=== PATIENT | female | born 1960 | race Caucasian/White ===

== ENCOUNTER 2022-09-20 09:41 | Outpatient (CLI) | payer MEDICAID, SELFPAY ==
--- NOTE | 2022-09-20 09:58 | USCV_ITS ---
Nadine Esquivel Age: 62 Gender: F : 1960 Exam Date: 09/20/2022 10:28 Ordering Phys: Adriana Poe HEEL LIFT GOUGER Technologist: Price Bennett [place] [facility] [place]: dyspnea BP: 130 / 84 HR: 83 Rhythm: Sinus Technical Quality: Adequate MEASUREMENTS (Male / Female) Normal Values 2D ECHO LV Diastolic Diameter PLAX 5.6 cm 4.2 - 5.9 / 3.9 - 5.3 cm LV Systolic Diameter PLAX 4.2 cm IVS Diastolic Thickness 1.3 cm 0.6 - 1.0 / 0.6 - 0.9 cm IVS Systolic Thickness 1.7 cm LVPW Diastolic Thickness 1.5 cm 0.6 - 1.0 / 0.6 - 0.9 cm LVPW Systolic Thickness 1.5 cm LVOT Diameter 2.0 cm LV Ejection Fraction 2D Teich 49.9 % LV Ejection Fraction MOD 2C 47.2 % LV Ejection Fraction 2C AL 46.2 % LA Diameter 3.7 cm LA Width 3.1 cm LA Height 4.9 cm RA Width 3.5 cm RA Height 4.8 cm Aorta at Sinotubular Diameter 2.4 cm IVC Diameter 1.8 cm M-MODE Aortic Annulus Diameter 2.8 cm LA Ao Ratio MM 1.3 MV E Point Septal Separation 1.4 cm DOPPLER AV Peak Velocity 151.0 cm/s LVOT Peak Velocity 110.0 cm/s AV Area Cont Eq vti 2.2 cm squared AV Area Cont Eq pk 2.4 cm squared MV Peak Velocity 181.0 cm/s MV Area PHT 5.0 cm squared Mitral E to A Ratio 0.7 MV E' Velocity 41.5 cm/s Mitral E to MV E' Ratio 18.6 Mitral E to LV E' Lateral Ratio 16.9 Mitral E to LV E' Septal Ratio 21.1 TR Peak Velocity 261.0 cm/s TR Peak Gradient 27.2 mmHg TR Mean Velocity 219.9 cm/s TR Mean Gradient 20.0 mmHg TR Velocity Time Integral 60.3 cm Right Atrial Pressure 3.0 mmHg Pulmonary Artery Systolic Pressu 30.2 mmHg PV Peak Velocity 139.0 cm/s RV Acceleration Time 0.1 s RV Ejection Time 0.2 s RV AcT/ET 0.3 FINDINGS Left Ventricle Left ventricle is normal in size. LV systolic function is normal with EF of 50 to 55%. No regional wall motion abnormalities are seen. Grade 1 diastolic dysfunction. Right Ventricle Normal in size and function Right Atrium Normal in size Left Atrium Normal in size Mitral Valve Structurally normal mitral valve. Trace mitral regurgitation. Aortic Valve Structurally normal aortic valve. No significant stenosis or regurgitation seen. Tricuspid Valve Mild tricuspid regurgitation. Pulmonary artery systolic pressure is normal. Pulmonic Valve Not well-visualized Pericardium Normal Aorta Normal in size IVC Appears to be normal CONCLUSIONS LV systolic function is normal with EF of 50 to 55% Grade 1 diastolic dysfunction Trace mitral regurgitation Mild tricuspid regurgitation No comparison studies are available Juancho Yee MD (Electronically Signed) Final Date: 22 September 2022 20:42 S
== END 2022-09-20 09:42 | disposition home or self-care (01) ==
LOC: RAD 09:45
PROVIDERS: PCP Nurse Practitioner Family; Visit Provider Nurse Practitioner Family
DX: R06.00 Dyspnea, unspecified (principal)
CPT/HCPCS: 93306

== ENCOUNTER 2023-05-24 10:33 | Outpatient (CLI) | payer MEDICAID, SELFPAY ==
--- NOTE | 2023-05-24 | ECG_ITS ---
[facility] Test Date: 2023-05-24 Pat Name: Nadine Esquivel Department: Room: Gender: Female Human Resources Generalist: Devonte Ingram : 1960 Requested By: Nirmala Geller Order Number: [id number] Isidra MD: Nirmala Geller M.D. Interpretive Statements NAME OF STUDY: LEXISCAN SESTAMIBI STRESS TEST INDICATION: Dyspnea on Exertion PROCEDURE: At the baseline, the blood pressure was 159/100 mmHg, oxygen saturation 95% with a heart rate of 63 beats per min. The electrocardiogram showed sinus rhythm, normal axis. Possible old inferior infarct. Nonspecific T wave changes. The Lexiscan was infused over a period of 20 seconds. A total of 0.4 milligrams of Lexiscan was infused. The stress phase was continued for a total of 5 minutes. Heart rate at the end of the stress phase was 72 bpm, oxygen saturation 94% with a blood pressure 157/108 mmHg. The EKG at the peak infusion revealed no significant ST-T wave changes. Sestamibi was injected 20 seconds after the Lexiscan infusion. Blood pressure at the end of the recovery phase was 170/97 mmHg, oxygen saturation 94% with a heart rate of 69 beats per minute. CONCLUSION: 1. No significant EKG changes with the LexiScan infusion. 2. No LexiScan induced chest pain or cardiac arrhythmia. 3. Normal blood pressure and heart rate response. 4. Sestamibi/sestamibi perfusion scan pending; see separate report. Electronically Signed On 05-29-2023 11:00:44 CDT by Nirmala Geller M.D. [id number]
[2023-05-24 11:14] VITALS: BMI 37.5
--- NOTE | 2023-05-24 11:14 | NMCV_ITS ---
NM terese perf SPECT r/s* [id number] Nadine Esquivel Age: 63 Gender: F : 1960 Exam Date: 05/24/2023 12:02 Ordering Phys: Nirmala Geller MD ([email or web address]) Technologist: FRANCES Londono Exam Location: [facility] Indications: SHORTNESS OF BREATH STRESS TEST Please see separate stress test report in [facility] for full findings IMAGE PROTOCOL Rest/Stress 1 Lexiscan Day Radiopharmaceutical Dose (mCi) Administration Site Administered by Rest: Tc-99m 11.0 IV FRANCES Cueva Sestamibi Stress:Tc-99m 33.0 IV FRANCES Londono Sestamigera Rest: 24-May-2023 60 Discovery 630 Stress: 24-May-2023 30 Discovery 630 0.4mg Lexiscan. Supine position only as patient was unable to lay prone. SPECT RESULTS Technical Quality: Excellent Raw Data Analysis: Normal Image Corrections: No attenuation or motion correction applied Summed Stress Score: 2 Summed Rest Score: 1 Summed Difference Score: 1 PERFUSION FINDINGS SPECT images demonstrate homogeneous tracer distribution throughout the myocardium. FUNCTIONAL RESULTS (calculated via Gated SPECT) Stress Image LV EF (%): 63 Stress EDV (mL):119 TID: 1.01 Stress ESV (mL):44 FUNCTIONAL FINDINGS: The left ventricle is normal in size. Transient Ischemia Dilatation of 1. The left ventricular ejection fraction is normal with a value of 63%. There is normal left ventricular wall thickening. Normal end-diastolic end-systolic volumes. IMPRESSIONS 1. Myocardial perfusion imaging is normal. 2. Overall left ventricular systolic function is normal without regional wall motion abnormalities, LVEF=63%. 3. EKG Portion of the study will be reported separately. 4. Scan indicates low risk for cardiac events. Nirmala Geller MD (Electronically Signed) Final Date: 29 May 2023 10:51 S
[2023-05-24] MEDS: regadenoson 0.4 Mg/5 ml Syringe IVP (13:06)
[2023-05-24 13:19] VITALS: BP 170/97; PULSE 69
== END 2023-05-24 10:34 | disposition home or self-care (01) ==
LOC: CDL 10:34
PROVIDERS: PCP Nurse Practitioner Family; Visit Provider Internal Medicine Cardiovascular Disease
DX: R06.09 Other forms of dyspnea (principal)
CPT/HCPCS: 36415; 78452; 93017; 96374; A9500; J2785

== ENCOUNTER 2023-07-19 09:53 | Outpatient (CLI) | payer MEDICAID, SELFPAY ==
--- NOTE | 2023-07-19 10:00 | CT_ITS ---
WS: [id number] LDCT LUNG CANCER SCREENING TECHNIQUE: Noncontrast CT of the chest with coronal and sagittal reformatted images. CLINICAL INFORMATION: NICOTINE DEPENDENCE, CIGARETTES COMPARISON: None. DLP: 178.49 mGy.cm DIvol: Mean CTDIvol: 4.40 (mGy) All CT scans at [facility] use at least one of these dose optimization techniques: automat ed exposure control; mA and/or kV adjustment per patient size (includes targeted exams where dose is matched to clinical indication); or iterative reconstruction. FINDINGS: 4 mm noncalcified nodule RIGHT upper lobe. Few calcified granulomas. Normal caliber thoracic aorta. Aortic calcification. No mediastinal or hilar lymphadenopathy. No axil sathya lymphadenopathy. Adrenal glands are normal. Small esophageal hernia. IMPRESSION: CT/CT lung screening [id number] LUNG-RADS: 2-Benign Appearance or Behavior FOLLOW UP: 12 Month: Continue annual screening with LDCT
--- NOTE | 2023-07-19 10:00 | US_ITS ---
WS: [id number] Complete ABDOMINAL ULTRASOUND HISTORY: TYPE 2 DM W/O COMPLICATION/EVAL FATTY LIVER OR CIRRHOSIS COMPARISON: None available. Liver: 17.8 cm in length. Mildly enlarged liver. Coarse echotexture. No mass or bile duct dilatation. Portal Vein: Normal hepatopetal flow with monophasic waveform. Gallbladder: Normally distended gallbladder with no stones or wall thickening. CBD: 0.5 cm Pancreas: Partially obscured. Head and tail are not visualized. The body is normal. Right kidney: 10.1 cm x 5.0 x 4.1 cm. Cortex:1.0 cm. Normal size and echogenicity. No hydronephrosis or mass. Left kidney: 10.4 cm x 4.8 cm x 5.4 cm. Cortex: 1.1 cm. Normal size and echogenicity. No hydronephrosis or mass. Spleen: Normal. Aorta and IVC: Unremarkable abdominal aorta and IVC. Impression: 1. Mild hepatomegaly and hepatic steatosis. 2. Normal gallbladder. 3. Normal kidneys. No obstruction.
== END 2023-07-19 09:54 | disposition home or self-care (01) ==
LOC: RAD 09:53
PROVIDERS: PCP Nurse Practitioner Family; Visit Provider Nurse Practitioner Family
DX: Z12.2 Encounter for screening for malignant neoplasm of respiratory organs (principal); F17.210 Nicotine dependence, cigarettes, uncomplicated; E11.9 Type 2 diabetes mellitus without complications; K76.0 Fatty (change of) liver, not elsewhere classified; R16.0 Hepatomegaly, not elsewhere classified
CPT/HCPCS: 71271; 76700

== ENCOUNTER → 2024-02-25 13:27 | Outpatient (BNVA) | payer MEDICAID, SELFPAY | PROVIDERS: PCP Nurse Practitioner Family; Referring Provider Nurse Practitioner Family; Visit Provider Physician Assistant | DX: S52.501A Unspecified fracture of the lower end of right radius, initial encounter for closed fracture; W17.89XA Other fall from one level to another, initial encounter | CPT/HCPCS: 73110 ==

== ENCOUNTER 2024-04-17 06:00 | Outpatient (CLI) | payer OTHER, SELFPAY | END 2024-04-17 23:59 | disposition home or self-care (01) | LOC: SPT 04-20 13:47 | PROVIDERS: Visit Provider Physician Assistant | DX: Z46.89 Encounter for fitting and adjustment of other specified devices (principal); S52.501S Unspecified fracture of the lower end of right radius, sequela; X58.XXXS Exposure to other specified factors, sequela | CPT/HCPCS: L3908 ==

== ENCOUNTER → 2024-04-17 10:28 | Outpatient (BNVA) | payer OTHER, SELFPAY | PROVIDERS: PCP Nurse Practitioner Family; Visit Provider Physician Assistant | DX: S52.501A Unspecified fracture of the lower end of right radius, initial encounter for closed fracture (principal); X58.XXXA Exposure to other specified factors, initial encounter | CPT/HCPCS: 73110 ==

== ENCOUNTER → 2024-06-11 11:33 | Outpatient (BNVA) | payer OTHER, SELFPAY | PROVIDERS: Visit Provider Physician Assistant | DX: S52.501A Unspecified fracture of the lower end of right radius, initial encounter for closed fracture (principal); X58.XXXA Exposure to other specified factors, initial encounter | CPT/HCPCS: 73110 ==

== ENCOUNTER 2025-08-29 09:03 | Emergency (ER) | payer OTHER, MEDICAID, SELFPAY ==
[2025-08-29 09:05] VITALS: BP 159/90; PULSE 72; RESP 20; TEMP 36.4; O2SAT 94; BMI 43.8
--- OUTSIDE RECORDS SUMMARY | 2025-08-29 09:06 | XMS_ITS | Data Portability ---
Author Organization [place] [facility] [place], ADMIN Address [address] [place] [address] Care Team Providers Care Linter Drier Operator Name Role Phone TU FLOYD Primary Care Provider Assessment Encounter Date Assessment Date Assessment LastModified by Organization Details LastModified Time 06/10/2023 06/10/2023 63 y/o with past medical history of CHF, COPD, asthma, hypertension, hyperlipidemia, smoker and obesity presents today with a referral from Kathy Floyd for evaluation of heart failure. Patient seen valet parking attendant in [place] one time but did not want to go back to them. Patient report when she was in her 20s she had close field and her heart. About a year ago she was diagnosed with heart failure. 04/22/2023 BUN 37 creatinine 1.41 hemoglobin 14.6 hematocrit 45.3 BNP 262 06/01/2023 sodium 143 potassium 4.6 -05/24/2023 nuclear stress test 1. myocardial perfusion imaging is normal. 2. Overall left ventricular systolic function is normal without regional wall motion abnormalities, LVEF equals 63%. 3. EKG portion of study will be reports that separately. 4 scan indicates low risk for cardiac events. EKG portion showed no significant EKG changes with Lexiscan infusion. Normal blood pressure and heart rate response. -05/09/2023 pulse oximetry study: ODE: 75 DELFINA: 18 events. Considerations. Oxygen. It appears this patient qualifies for nocturnal oxygen per Medicare guidelines 04/30/2023 EKG shows sinus rhythm rate of 77. Length left axis deviation. Nonspecific ST and T wave changes. Possible LVH. -09/22/2022 echocardiogram: EF of 50-55%. Grade 1 diastolic dysfunction. Trace mitral regurgitation. Mild tricuspid regurgitation. [email or web address] Not available 06/12/2023 17:36:52 Plan of Treatment Reminders Order Date Submit Date Provider Last Modified By Organization Details Last Modified Time Details Appointments None recorded. Lab BMP, serum or plasma [address] (Lab)_do Not Use, [address], [place], [address], 14:14:54 magnesium, serum or plasma [address] (Lab)_do Not Use, [address], [place], [address], 14:14:54 pro BNP (pro B-type natriuretic peptide), serum or plasma [address] (Lab)_do Not Use, [address], [place], [address], 14:14:54 T3, free, serum or plasma [address] (Lab)_do Not Use, [address], [place], [address], 14:14:54 T4, free, serum [address] (Lab)_do Not Use, [address], [place], [address], 14:14:54 TSH, serum or plasma [address] (Lab)_do Not Use, [address], [place], [address], 14:14:54 Referral None recorded. Procedures None recorded. Surgeries None recorded. Imaging None recorded. Medication Orders None recorded. Patient TargetsNo targets recorded. Patient Instructions Encounter Date Encounter Id Patient Instructions Last Modified By Organization Details Last Modified Time 06/10/2023 [id number] smoking cessatio n counseling, greater than 3 minutes up to 10 minutes* Not available 06/10/2023 13:06:20 When You Want to Lose Weight: Care Instructions [email or web address] Not available 06/12/2023 17:40:40 learning about healthy weight [email or web address] Not available 06/12/2023 17:40:40 body mass index: care instructions Not available 06/12/2023 17:40:40 eating healthy foods: care instructions [email or web address] Not available 06/12/2023 17:40:40 heart failure: care instructions [email or web address] Not available 06/12/2023 17:39:45 Reason for Referral None Reported. Results Created Date Observation Date Name Description Value Unit Range Abnormal Flag Note LastModifiedBy Organization Detail LastModifiedTime 06/10/2005/24/2023 NM, myoca rdial perfu mira scan No observ ation record ed. Not Available 2022 17:40:32 06/10/20 23 09/20/2022 US, echoc ardio gram No observ ation record ed. [email or web address] Not Available 2022 17:40:36 06/10/20 23 2023 elect rocar diogr am No observ ation record ed. Not Available 2022 17:40:33 06/10/2004/30/2023 XR, chest , 2 view No observ ation record ed. BARCODE Not Available 2022 12:56:09 06/10/20 23 05/08/2023 pulse oxime try* No observ ation record ed. BARCODE Not Available 2022 12:57:30 Result Notes None recorded. Problems Name Problem SNOMED Code Status Onset Date Resolution Date Notes Provider Name and Address Organization Details Recorded Time Heart failure 22471651 Active 2022 Brook Christie LPN null, [place] [facility] [place] 12:35:34 Diabetes mellitus 16896028 Active 2022 REMIGIO Sanchez, [address] 3 12:35:39 Hypertensive disorder 03983017 Active 2022 REMIGIO Sanchez, [address] 3 12:35:45 Notes:Some problems listed i n Documents: #[id number], #[id number], #[id number], #[id number], #[id number] could not be added to this patient's chart. Please review these documents and add these problems to the patient's chart manually as needed. Problem Notes None recorded. Medical Equipment None Reported. Allergies Allergen ID Allergen Name Allergen Category Reaction Reaction Severity Criticality Documentation Date Start Date Code Code System Note Provider Name and Address Organization Details Recorded Time 851696 codeine medicatio n Not available Not available Not available 06/10/2023 2670 RxNorm REMIGIO Sanchez, [address] 3 12:33:56 Medications Name Sig Start Date Stop Date Status Note LastModified by Organization Details LastModified Time furosemide 40 mg tablet TAKE 1 TABLET BY MOUTH EVERY DAY active Not Available Not Available No t Available atorvastati n 40 mg tablet TAKE 1 TABLET BY MOUTH DAILY active Not Available Not Available No t Available potassium chloride ER 10 mEq capsule,ext ended release TAKE 1 CAPSULE BY MOUTH EVERY DAY active Not Available Not Available No t Available nicotine 14 mg/24 hr daily transdermal patch Apply 1 patch every day by transderm al route. 06/10 completed Not Available Not Available Not Available albuterol sulfate 2.5 mg/3 mL (0.083 %) solution for nebulizatio n USE CONTENTS OF 1 VIAL VIA NEBULIZER EVERY 6 HOURS NEEDED active Not Available Not Available No t Available OneTouch Ultra Test strips USE TO CHECK BLOOD SUGAR DAILY active Not Available Not Available No t Available glipizide ER 2.5 mg tablet, extended release 24 hr TAKE 1 TABLET BY MOUTH DAILY active Not Available Not Available No t Available Advair Diskus 250 mcg-50 mcg/dose powder for inhalation USE ONE INHALATIO N BY MOUTH TWICE DAILY active Not Available Not Available No t Available nicotine 21 mg/24 hr daily transdermal patch Apply 1 patch every day by transderm al route. active Not Available Not Available No t Available hydrochloro thiazide 25 mg tablet TAKE 1 TABLET BY MOUTH EVERY DAY active Not Available Not Available No t Available levofloxaci n 500 mg tablet TAKE 1 TABLET BY MOUTH EVERY DAY FOR 10 DAYS active Not Available Not Available No t Available methylpredn isolone 4 mg tablets in a dose pack TAKE 6 TABLETS BY MOUTH ON DAY 1, THEN DECREASE BY 1 TABLET DAILY FOR 5 MORE DAYS active Not Available Not Available No t Available lisinopril 40 mg tablet TAKE 1 TABLET BY MOUTH EVERY DAY active Not Available Not Available No t Available cefdinir 300 mg capsule TAKE 1 CAPSULE BY MOUTH EVERY 12 HOURS FOR 10 DAYS active Not Available Not Available No t Available metformin ER 500 mg tablet,exte nded release 24 hr TAKE 1 TABLET BY MOUTH EVERY MORNING active Not Available Not Available No t Available Ventolin HFA 90 mcg/actuati on aerosol inhaler USE 2 INHALATIO NS BY MOUTH EVERY 4 HOURS NEEDED active Not Available Not Available No t Available escitalopra m 10 mg tablet TAKE 1 TABLET BY MOUTH EVERY DAY active Not Available Not Available No t Available escitalopra m 20 mg tablet TAKE 1 TABLET BY MOUTH DAILY active Not Available Not Available No t Available Mucinex DM 60 mg-1,200 mg tablet,exte nded release 12 hr TAKE 1 TABLET BY MOUTH TWICE DAILY active Not Available Not Available No t Available Aerochamber Plus Flow-Vu Use as directed. active Not Available Not Available No t Available Farxiga 10 mg tablet TAKE 1 TABLET BY MOUTH DAILY active Not Available Not Available No t Available OneTouch Ultra2 Meter USE TO CHECK BLOOD SUGAR active Not Available Not Available No t Available OneTouch Delica Plus Lancet 30 gauge USE TO BLOOD SUGAR DAILY active Not Available Not Available No t Available Breztri Aerosphere 160 mcg-9mcg-4. 8mcg/actuat ion HFA aerosol inhaler Inhale 2 puffs twice a day by inhalatio n route. active Not Available Not Available No t Available Vitals Date Recorded Body height Body mass index (BMI) Body weight Oxygen saturation Heart rate Systolic And Diastolic Provider Name and Address Organization Details Last Updated DateTime 3 170.18 cm 43.4 kg/m2 843017. 37 g 99 % 79 /min 124/76 mm[Hg] Brook Christie LPN [place] [facility] [place] 3 12:33:29 Social History Question Answer Notes LastModified by Organizat ion Details LastModified Time Tobacco Smoking Status Current Every Day Smoker Brook Christie LPN [facility], [place] - [facility] [place] 06/10/2023 12:35:02 What Is Your Level Of Caffeine Consumption? Moderate Information not available 06/10/2023 What Type Of Diet Are You Following? REGULAR Information not available 06/10/2023 What Was The Date Of Your Most Recent Tobacco Screening? 06/10/2023 Information not available 06/10/2023 How Much Tobacco Do You Smoke? 1 PPD Information not available 06/10/2023 How Many Years Have You Smoked Tobacco? 40 Information not available 06/10/2023 Sex: Unknown Functional Status Question Answer Note LastModified by Organization D etails LastModified Time What is your level of alcohol consumption? None Information not available 06/10/2023 What is your exercise level? None Information not available 06/10/2023 Mental Status None recorded. Family History Nothing Reported. Medical History Condition Response HEART DISEASE Y DIABETES Y HYPERTENSION Y Gynecological HistoryNo gynecological history recorded. Obstetrics History GPAL:G 0 P 0 0 0 0 Past Encounters Encounter ID Performer Location Encounter Start Date Encounter Closed Date Diagnosis/Indication Diagnosis SNOMED-CT Code Diagnosis ICD10 Code Diagnosis IMO Codes Diagnosis Note [id number] KRISTEL ALEXIS MD PBPM_Card [facility] [address] [place] [phone] 06/10/2023 11:55:39 06/10/2023 13:51:51 Congestive heart failure 58776318 I50.9 Diastolic heart failure. Repeat labs.Darleen nue lisinopril 40 mg dailyConti nue Farxiga 10 mg dailyconti nue furosemide 40 mg daily Discussed importance of taking diuretics and blood pressure meds every day as directed. Importance of sodium and fluid restrictio n to 1500ml PO daily if edema is worsened or if shortness of breath. Report weight gain of 4 pounds in 2 days or 5 pounds or more in one week. Essential hypertension 11315857 I10 Stable Chronic ob structive pulmonary disease 78828152 J44.9 managed by primary Asthma 083816247 J45.90 9 Managed by primary Smoker 13401189 F17.200 Morbid obesity 725986326 E66.01 Health Concerns Section Related Observation LastModified by Organization Detai ls LastModified Time None Recorded Concern Status LastModified by Organization Details LastModified Time None Recorded Advance Directives Directive None Recorded Payers Insurance Date Sequence Insurance Name Policy Number Policy Sofia Covered Member ID Sofia Member ID Guarantor Name 08/03/2025 1 [place] Nadine Stefani Esquivel [id number] Nadine Stefani Esquivel 08/09/2023 1 [facility]EPO) [id number] Nadine Alvin [id number] Nadine L Alvin 07/27/2025 1 [facility] [place] - [place] [facility] Nadine Alvin [id number] Nadine Esquivel Notes Date Note Type Note Provider Name and Address Organization Details Recorded Time 06/10/2023 text/html CHF F/UReported by PatientHPIFor weight changes, patient reportsgain 36 in 4 monthslbs. For nocturnal symptoms, patient reportsorthopnea present (3 pillows)andpnd presentbut reportsno nocturia. For dietary compliance, patient reportsdoes not comply with low sodium dietanddoes not comply to free water restrictions(pt reports she has not received education on low sodium diet). For aggravating factors, patient reportsworse with activity,worse with bending forward, andworse with position change. For associated symptoms, patient reportsshortness of breath,decline in exercise capacity, andfatiguebut reportsno chest discomfort,no associated palpitations, andno associated dizziness. For functional capacity, patient reportsnyha iii (dyspnea climbing < 1 flight stairs). For alleviating factors, patient reportsrelieved with rest.ROS as noted in the HPI 63 y/o with past medical history of CHF, COPD, asthma, hypertension, hyperlipidemia, smoker and obesity presents today with a referral from Kathy Floyd for evaluation of heart failure. Patient seen valet parking attendant in [place] one time but did not want to go back to them. Patient report when she was in her 20s she had close field and her heart. About a year ago she was diagnosed with heart failure. 04/22/2023 BUN 37 creatinine 1.41 hemoglobin 14.6 hematocrit 45.3 BNP 262/ sodium 143 potassium 4.6 -05/24/2023 nuclear stress test1. myocardial perfusion imaging is normal. 2. Overall left ventricular systolic function is normal without regional wall motion abnormalities, LVEF equals 63%. 3. EKG portion of study will be reports that separately. 4 scan indicates low risk for cardiac events. EKG portion showed no significant EKG changes with Lexiscan infusion. Normal blood pressure and heart rate response.-05/09/2023 pulse oximetry study: ODE: 75 DELFINA: 18 events. Considerations. Oxygen. It appears this patient qualifies for nocturnal oxygen per Medicare guidelines04/30/2023 EKG shows sinus rhythm rate of 77. Length left axis deviation. Nonspecific ST and T wave changes. Possible LVH.-09/22/2022 echocardiogram: EF of 50-55%. Grade 1 diastolic dysfunction. Trace mitral regurgitation. Mild tricuspid regurgitation. TAYLER TRAORE, NURSE PRACTICAL-C [address] [place], [phone], [address] 06/12/2023 17:40:49 OBGyn Episode No OBEpisode recorded.
--- OUTSIDE RECORDS SUMMARY | 2025-08-29 09:06 | XMS_ITS | Continuity of Care Document ---
Author Organization [facility], [facility] Address [address] [place] [address] Care Team Providers Care Pupil Personnel Services Director Name Role Phone LUISA JAIMES Hat And Cap Opener [facility] EUN BASHIR Community Health Worker [facility] Assessment No assessment recorded. Plan of Treatment Reminders Order Date Submit Date Provider Last Modified By Organization Details Last Modified Time Details Appointments None recorded. Lab None recorded. Referral None recorded. Procedures None recorded. Surgeries None recorded. Imaging None recorded. Medication Orders trazodone 100 mg tablet 2024 [address] [place], [place], [address] [place], [address], 11:26:43 Patient TargetsNo targets recorded. Patient Instructions Encounter Date Encounter Id Patient Instructions Last Modified By Organization Details Last Modified Time 06/28/2025 [id number] heart-healthy diet: care instructions Not available 06/28/2025 17:31:49 walking for exercise: care instructions Not available 06/28/2025 17:31:49 Reason for Referral None Reported. Results Created Date Observation Date Name Description Value Unit Range Abnormal Flag Note LastModifiedBy Organization Detail LastModifiedTime 06/14/2006/14/2025 DERM- ID cutibacteriu m acnes DETECT ED abnormal Not Available [employer] [address] [place] [address], [address], 06/17/2025 09:59:12 06/14/2006/14/2025 DERM- ID pseudomonas aeruginosa DETECT ED abnormal Not Available [facility] [address] [place] [address], [id number], 06/17/2025 09:59:12 06/14/2006/14/2025 DERM- ID corynebacter ium minutissimum , striatum, jeikeium DETECT ED abnormal Not Available [address], [address], 06/17/2025 09:59:12 06/14/2006/14/2025 DERM- ID malassezia (spp., globosa, restricta) DETECT ED abnormal Not Available [address], [address], 06/17/2025 09:59:12 06/14/2006/14/2025 DERM- ID finegoldia magna NOT DETECT ED Not Available [facility] [address] [place] [address], [id number], 06/17/2025 09:59:12 06/14/2006/14/2025 DERM- ID staph haemolyticus , lugdunensis, saprophyticu s NOT DETECT ED Not Available [facility] [address] [place] [address], [address], 06/17/2025 09:59:12 06/14/2006/14/2025 DERM- ID fusobacteriu m nucleatum, necrophorum NOT DETECT ED Not Available [employer] [facility] [address] [place] [address], [address], 06/17/2025 09:59:12 06/14/2006/14/2025 DERM- ID escherichia coli NOT DETECT ED Not Available [facility] [address] [place] [address], [address], 06/17/2025 09:59:12 06/14/2006/14/2025 DERM- ID staphylococc us epidermidis NOT DETECT ED Not Available [facility] [address] [place] [address], [address], 06/17/2025 09:59:12 06/14/2006/14/2025 DERM- ID microsporum spp. NOT DETECT ED Not Available [facility] [address] [place] [address], [address], 06/17/2025 09:59:12 06/14/2006/14/2025 DERM- ID aspergillus spp. (fumigatus, niger, terreus, versicolor) NOT DETECT ED Not Available [facility] [address] [place] [address], [address], 06/17/2025 09:59:12 06/14/2006/14/2025 DERM- ID peptostrepto coccus prevotii, anaerobius, asaccharolyt icus NOT DETECT ED Not Available [employer] [facility] [address] [place] [address], [address], 06/17/2025 09:59:12 06/14/2006/14/2025 DERM- ID streptococcu s agalactiae NOT DETECT ED Not Available [facility] [facility] [address] [place] [address], 78[address], 06/17/2025 09:59:12 06/14/2006/14/2025 DERM- ID neisseria gonorrhoeae NOT DETECT ED Not Available [facility] [facility] [address] [place] [address], [address], 06/17/2025 09:59:12 06/14/2006/14/2025 DERM- ID klebsiella oxytoca, pneumoniae NOT DETECT ED Not Available [facility] [address] [place] [address], [address], 06/17/2025 09:59:12 06/14/2006/14/2025 DERM- ID peptoniphilu s harei, ivorii NOT DETECT ED Not Available [facility] [facility] [address] [place] [address], [address], 06/17/2025 09:59:12 06/14/2006/14/2025 DERM- ID edwin auris NOT DETECT ED Not Available [facility] [address] [place] [address], [address], 06/17/2025 09:59:12 06/14/2006/14/2025 DERM- ID morganella morganii NOT DETECT ED Not Available [facility] [address] [place] [address], [id number], 06/17/2025 09:59:12 06/14/2006/14/2025 DERM- ID trichophyton (soudanense, violaceum, tonsurans, interdigital e, mentagrophyt es) NOT DETECT ED Not Available [facility] [facility] [address] [place] [address], [id number], 06/17/2025 09:59:12 06/14/2006/14/2025 DERM- ID edwin glabrata NOT DETECT ED Not Available [facility] [facility] [address] [place] [address], [address], 06/17/2025 09:59:12 06/14/2006/14/2025 DERM- ID edwin krusei NOT DETECT ED Not Available [facility] [facility] [address] [place] [address], 08134, 06/17/2025 09:59:12 06/14/2006/14/2025 DERM- ID mycoplasma gentalium, hominis NOT DETECT ED Not Available [facility] [address] [place] [address], [address], 06/17/2025 09:59:12 06/14/2006/14/2025 DERM- ID hsv2 NOT DETECT ED Not Available [facility] [address] [place] [address], [id number], 06/17/2025 09:59:12 06/14/2006/14/2025 DERM- ID acinetobacte r baumannii NOT DETECT ED Not Available [facility] [address] [place] [address], [address], 06/17/2025 09:59:12 06/14/2006/14/2025 DERM- ID clostridium perfringens NOT DETECT ED Not Available [facility] [address] [place] [address], 234[address], 06/17/2025 09:59:12 06/14/2006/14/2025 DERM- ID vibrio cholerae, parahaemolyt icus, vulnificus NOT DETECT ED Not Available [facility] [address] [place] [address], [address], 06/17/2025 09:59:12 06/14/2006/14/2025 DERM- ID haemophilus influenzae NOT DETECT ED Not Available [facility] [address] [place] [address], [address], 06/17/2025 09:59:12 06/14/2006/14/2025 DERM- ID enterobacter cloacae complex NOT DETECT ED Not Available [facility] [address] [place] [address], 68[address], 06/17/2025 09:59:12 06/14/2006/14/2025 DERM- ID ralstonia spp. (pickettii) NOT DETECT ED Not Available [facility] [address] [place] [address], [address], 06/17/2025 09:59:12 06/14/2006/14/2025 DERM- ID serratia marcescens NOT DETECT ED Not Available [facility] [address] [place] [address], 6[address], 06/17/2025 09:59:12 06/14/2006/14/2025 DERM- ID streptococcu s pyogenes (group A) NOT DETECT ED Not Available [facility] [address], [address], 06/17/2025 09:59:12 06/14/2006/14/2025 DERM- ID mycobacteriu m abcessus, chelonae, fortuitum NOT DETECT ED Not Available [facility] [address] [place] [address], [address], 06/17/2025 09:59:12 06/14/2006/14/2025 DERM- ID cutibacteriu m avidum/granu losum NOT DETECT ED Not Available [facility] [address], [address], 06/17/2025 09:59:12 06/14/2006/14/2025 DERM- ID proteus mirabilis NOT DETECT ED Not Available [facility] [address] [place] [address], 86[address], 06/17/2025 09:59:12 06/14/2006/14/2025 DERM- ID staphylococc us aureus NOT DETECT ED Not Available [facility] [address] [place] [address], 76690, 06/17/2025 09:59:12 06/14/2006/14/2025 DERM- ID enterococcus faecalis NOT DETECT ED Not Available [facility] [address] [place] [address], [address], 06/17/2025 09:59:12 06/14/2006/14/2025 DERM- ID prevotella (bivia, intermedia, nigrescens) NOT DETECT ED Not Available [facility] [address] [place] [address], 6[address], 06/17/2025 09:59:12 06/14/2006/14/2025 DERM- ID edwin tropicalis, parapsilosis NOT DETECT ED Not Available [facility] [address] [place] [address], 6[address], 06/17/2025 09:59:12 06/14/2006/14/2025 DERM- ID klebsiella aerogenes NOT DETECT ED Not Available [employer] [facility] [address] [place] [address], 270[address], 06/17/2025 09:59:12 06/14/2006/14/2025 DERM- ID bacteroides fragilis NOT DETECT ED Not Available [employer] [facility] [address] [place] [address], 56[address], 06/17/2025 09:59:12 06/14/2006/14/2025 DERM- ID anaerococcus prevotii, vaginalis NOT DETECT ED Not Available [employer] [facility] [address] [place] [address], 89673, 06/17/2025 09:59:12 06/14/2006/14/2025 DERM- ID proteus vulgaris NOT DETECT ED Not Available [facility] [facility] [address] [place] [address], 90[address], 06/17/2025 09:59:12 06/14/2006/14/2025 DERM- ID hsv1 NOT DETECT ED Not Available [facility] [facility] [address] [place] [address], 02253, 06/17/2025 09:59:12 06/14/2006/14/2025 DERM- ID fusarium solani, oxysporum NOT DETECT ED Not Available [facility] [address] [place] [address], 31654, 06/17/2025 09:59:12 06/14/2006/14/2025 DERM- ID enterococcus faecium NOT DETECT ED Not Available [facility] [facility] [address] [place] [address], 28042, 06/17/2025 09:59:12 06/14/20 25 06/14/2025 DERM- ID varicella zoster virus (vzv) (hhv3) NOT DETECT ED Not Available [facility] [address] [place] [address], 255[address], 06/17/2025 09:59:12 06/14/2006/14/2025 DERM- ID HPV 16 NOT DETECT ED Not Available [facility] [address] [place] [address], 01485, 06/17/2025 09:59:12 06/14/2006/14/2025 DERM- ID edwin albicans NOT DETECT ED Not Available [facility] [address] [place] [address], 086[address], 06/17/2025 09:59:12 06/14/2006/14/2025 DERM- ID trichophyton rubrum NOT DETECT ED Not Available [facility] [address] [place] [address], 8[address], 06/17/2025 09:59:12 06/14/2006/14/2025 DERM- ID streptococcu s pneumoniae NOT DETECT ED Not Available [facility] [facility] [address] [place] [address], 60[address], 06/17/2025 09:59:12 06/14/2006/14/2025 DERM- ID citrobacter freundii NOT DETECT ED Not Available [facility] [address] [place] [address], [address], 06/17/2025 09:59:12 06/14/2006/14/2025 DERM- ID salmonella enterica NOT DETECT ED Not Available [facility] [address] [place] [address], 00176, 06/17/2025 09:59:12 06/14/2006/14/2025 DERM- ID HPV 18 NOT DETECT ED Not Available [facility] [address] [place] [address], 12861, 06/17/2025 09:59:12 06/14/2006/14/2025 DERM- ID mycobacteriu m tuberculosis NOT DETECT ED Not Available [employer] [address] [facility] [address], [address], 06/17/2025 09:59:12 06/14/2006/14/2025 DERM- ID sporothrix schenckii NOT DETECT ED Not Available [employer] [address] [place] [address] [address], [address], 06/17/2025 09:59:12 Result Notes None recorded. Problems Name Problem SNOMED Code Status Onset Date Resolution Date Notes Provider Name and Address Organization Details Recorded Time Acute sinusiti s 13023137 Completed 200402/26/2017 Category : DD; Medicine Descript ion: SINUSITI S ACUTE; Display in Medcin: YES; Display in ESB: YES; Confiden tiality Level: Level [facility] 7 10:04:47 Dizzines s and giddines s 726910372 Completed 200402/26/2017 Category : DD; Medicine Descript ion: dizzines s; Display in Medcin: YES; Display in ESB: YES; Confiden tiality Level: Level 1 [facility] 7 10:05:26 Tracheob ronchiti s 33814911 Completed 200402/26/2017 Category : DD; Medicine Descript ion: TRACHEOB RONCHITI S; Display in Medcin: YES; Display in ESB: YES; Confiden tiality Level: Level 1 Cordelia Mcclain LPN [facility] 7 10:04:42 Chronic obstruct angy pulmonar y disease 89711062 Active 2004 Modified By: MARIA ANTONIA DEL REAL; Category : DD; Examiner : Veronica Jensen I.; Medicine Descript ion: CHRONIC OBSTRUCT ANGY PULMONAR Y DISEASE; Display in Medcin: YES; Display in ESB: YES; Confiden tiality Level: Level 1 Not Available [facility] 4 03:27:39 Clinical finding Completed 200402/26/2017 Modified By: YAZ MARSHALL; Category : DD; Examiner : Yaz Marshall; Medicine Descript ion: LARYNGOP HARYNGEA L REFLUX; Display in Medcin: NO; Display in ESB: NO; Confiden tiality Level: Level 1 [facility] 7 10:05:08 Allergic rhinitis 21695427 Active 2004 Category : DD; Medicine Descript ion: ALLERGIC RHINITIS ; Display in Medcin: YES; Display in ESB: YES; Confiden tiality Level: Level 1 Not Available [facility] 4 03:27:39 Neves's palsy 824220424 Completed 200502/26/2017 Category : DD; Medicine Descript ion: NEVES'S PALSY; Display in Medcin: YES; Display in ESB: YES; Confiden tiality Level: Level 1 Cordelia Mcclain LPN [facility] 7 10:05:01 Family history of diabetes mellitus 932916600 Completed 200902/26/2017 Created By: VERONICA JENSEN ; Modified By: VERONICA JENSEN ; Category : DD; Examiner : VERONICA JENSEN I.; Medicine Descript ion: DIABETES MELLITUS ; Display in Medcin: NO; Display in ESB: YES; Confiden tiality Level: Level 1 Cordelia Mcclain LPN [facility] 7 10:04:51 Benign essentia l hyperten [place] 3280506 Completed 200902/26/2017 Created By: VERONICA JENSEN ; Modified By: GHAZAL PHAN; Category : DD; Examiner : VERONICA JENSEN I.; Medicine Descript ion: HYPERTEN [place] (SYSTEMI C); Display in Medcin: YES; Display in ESB: YES; Confiden tiality Level: Level 1 [facility] 7 10:05:46 Family history of Cardiova scular disease 544703116 Completed 200902/26/2017 Created By: VERONICA JENSEN ; Modified By: MARIA ANTONIA DEL REAL; Category : DD; Examiner : Veronica Jensen I.; Medicine Descript ion: reported family history ischemic heart disease before age 50; Display in Medcin: YES; Display in ESB: YES; Confiden tiality Level: Level 1 [facility] 7 10:05:23 Wheezing 52626716 Completed 200902/26/2017 Created By: VERONICA JENSEN ; Modified By: GHAZAL PHAN; Category : DD; Examiner : Veronica Jensen I.; Medicine Descript ion: wheezing [as a symptom] ; Display in Medcin: YES; Display in ESB: YES; Confiden tiality Level: Level 1 REMIGIO Lemus, [facility] 7 10:05:57 Mild intermit tent asthma 774696479 Active 2009 Created By: VERONICA JENSEN ; Modified By: GHAZAL PHAN; Category : DD; Examiner : Veronica Jensen I.; Medicine Descript ion: ASTHMA MILD INTERMIT TENT UNCOMPLI CATED; Display in Medcin: YES; Display in ESB: YES; Confiden tiality Level: Level 1 Not Available [facility] 4 03:27:39 Obesity 722906105 Active 2010 Created By: VERONICA JENSEN ; Modified By: GHAZAL PHAN; Category : DD; Examiner : VERONICA JENSEN I.; Medicine Descript ion: Obese; Display in Medcin: YES; Display in ESB: YES; Confiden tiality Level: Level 1 Not Available [facility] 4 03:27:39 Nicotine dependen ce 79058837 Active 2010 Created By: VERONICA JENSEN ; Modified By: YAZ MARSHALL; Category : DD; Examiner : Yaz Marshall; Medicine Descript ion: current smoker; Display in Medcin: NO; Display in ESB: NO; Confiden tiality Level: Level 1; Type: Diagnosi s Not Available [facility] 4 03:27:39 Hyperlip idemia 19933175 Active 2010 Created By: VERONICA JENSEN ; Modified By: VERONICA JENSEN ; Category : DD; Examiner : Veronica Jensen I.; Medicine Descript ion: DYSLIPID EMIA; Display in Medcin: YES; Display in ESB: YES; Confiden tiality Level: Level 1; Type: Diagnosi s Not Available [facility] 4 03:27:39 Long-ter m drug therapy Completed 201002/26/2017 Created By: VERONICA JENSEN ; Modified By: VERONICA JENSEN ; Category : DD; Examiner : Veronica Jensen I.; Medicine Descript ion: taking medicati on for a long time; Display in Medcin: YES; Display in ESB: YES; Confiden tiality Level: Level 1; Type: Sonia Coronadora Mcclain, [facility] 7 10:05:21 Verruca plantari s 71812550 Completed 201102/26/2017 Created By: VERONICA JENSEN ; Modified By: YAZ MARSHALL; Category : DD; Examiner : Yaz Marshall; Medicine Descript ion: Wartlike Lesions Feet Plantar; Display in Medcin: YES; Display in ESB: YES; Confiden tiality Level: Level 1; Type: Sonia Storey Johny, [facility] 7 10:06:02 Plane wart 666253799 Completed 201102/26/2017 Created By: VERONICA JENSEN ; Modified By: YAZ MARSHALL; Category : DD; Examiner : Yaz Marshall; Medicine Descript ion: WARTS COMMON; Display in Medcin: YES; Display in ESB: YES; Confiden tiality Level: Level 1; Type: Diagnosi s Cordelia Johny, [employer] [facility] 7 10:05:14 Procedur e Completed 201102/26/2017 Created By: VERONICA JENSEN ; Modified By: YAZ MARSHALL; Category : DD; Examiner : Veronica Jensen I.; Medicine Descript ion: visit for: medicati on refill; Display in Medcin: NO; Display in ESB: NO; Confiden tiality Level: Level 1; Type: Sonia Mcclain, [employer] [facility] 7 10:05:40 Sciatica 83238276 Completed 201202/26/2017 Created By: VERONICA JENSEN ; Modified By: YAZ MARSHALL; Category : DD; Examiner : Veronica Jensen I.; Medicine Descript ion: NEURITIS SCIATIC; Display in Medcin: NO; Display in ESB: NO; Confiden tiality Level: Level 1; Type: Sonia Mcclain, [employer] [facility] 7 10:05:12 Screenin g procedur e Completed 201402/26/2017 Created By: YAZ MARSHALL; Modified By: YAZ MARSHALL; Category : DD; Examiner : Yaz Marshall; Medicine Descript ion: visit for: screenin g malignan t neoplasm colon; Display in Medcin: NO; Display in ESB: NO; Confiden tiality Level: Level 1; Type: Sonia Mcclain, [employer] [facility] 7 10:05:37 Adult health examinat ion Completed 201402/26/2017 Created By: YAZ MARSHALL; Modified By: YAZ MARSHALL; Category : DD; Examiner : Yaz Marshall; Medicine Descript ion: ROUTINE HISTORY AND PHYSICAL ; Display in Medcin: YES; Display in ESB: YES; Confiden tiality Level: Level 1; Type: Sonia Mcclain, [employer] [facility] 7 10:05:29 Abnormal finding on evaluati on procedur e [id number] Completed 201402/26/2017 Created By: YAZ MARSHALL; Modified By: YAZ MARSHALL; Category : DD; Examiner : Yaz Marshall; Medicine Descript ion: ROUTINE HISTORY AND PHYSICAL ; Display in Medcin: YES; Display in ESB: YES; Confiden tiality Level: Level 1; Type: Sonia Mcclain, [employer] INS[employer] null, [facility] 7 10:05:54 Palpitat ions 22298781 Completed 201402/26/2017 Created By: YAZ MARSHALL; Modified By: YAZ MARSHALL; Category : DD; Examiner : Yaz Marshall; Medicine Descript ion: palpitat ions; Display in Medcin: NO; Display in ESB: NO; Confiden tiality Level: Level 1; Type: Sonia Mcclain, [employer] INS[employer] null, [facility] 7 10:06:05 Microsco pic hematuri a 523024711 Completed 201402/26/2017 Created By: YAZ MARSHALL; Modified By: YAZ MARSHALL; Category : DD; Examiner : Yaz Marshall; Medicine Descript ion: MICROSCO PIC HEMATURI A; Display in Medcin: YES; Display in ESB: YES; Confiden tiality Level: Level 1; Type: Sonia Mcclain, [employer] null, [facility] 7 10:05:05 Electroc ardiogra m abnormal [id number] Completed 201402/26/2017 Created By: YAZ MARSHALL; Modified By: YAZ MARSHALL; Category : DD; Examiner : Yaz Marshall; Medicine Descript ion: ECG NORMAL VARIANT; Display in Medcin: NO; Display in ESB: NO; Confiden tiality Level: Level 1; Type: Sonia Mcclain, [employer] INS[employer]OR null, [facility] 7 10:04:38 Evaluati on procedur e Completed 201402/26/2017 Created By: ELVIE FERNANDEZ; Modified By: KEVEN OCTOBER; Category : DD; Examiner : Keven Muhammad; Medicine Descript ion: Observat ion For Suspecte d Conditio n; Display in Medcin: YES; Display in ESB: YES; Confiden tiality Level: Level 1; Type: Sonia Mcclain, [employer] INS[employer]OR null, [facility] 7 10:05:34 Hyperten sive disorder 59750286 Active 2015 Created By: YAZ MARSHALL; Modified By: YAZ MARSHALL; Category : DD; Examiner : Yaz Marshall; Medicine Descript ion: ESSENTIA L HYPERTEN [place] BENIGN; Display in Medcin: YES; Display in ESB: YES; Confiden tiality Level: Level 1; Type: Diagnosi s Not Available [facility] 4 03:27:39 Viral screenin g Completed 201502/26/2017 Created By: YAZ MARSHALL; Modified By: YAZ MARSHALL; Category : DD; Examiner : Yaz Marshall; Medicine Descript ion: visit for: screenin g exam dengue fever; Display in Medcin: YES; Display in ESB: YES; Confiden tiality Level: Level 1; Type: Diagnosi s Cordelia Mcclain, [employer] null, [facility] 7 10:05:16 Screenin g mammogra phy Completed 201502/26/2017 Created By: YAZ MARSHALL; Modified By: YAZ MARSHALL; Category : DD; Examiner : Yaz Marshall; Medicine Descript ion: Mammogra m Screenin g; Display in Medcin: YES; Display in ESB: YES; Confiden tiality Level: Level 1; Type: Diagnosi s Cordelia Mcclain, [employer] INSPECTOR null, [facility] 7 10:05:19 Active immuniza tion Completed 201502/26/2017 Created By: YAZ MARSHALL; Modified By: YAZ MARSHALL; Category : DD; Examiner : Yaz Marshall; Medicine Descript ion: visit for: immuniza tion; Display in Medcin: YES; Display in ESB: YES; Confiden tiality Level: Level 1; Type: Diagnosi s Cordeliadora Mcclain, [employer] INSPECTOR null, [facility] 7 10:05:31 Pain of left shoulder joint 78021832839 210035 Active 2017 Not Available [facility] 4 03:27:39 Vitamin D deficien cy 19579888 Active 2021 Not Available [facility] 4 03:27:39 Congesti ve heart failure 18754055 Active 2022 Not Available [facility] 4 03:27:39 Type 2 diabetes mellitus without complica tion 257208517 Active 2022 Not Available [facility] 4 03:27:39 Female urinary stress incontin ence 49877311 Active 2024 Adriana Poe NP [address] [place] [address], [phone] , [facility] 5 11:50:21 Dependen ce on suppleme ntal oxygen 24644315716 7 Active 2024 Adriana Poe NP [address] [place] [address], [phone] , [facility] 5 12:26:07 Problem Notes None recorded. Procedures Surgical History Date Name Laterality Status Provider Name and Address Organization Details Recorded Time 05/17/20 25 Suture/Staple removal completed [address], [address], [facility] 05/17/2025 15:52:31 05/05/20 25 Flu vaccine Screening completed Rita Olivarez [facility] 05/05/2025 12:16:34 08/20/20 24 Nebulizer tx duoneb completed [address], [phone] [place] [address] 08/20/2024 16:28:20 05/06/20 24 venipuncture completed Juliet Gatica [facility] 05/06/2024 11:42:54 02/19/20 24 Splint Application completed Adriana Poe NP [address] [place] [address], [address], [facility] 02/19/2024 14:24:04 12/26/19 24 venipuncture completed Yuliya Hurd [facility] 12/26/2023 15:40:03 09/25/19 22 venipuncture completed Shauna Jordan [facility] 09/25/2021 13:07:04 11/25/19 21 venipuncture completed Jodi Mora [facility] 11/24/2020 11:10:23 12/18/19 20 venipuncture completed Yuliya Hurd [facility] 12/18/2019 16:28:31 12/18/19 20 venipuncture cancelled Tyler Mcfarlane [facility] 12/18/2019 09:21:06 04/14/20 19 venipuncture completed Cordelia Mcclain LPN [facility] 04/14/2019 09:25:36 08/08/20 18 venipuncture completed Cordelia Mcclain LPN [facility] 08/08/2018 09:13:48 09/10/19 18 venipuncture completed [facility] 09/10/2017 10:01:27 02/27/20 17 venipuncture completed Cordelia Mcclain LPN [facility] 02/26/2017 10:26:37 08/15/20 16 venipuncture completed H[facility] 08/15/2016 10:27:51 Cardiac Surgery completed Cordelia waldrop LPN [facility] 02/26/2017 10:07:03 Imaging Results None recorded. Procedure Notes None recorded. Medical Equipment None Reported. Allergies Allergen ID Allergen Name Allergen Category Reaction Reaction Severity Criticality Documentation Date Start Date Code Code System Note Provider Name and Address Organization Details Recorded Time 56642 codeine medicatio n Not available Not available Not available 08/05/20162009 2670 RxNorm Comme nt: Last Edite d: 11-25 09:27 :35; Not Available [facility] 03:58:28 Medications Name Sig Start Date Stop Date Status Note LastModified by Organization Details LastModified Time Prescript ion - Change active Not Available Not Available Not Available Prescript ion - Prior Authoriza tion Request active Not Available Not Available Not Available losartan 50 mg tablet TAKE 1 TABLET BY MOUTH ONCE DAILY 08/24 completed Not Available Not Available Not Available furosemid e 40 mg tablet TAKE 1 TABLET BY MOUTH ONCE DAILY active Not Available Not Available No t Available Miralax 17 gram/dose oral powder 17 g (~1 heaping tablespo on) dissolve d in 4 to 8 ounce of beverage , once daily; 2024 active Not Available Not Available Not Avai lable atorvasta tin 40 mg tablet TAKE 1 TABLET BY MOUTH ONCE DAILY . STOP SIMVASTA TIN active Not Available Not Available No t Available nystatin 100,000 unit/mL oral suspensio n TAKE 5 ML BY MOUTH 4 TIMES A DAY 08/12 completed Not Available Not Available Not Available potassium chloride ER 10 mEq capsule,e xtended release TAKE 1 CAPSULE BY MOUTH EVERY DAY 12/25 completed Not Available Not Available Not Available doxycycli ne hyclate 100 mg capsule Take 1 capsule twice a day by oral route for 5 days. 08/12 completed per hospital discharg e Not Available Not Available Not Available nicotine 14 mg/24 hr daily transderm al patch Apply 1 patch every day by transder mal route. 04/30 completed Not Available Not Available Not Available albuterol sulfate 2.5 mg/3 mL (0.083 %) solution for nebulizat ion USE 1 VIAL IN NEBULIZE R EVERY 6 HOURS NEEDED active Not Available Not Available No t Available trazodone 50 mg tablet TAKE 1 TABLET BY MOUTH ONCE DAILY AT BEDTIME 08/12 completed Not Available Not Available Not Available Carafate 1 gram tablet Take 1 tablet 4 times a day by oral route for 10 days. 07/13 completed Not Available Not Available Not Available Adipex-P 37.5 mg tablet Take 1 tablet every day by oral route. 08/08 completed Not Available Not Available Not Available lisinopri l 20 mg tablet 08/15 completed Not Available Not Available Not Available prednison e 20 mg tablet Take 2 tablets every day by oral route for 2 days. 08/12 completed per hospital discharg e Not Available Not Available Not Available glipizide ER 5 mg tablet, extended release 24 hr TAKE 1 TABLET BY MOUTH ONCE DAILY (INCREAS ED DOSE) active Not Available Not Available No t Available atenolol 25 mg tablet Take 1 tablet every day by oral route for 30 days. 09/25 completed Not Available Not Available Not Available permethri n 5 % topical cream APPLY (THOROUG HLY MASSAGE INTO SKIN FROM HEAD TO SOLES OF FEET) BY TOPICAL ROUTE ONCE LEAVE ON FOR 8-14 HR, THEN REMOVE BY THOROUGH WASHING 02/26 completed Not Available Not Available Not Available potassium chloride ER 10 mEq tablet,ex tended release TAKE 1 tablet BY MOUTH DAILY FOR 3 DAYS AND THEN MAY TAKE DAILY NEEDED; THEREAFT ER 08/12 completed Not Available Not Available Not Available metronida zole 500 mg tablet Take 1 tablet 4 times a day by oral route for 7 days. 07/13 completed Not Available Not Available Not Available butalbita l-acetami nophen-ca ffeine 50 mg-325 mg-40 mg tablet 10/06 completed Not Available Not Available Not Available simvastat in 40 mg tablet Take 1 tablet by mouth once daily 09/26 completed Not Available Not Available Not Available ondansetr on 8 mg disintegr ating tablet Place 1 tablet twice a day by translin gual route. 09/25 completed Not Available Not Available Not Available meloxicam 7.5 mg tablet TAKE 1 TABLET BY MOUTH ONCE DAILY active Not Available Not Available No t Available Nicoderm CQ 7 mg/24 hr daily transderm al patch Apply 1 patch every day by transder mal route. 08/31 completed Not Available Not Available Not Available Zofran 8 mg tablet Take 1 tablet by oral route. 07/13 completed Not Available Not Available Not Available potassium chloride ER 20 mEq tablet,ex tended release(p art/cryst ) TAKE 1 TABLET BY MOUTH DAILY 02/18 completed Not Available Not Available Not Available trazodone 100 mg tablet TAKE 1 TABLET BY MOUTH ONCE EVERY NIGHT AT BEDTIME active Not Available Not Available No t Available glipizide ER 2.5 mg tablet, extended release 24 hr TAKE 1 TABLET BY MOUTH EVERY DAY 04/29 completed Not Available Not Available Not Available Bismuth 262 mg chewable tablet Take 2 tablets 4 times a day by oral route for 7 days. 07/13 completed Not Available Not Available Not Available cephalexi n 500 mg capsule TAKE 1 CAPSULE BY MOUTH EVERY 6 HOURS FOR 10 DAYS 08/28 completed Not Available Not Available Not Available simvastat in 20 mg tablet TAKE ONE TABLET BY MOUTH EVERY DAY 04/14 completed Not Available Not Available Not Available oseltamiv ir 75 mg capsule Take 1 capsule twice a day by oral route. 04/14 completed Not Available Not Available Not Available lidocaine 5 % topical patch APPLY 1 PATCH BY TOPICAL ROUTE ONCE DAILY )MAY WEAR UP TO 12 HOURS active Not Available Not Available No t Available Advair Diskus 250 mcg-50 mcg/dose powder for inhalatio n USE ONE INHALATI ON BY MOUTH TWICE DAILY 06/27 completed Not Available Not Available Not Available nicotine 21 mg/24 hr daily transderm al patch APPLY 1 PATCH TOPICALL Y ONCE DAILY active Not Available Not Available No t Available hydrochlo rothiazid e 12.5 mg capsule Take 1 capsule every day by oral route for 30 days. 08/08 completed Not Available Not Available Not Available omeprazol e 20 mg capsule,d elayed release Take 1 capsule twice a day by oral route for 10 days. 07/13 completed Not Available Not Available Not Available hydroxyzi ne HCl 25 mg tablet Take 1 tablet 3 times a day by oral route for 30 days. 02/26 completed Not Available Not Available Not Available hydrochlo rothiazid e 25 mg tablet TAKE 1 TABLET BY MOUTH ONCE DAILY active Not Available Not Available No t Available furosemid e 20 mg tablet Take 1 tablet every day by oral route. 02/18 completed Has 40s she breaks in half Not Available Not Available Not Available levofloxa hardeep 500 mg tablet TAKE 1 TABLET BY MOUTH EVERY 24 HOURS FOR 10 DAYS 06/28 completed Not Available Not Available Not Available methylpre dnisolone 4 mg tablets in a dose pack TAKE 6 TABLETS BY MOUTH ON DAY 1, THEN DECREASE BY 1 TABLET DAILY FOR 5 MORE DAYS 07/09 completed Not Available Not Available Not Available Vitamin D2 1,250 mcg (50,000 unit) capsule Take 1 capsule every week by oral route. 12/17 completed Not Available Not Available Not Available ketorolac 60 mg/2 mL intramusc ular solution Inject 2 mL by intramus cular route. 10/12 completed Not Available Not Available Not Available lisinopri l 40 mg tablet TAKE 1 TABLET BY MOUTH ONCE DAILY active Not Available Not Available No t Available ondansetr on 4 mg disintegr ating tablet TAKE 1 OR 2 TABLETS BY MOUTH EVERY 8 HOURS NEEDED FOR NAUSEA 09/25 completed Not Available Not Available Not Available cefdinir 300 mg capsule TAKE 1 CAPSULE BY MOUTH EVERY 12 HOURS FOR 5 DAYS 08/12 completed Not Available Not Available Not Available metformin ER 500 mg tablet,ex tended release 24 hr TAKE 1 TABLET BY MOUTH ONCE DAILY IN THE MORNING active Not Available Not Available No t Available doxycycli ne hyclate 100 mg tablet TAKE 1 TABLET BY MOUTH TWICE DAILY FOR 5 DAYS 08/12 completed Not Available Not Available Not Available naproxen 500 mg tablet Take 1 tablet twice a day by oral route. 07/13 completed Not Available Not Available Not Available amoxicill in 875 mg-potass ium clavulana te 125 mg tablet Take 1 tablet every 12 hours by oral route for 7 days. 06/14 completed Not Available Not Available Not Available Ventolin HFA 90 mcg/actua tion aerosol inhaler Inhale 2 puffs every 4 hours by inhalati on route as needed. active Not Available Not Available No t Available insulin lispro (U-100) 100 unit/mL subcutane ous pen USE PER SLIDING SCALE BLOOD GLUCOSE < 150, 0 UNITS; 151-200, 3 UNITS; 201-250, 6 UNITS; 251-300, 9 UNITS; 301-350, 12 UNITS; 351-400, 15 UNITS; 15 MINUTES BEFORE OR IMMEDIAT SHAKIR AFTER A MEAL, INJECT SUBCUTAN EOUSLY active Not Available Not Available No t Available escitalop cristy 10 mg tablet TAKE 1 TABLET BY MOUTH ONCE DAILY WITH 20MG TABLET TO EQUAL A TOTAL DOSE OF 30MG DAILY. active Not Available Not Available No t Available escitalop cristy 20 mg tablet TAKE 1 TABLET BY MOUTH ONCE DAILY active Not Available Not Available No t Available Vitamin D3 25 mcg (1,000 unit) capsule Take 1 capsule every day by oral route for 30 days. 12/24 completed Not Available Not Available Not Available Spiriva with HandiHale r 18 mcg and inhalatio n capsules Inhale 1 capsule every day by inhalati on route. 01/29 completed for COPD Not Available Not Available Not Available insulin lispro lispro kwikpen 100u/1ml 2024 active per sliding scale before meals TID<150- 0 [id number] -200-3 rapor006 -250-6 ivzqf132 -300- 9 bdcys001 -350-12 -400-15 units Not Available Not Available Not Available Chantix 1 mg tablet Take 1 tablet twice a day by oral route for 30 days. 08/15 completed Not Available Not Available Not Available hydrochlo rothiazid e 12.5 mg tablet TAKE 1 TABLET BY MOUTH ONCE DAILY 04/23 completed Not Available Not Available Not Available Symbicort 160 mcg-4.5 mcg/actua tion HFA aerosol inhaler Inhale 1 puff twice a day by inhalati on route as directed . 2024 active per hospital discharg e Not Available Not Available Not Available Lantus Solostar U-100 Insulin 100 unit/mL (3 mL) subcutane ous pen INJECT 25 UNITS SUBCUTAN EOUSLY ONCE DAILY 2024 active Not Available Not Available Not Avai lable Mucinex DM 60 mg-1,200 mg tablet,ex tended release 12 hr TAKE 1 TABLET BY MOUTH TWICE DAILY 12/25 completed Not Available Not Available Not Available Aerochamb er Plus Flow-Vu Use as directed . 08/12 completed Not Available Not Available Not Available TRUEplus Lancets 33 gauge USE 1 LANCET TO CHECK GLUCOSE THREE TIMES DAILY BEFORE MEALS active Not Available Not Available No t Available MediHoney (honey) 80 % topical gel Apply gel every other day 2024 active Not Available Not Available Not Avai lable Farxiga 10 mg tablet TAKE 1 TABLET BY MOUTH ONCE DAILY active Not Available Not Available No t Available potassium chloride ER 20 mEq tablet,ex tended release Take 1 tablet every day by oral route. 02/18 completed Not Available Not Available Not Available True Metrix Glucose Test Strip USE 1 STRIP TO CHECK GLUCOSE THREE TIMES DAILY BEFORE MEALS active Not Available Not Available No t Available True Metrix Glucose Meter USE THREE TIMES DAILY BEFORE MEALS active Not Available Not Available No t Available Pentips Pen Needle 32 gauge x USE 1 PEN NEEDLE THREE TIMES DAILY BEFORE MEALS active Not Available Not Available No t Available Trelegy Ellipta 100 mcg-62.5 mcg-25 mcg powder for inhalatio n Inhale 1 puff every day by inhalati on route. 2024 active Not Available Not Available Not Avai lable Ozempic 0.25 mg or 0.5 mg (2 mg/1.5 mL) subcutane ous pen injector Inject 0.5 mg every week by subcutan eous route. 08/03 completed Not Available Not Available Not Available OneTouch Delica Plus Lancet 30 gauge USE TO BLOOD SUGAR DAILY active Not Available Not Available No t Available Breztri Aerospher e 160 mcg-9mcg- 4.8mcg/ac tuation HFA aerosol inhaler Inhale 2 puffs twice a day by inhalati on route. 2024 active Not Available Not Available Not Avai lable Ozempic 1 mg/dose (4 mg/3 mL) subcutane ous pen injector Inject 1 mg every week by subcutan eous route. 08/12 completed Not Available Not Available Not Available Ozempic 0.25 mg or 0.5 mg (2 mg/3 mL) subcutane ous pen injector 0.25mg weekly x4 weeks then increase to 0.5mg; Call for dose increase 2024 active Not Available Not Available Not Avai lable Vitals Date Recorded Body height Body mass index (BMI) Body weight Body temperature Heart rate Oxygen saturation Oxygen saturation Inhaled oxygen flow rate Respiratory rate Heart rate Systolic And Diastolic Systolic And Diastolic Provider Name and Address Organization Details Last Updated DateTime 5 170.18 cm 46.4 kg/m2 522848. 39 g 98.5 [degF] 96 /min 86 % 95 % 3 L/min 22 /min 89 /min 162/96 mm[Hg] 154/98 mm[Hg] Jenna FERRARI - [facility] 5 14:36:57 Social History Question Answer Notes LastModified by Organization Details LastModified Time Tobacco Smoking Status Current Every Day Smoker Rita Olivarez [facility] 02/18/2025 15:08:04 Do You Have An Advance Directive? No [email or web address] Information not available 01/29/2017 Are You Blind Or Do You Have Difficulty Seeing? Yes Information not available 09/25/2021 Is Blood Transfusion Acceptable In An Emergency? Yes [email or web address] Information not available 09/25/2021 What Is Your Level Of Caffeine Consumption? Heavy Information not available 01/29/2017 How Much Tobacco Do You Chew? None [email or web address] Information not available 01/29/2017 Commercial Sex Work No [email or web address] Information not available 01/29/2017 In The 14 Days Before Symptom Onset, Have You Had Close Contact With A Laboratory-confi rmed COVID-19 While That Case Was Ill? No Information not available 10/06/2020 In The 14 Days Before Symptom Onset, Have You Had Close Contact With A Person Who Is Under Investigation For COVID-19 While That Person Was Ill? No Information not available 10/06/2020 Have You Been To An Area Known To Be High Risk For COVID-19? No Information not available 10/06/2020 Are You Deaf Or Do You Have Serious Difficulty Hearing? No [email or web address] Information not available 09/25/2021 What Type Of Diet Are You Following? REGULAR [email or web address] Information not available 01/29/2017 Which Illicit Or Recreational Drugs Have You Used? None [email or web address] Information not available 01/29/2017 Have You Processed Blood Or Body Fluids From An Ebola Virus Disease Patient Without Appropriate PPE? No [email or web address] Information not available 09/25/2021 Education Less Than 8th Grade [email or web address] Information not available 01/29/2017 What Is The Highest Grade Or Level Of School You Have Completed Or The Highest Degree You Have Received? [id number] [email or web address] Information not available 08/12/2025 Are There Any Guns Present In Your Home? Yes Information not available 02/26/2017 Hard Of Hearing Or Deaf In One Or Both Ears? No [email or web address] Information not available 01/29/2017 High Number Of Sexual Partners No [email or web address] Information not available 01/29/2017 History Of Inconsistent/no Condom Use No [email or web address] Information not available 01/29/2017 International Travel None Information not available 02/26/2017 Legally Blind In One Or Both Eyes? No [email or web address] Information not available 01/29/2017 In The Past 6 Months Have You Fallen No [email or web address] Information not available 01/29/2017 Medication List Reconciled Yes Information not available 04/14/2019 What Number (0-10) Best Describes How, During The Past Week, Has Interfered With Your General Activity? 0 [email or web address] Information not available 01/29/2017 What Number (0-10) Best Describes How, During The Past Week, Pain Has Interfered With Your Enjoyment In The Past Week 0 [email or web address] Information not available 01/29/2017 What Number (0-10) Best Describes Your Pain On Average In The Past Week 0 [email or web address] Information not available 01/29/2017 Total PEG Score 0 [email or web address] Informati on not available 01/29/2017 Most Recent Dental Visit 09/02/1996 Up To Date 04/23/22 Information not available 08/08/2018 Sexual Orientation Straight Or Heterosexual Information not available 11/24/2020 Gender Identity Female Informat ion not available 11/24/2020 Eye Exam 09/02/2015 Information not available 08/08/2018 Do You Feel Safe Yes Informa tion not available 11/24/2020 Hospital Follow Up Appointment 08/12/2025 [email or web address] Information not available 08/12/2025 Hospital Discharged Patient To Home [email or web address] Information not available 08/12/2025 ER Medication List Reconciled Yes Information not available 07/22/2025 ER Contact Date 07/22/2025 Informati on not available 07/22/2025 ER Follow Up Contact Date 07/22/2025 Information not available 07/22/2025 ER Follow Up Patient Contact Via Unable To Contact Went To [facility] ER Transferred To [facility] Diagnosis Pneumonia [email or web address] Information not available 07/22/2025 ER Date Of Discharge 07/21/2025 Information not available 07/22/2025 ER Discharged Patient To Caregiver Transfer [email or web address] Information not available 07/22/2025 ER Records Recieved Yes [email or web address] Information not available 07/22/2025 ER Records Requested Yes [email or web address] Information not available 07/22/2025 Marital Status [email or web address] Informatio n not available 01/29/2017 What Was The Date Of Your Most Recent Tobacco Screening? 08/12/2025 [email or web address] Information not available 08/12/2025 Mother With HIV? No [email or web address] Informat ion not available 01/29/2017 How Many Children Do You Have? 4 [email or web address] Information not available 08/12/2025 What Is Your Relationship Status? [email or web address] Information not available 08/12/2025 Do You Use Your Seat Belt Or Car Seat Routinely? Yes Information not available 07/28/2024 Seat Belts Used Routinely Yes [email or web address] Information not available 01/29/2017 Are You Sexually Active? Yes Information not available 08/08/2018 Sexual Partner Has HIV? No [email or web address] Information not available 01/29/2017 Sexual Partner Uses IV Drugs? No Information not available 01/29/2017 Smoke Alarm In Home No [email or web address] Information not available 01/29/2017 At What Age Did You Start Smoking Tobacco? 15 Information not available 02/26/2017 How Much Tobacco Do You Smoke? 0.5 PPD [email or web address] Information not available 05/05/2025 General Stress Level Medium [email or web address] Information not available 01/29/2017 Do You Use Sunscreen Routinely? No Information not available 01/29/2017 How Many Years Have You Smoked Tobacco? 41 Information not available 02/26/2017 Have You Used IV Drugs? No Information not available 01/29/2017 Do You Have Difficulty Walking Or Climbing Stairs? Yes [email or web address] Information not available 09/25/2021 Do You Want To Talk About Contraception Or Prevention During Your Visit Today? No - This Question Does Not Apply To Me/I Prefer Not To Answer Information not available 12/17/2024 Do You Have Any Future Plans To Get ? No, I Don't Want To Become Information not available 12/17/2024 Sex: Female Functional Status Question Answer Note LastModified by Organizat [employer] Details LastModified Time Do you use any illicit or recreational drugs? No [email or web address] Information not available 06/14/2025 Do you or have you ever used any other forms of tobacco or nicotine? Yes Nicotine patches Information not available 12/17/2024 What is your level of alcohol consumption? None [email or web address] Information not available 01/29/2017 Do you or have you ever used smokeless tobacco? Never used smokeless tobacco Information not available 04/14/2019 Are you currently employed? No [email or web address] Information not available 08/12/2025 Do you have transportation difficulties? No [email or web address] Information not available 09/25/2021 Are you able to walk independently without assistance or assistive devices? YESWOREST [email or web address] Information not available 01/29/2017 Do you have difficulty doing errands alone? No Information not available 09/25/2021 Are you able to care for yourself independently? Yes [email or web address] Information not available 09/25/2021 Do you have difficulty dressing, bathing, grooming, or toileting? No [email or web address] Information not available 09/25/2021 Do you or have you ever used e-cigarettes or vape? Never used electronic cigarettes Information not available 04/14/2019 What is your exercise level? Moderate [email or web address] Information not available 01/29/2017 Mental Status Question Answer Note LastModified by Organizat [employer] Details LastModified Time Do you feel stressed (tense, restless, nervous, or anxious, or unable to sleep at night)? [id number] [email or web address] Information not available 09/25/2021 Do you have difficulty concentrating, remembering or making decisions? No [email or web address] Information no t available 09/25/2021 Family History Relationship Description Onset Age of this Age Resolved Age Notes LastModified by Organization Details LastModified Time Mother Diabetes mellitus [email or web address] Not available 2016 14:32:39 Brother Diabetes mellitus [email or web address] Not available 2016 14:32:46 Medical History Condition Response Gout N Other N Blood Diseases N Kidney Stones N Hyperthyroidism N Blood Transfusion N COPD N Depression N Incontinence N Edema N Endocrine Disorders N Anxiety Disorder N Muscle, Joint, or Bone Problems N Obesity Y Vision or Eye Problems N Arthritis N Auditory Hallucinations N Infertility N Cancer N Stroke N Varicosities N Headaches N Fibromyalgia N Kidney Disease N Abnormal Bleeding N Reproductive System Problems N Ear or Hearing Problems N Hospitalizations N Learning Disorder N Skin Problems N Eating Disorder N MRSA exposure N Urinary Problems N Constipation N Brain Injury N Visual Hallucinations N AIDS/HIV N Tuberculosis N Back Problems N Asthma N GERD/Reflux N Hepatitis N Pulmonary Embolism N Chronic Ear Infections N Autism Spectrum Disorder (ASD) N Thrombophilias N Thyroid Disease N Breast Cancer N Lung Disease N Hypothyroidism N Defects or Inherited Disease N Developmental or Behavioral Disorders N Breast Problem N Difficulty Swallowing N Anesthesia Complications N Deep Vein Thrombosis N Meniere's disease N Hearing Loss N Head Injury/Concussion N Congenital Anomalies N Abnormal Pap Smear N Endometriosis N Bladder or Kidney Problems N High Cholesterol Y Nervous System Disorder N Liver Disease N Psychiatric/Mental Health Condition N Schizophrenia N Allergies/Hayfever Y Parkinson's Disease N GI Problems N ADD/ADHD N Anemia N Colon Polyps N Heart Attack ([place]) N Ovarian Cancer N Diabetes N Bedwetting N Seizures/Epilepsy N Amnesia N Congestive Heart Failure (CHF) N Eczema N Abuse/Domestic Violence N Diverticulitis N Dementia N Cardiovascular Y Tourette Syndrome N Hypertension Y Pre-Eclampsia N Osteoporosis N Gynecological History Statement/Question Response Abnormal Pap N Flow Moderate Date of LMP 09/02/2010 Post Menopausal Bleeding N STIs/STDs N HPV Vaccine N Most Recent Mammogram Age at Menarche 14 Current Control Method Menopause Age at First Child 21 If Post Menopausal, Age at Menopause 50 Date of Last Colonoscopy Frequency of Cycle (Q days) 5 Sexually Active? N Date of Last Pap Smear Hormone Replacement Therapy N Obstetrics History GPAL:G 5 P 3 1 1 0 Type Value Full Term 3 Spontaneous 1 Premature 1 Total 5 Immunizations Vaccine Type Date Status Note Provider Nam e and Address Organization Details Recorded Time Influenza, MDCK, quadrivalent, preservative 9 completed Not Available [facility] 09/19/2019 02:39:19 Tdap 7 completed Not Available [facility] 09/19/2019 02:39:16 Influenza, split virus, trivalent, preservative 6 completed Not Available [facility] 09/25/2023 03:27:39 Tdap 5 completed Not Available [facility] 08/12/2025 12:00:37 Influenza, MDCK, quadrivalent, PF 4 completed Juliet Gatica null, [facility] 05/07/2024 12:22:36 Influenza, split virus, quadrivalent, PF 5 completed Rita Olivarez [facility], [facility] 05/05/2025 12:58:35 Pneumococcal conjugate PCV20, polysaccharide [id number] conjugate, adjuvant, PF 5 completed Rita Olivarez null, [facility] 06/28/2025 15:43:32 Influenza, MDCK, quadrivalent, preservative 8 completed Not Available [facility] 09/19/2019 02:39:18 Past Encounters Encounter ID Performer Location Encounter Start Date Encounter Closed Date Diagnosis/Indication Diagnosis SNOMED-CT Code Diagnosis ICD10 Code Diagnosis IMO Codes Diagnosis Note [id number] MCKAY CUEVAS DO [facility] [id number] [place] [id number] 05/31/2025 14:56:17 05/31/2025 15:42:35 Local infection of wound 96788937 T81.49XA [id number] post laceration leg wound with infection. An additional suture that remained was removed today. Wound improving. Bandaid applied. Return to clinic in one week for further evaluation Mild inter mittent asthma [id number] J45.20 [id number] MCKAY CUEVAS DO [facility] [address] [place] [address] 06/07/2025 15:14:29 06/07/2025 17:30:00 Local infection of wound [id number] T81.49XA [id number] A new dressing was applied. A foam dressing will be ordered to support wound healing. Patient voiced understand ing of the treatment plan. Body mass index 40+ - severely obese [id number] Z68.42 [id number] BMI 45.6 Diet education 87079786 Z71.3 Exercises education, guidance, and counseling [id number] Z71.82 [id number] MCKAY CUEVAS [facility] [address] [place] [address] 06/14/2025 14:58:44 06/14/2025 15:33:09 Local infection of wound [id number] T81.49XA [id number] A new dressing was applied. Body mass index 40+ - severely obese [id number] E66.01 Z68.42 [id number] Diet education 01431090 Z71.3 Exercises education, guidance, and counseling [id number] Z71.82 Congestive heart failure [id number] I50.9 Lasix was increased to 80 mg daily for three days and while taking increase in lasix take potassium. The patient was advised to monitor for worsening symptoms and to go to the emergency room. [id number] Didier Hardin, DO [address] [address] 06/21/2025 14:57:19 06/22/2025 11:02:18 Local infection of wound [id number] T81.49XA [id number] Advised to continue Levaquin as ordered. Observe for any worsening s/s of infection such as increased redness, drainage, swelling, odor or fever and RTC or seek care if symptoms occur. Otherwise follow up in one week. Questions encouraged and answered, verbalized understand ing. Diet education [id number] Z71.3 Exercises education, guidance, and counseling [id number] Z71.82 Body mass index 40+ - severely obese [id number] Z68.42 [id number] BMI is 46.2 [id number] MCKAY CUEVAS, DO [facility] [id number] [place] [id number] 06/28/2025 14:26:03 06/28/2025 17:52:37 Body mass index 40+ - severely obese [id number] Z68.42 [id number] Diet education 82432865 Z71.3 Exercises education, guidance, and counseling 166759271 Z71.82 Insomnia [id number] G47.0 [id number] Will increase the trazodone to 100 mg at bedtime. Local infe ction of wound 35520262 T81.49XA [id number] Healing. Completed levaquin. Will recheck next week Requires v accination against Streptococcus pneumoniae [id number] [id number] Goals Section Goal Description Progress Status Start Date LastModified by Organization Details LastModified Time Patient will have no hospitalizat ions from COPD in the next year None Recorded None active 2024 Luisa Jaimes Information not available 07/06/2025 15:48:27 Patient demonstrates improvement in emotional and physical state None Recorded None active 2024 Luisa Jaimes Information not available 07/06/2025 15:49:08 Smoking Cessation Quits smoking None active 2024 Luisa Jaimes Information not available 07/06/2025 15:50:09 Stress Management Reports effective management of stress None active 2024 Luisa Jaimes Information not available 07/06/2025 15:50:10 Health Concerns Section Related Observation LastModified by Organization Detai ls LastModified Time General health poor Not Available Not Available Not Av ailable Concern Status LastModified by Organization Details LastModified Time Chronic obstructive pulmonary disease Active Luisa Jaimes Not Available 07/06/2025 15: 48:27 Depressive disorder Active Luisavicente Jaimes Not Availabl e 07/06/2025 15:49:08 Payers Encounter Date Sequence Insurance Name Policy Number Policy Sofia Covered Member ID Sofia Member ID Guarantor Name 06/28/2025 2 [place] Nadine Esquivel [id number] Nadine Esquivel 06/28/2025 1 EDU[employer]O [employer] [facility] [employer] [place] Nadine Esquivel [id number] Nadine Esquivel Notes Date Note Type Note Provider Name and Address Organization Details Recorded Time 06/28/2025 text/html Patient is here to follow up on skin infection. It is healing. Also would like to increase her trazodone to 100 mg. She sleeps better when she takes two of the 50 mg. Adriana Poe NP [address], [address], [facility] 06/28/2025 17:18:26 OBGyn Episode No OBEpisode recorded.
--- OUTSIDE RECORDS SUMMARY | 2025-08-29 09:06 | XMS_ITS | Continuity of Care Document ---
Author Organization [facility], Care Managers Address [address] [place] [id number] Care Team Providers Care Cafe Attendant Name Role Phone LUISA JAIMES Lead Sewage Plant Operator EUN Biggs Community Health Worker SHAWNA Rivera [facility] Assessment Encounter Date Assessment Date Assessment LastModified by Organization Details LastModified Time 07/26/2025 07/26/2025 Care Plan for Nadine Esquivel (Briseida) 64 Enrolled [facility] 07/27 Diagnosis: Depression, CHF, COPD, Tobacco, BMI, asthma Care plan created 07/06/25- Care plan update due 01/04/26 Care plan mailed to pt. Overall: Pt will not have any exacerbation of COPD or CHF that lead to Hospitalization Individual goals pt will learn to manage depression with taking appropriate meds, adequate sleep,and healthy eating habits as well as maintaining some form of daily activity Target date: Goals (Patient Steps) -Patient will take medications as ordered, -Patient will be able to verbalize irritants to avoid smoke chemicals and fumes -Patient will avoid individuals that are ill -Patient will learn to us rest periods when becoming short of breath -Patient will limit exposure to irritants such as smoke, air pollution. -Patient will be able to verbalize symptoms when to contact the clinic and when to call 911 -Patient will take medications/inhale rs/O2 as directed. -Patient will identify triggers that cause breathing troubles. -Patient will maintain a healthy lifestyle by eating healthy and staying active. -Patient will avoid salty snacks, fast foods and processed foods -Patient should monitor her wt and report an increase of 2 pounds overnight or 5 pounds weekly -Patient will have working knowledge of meds and their side effects -Patient will begin daily activity routine -Patient will meet with for symptoms of depression -Patient will try to decrease the amount of cigarettes smoked by 1 daily. -Patient will try to smoke outside only -Report any hospital or ER visits to care technician or clinic staff. Interventions ([facility] Nurse Steps) -RN will provide educational material on to decrease stress -RN will provide education material with instructions on irritant to avoid -RN will provide education material with instruction on symptoms of COPD and CHF -RN will provide education material with instruction on symptoms to seek medical attention immediately. -RN will support and encourage pt. -RN will provide pt with educational handouts about COPD, Diet and Exercise. -RN will contact pt to provide assistance with referrals, education and support. -RN will act as liaison between patient and provider/nurses/re ception at the clinic as needed -Provide assistance with referrals, orders, and other needs as needed -Contact you monthly face to face in the office, by phone, by mail, through Primary Care Physician, FRONT END ALIGNMENT SPECIALIST, or others physicians at our office. Evaluations 07/26/2025- Pt was discharged from [facility] on 07/25/25. Discharge diagnosis CHF exacerbation, COPD. She was discharged on 2 oral antibiotics and oral steroids. Pt was also instructed to start Lantus insulin 25u daily and sliding scale TID. Attempted to call pt, no answer, left message asking her to call me back. Contacted PSRs and asked they attempt to contact pt today and make FU appt with PCP. Demario 07/23/2025-Per [facility] EMR pt remains hospitalized with R lower lobe pneumonia and CHF. She is being treated with IV rocephin and doxycycline. CT and echocardiogram done yesterday, report not in chart yet. Demario 07/22/2025-Pt called yesterday to clinic complaining of weakness and shortness of breath. She was advised to go to ER. I tried to call pt back, no answer. Called [facility] adn she was there being treated. Records received today. CXR showed R lower lobe pneumonia. bNP 456, WBcs 11.6. On admit her O2 sat was 70%, place on 4L then eventually was able to go down to 2L. Pt was treated with Dexamethasone, Zithromax, Rocephin, Lasix, and neb treatments. She was transferred to [facility], diagnosis L lower lobe pneumonia, CHF. Called [facility] pt is there in room 5014, med surg. Demario 07/07/25-Met with pt FTF in clinic. Explained program and gave pt care plan and information. Pt asked if I can find her a home as she is homeless. Pt said she is staying with her grandson for now. She had a home but she sold it. Pt said she cannot get money off her direct express card that it has been compromised in some way. Pt also voiced that she is not getting any snap benefits this month. Case sent to Kajal Manzano CHW asking her to contact pt. Pt said she has to be texted then she will call back, that her phone will not accept calls. Demario 07/06/25-New Enrollment into [facility] program. Dx: Depression, CHF, COPD, Tobacco, BMI, asthma Pt does not have Health Shelter. Pt has active Medicaid Pt has had ER visits in the last year. Will develop a Care Plan to assist with the patients Chronic Illness. Will introduce myself, explain program and give pt care plan at next FTF visit. Pt has appt tomorrow Demario [email or web address] Not available 07/26/2025 09:39:59 Plan of Treatment Reminders Order Date Submit Date Provider Last Modified By Organization Details Last Modified Time Details Appointments None record ed. Lab None record ed. Referral None record ed. Procedures None record ed. Surgeries None record ed. Imaging None record ed. Medication Orders None record ed. Patient TargetsNo targets recorded. Patient InstructionsNo instructions recorded. Reason for Referral None Reported. Problems Name Problem SNOMED Code Status Onset Date Resolution Date Notes Provider Name and Address Organization Details Recorded Time Acute sinusiti s 14399874 Completed 200402/26/2017 Category : DD; Medicine Descript ion: SINUSITI S ACUTE; Display in Medcin: YES; Display in ESB: YES; Confiden tiality Level: Level 1 Cordelia Mcclain LPN [place], [place] - [facility] 7 10:04:47 Dizzines s and giddines s 828785792 Completed 200402/26/2017 Category : DD; Medicine Descript ion: dizzines s; Display in Medcin: YES; Display in ESB: YES; Confiden tiality Level: Level 1 REMIGIO Lemus, [facility] 7 10:05:26 Tracheob ronchiti s 37856565 Completed 200402/26/2017 Category : DD; Medicine Descript ion: TRACHEOB RONCHITI S; Display in Medcin: YES; Display in ESB: YES; Confiden tiality Level: Level 1 REMIGIO Lemus, [facility] 7 10:04:42 Chronic obstruct angy pulmonar y disease 72955097 Active 2004 Modified By: MARIA ANTONIA DEL REAL; Category : DD; Examiner : Veronica Jensen I.; Medicine Descript ion: CHRONIC OBSTRUCT ANGY PULMONAR Y DISEASE; Display in Medcin: YES; Display in ESB: YES; Confiden tiality Level: Level 1 Not Available [facility] 4 03:27:39 Clinical finding Completed 200402/26/2017 Modified By: YAZ MARSHALL; Category : DD; Examiner : Yaz Marshall; Medicine Descript ion: LARYNGOP HARYNGEA L REFLUX; Display in Medcin: NO; Display in ESB: NO; Confiden tiality Level: Level 1 REMIGIO Lemus, [facility] 7 10:05:08 Allergic rhinitis 91709577 Active 2004 Category : DD; Medicine Descript ion: ALLERGIC RHINITIS ; Display in Medcin: YES; Display in ESB: YES; Confiden tiality Level: Level 1 Not Available [facility] 4 03:27:39 Neves's palsy 242471653 Completed 200502/26/2017 Category : DD; Medicine Descript ion: NEVES'S PALSY; Display in Medcin: YES; Display in ESB: YES; Confiden tiality Level: Level 1 REMIGIO Lemus, [facility] 7 10:05:01 Family history of diabetes mellitus 623102647 Completed 200902/26/2017 Created By: VERONICA JENSEN ; Modified By: VERONICA JENSEN ; Category : DD; Examiner : VERONICA JENSEN I.; Medicine Descript ion: DIABETES MELLITUS ; Display in Medcin: NO; Display in ESB: YES; Confiden tiality Level: Level 1 Cordelia Mcclain LPN [facility] 7 10:04:51 Benign essentia l hyperten [place] 0627991 Completed 200902/26/2017 Created By: VERONICA JENSEN ; Modified By: GHAZAL PHAN; Category : DD; Examiner : VERONICA JENSEN I.; Medicine Descript ion: HYPERTEN [place] (SYSTEMI C); Display in Medcin: YES; Display in ESB: YES; Confiden tiality Level: Level 1 Cordelia Mcclain LPN [facility] 7 10:05:46 Family history of Cardiova scular disease 081616444 Completed 200902/26/2017 Created By: VERONICA JENSEN ; Modified By: MARIA ANTONIA DEL REAL; Category : DD; Examiner : Veronica Jensen I.; Medicine Descript ion: reported family history ischemic heart disease before age 50; Display in Medcin: YES; Display in ESB: YES; Confiden tiality Level: Level 1 Cordelia Mcclain LPN [facility] 7 10:05:23 Wheezing 36879073 Completed 200902/26/2017 Created By: VERONICA JENSEN ; Modified By: GHAZAL PHAN; Category : DD; Examiner : Veronica Jensen I.; Medicine Descript ion: wheezing [as a symptom] ; Display in Medcin: YES; Display in ESB: YES; Confiden tiality Level: Level 1 Cordelia Mcclain REMIGIO [facility] 7 10:05:57 Mild intermit tent asthma 588980261 Active 2009 Created By: VERONICA JENSEN ; Modified By: GHAZAL PHAN; Category : DD; Examiner : Veronica Jensen I.; Medicine Descript ion: ASTHMA MILD INTERMIT TENT UNCOMPLI CATED; Display in Medcin: YES; Display in ESB: YES; Confiden tiality Level: Level 1 Not Available [facility] 4 03:27:39 Obesity 389477090 Active 2010 Created By: VERONICA JENSEN ; Modified By: GHAZAL PHAN; Category : DD; Examiner : VERONICA JENSEN I.; Medicine Descript ion: Obese; Display in Medcin: YES; Display in ESB: YES; Confiden tiality Level: Level 1 Not Available [facility] 4 03:27:39 Nicotine dependen ce 62004589 Active 2010 Created By: VERONICA JENSEN ; Modified By: YAZ MARSHALL; Category : DD; Examiner : Yaz Marshall; Medicine Descript ion: current smoker; Display in Medcin: NO; Display in ESB: NO; Confiden tiality Level: Level 1; Type: Diagnosi s Not Available [facility] 4 03:27:39 Hyperlip idemia 82832221 Active 2010 Created By: VERONICA JENSEN ; Modified By: VERONICA JENSEN ; Category : DD; Examiner : Veronica Jensen I.; Medicine Descript ion: DYSLIPID EMIA; Display in Medcin: YES; Display in ESB: YES; Confiden tiality Level: Level 1; Type: Diagnosi s Not Available [facility] 4 03:27:39 Long-ter m drug therapy Completed 201002/26/2017 Created By: VERONICA JENSEN ; Modified By: VERONICA JENSEN ; Category : DD; Examiner : Veronica Jensen I.; Medicine Descript ion: taking medicati on for a long time; Display in Medcin: YES; Display in ESB: YES; Confiden tiality Level: Level 1; Type: Diagnosi s Cordelia Mcclain LPN [facility] 7 10:05:21 Verruca plantari s 14393602 Completed 201102/26/2017 Created By: VERONICA JENSEN ; Modified By: YAZ MARSHALL; Category : DD; Examiner : Yaz Marshall; Medicine Descript ion: Wartlike Lesions Feet Plantar; Display in Medcin: YES; Display in ESB: YES; Confiden tiality Level: Level 1; Type: Sonia Mcclain, AUTOMATIC CHIEF [facility] 7 10:06:02 Plane wart 197317633 Completed 201102/26/2017 Created By: VERONICA JENSEN ; Modified By: YAZ MARSHALL; Category : DD; Examiner : Yaz Marshall; Medicine Descript ion: WARTS COMMON; Display in Medcin: YES; Display in ESB: YES; Confiden tiality Level: Level 1; Type: Sonia Mcclain, AUTOMATIC CHIEF [facility] 7 10:05:14 Procedur e Completed 201102/26/2017 Created By: VERONICA JENSEN ; Modified By: YAZ MARSHALL; Category : DD; Examiner : Veronica Jensen I.; Medicine Descript ion: visit for: medicati on refill; Display in Medcin: NO; Display in ESB: NO; Confiden tiality Level: Level 1; Type: Sonia Mcclain, AUTOMATIC CHIEF [facility] 7 10:05:40 Sciatica 29726182 Completed 201202/26/2017 Created By: VERONICA JENSEN ; Modified By: YAZ MARSHALL; Category : DD; Examiner : Veronica Jensen I.; Medicine Descript ion: NEURITIS SCIATIC; Display in Medcin: NO; Display in ESB: NO; Confiden tiality Level: Level 1; Type: Sonia Mcclain, AUTOMATIC CHIEF [facility] 7 10:05:12 Screenin g procedur e Completed 201402/26/2017 Created By: YAZ MARSHALL; Modified By: YAZ MARSHALL; Category : DD; Examiner : Yaz Marshall; Medicine Descript ion: visit for: screenin g malignan t neoplasm colon; Display in Medcin: NO; Display in ESB: NO; Confiden tiality Level: Level 1; Type: Sonia Mcclain, AUTOMATIC CHIEF null, [facility] 7 10:05:37 Adult health examinat ion Completed 201402/26/2017 Created By: YAZ MARSHALL; Modified By: YAZ MARSHALL; Category : DD; Examiner : Yaz Marshall; Medicine Descript ion: ROUTINE HISTORY AND PHYSICAL ; Display in Medcin: YES; Display in ESB: YES; Confiden tiality Level: Level 1; Type: Sonia Mcclain, AUTOMATIC CHIEF null, [facility] 7 10:05:29 Abnormal finding on evaluati on procedur e [id number] Completed 201402/26/2017 Created By: YAZ MARSHALL; Modified By: YAZ MARSHALL; Category : DD; Examiner : Yaz Marshall; Medicine Descript ion: ROUTINE HISTORY AND PHYSICAL ; Display in Medcin: YES; Display in ESB: YES; Confiden tiality Level: Level 1; Type: Sonia Mcclain, AUTOMATIC CHIEF null, [facility] 7 10:05:54 Palpitat ions 20625818 Completed 201402/26/2017 Created By: YAZ MARSHALL; Modified By: YAZ MARSHALL; Category : DD; Examiner : Yaz Marshall; Medicine Descript ion: palpitat ions; Display in Medcin: NO; Display in ESB: NO; Confiden tiality Level: Level 1; Type: Sonia Mcclain, AUTOMATIC CHIEF null, [facility] 7 10:06:05 Microsco pic hematuri a [id number] Completed 201402/26/2017 Created By: YAZ MARSHALL; Modified By: YAZ MARSHALL; Category : DD; Examiner : Yaz Marshall; Medicine Descript ion: MICROSCO PIC HEMATURI A; Display in Medcin: YES; Display in ESB: YES; Confiden tiality Level: Level 1; Type: Diagnosi s Cordelia Johny, AUTOMATIC CHIEF null, [facility] 7 10:05:05 Electroc ardiogra m abnormal 786789447 Completed 201402/26/2017 Created By: YAZ MARSHALL; Modified By: YAZ MARSHALL; Category : DD; Examiner : Yaz Marshall; Medicine Descript ion: ECG NORMAL VARIANT; Display in Medcin: NO; Display in ESB: NO; Confiden tiality Level: Level 1; Type: Diagnosi asha Mcclain, AUTOMATIC CHIEF null, [facility] 7 10:04:38 Evaluati on procedur e Completed 201402/26/2017 Created By: ELVIE FERNANDEZ; Modified By: KEVEN OCTOBER; Category : DD; Examiner : Keven Muhammad; Medicine Descript ion: Observat ion For Suspecte d Conditio n; Display in Medcin: YES; Display in ESB: YES; Confiden tiality Level: Level 1; Type: Diagnosmaddi Mcclain, AUTOMATIC CHIEF null, [facility] 7 10:05:34 Hyperten sive disorder 20640418 Active 2015 Created By: YAZ MARSHALL; Modified By: YAZ MARSHALL; Category : DD; Examiner : Yaz Masrhall; Medicine Descript ion: ESSENTIA L HYPERTEN [place] BENIGN; Display in Medcin: YES; Display in ESB: YES; Confiden tiality Level: Level 1; Type: Diagnosi s Not Available [facility] 4 03:27:39 Viral screenin g Completed 201502/26/2017 Created By: YAZ MARSHALL; Modified By: YAZ MARSHALL; Category : DD; Examiner : Yaz Marshall; Medicine Descript ion: visit for: screenin g exam dengue fever; Display in Medcin: YES; Display in ESB: YES; Confiden tiality Level: Level 1; Type: Diagnosmaddi Mcclain, AUTOMATIC CHIEF null, [facility] 7 10:05:16 Screenin g mammogra phy Completed 201502/26/2017 Created By: YAZ MARSHALL; Modified By: YAZ MARSHALL; Category : DD; Examiner : Yaz Marshall; Medicine Descript ion: Mammogra m Screenin g; Display in Medcin: YES; Display in ESB: YES; Confiden tiality Level: Level 1; Type: Sonia Storey Johny, AUTOMATIC CHIEF [facility], [facility] 7 10:05:19 Active immuniza tion Completed 201502/26/2017 Created By: YAZ MARSHALL; Modified By: YAZ MARSHALL; Category : DD; Examiner : Yaz Marshall; Medicine Descript ion: visit for: immuniza tion; Display in Medcin: YES; Display in ESB: YES; Confiden tiality Level: Level 1; Type: Krystynai s Cordelia Mcclain, AUTOMATIC CHIEF null, [facility] 7 10:05:31 Pain of left shoulder joint [id number] 424761 Active 2017 Not Available [facility] 4 03:27:39 Vitamin D deficien cy 71590370 Active 2021 Not Available [facility] 4 03:27:39 Congesti ve heart failure 45264731 Active 2022 Not Available [facility] 4 03:27:39 Type 2 diabetes mellitus without complica tion 145330025 Active 2022 Not Available [facility] 4 03:27:39 Female urinary stress incontin ence 04508951 Active 2024 Adriana Poe NP [address], [address] , [facility] 5 11:50:21 Dependen ce on suppleme ntal oxygen 55500102754 7 Active 2024 Adriana Poe NP [address], [address] , [facility] 5 12:26:07 Problem Notes None recorded. Procedures Surgical History Date Name Laterality Status Provider Name and Address Organization Details Recorded Time 05/17/20 25 Suture/Staple removal completed [address], [phone], [facility] 05/17/2025 15:52:31 05/05/20 25 Flu vaccine Screening completed Rita Olivarez [facility] 05/05/2025 12:16:34 08/20/20 24 Nebulizer tx duoneb completed [address], [address], [facility] 08/20/2024 16:28:20 05/06/20 24 venipuncture completed Juliet Gatica [facility] 05/06/2024 11:42:54 02/19/20 24 Splint Application completed Adriana Poe NP [address], [address], [facility] 02/19/2024 14:24:04 12/26/19 24 venipuncture completed Yuliya Hurd [facility] 12/26/2023 15:40:03 09/25/19 22 venipuncture completed Shauna Jordan [facility] 09/25/2021 13:07:04 11/25/19 21 venipuncture completed Jodi Mora [facility] 11/24/2020 11:10:23 12/18/19 20 venipuncture completed Yuliya Hurd [facility] 12/18/2019 16:28:31 12/18/19 20 venipuncture cancelled Tyler Mcfarlane [facility] 12/18/2019 09:21:06 04/14/20 19 venipuncture completed Cordelia Mcclain LPN [facility] 04/14/2019 09:25:36 08/08/20 18 venipuncture completed Cordelia Mcclain LPN [facility] 08/08/2018 09:13:48 09/10/19 18 venipuncture completed Homa Zarate [facility] 09/10/2017 10:01:27 02/27/20 17 venipuncture completed Cordelia Mcclain LPN [facility] 02/26/2017 10:26:37 08/15/20 16 venipuncture completed Homa Zarate [facility] 08/15/2016 10:27:51 Cardiac Surgery completed Cordelia waldrop LPN [facility] 02/26/2017 10:07:03 Imaging Results None recorded. Procedure Notes None recorded. Medical Equipment None Reported. Allergies Allergen ID Allergen Name Allergen Category Reaction Reaction Severity Criticality Documentation Date Start Date Code Code System Note Provider Name and Address Organization Details Recorded Time 09273 codeine medicatio n Not available Not available Not available 08/05/20162009 2670 RxNorm Comme nt: Last Edite d: 11-25 09:27 :35; Not Available [facility] 6 03:58:28 Medications Name Sig Start Date Stop [...] per sliding scale before meals TID<150- 0 -200-3 [email or web address] -250-6 -300- 9 [id number] -350-12 -400-15 units Not Available Not Available [...] Available Pentips Pen Needle 32 gauge x 5/32 USE 1 PEN NEEDLE THREE TIMES DAILY [...] Available Not Available Not Avai lable Vitals None Recorded Social History Question Answer Notes LastModified by Organization Details LastModified Time Tobacco Smoking Status Current Every Day Smoker Rita Olivarez [facility] [place] - [facility] 02/18/2025 15:08:04 Do You Have An Advance Directive? No [email or web address] Information not available 01/29/2017 Are You Blind Or Do You Have Difficulty Seeing? Yes [email or web address] Information not available 09/25/2021 Is Blood Transfusion Acceptable In An Emergency? Yes [email or web address] Information not available 09/25/2021 What Is Your Level Of Caffeine Consumption? Heavy [email or web address] Information not available 01/29/2017 How Much Tobacco Do You Chew? None [email or web address] Information not available 01/29/2017 Commercial Sex Work No [email or web address] Information not available 01/29/2017 In The 14 [...] Do You Have Serious Difficulty Hearing? No [email or web address] Information not available 09/25/2021 What Type Of Diet Are You Following? REGULAR Information not available 01/29/2017 Which Illicit Or Recreational Drugs Have You Used? None Information not available 01/29/2017 Have You Processed Blood Or Body Fluids From An Ebola Virus Disease Patient Without Appropriate PPE? No [email or web address] Information not available 09/25/2021 Education Less Than 8th Grade [email or web address] Information not available 01/29/2017 What Is The Highest Grade Or Level Of School You Have Completed Or The Highest Degree You Have Received? [id number] Information not available 08/12/2025 Are There Any Guns Present In Your Home? Yes Information not available 02/26/2017 Hard Of Hearing Or Deaf In One Or Both Ears? No Information not available 01/29/2017 High Number Of Sexual Partners No [email or web address] Information not available 01/29/2017 History Of Inconsistent/no Condom Use No [email or web address] Information not available 01/29/2017 International Travel None Information not available 02/26/2017 Legally Blind In One Or Both Eyes? No [email or web address] Information not available 01/29/2017 In The Past 6 Months Have You Fallen No Information not available 01/29/2017 Medication List Reconciled Yes Information not available 04/14/2019 What Number (0-10) Best Describes How, During The Past Week, Has Interfered With Your General Activity? 0 [email or web address] Information not available 01/29/2017 What Number (0-10) Best Describes How, During The Past Week, Pain Has Interfered With Your Enjoyment In The Past Week 0 [email or web address] Information not available 01/29/2017 What Number (0-10) Best Describes Your Pain On Average In The Past Week 0 [email or web address] Information not available 01/29/2017 Total PEG Score 0 Informati on not available 01/29/2017 Most Recent Dental Visit 09/02/1996 Up To Date 04/23/22 Information not available 08/08/2018 Sexual Orientation Straight Or Heterosexual Information not available 11/24/2020 Gender Identity Female Informat ion not available 11/24/2020 Eye Exam 09/02/2015 Information not available 08/08/2018 Do You Feel Safe Yes Informa tion not available 11/24/2020 Hospital Follow Up Appointment 08/12/2025 [email or web address] Information not available 08/12/2025 Hospital Discharged Patient To Home [email or web address] Information not available 08/12/2025 ER Medication List Reconciled Yes [email or web address] Information not available 07/22/2025 ER Contact Date 07/22/2025 [email or web address] Informati on not available 07/22/2025 ER Follow Up Contact Date 07/22/2025 [email or web address] Information not available 07/22/2025 ER Follow Up Patient Contact Via Unable To Contact Went To [facility] ER Transferred To [facility] Diagnosis Pneumonia Information not available 07/22/2025 ER Date Of Discharge 07/21/2025 [email or web address] Information not available 07/22/2025 ER Discharged Patient To Caregiver Transfer [email or web address] Information not available 07/22/2025 ER Records Recieved Yes [email or web address] Information not available 07/22/2025 ER Records Requested Yes [email or web address] Information not available 07/22/2025 Marital Status [email or web address] Informatio n not available 01/29/2017 What Was The Date Of Your Most Recent Tobacco Screening? 08/12/2025 [email or web address] Information not available 08/12/2025 Mother With HIV? No [email or web address] Informat ion not available 01/29/2017 How Many Children Do You Have? 4 [email or web address] Information not available 08/12/2025 What Is Your Relationship Status? [email or web address] Information not available 08/12/2025 Do You Use Your Seat Belt Or Car Seat Routinely? Yes Information not available 07/28/2024 Seat Belts Used Routinely Yes Information not available 01/29/2017 Are You Sexually Active? Yes Information not available 08/08/2018 Sexual Partner Has HIV? No [email or web address] Information not available 01/29/2017 Sexual Partner Uses IV Drugs? No [email or web address] Information not available 01/29/2017 Smoke Alarm In Home No Information not available 01/29/2017 At What Age Did You Start Smoking Tobacco? 15 Information not available 02/26/2017 How Much Tobacco Do You Smoke? 0.5 PPD [email or web address] Information not available 05/05/2025 General Stress Level Medium [email or web address] Information not available 01/29/2017 Do You Use Sunscreen Routinely? No Information not available 01/29/2017 How Many Years Have You Smoked Tobacco? 41 Information not available 02/26/2017 Have You Used IV Drugs? No [email or web address] Information not available 01/29/2017 Do You Have Difficulty Walking Or Climbing Stairs? Yes [email or web address] Information not available 09/25/2021 Do You Want To Talk About Contraception Or Prevention During Your Visit Today? No - This Question Does Not Apply To Me/I Prefer Not To Answer Information not available 12/17/2024 Do You Have Any Future Plans To Get ? No, I Don't Want To Become Information not available 12/17/2024 Sex: Female Functional Status Question Answer Note LastModified by Organizat ion Details LastModified Time Do you use any illicit or recreational drugs? No [email or web address] Information not available 06/14/2025 Do you or have you ever used any other forms of tobacco or nicotine? Yes Nicotine patches Information not available 12/17/2024 What is your level of alcohol consumption? None Information not available 01/29/2017 Do you or have you ever used smokeless tobacco? Never used smokeless tobacco Information not available 04/14/2019 Are you currently employed? No [email or web address] Information not available 08/12/2025 Do you have transportation difficulties? No [email or web address] Information not available 09/25/2021 Are you able to walk independently without assistance or assistive devices? YESWOREST [email or web address] Information not available 01/29/2017 Do you have difficulty doing errands alone? No [email or web address] Information not available 09/25/2021 Are you able to care for yourself independently? Yes Information not available 09/25/2021 Do you have difficulty dressing, bathing, grooming, or toileting? No [email or web address] Information not available 09/25/2021 Do you or have you ever used e-cigarettes or vape? Never used electronic cigarettes Information not available 04/14/2019 What is your exercise level? Moderate [email or web address] Information not available 01/29/2017 Mental Status Question Answer Note LastModified by Organizat ion Details LastModified Time Do you feel stressed (tense, restless, nervous, or anxious, or unable to sleep at night)? [id number] [email or web address] Information not available 09/25/2021 Do you have difficulty concentrating, remembering or making decisions? No [email or web address] Information no t available 09/25/2021 Family History Relationship Description Onset Age of this Age Resolved Age Notes LastModified by Organization Details LastModified Time Mother Diabetes mellitus [email or web address] Not available 2016 14:32:39 Brother Diabetes mellitus [email or web address] Not available 2016 14:32:46 Medical History Condition Response Other N Gout N Kidney Stones N Blood Diseases N Hyperthyroidism N Blood Transfusion N Depression N COPD N Incontinence N Edema N Endocrine Disorders N Anxiety Disorder N Muscle, Joint, or Bone Problems N Obesity Y Vision or Eye Problems N Arthritis N Auditory Hallucinations N Infertility N Cancer N Varicosities N Stroke N Headaches N Fibromyalgia N Kidney Disease [...] Anemia N Colon Polyps N Heart Attack ([place]) N Ovarian Cancer N Diabetes N Bedwetting [...] MDCK, quadrivalent, preservative 9 completed Not Available [facility] 09/19/2019 02:39:19 Tdap 7 completed Not Available [facility] 09/19/2019 02:39:16 Influenza, split virus, trivalent, preservative 6 completed Not Available [facility] 09/25/2023 03:27:39 Tdap 5 completed Not Available [facility] 08/12/2025 12:00:37 Influenza, MDCK, quadrivalent, PF 4 completed Juliet Gatica [facility] 05/07/2024 12:22:36 Influenza, split virus, quadrivalent, PF 5 completed Rita Olivarez [facility] 05/05/2025 12:58:35 Pneumococcal conjugate PCV20, polysaccharide [id number] conjugate, adjuvant, 5 completed Rita Olivarez [facility] 06/28/2025 15:43:32 Influenza, MDCK, quadrivalent, preservative 8 completed Not Available [facility] 09/19/2019 02:39:18 Past Encounters Encounter ID Performer Location Encounter Start Date Encounter Closed Date Diagnosis/Indication Diagnosis SNOMED-CT Code Diagnosis ICD10 Code Diagnosis IMO Codes Diagnosis Note [id number] MCKAY CUEVAS DO [facility] [address] [place] [address] 06/28/2025 14:26:03 06/28/2025 17:52:37 Body mass index 40+ - severely obese 360555098 Z68.42 074688 Diet education 92044608 Z71.3 Exercises education, guidance, and counseling 298224193 Z71.82 Insomnia 538447800 G47.0 [id number] Will increase the trazodone to 100 mg at bedtime. Local infe ction of wound 22633819 T81.49XA [id number] Healing. Completed levaquin. Will recheck next week Requires v accination against Streptococcus pneumoniae 1568613070 Z23 [id number] [facility] [address] [place] [address] 07/06/2025 09:50:42 07/06/2025 12:42:45 [id number] MCKAY CUEVAS DO [facility] [place] [address] [place] [address] 07/07/2025 14:54:32 07/07/2025 15:29:25 Local infection of wound 73936183 T81.49XA [id number] Healing. If noticing any increased redness or pain; Let us know. Patient voiced understand ing Body mass index 40+ - severely obese 988337317 E66.01 97887691 Diet education 64839511 Z71.3 Exercises education, guidance, and counseling 791019598 Z71.82 Cigarette smoker 1927409 7 F17.210 [id number] [facility] [address] [address] 07/07/2025 15:43:10 07/07/2025 16:42:44 [id number] [facility] [address] [address] 07/22/2025 15:07:34 07/22/2025 17:21:39 [id number] [place] [address] [address] 07/23/2025 07:58:37 07/26/2025 08:44:39 [id number] [place] [address] [address] 07/26/2025 09:20:12 07/26/2025 11:14:46 Goals Section Goal Description Progress Status Start [...] Available 07/06/2025 15: 48:27 Depressive disorder Active Luisa Jaimes Not Availabl e 07/06/2025 15:49:08 Payers Encounter Date Sequence Insurance Name Policy Number Policy Sofia Covered Member ID Sofia Member ID Guarantor Name 07/26/2025 2 [place] Nadine Esquivel [id number] Nadine Esquivel 07/26/2025 1 [employer] [facility] [employer] [place] Nadine Esquivel [id number] Nadine Esquivel OBGyn Episode No OBEpisode recorded.
--- OUTSIDE RECORDS SUMMARY | 2025-08-29 09:06 | XMS_ITS | Continuity of Care Document ---
Author Organization [facility], [facility] Address [address] [place] [address] Care Team Providers Care Pin Worker Name Role Phone LUISA JAIMES Advanced Practice Nurse [facility] EUN BASHIR Community Health Worker [facility] Assessment Encounter Date Assessment Date Assessment LastModified by Organization Details LastModified Time 08/12/2025 08/12/2025 J18.1: Lobar pneumonia, unspecified organism E11.9: Type 2 diabetes mellitus without complications Z99.81: Dependence on supplemental oxygen J44.9: Chronic obstructive pulmonary disease, unspecified 1. Post-pneumonia follow-up J18.1: Lobar pneumonia, unspecified organism Patient recently hospitalized 07/21/2025 to 07/25/2025 for left lower lobe pneumonia with left lower lobe pleural effusion. Completed antibiotic course. Echocardiogram showed normal ejection fraction of 55%. - Pulmonology referral to [place] for post-pneumonia follow-up as recommended in discharge instructions - Patient to call office with discharge paperwork details to facilitate referral 2. Type 2 diabetes mellitus E11.9: Type 2 diabetes mellitus without complications Z99.81: Dependence on supplemental oxygen Patient currently on glipizide and Lantus 25 units daily. Previously discontinued Ozempic by patient choice. Reports difficulty maintaining blood glucose control with goals under 175-190. Currently uses 3 liters supplemental oxygen at home. - Restart Ozempic 0.25 mg weekly for 4 weeks, then increase to 0.5 mg weekly - Laboratory studies today including A1C - Continue current glipizide and Lantus regimen - Continue current oxygen therapy [id number] Not available 08/12/2025 14:26:06 Plan of Treatment Reminders Order Date Submit Date Provider Last Modified By Organization Details Last Modified Time Details Appointments None recorded. Lab HbA1c (hemoglobin A1c), blood 2024 [facility], [address] [place], [address], 18:43:42 lipid panel, serum 2024 [facility], [address] [place], [address], 17:25:40 microalbumi n/creatinin e, mass ratio, urine 2024 [email or web address] [facility], [address] [place], [place], [address], 08:00:50 CBC w/ diff 2024 [facility], [address] [place] [place], [place], [address], 17:25:39 CMP, serum or plasma 2024 [facility], [address] [place] [place], [place], [address], 17:25:[address] referral - Please call Luisa at for needs, questions or scheduling [email or web address] [facility], [address] [place], [address], 14:01:40 Procedures None recorded. Surgeries None recorded. Imaging None recorded. Medication Orders Ozempic 0.25 mg or 0.5 mg (2 mg/3 mL) subcutaneou s pen injector 2024 [facility], [address], [place], [address], 12:25:23 Patient TargetsNo targets recorded. Patient InstructionsNo instructions recorded. Reason for Referral Records Management Manager Referral for C hronic obstructive pulmonary disease Please call Luisa at [phone] for needs, questions or scheduling Referring Physician: Adriana Peo, Family Medicine, Encounter Date: 08/12/2025 Results Created Date Observation Date Name Description Value Unit Range Abnormal Flag Note LastModifiedBy Organization Detail LastModifiedTime 08/12/2008/12/2025 CBC WBC 12.58 x10(3 )/uL 3.98 - 10.40 high Not Available [facility] [address] [place], [address], 08/12/2025 17:25:39 08/12/20 25 08/12/2025 CBC RBC 5.41 x10(6 )/uL 3.93 - 5.22 high Not Available [facility] [address] [place], [address], 08/12/2025 17:25:39 08/12/20 25 08/12/2025 CBC HGB 14.8 g/dL 11.2 - 15.7 Not Available [facility] [address] [place], [address], 08/12/2025 17:25:39 08/12/20 25 08/12/2025 CBC HCT 49.9 % 34.1 - 44.9 high Not Available [facility] [address] [place], [address], 08/12/2025 17:25:39 08/12/20 25 08/12/2025 CBC MCV 92.2 fL 79.4 - 94.8 Not Available [facility] [address] [place], [address], 08/12/2025 17:25:39 08/12/20 25 08/12/2025 CBC MCH 27.4 pg 25.6 - 32.2 Not Available [facility] [address] [place], [address], 08/12/2025 17:25:39 08/12/20 25 08/12/2025 CBC MCHC 29.7 g/dL 32.2 - 35.5 low Not Available [facility] [address] [place], [address], 08/12/2025 17:25:39 08/12/20 25 08/12/2025 CBC platelet count 214 x10(3 )/uL 182 - 369 Not Available [facility] [address] [place], [address], 08/12/2025 17:25:39 08/12/20 25 08/12/2025 CBC neut% 78.9 % 34.0 - 71.1 high Not Available [facility] [address] [place], [address], 08/12/2025 17:25:39 08/12/20 25 08/12/2025 CBC lymph% 14.5 % 19.3 - 51.7 low Not Available [facility] [address] [place], [address], 08/12/2025 17:25:39 08/12/20 25 08/12/2025 CBC mono% 4.6 % 4.7 - 12.5 low Not Available [facility] [address] [place], [address], 08/12/2025 17:25:39 08/12/20 25 08/12/2025 CBC baso% 0.4 % 0.1 - 1.2 Not Available [facility] [address] [place], [address], 08/12/2025 17:25:39 08/12/20 25 08/12/2025 CBC eo% 1.3 % 0.7 - 5.8 Not Available [facility] [address] [place] [place], [address], 08/12/2025 17:25:39 08/12/20 25 08/12/2025 CBC Ig% 0.3 % 0.0 - 0.4 Not Available [facility] [address] [place], [address], 08/12/2025 17:25:39 08/12/20 25 08/12/2025 CBC neut# 9.93 x10(3 )/uL 1.56 - 6.13 high Not Available [facility] [address] [place], [address], 08/12/2025 17:25:39 08/12/20 25 08/12/2025 CBC lymph# 1.82 x10(3 )/uL 1.18 - 3.74 Not Available [facility] [address] [place], [address], 08/12/2025 17:25:39 08/12/20 25 08/12/2025 CBC mono# 0.58 x10(3 )/uL 0.24 - 0.86 Not Available [facility] [address] [place], [place], [address], 08/12/2025 17:25:39 08/12/20 25 08/12/2025 CBC baso# 0.05 x10(3 )/uL 0.01 - 0.08 Not Available [facility] [address] [place], [place], [address], 08/12/2025 17:25:39 08/12/20 25 08/12/2025 CBC eo# 0.16 x10(3 )/uL 0.04 - 0.36 Not Available [facility] [address] [place], [address], 08/12/2025 17:25:39 08/12/20 25 08/12/2025 CBC Ig# 0.04 x10(3 )/uL 0.00 - 0.03 high Not Available [facility] [address] [place], [address], 08/12/2025 17:25:39 08/12/20 25 08/12/2025 CBC RDW-CV 15.3 % 11.7 - 14.4 high Not Available [facility] [address] [place], [address], 08/12/2025 17:25:39 08/12/20 25 08/12/2025 CBC RDW-SD 52.4 fL 36.4 - 46.3 high Not Available [facility] [address] [place], [address], 08/12/2025 17:25:39 08/12/20 25 08/12/2025 CBC MPV 10.5 fL 9.4 - 12.3 Not Available [facility] [address] [place], [address], 08/12/2025 17:25:39 08/12/20 25 08/12/2025 CBC NRBC# 0.00 x10(3 )/uL 0.00 - 0.01 Not Available [facility] [address] [place], [address], 08/12/2025 17:25:39 08/12/20 25 08/12/2025 CBC NRBC% 0.0 % 0.0 - 0.2 Not Available [facility] [address] [place], [address], 08/12/2025 17:25:39 08/12/20 25 08/12/2025 COMPR EHENS ANGY METAB OLIC PANEL (CMP) albumin 4.1 g/dL 3.5 - 5.0 Not Available [facility] [address] [place], [address], 08/12/2025 17:25:39 08/12/20 25 08/12/2025 COMPR EHENS ANGY METAB OLIC PANEL (CMP) chloride 99 mmol/ L 98 - 107 Not Available [facility] [address] [place], [address], 08/12/2025 17:25:39 08/12/20 25 08/12/2025 COMPR EHENS ANGY METAB OLIC PANEL (CMP) creatinine 1.17 mg/dL 0.52 - 1.04 high Not Available [facility] [address] [place], [address], 08/12/2025 17:25:39 08/12/20 25 08/12/2025 COMPR EHENS ANGY METAB OLIC PANEL (CMP) eco2 37.0 mmol/ L 22.0 - 30.0 high Not Available [facility] [address] [place], [address], 08/12/2025 17:25:39 08/12/20 25 08/12/2025 COMPR EHENS ANGY METAB OLIC PANEL (CMP) glucose 198 mg/dL 74 - 106 high Not Available [facility] [address] [place], [address], 08/12/2025 17:25:39 08/12/20 25 08/12/2025 COMPR EHENS ANGY METAB OLIC PANEL (CMP) potassium 4.60 mmol/ L 3.50 - 5.10 Not Available [facility] [address] [place], [address], 08/12/2025 17:25:39 08/12/20 25 08/12/2025 COMPR EHENS ANGY METAB OLIC PANEL (CMP) alkaline phos 114 U/L 38 - 126 Not Available [facility] [address] [place], [address], 08/12/2025 17:25:39 08/12/20 25 08/12/2025 COMPR EHENS ANGY METAB OLIC PANEL (CMP) sodium 141 mmol/ L 137 - 145 Not Available [facility] [address] [place], [address], 08/12/2025 17:25:39 08/12/20 25 08/12/2025 COMPR EHENS ANGY METAB OLIC PANEL (CMP) total bilirubin 0.6 mg/dL 0.2 - 1.3 Not Available [facility] [address] [place], [address], 08/12/2025 17:25:39 08/12/20 25 08/12/2025 COMPR EHENS ANGY METAB OLIC PANEL (CMP) total protein 7.3 g/dL 6.3 - 8.2 Not Available [facility] [address] [place], [address], 08/12/2025 17:25:39 08/12/20 25 08/12/2025 COMPR EHENS ANGY METAB OLIC PANEL (CMP) ALT 16 U/L 0 - 35 Not Available [facility] [address] [place], [address], 08/12/2025 17:25:39 08/12/20 25 08/12/2025 COMPR EHENS ANGY METAB OLIC PANEL (CMP) BUN/urea 27 mg/dL 7 - 17 high Not Available [facility] [address] [place], [address], 08/12/2025 17:25:39 08/12/20 25 08/12/2025 COMPR EHENS ANGY METAB OLIC PANEL (CMP) eGFR 52 mL/mi n/1.7 3m2 >60 low *eGFR Refer ence Value s Maria Del Rosario l: >60 mL/mi n/1.7 3m2 Abnor mal: < 60 mL/mi n/1.7 3m2 Not Available [facility] [address] [place], [address], 08/12/2025 17:25:39 08/12/20 25 08/12/2025 COMPR EHENS ANGY METAB OLIC PANEL (CMP) A/G ratio 1.3 (calc ) 1.0 - 2.5 Not Available [facility] [address] [place], [address], 08/12/2025 17:25:39 08/12/20 25 08/12/2025 COMPR EHENS ANGY METAB OLIC PANEL (CMP) globulin 3.2 g/dL_ (calc ) 1.9 - 3.7 Not Available [facility] [address] [place], [address], 08/12/2025 17:25:39 08/12/20 25 08/12/2025 COMPR EHENS ANGY METAB OLIC PANEL (CMP) calcium 9.4 mg/dL 8.4 - 10.2 Not Available [facility] [address] [place], [address], 08/12/2025 17:25:39 08/12/20 25 08/12/2025 COMPR EHENS ANGY METAB OLIC PANEL (CMP) AST 22 U/L 14 - 36 Not Available [facility] [address] [place], [address], 08/12/2025 17:25:39 08/12/20 25 08/12/2025 COMPR EHENS ANGY METAB OLIC PANEL (CMP) BUN/crea ratio 23 (calc ) 6 - 22 high Not Available [facility] [address] [place], [address], 08/12/2025 17:25:39 08/12/20 25 08/12/2025 LIPID PANEL VLDL (calculated) 30 mg/dL (calc ) 0 - 30 Not Available [facility] [address] [place], [address], 08/12/2025 17:25:40 08/12/20 25 08/12/2025 LIPID PANEL direct HDL 33 mg/dL 40 - 60 low Not Available [facility] [address] [place], [address], 08/12/2025 17:25:40 08/12/20 25 08/12/2025 LIPID PANEL triglyceride s 149 mg/dL 0 - 199 Not Available [facility] [address] [place], [address], 08/12/2025 17:25:40 08/12/20 25 08/12/2025 LIPID PANEL cholesterol 144 mg/dL <200 Not Available [facility] [address] [place], [address], 08/12/2025 17:25:40 08/12/20 25 08/12/2025 LIPID PANEL chol/DHDL ratio 4 %_(ca lc) 0 - 5 Not Available [facility] [address] [place], [address], 08/12/2025 17:25:40 08/12/20 25 08/12/2025 LIPID PANEL LDL (calculated) 81 mg/dL 0 - 100 Not Available [facility] [address] [place], [address], 08/12/2025 17:25:40 08/12/20 25 08/13/2025 HEMOG LOBIN A1C hemoglobin A1C 10.2 % <5.7 high The follo wing HbA1c range s recom srinivasan d by the Davyeri can Diabe lorena Assoc iatio n (ADA) may be used as an aid in the diagn osis of diabe lorena melli tus. HbA1c Sugge sted Diagn osis >=6.5 % Diabe tic 5.7% - 6.4% Pre-D iabet ic <5.7% Non-D iabet ic Not Available [facility] [address] [place], [address], 08/13/2025 18:43:42 08/12/20 25 08/13/2025 MICRO ALBUM IN/CR EATIN INE, RANDO M URINE SAMPL E albumin/crea tinine ratio, urine 29 ug/mg 0-30 Not Available [facility] [address] [place], [address], 08/13/2025 18:43:42 08/12/20 25 08/13/2025 MICRO ALBUM IN/CR EATIN INE, RANDO M URINE SAMPL E microalbumin , urine, random 2.8 mg/dL Not Available [facility] [address] [place], [address], 08/13/2025 18:43:42 08/12/20 25 08/13/2025 MICRO ALBUM IN/CR EATIN INE, RANDO M URINE SAMPL E creatinine, urine 97.5 mg/dL Not Available [facility] [address] [place], [address], 08/13/2025 18:43:42 08/12/20 25 08/13/2025 ESTIM ATED AVERA GE GLUCO SE estimated average glucose (EAG) 246 mg/dL Estim ated [place] ge Gluco se (eAG) is calcu lated using the equat ion eAG = (28.7 x HbA1c ) - 46.7 based on the guide lines estab letty diaz by the ADA. If the patie nt has certa in disea ses inclu ding kidne y disea se, sickl e cell anemi a, thala ssemi a, or is takin g medic ation s such as dapso ne, eryth ropoi etin, or iron, eAG shoul d not be evalu ated. Not Available [facility] [address], [place], [address], 08/13/2025 18:43:43 Result Notes None recorded. Problems Name Problem SNOMED Code Status Onset Date Resolution Date Notes Provider Name and Address Organization Details Recorded Time Acute sinusiti s 27124488 Completed 200402/26/2017 Category : DD; Medicine Descript ion: SINUSITI S ACUTE; Display in Medcin: YES; Display in ESB: YES; Confiden tiality Level: Level 1 Cordelia Mcclain LPN [facility] 7 10:04:47 Dizzines s and giddines s [id number] Completed 200402/26/2017 Category : DD; Medicine Descript ion: dizzines s; Display in Medcin: YES; Display in ESB: YES; Confiden tiality Level: Level 1 Cordelia Mcclain LPN [facility], [facility] 7 10:05:26 Tracheob ronchiti s [id number] Completed 200402/26/2017 Category : DD; Medicine Descript ion: TRACHEOB RONCHITI S; Display in Medcin: YES; Display in ESB: YES; Confiden tiality Level: Level 1 Cordelia Mcclain LPN [facility] 7 10:04:42 Chronic obstruct angy pulmonar y disease [id number] Active 2004 Modified By: MARIA ANTONIA DEL REAL; Category : DD; Examiner : Veronica Jensen I.; Medicine Descript ion: CHRONIC OBSTRUCT ANGY PULMONAR Y DISEASE; Display in Medcin: YES; Display in ESB: YES; Confiden tiality Level: Level 1 Not Available [facility] 4 03:27:39 Clinical finding Completed 200402/26/2017 Modified By: YAZ MARSHALL; Category : DD; Examiner : Yaz Marshall; Medicine Descript ion: LARYNGOP HARYNGEA L REFLUX; Display in Medcin: NO; Display in ESB: NO; Confiden tiality Level: Level 1 [facility] 7 10:05:08 Allergic rhinitis 58908890 Active 2004 Category : DD; Medicine Descript ion: ALLERGIC RHINITIS ; Display in Medcin: YES; Display in ESB: YES; Confiden tiality Level: Level 1 Not Available [facility] 4 03:27:39 Neves's palsy 145064532 Completed 200502/26/2017 Category : DD; Medicine Descript ion: NEVES'S PALSY; Display in Medcin: YES; Display in ESB: YES; Confiden tiality Level: Level 1 [facility] 7 10:05:01 Family history of diabetes mellitus 256443341 Completed 200902/26/2017 Created By: VERONICA JENSEN ; Modified By: VERONICA JENSEN ; Category : DD; Examiner : VERONICA JENSEN I.; Medicine Descript ion: DIABETES MELLITUS ; Display in Medcin: NO; Display in ESB: YES; Confiden tiality Level: Level 1 REMIGIO Lemus, [facility] 7 10:04:51 Benign essentia l hyperten [place] 9285932 Completed 200902/26/2017 Created By: VERONICA JENSEN ; Modified By: GHAZAL PHAN; Category : DD; Examiner : VERONICA JENSEN I.; Medicine Descript ion: HYPERTEN [place] (SYSTEMI C); Display in Medcin: YES; Display in ESB: YES; Confiden tiality Level: Level 1 REMIGIO Lemus, [facility] 7 10:05:46 Family history of Cardiova scular disease 030756004 Completed 200902/26/2017 Created By: VERONICA JENSEN ; Modified By: MARIA ANTONIA DEL REAL; Category : DD; Examiner : Veronica Jensen I.; Medicine Descript ion: reported family history ischemic heart disease before age 50; Display in Medcin: YES; Display in ESB: YES; Confiden tiality Level: Level 1 REMIGIO Lemus, [facility] 7 10:05:23 Wheezing 95380153 Completed 200902/26/2017 Created By: VERONICA JENSEN ; Modified By: GHAZAL PHAN; Category : DD; Examiner : Veronica Jensen I.; Medicine Descript ion: wheezing [as a symptom] ; Display in Medcin: YES; Display in ESB: YES; Confiden tiality Level: Level 1 REMIGIO Lemus, [facility] 7 10:05:57 Mild intermit tent asthma 930058123 Active 2009 Created By: VERONICA JENSEN ; Modified By: GHAZAL PHAN; Category : DD; Examiner : Veronica Jensen I.; Medicine Descript ion: ASTHMA MILD INTERMIT TENT UNCOMPLI CATED; Display in Medcin: YES; Display in ESB: YES; Confiden tiality Level: Level 1 Not Available [facility] 4 03:27:39 Obesity 421878834 Active 2010 Created By: VERONICA JENSEN ; Modified By: GHAZAL PHAN; Category : DD; Examiner : VERONICA JENSEN I.; Medicine Descript ion: Obese; Display in Medcin: YES; Display in ESB: YES; Confiden tiality Level: Level 1 Not Available [facility] 4 03:27:39 Nicotine dependen ce 80425487 Active 2010 Created By: VERONICA JENSEN ; Modified By: YAZ MARSHALL; Category : DD; Examiner : Yaz Marshall; Medicine Descript ion: current smoker; Display in Medcin: NO; Display in ESB: NO; Confiden tiality Level: Level 1; Type: Diagnosi s Not Available [facility] 4 03:27:39 Hyperlip idemia 65280911 Active 2010 Created By: VERONICA JENSEN ; Modified By: VERONICA JENSEN ; Category : DD; Examiner : Veronica Jensen I.; Medicine Descript ion: DYSLIPID EMIA; Display in Medcin: YES; Display in ESB: YES; Confiden tiality Level: Level 1; Type: Diagnosi s Not Available [facility] 4 03:27:39 Long-ter m drug therapy Completed 201002/26/2017 Created By: VERONICA JENSEN ; Modified By: VERONICA JENSEN ; Category : DD; Examiner : Veronica Jensen I.; Medicine Descript ion: taking medicati on for a long time; Display in Medcin: YES; Display in ESB: YES; Confiden tiality Level: Level 1; Type: Diagnos s Cordelia Mcclain LPN [facility] 7 10:05:21 Verruca plantari s 07702492 Completed 201102/26/2017 Created By: VERONICA JENSEN ; Modified By: YAZ MARSHALL; Category : DD; Examiner : Yaz Marshall; Medicine Descript ion: Wartlike Lesions Feet Plantar; Display in Medcin: YES; Display in ESB: YES; Confiden tiality Level: Level 1; Type: Diagnosi s Cordelia Mcclain LPN [facility] 7 10:06:02 Plane wart 598727949 Completed 201102/26/2017 Created By: VERONICA JENSEN ; Modified By: YAZ MARSHALL; Category : DD; Examiner : Yaz Marshall; Medicine Descript ion: WARTS COMMON; Display in Medcin: YES; Display in ESB: YES; Confiden tiality Level: Level 1; Type: Diagnosi s Cordelia Johny, LOCATION MANAGER null, [facility] 7 10:05:14 Procedur e Completed 201102/26/2017 Created By: VERONICA JENSEN ; Modified By: YAZ MARSHALL; Category : DD; Examiner : Veronica Jensen I.; Medicine Descript ion: visit for: medicati on refill; Display in Medcin: NO; Display in ESB: NO; Confiden tiality Level: Level 1; Type: Diagnosi s Cordelia Johny, LOCATION MANAGER null, [facility] 7 10:05:40 Sciatica 66130125 Completed 201202/26/2017 Created By: VERONICA JENSEN ; Modified By: YAZ MARSHALL; Category : DD; Examiner : Veronica Jensen I.; Medicine Descript ion: NEURITIS SCIATIC; Display in Medcin: NO; Display in ESB: NO; Confiden tiality Level: Level 1; Type: Diagnosi s Cordelia Johny, LOCATION MANAGER null, [facility] 7 10:05:12 Screenin g procedur e Completed 201402/26/2017 Created By: YAZ MARSHALL; Modified By: YAZ MARSHALL; Category : DD; Examiner : Yaz Marshall; Medicine Descript ion: visit for: screenin g malignan t neoplasm colon; Display in Medcin: NO; Display in ESB: NO; Confiden tiality Level: Level 1; Type: Diagnosi s Cordelia Johny, LOCATION MANAGER null, [facility] 7 10:05:37 Adult health examinat ion Completed 201402/26/2017 Created By: YAZ MARSHALL; Modified By: YAZ MARSHALL; Category : DD; Examiner : Yaz Marshall; Medicine Descript ion: ROUTINE HISTORY AND PHYSICAL ; Display in Medcin: YES; Display in ESB: YES; Confiden tiality Level: Level 1; Type: Diagnosi s Cordelia Johny, LOCATION MANAGER null, [facility] 7 10:05:29 Abnormal finding on evaluati on procedur e [id number] Completed 201402/26/2017 Created By: YAZ MARSHALL; Modified By: YAZ MARSHALL; Category : DD; Examiner : Yaz Marshall; Medicine Descript ion: ROUTINE HISTORY AND PHYSICAL ; Display in Medcin: YES; Display in ESB: YES; Confiden tiality Level: Level 1; Type: Sonia Mcclain, LOCATION MANAGER null, [facility] 7 10:05:54 Palpitat ions 62474663 Completed 201402/26/2017 Created By: YAZ MARSHALL; Modified By: YAZ MARSHALL; Category : DD; Examiner : Yaz Marshall; Medicine Descript ion: palpitat ions; Display in Medcin: NO; Display in ESB: NO; Confiden tiality Level: Level 1; Type: Sonia Mcclain, LOCATION MANAGER null, [facility] 7 10:06:05 Microsco pic hematuri a [id number] Completed 201402/26/2017 Created By: YAZ MARSHALL; Modified By: YAZ MARSHALL; Category : DD; Examiner : Yaz Marshall; Medicine Descript ion: MICROSCO PIC HEMATURI A; Display in Medcin: YES; Display in ESB: YES; Confiden tiality Level: Level 1; Type: Sonia Mcclain, LOCATION MANAGER null, [facility] 7 10:05:05 Electroc ardiogra m abnormal [id number] Completed 201402/26/2017 Created By: YAZ MARSHALL; Modified By: YAZ MARSHALL; Category : DD; Examiner : Yaz Marshall; Medicine Descript ion: ECG NORMAL VARIANT; Display in Medcin: NO; Display in ESB: NO; Confiden tiality Level: Level 1; Type: Sonia Mcclain, LOCATION MANAGER null, [facility] 7 10:04:38 Evaluati on procedur e Completed 201402/26/2017 Created By: ELVIE FERNANDEZ; Modified By: KEVEN OCTOBER; Category : DD; Examiner : Keven Muhammad; Medicine Descript ion: Observat ion For Suspecte d Conditio n; Display in Medcin: YES; Display in ESB: YES; Confiden tiality Level: Level 1; Type: Diagnosi s Cordelia Johny, LOCATION MANAGER null, [facility] 7 10:05:34 Hyperten sive disorder 39961356 Active 2015 Created By: YAZ MARSHALL; Modified By: YAZ MARSHALL; Category : DD; Examiner : Yaz Marshall; Medicine Descript ion: ESSENTIA L HYPERTEN [place] BENIGN; Display in Medcin: YES; Display in ESB: YES; Confiden tiality Level: Level 1; Type: Diagnosi s Not Available [facility] 4 03:27:39 Viral screenin g Completed 201502/26/2017 Created By: YAZ MARSHALL; Modified By: YAZ MARSHALL; Category : DD; Examiner : Yaz Marshall; Medicine Descript ion: visit for: screenin g exam dengue fever; Display in Medcin: YES; Display in ESB: YES; Confiden tiality Level: Level 1; Type: Diagnosi s Cordelia Johny, LOCATION MANAGER [facility] 7 10:05:16 Screenin g mammogra phy Completed 201502/26/2017 Created By: YAZ MARSHALL; Modified By: YAZ MARSHALL; Category : DD; Examiner : Yaz Marshall; Medicine Descript ion: Mammogra m Screenin g; Display in Medcin: YES; Display in ESB: YES; Confiden tiality Level: Level 1; Type: Diagnosi s Cordelia Johny, LOCATION MANAGER null, [facility] 7 10:05:19 Active immuniza tion Completed 201502/26/2017 Created By: YAZ MARSHALL; Modified By: YAZ MARSHALL; Category : DD; Examiner : Yaz Marshall; Medicine Descript ion: visit for: immuniza tion; Display in Medcin: YES; Display in ESB: YES; Confiden tiality Level: Level 1; Type: Sonia Mcclain LPN [facility] 7 10:05:31 Pain of left shoulder joint 68652766967 589546 Active 2017 Not Available [facility] 4 03:27:39 Vitamin D deficien cy 57306717 Active 2021 Not Available [facility] 4 03:27:39 Congesti ve heart failure 22164978 Active 2022 Not Available [facility] 4 03:27:39 Type 2 diabetes mellitus without complica tion 298266957 Active 2022 Not Available [facility] 4 03:27:39 Female urinary stress incontin ence 26720493 Active 2024 Adriana Poe NP [address] [place] [address] 5 11:50:21 Dependen ce on suppleme ntal oxygen 01081584833 7 Active 2024 Adriana Poe NP [address] [place] [address] 5 12:26:07 Problem Notes None recorded. Procedures Surgical History Date Name Laterality Status Provider Name and Address Organization Details Recorded Time 05/17/20 25 Suture/Staple removal completed [address], [phone] [place] [address] 05/17/2025 15:52:31 05/05/20 25 Flu vaccine Screening completed Rita Olivarez [facility] 05/05/2025 12:16:34 08/20/20 24 Nebulizer tx duoneb completed [address], [phone] 08/20/2024 16:28:20 05/06/20 24 venipuncture completed Juliet Gatica [facility] 05/06/2024 11:42:54 02/19/20 24 Splint Application completed Adriana Poe NP [address], [address], [facility] 02/19/2024 14:24:04 12/26/19 24 venipuncture completed Yuliya Dumontcelina [facility] 12/26/2023 15:40:03 09/25/19 22 venipuncture completed Shauna Jordan [facility] 09/25/2021 13:07:04 11/25/19 21 venipuncture completed Jodi Mora [facility] 11/24/2020 11:10:23 12/18/19 20 [facility] 16:28:31 12/18/19 20 venipuncture cancelled Tyler Mcfarlane [facility] 12/18/2019 09:21:06 04/14/20 19 venipuncture completed Cordelia Mcclain LPN [facility] 04/14/2019 09:25:36 08/08/20 18 venipuncture completed Cordelia Mcclain LPN [facility] 08/08/2018 09:13:48 09/10/19 18 venipuncture completed Homa Zarate [facility] 09/10/2017 10:01:27 02/27/20 17 venipuncture completed Cordelia Mcclain LPN [facility] 02/26/2017 10:26:37 08/15/20 16 venipuncture completed Homa Zarate [facility] 08/15/2016 10:27:51 Cardiac Surgery completed Cordelia waldrop LPN [facility] 02/26/2017 10:07:03 Imaging Results None recorded. Procedure Notes None recorded. Medical Equipment None Reported. Allergies Allergen ID Allergen Name Allergen Category Reaction Reaction Severity Criticality Documentation Date Start Date Code Code System Note Provider Name and Address Organization Details Recorded Time 71719 codeine medicatio n Not available Not available Not available 08/05/20162009 2670 RxNorm Comme nt: Last Edite d: 11-25 09:27 :35; Not Available [facility] 6 03:58:28 Medications Name Sig Start Date [...] sliding scale before meals TID<150- 0 -200-3 hdcpu536 -250-6 tgpeg664 -300- 9 qujty652 -350-12 hmyqd040 -400-15 units Not Available Not Available Not [...] 2024 active Not Available Not Available Not Avsoha lable Ozempic 1 mg/dose (4 mg/3 mL) [...] mass index (BMI) Body weight Body temperature Respiratory rate Heart rate Oxygen saturation Provider Name and Address Organization Details Last Updated DateTime 170.18 cm 45.5 kg/m2 895372. 24 g 97.3 [degF] 20 /min 75 /min 90 % Migdalia Metz [facility] 12:05:19 Social History Question Answer Notes LastModified by Organization Details LastModified Time Tobacco Smoking Status Current Every Day Smoker Rita Olivarez [facility] 02/18/2025 15:08:04 Do You Have An Advance Directive? No [email or web address] Information not available 01/29/2017 Are You Blind Or Do You Have Difficulty Seeing? Yes [email or web address] Information not available 09/25/2021 Is Blood Transfusion Acceptable In An Emergency? Yes [email or web address] Information not available 09/25/2021 What Is Your Level Of Caffeine Consumption? Heavy [email or web address] Information not available 01/29/2017 How Much Tobacco Do You Chew? None [email or web address] Information not available 01/29/2017 Commercial Sex Work No [email or web address] Information not available 01/29/2017 In The 14 [...] Do You Have Serious Difficulty Hearing? No [email or web address] Information not available 09/25/2021 What Type Of Diet Are You Following? REGULAR [email or web address] Information not available 01/29/2017 Which Illicit Or Recreational Drugs Have You Used? None [email or web address] Information not available 01/29/2017 Have You Processed Blood Or Body Fluids From An Ebola Virus Disease Patient Without Appropriate PPE? No [email or web address] Information not available 09/25/2021 Education Less Than 8th Grade [email or web address] Information not available 01/29/2017 What Is The Highest Grade Or Level Of School You Have Completed Or The Highest Degree You Have Received? [id number] [email or web address] Information not available 08/12/2025 Are There Any Guns Present In Your Home? Yes Information not available 02/26/2017 Hard Of Hearing Or Deaf In One Or Both Ears? No [email or web address] Information not available 01/29/2017 High Number Of Sexual Partners No [email or web address] Information not available 01/29/2017 History Of Inconsistent/no Condom Use No [email or web address] Information not available 01/29/2017 International Travel None Information not available 02/26/2017 Legally Blind In One Or Both Eyes? No Information not available 01/29/2017 In The Past 6 Months Have You Fallen No [email or web address] Information not available 01/29/2017 Medication List Reconciled Yes Information not available 04/14/2019 What Number (0-10) Best Describes How, During The Past Week, Has Interfered With Your General Activity? 0 [email or web address] Information not available 01/29/2017 What Number (0-10) Best Describes How, During The Past Week, Pain Has Interfered With Your Enjoyment In The Past Week 0 [email or web address] Information not available 01/29/2017 What Number (0-10) Best Describes Your Pain On Average In The Past Week 0 [email or web address] Information not available 01/29/2017 Total PEG Score [...] available 11/24/2020 Hospital Follow Up Appointment 08/12/2025 [email or web address] Information not available 08/12/2025 Hospital Discharged Patient To Home [email or web address] Information not available 08/12/2025 ER Medication List Reconciled Yes Information not available 07/22/2025 ER Contact Date 07/22/2025 Informati on not available 07/22/2025 ER Follow Up Contact Date 07/22/2025 Information not available 07/22/2025 ER Follow Up Patient Contact Via Unable To Contact Went To [facility] ER Transferred To [facility] Diagnosis Pneumonia [email or web address] Information not available 07/22/2025 ER Date Of Discharge 07/21/2025 [email or web address] Information not available 07/22/2025 ER Discharged Patient To Caregiver Transfer Information not available 07/22/2025 ER Records Recieved Yes [email or web address] Information not available 07/22/2025 ER Records Requested Yes [email or web address] Information not available 07/22/2025 Marital Status [email or web address] Informatio n not available 01/29/2017 What Was The Date Of Your Most Recent Tobacco Screening? 08/12/2025 [email or web address] Information not available 08/12/2025 Mother With HIV? No Informat ion not available 01/29/2017 How Many Children Do You Have? 4 [email or web address] Information not available 08/12/2025 What Is Your Relationship Status? [email or web address] Information not available 08/12/2025 Do You Use Your Seat Belt Or Car Seat Routinely? Yes Information not available 07/28/2024 Seat Belts Used Routinely Yes Information not available 01/29/2017 Are You Sexually Active? Yes Information not available 08/08/2018 Sexual Partner Has HIV? No [email or web address] Information not available 01/29/2017 Sexual Partner Uses IV Drugs? No [email or web address] Information not available 01/29/2017 Smoke Alarm In Home No [email or web address] Information not available 01/29/2017 At What Age Did You Start Smoking Tobacco? 15 Information not available 02/26/2017 How Much Tobacco Do You Smoke? 0.5 PPD [email or web address] Information not available 05/05/2025 General Stress Level Medium [email or web address] Information not available 01/29/2017 Do You Use Sunscreen Routinely? No [email or web address] Information not available 01/29/2017 How Many Years Have You Smoked Tobacco? 41 Information not available 02/26/2017 Have You Used IV Drugs? No [email or web address] Information not available 01/29/2017 Do You Have Difficulty Walking Or Climbing Stairs? Yes Information not available 09/25/2021 Do You Want To Talk About Contraception Or Prevention During Your Visit Today? No - This Question Does Not Apply To Me/I Prefer Not To Answer Information not available 12/17/2024 Do You Have Any Future Plans To Get ? No, I Don't Want To Become Information not available 12/17/2024 Sex: Female Functional Status Question Answer Note LastModified by Organizat Cuil Details LastModified Time Do you use any illicit or recreational drugs? No [email or web address] Information not available 06/14/2025 Do you or have you ever used any other forms of tobacco or nicotine? Yes Nicotine patches Information not available 12/17/2024 What is your level of alcohol consumption? None [email or web address] Information not available 01/29/2017 Do you or have you ever used smokeless tobacco? Never used smokeless tobacco Information not available 04/14/2019 Are you currently employed? No [email or web address] Information not available 08/12/2025 Do you have transportation difficulties? No [email or web address] Information not available 09/25/2021 Are you able to walk independently without assistance or assistive devices? YESWOREST [email or web address] Information not available 01/29/2017 Do you have difficulty doing errands alone? No [email or web address] Information not available 09/25/2021 Are you able to care for yourself independently? Yes [email or web address] Information not available 09/25/2021 Do you have difficulty dressing, bathing, grooming, or toileting? No [email or web address] Information not available 09/25/2021 Do you or have you ever used e-cigarettes or vape? Never used electronic cigarettes Information not available 04/14/2019 What is your exercise level? Moderate Information not available 01/29/2017 Mental Status Question Answer Note LastModified by Organizat ion Details LastModified Time Do you feel stressed (tense, restless, nervous, or anxious, or unable to sleep at night)? [id number] [email or web address] Information not available 09/25/2021 Do you have difficulty concentrating, remembering or making decisions? No [email or web address] Information no t available 09/25/2021 Family History Relationship Description Onset Age of this Age Resolved Age Notes LastModified by Organization Details LastModified Time Mother Diabetes mellitus [email or web address] Not available 2016 14:32:39 Brother Diabetes mellitus Not available 2016 14:32:46 Medical History Condition Response Other N Gout N Kidney Stones N Blood Diseases N Hyperthyroidism N Blood Transfusion N Depression N COPD N Incontinence N Edema N Endocrine Disorders N Anxiety Disorder N Muscle, Joint, or Bone Problems N Obesity Y Vision or Eye Problems N Arthritis N Auditory Hallucinations N Infertility N Cancer N Varicosities N Stroke N Fibromyalgia N Headaches N Kidney Disease N Abnormal Bleeding N [...] or Kidney Problems N High Cholesterol Y Liver Disease N Nervous System Disorder N Psychiatric/Mental Health Condition N Schizophrenia N Allergies/Hayfever Y Parkinson's Disease N GI Problems N ADD/ADHD N Anemia N Colon Polyps N Heart Attack (CT) N Ovarian Cancer N Diabetes N Bedwetting N Seizures/Epilepsy N Amnesia N Congestive Heart Failure (CHF) N Eczema N Abuse/Domestic Violence N Diverticulitis N Dementia N Cardiovascular Y Tourette Syndrome N Pre-Eclampsia N Hypertension Y Osteoporosis N Gynecological History Statement/Question Response Abnormal [...] MDCK, quadrivalent, preservative 9 completed Not Available [facility] 09/19/2019 02:39:19 Tdap 7 completed Not Available [facility] 09/19/2019 02:39:16 Influenza, split virus, trivalent, preservative 6 completed Not Available [facility] 09/25/2023 03:27:39 Tdap 5 completed Not Available [facility] 08/12/2025 12:00:37 Influenza, MDCK, quadrivalent, PF 4 completed Juliet Gatica null, [facility] 05/07/2024 12:22:36 Influenza, split virus, quadrivalent, PF 5 completed Rita Olivarez null, [facility] 05/05/2025 12:58:35 Pneumococcal conjugate PCV20, polysaccharide ZES696 conjugate, adjuvant, PF 5 completed Rita Olivarez [facility], [facility] 06/28/2025 15:43:32 Influenza, MDCK, quadrivalent, preservative 8 completed Not Available [facility] 09/19/2019 02:39:18 Past Encounters Encounter ID Performer Location Encounter Start Date Encounter Closed Date Diagnosis/Indication Diagnosis SNOMED-CT Code Diagnosis ICD10 Code Diagnosis IMO Codes Diagnosis Note [id number] [facility] [address] [place] [phone] 07/22/2025 15:07:34 07/22/2025 17:21:[id number] [address] 07/23/2025 07:58:37 07/26/2025 08:44:39 [id number] [facility] [address] [place] [address] 07/26/2025 09:20:12 07/26/2025 11:14:46 [id number] [facility] [address] [facility], [address] [place] [address] 08/05/2025 15:56:46 08/05/2025 15:59:56 [id number] MCKAY CUEVAS DO [facility] [place] [address] [place] [address] 08/12/2025 11:57:16 08/12/2025 18:24:40 Post-discharge follow-up [id number] Z51.89 [id number] admitted 07/21/2025 ; Transferre d from [facility] to [facility]; discharged 07/25/2025 Chronic ob structive pulmonary disease 03577586 J44.9 Pneumonia 547569328 J18. 9 [id number] Type 2 deepak betes mellitus without complication 637040351 E11.9 Will increase ozempic to 1 mg Dependence on supplemental oxygen 6345670917 07 Z99.81 [id number] on 3 L/[place] [id number] [facility] [address] [address] 08/12/2025 14:02:33 08/12/2025 16:10:51 [id number] [facility] [address] [place] [address] [address] [place] [address] 08/12/2025 14:17:02 08/12/2025 14:37:17 [id number] [facility] [address] [place] [address] [address] [place] [address] 08/12/2025 14:37:49 08/12/2025 14:46:05 Goals Section Goal Description Progress Status Start [...] Member ID Sofia Member ID Guarantor Name 08/12/2025 2 [place] Nadine Esquivel [id number] Nadine Esquivel 08/12/2025 1 [facility] Nadine Waldrop Esquivel [id number] Nadine Stefani Alvin Notes Date Note Type Note Provider Name and Address Organization Details Recorded Time 08/12/2025 text/html CHIEF COMPLAINT: Chief Complaint Patient presents for post-hospitalization follow-up regarding recent pneumonia. HPI Patient is a 65-year-old female who presents for follow-up after recent hospitalization for left lower lobe pneumonia. She was admitted on 07/21/2025 and discharged on 07/25/2025. She completed her antibiotics and denies current respiratory complaints. During hospitalization she was also evaluated for congestive heart failure with echocardiogram showing ejection fraction of 55%. She had left lower lobe pleural effusion. Discharge instructions recommended pulmonology follow-up within one week. She prefers referral to [place] rather than [place] due to distance. She lives in [place] with her girlfriend who provides caregiving assistance. She uses 3 liters supplemental oxygen at home. She denies leg or foot swelling. Medications - Glipizide for diabetes - Lantus 25 units daily - Completed antibiotics from hospitalization Past Medical History - Type 2 diabetes mellitus without complications - Chronic obstructive pulmonary disease - Essential hypertension - Obesity - Heart failure - Left lower lobe pneumonia (recent, resolved) OBGYN History Sexually Active?: Not discussed. STIs/STDs: Not discussed. Current Control Method: Not discussed. Hormone Replacement Therapy: Not discussed. Abnormal Pap: Not discussed. Date of Last Pap Smear: Not discussed. Last mammogram completed & confirmed with report in chart: Not discussed. Social History Substance Use Do you or have you ever smoked tobacco?: Not discussed Do you or have you ever used e-cigarettes or vape?: Not discussed What is your level of alcohol consumption?: Not discussed Which illicit or recreational drugs have you used?: Not discussed Home and Environment Living situation: Lives in [place] with girlfriend who serves as caregiver and provides transportation Other Oxygen use: 3 liters supplemental oxygen at home Tests - Echocardiogram during recent hospitalization: Ejection fraction 55% Adriana Peo NP [address], [address], [place] [facility] 08/12/2025 14:28:56 OBGyn Episode No OBEpisode recorded.
--- OUTSIDE RECORDS SUMMARY | 2025-08-29 09:07 | XMS_ITS | Continuity of Care Document ---
Author Organization [facility], [facility] Address [address] [place] [address] Care Team Providers Care Junior Architect Name Role Phone LUISA JAIMES Locomotive Oiler EUN Biggs Community Health Worker SHAWNA [facility] Assessment No assessment recorded. Plan of Treatment Reminders Order Date Submit Date Provider Last Modified By Organization Details Last Modified Time Details Appointments None record ed. Lab None record ed. Referral None record ed. Procedures None record ed. Surgeries None record ed. Imaging None record ed. Medication Orders None record ed. Patient TargetsNo targets recorded. Patient Instructions Encounter Date Encounter Id Patient Instructions Last Modified By Organization Details Last Modified Time 07/07/2025 [id number] heart-healthy diet: care instructions Not available 07/07/2025 15:25:27 walking for exercise: care instructions Not available 07/07/2025 15:25:27 smoking cessatio n counseling, greater than 3 minutes up to 10 minutes* [email or web address] Not available 07/07/2025 15:42:58 Reason for Referral None Reported. Results Created Date Observation Date Name Description Value Unit Range Abnormal Flag Note LastModifiedBy Organization Detail LastModifiedTime 06/14/2006/14/2025 DERM- ID cutibacteriu m acnes DETECT ED abnormal Not Available [employer] [address] [place] [address], [id number], 06/17/2025 09:59:12 06/14/2006/14/2025 DERM- ID pseudomonas aeruginosa DETECT ED abnormal Not Available [employer] [address] [place] [address], [id number], 06/17/2025 09:59:12 06/14/2006/14/2025 DERM- ID corynebacter ium minutissimum , striatum, jeikeium DETECT ED abnormal Not Available [facility] [address] [place] [address], [id number], 06/17/2025 09:59:12 06/14/2006/14/2025 DERM- ID malassezia (spp., globosa, restricta) DETECT ED abnormal Not Available [facility] [address] [place] [address], 10199, 06/17/2025 09:59:12 06/14/2006/14/2025 DERM- ID finegoldia magna NOT DETECT ED Not Available [facility] [address] [place] [address], 27963, 06/17/2025 09:59:12 06/14/2006/14/2025 DERM- ID staph haemolyticus , lugdunensis, saprophyticu s NOT DETECT ED Not Available [facility] [address] [place] [address], 10903, 06/17/2025 09:59:12 06/14/2006/14/2025 DERM- ID fusobacteriu m nucleatum, necrophorum NOT DETECT ED Not Available [facility] [facility] [address] [place] [address], 80248, 06/17/2025 09:59:12 06/14/2006/14/2025 DERM- ID escherichia coli NOT DETECT ED Not Available [facility] [facility] [address] [place] [address], 64288, 06/17/2025 09:59:12 06/14/2006/14/2025 DERM- ID staphylococc us epidermidis NOT DETECT ED Not Available [facility] [address] [place] [address], 76767, 06/17/2025 09:59:12 06/14/2006/14/2025 DERM- ID microsporum spp. NOT DETECT ED Not Available [employer] [facility] [address] [place] [address], 50991, 06/17/2025 09:59:12 06/14/2006/14/2025 DERM- ID aspergillus spp. (fumigatus, niger, terreus, versicolor) NOT DETECT ED Not Available [facility] [facility] [address] [place] [address], 14114, 06/17/2025 09:59:12 06/14/2006/14/2025 DERM- ID peptostrepto coccus prevotii, anaerobius, asaccharolyt icus NOT DETECT ED Not Available [facility] [facility] [address] [place] [address], 68915, 06/17/2025 09:59:12 06/14/2006/14/2025 DERM- ID streptococcu s agalactiae NOT DETECT ED Not Available [facility] [facility] [address] [place] [address], 46366, 06/17/2025 09:59:12 06/14/2006/14/2025 DERM- ID neisseria gonorrhoeae NOT DETECT ED Not Available [facility] [address] [place] [address], 42763, 06/17/2025 09:59:12 06/14/2006/14/2025 DERM- ID klebsiella oxytoca, pneumoniae NOT DETECT ED Not Available [facility] [facility] [address] [place] [address], 04709, 06/17/2025 09:59:12 06/14/2006/14/2025 DERM- ID peptoniphilu s harei, ivorii NOT DETECT ED Not Available [facility] [facility] [address] [place] [address], 26002, 06/17/2025 09:59:12 06/14/2006/14/2025 DERM- ID edwin auris NOT DETECT ED Not Available [facility] [facility] [address] [place] [address], 27986, 06/17/2025 09:59:12 06/14/2006/14/2025 DERM- ID morganella morganii NOT DETECT ED Not Available [employer] [facility] [address] [place] [address], 36175, 06/17/2025 09:59:12 06/14/2006/14/2025 DERM- ID trichophyton (soudanense, violaceum, tonsurans, interdigital e, mentagrophyt es) NOT DETECT ED Not Available [facility] [address] [place] [address], 86014, 06/17/2025 09:59:12 06/14/2006/14/2025 DERM- ID edwin glabrata NOT DETECT ED Not Available [facility] [address] [place] [address], 95770, 06/17/2025 09:59:12 06/14/2006/14/2025 DERM- ID edwin krusei NOT DETECT ED Not Available [facility] [address] [place] [address], 26627, 06/17/2025 09:59:12 06/14/2006/14/2025 DERM- ID mycoplasma gentalium, hominis NOT DETECT ED Not Available [facility] [address] [place] [address], 44820, 06/17/2025 09:59:12 06/14/2006/14/2025 DERM- ID hsv2 NOT DETECT ED Not Available [facility] [address] [place] [address], 33025, 06/17/2025 09:59:12 06/14/2006/14/2025 DERM- ID acinetobacte r baumannii NOT DETECT ED Not Available [facility] [address] [place] [address], 46034, 06/17/2025 09:59:12 06/14/2006/14/2025 DERM- ID clostridium perfringens NOT DETECT ED Not Available [facility] [address] [place] [address], 57404, 06/17/2025 09:59:12 06/14/2006/14/2025 DERM- ID vibrio cholerae, parahaemolyt icus, vulnificus NOT DETECT ED Not Available [facility] [facility] [address] [place] [address], 69066, 06/17/2025 09:59:12 06/14/2006/14/2025 DERM- ID haemophilus influenzae NOT DETECT ED Not Available [facility] [address] [place] [address], 22703, 06/17/2025 09:59:12 06/14/2006/14/2025 DERM- ID enterobacter cloacae complex NOT DETECT ED Not Available [facility] [facility] [address] [place] [address], 51306, 06/17/2025 09:59:12 06/14/2006/14/2025 DERM- ID ralstonia spp. (pickettii) NOT DETECT ED Not Available [facility] [address] [place] [address], 83081, 06/17/2025 09:59:12 06/14/2006/14/2025 DERM- ID serratia marcescens NOT DETECT ED Not Available [facility] [address] [place] [address], 56489, 06/17/2025 09:59:12 06/14/2006/14/2025 DERM- ID streptococcu s pyogenes (group A) NOT DETECT ED Not Available [facility] [address] [place] [address], 36099, 06/17/2025 09:59:12 06/14/2006/14/2025 DERM- ID mycobacteriu m abcessus, chelonae, fortuitum NOT DETECT ED Not Available [facility] [address] [place] [address], 73492, 06/17/2025 09:59:12 06/14/2006/14/2025 DERM- ID cutibacteriu m avidum/granu losum NOT DETECT ED Not Available [employer] [address] [place] [address], 88831, 06/17/2025 09:59:12 06/14/2006/14/2025 DERM- ID proteus mirabilis NOT DETECT ED Not Available [facility] [facility] [address] [place] [address], 28062, 06/17/2025 09:59:12 06/14/2006/14/2025 DERM- ID staphylococc us aureus NOT DETECT ED Not Available [facility] [address] [place] [address], 58163, 06/17/2025 09:59:12 06/14/2006/14/2025 DERM- ID enterococcus faecalis NOT DETECT ED Not Available [facility] [facility] [address] [place] [address], 10748, 06/17/2025 09:59:12 06/14/2006/14/2025 DERM- ID prevotella (bivia, intermedia, nigrescens) NOT DETECT ED Not Available [facility] [address] [place] [address], 98463, 06/17/2025 09:59:12 06/14/2006/14/2025 DERM- ID edwin tropicalis, parapsilosis NOT DETECT ED Not Available [facility] [address] [place] [address], 06691, 06/17/2025 09:59:12 06/14/2006/14/2025 DERM- ID klebsiella aerogenes NOT DETECT ED Not Available [facility] [address] [place] [address], 79751, 06/17/2025 09:59:12 06/14/2006/14/2025 DERM- ID bacteroides fragilis NOT DETECT ED Not Available [facility] [address] [place] [address], 05062, 06/17/2025 09:59:12 06/14/2006/14/2025 DERM- ID anaerococcus prevotii, vaginalis NOT DETECT ED Not Available [facility] [facility] [address] [place] [address], 35866, 06/17/2025 09:59:12 06/14/2006/14/2025 DERM- ID proteus vulgaris NOT DETECT ED Not Available [facility] [facility] [address] [place] [address], 88794, 06/17/2025 09:59:12 06/14/2006/14/2025 DERM- ID hsv1 NOT DETECT ED Not Available [facility] [address] [place] [address], 02610, 06/17/2025 09:59:12 06/14/2006/14/2025 DERM- ID fusarium solani, oxysporum NOT DETECT ED Not Available [facility] [address] [place] [address], 63610, 06/17/2025 09:59:12 06/14/2006/14/2025 DERM- ID enterococcus faecium NOT DETECT ED Not Available [facility] [address] [place] [address], 94874, 06/17/2025 09:59:12 06/14/2006/14/2025 DERM- ID varicella zoster virus (vzv) (hhv3) NOT DETECT ED Not Available [facility] [address] [place] [address], 58000, 06/17/2025 09:59:12 06/14/2006/14/2025 DERM- ID HPV 16 NOT DETECT ED Not Available [facility] [address] [place] [address], 76681, 06/17/2025 09:59:12 06/14/2006/14/2025 DERM- ID edwin albicans NOT DETECT ED Not Available [facility] [address] [place] [address], 62766, 06/17/2025 09:59:12 06/14/2006/14/2025 DERM- ID trichophyton rubrum NOT DETECT ED Not Available [facility] [address] [place] [address], 05112, 06/17/2025 09:59:12 06/14/2006/14/2025 DERM- ID streptococcu s pneumoniae NOT DETECT ED Not Available [employer] [address] [place] [address], 72205, 06/17/2025 09:59:12 06/14/2006/14/2025 DERM- ID citrobacter freundii NOT DETECT ED Not Available [facility] [address] [place] [address], 04080, 06/17/2025 09:59:12 06/14/2006/14/2025 DERM- ID salmonella enterica NOT DETECT ED Not Available [employer] [address] [place] [address], 72006, 06/17/2025 09:59:12 06/14/2006/14/2025 DERM- ID HPV 18 NOT DETECT ED Not Available [facility] [address] [place] [address], 63021, 06/17/2025 09:59:12 06/14/20 25 06/14/2025 DERM- ID mycobacteriu m tuberculosis NOT DETECT ED Not Available [facility] [address] [place] [address], 45634, 06/17/2025 09:59:12 06/14/20 25 06/14/2025 DERM- ID sporothrix schenckii NOT DETECT ED Not Available [employer] [address] [place] [address], [place], [address], 06/17/2025 09:59:12 Result Notes None recorded. Problems Name Problem SNOMED Code Status Onset Date Resolution Date Notes Provider Name and Address Organization Details Recorded Time Acute sinusiti s 00433691 Completed 200402/26/2017 Category : DD; Medicine Descript ion: SINUSITI S ACUTE; Display in Medcin: YES; Display in ESB: YES; Confiden tiality Level: Level 1 Cordelia Mcclain [facility] 7 10:04:47 Dizzines s and giddines s [id number] Completed 200402/26/2017 Category : DD; Medicine Descript ion: dizzines s; Display in Medcin: YES; Display in ESB: YES; Confiden tiality Level: Level 1 Cordelia Mcclain REMIGIO [facility] 7 10:05:26 Tracheob ronchiti s 51844336 Completed 200402/26/2017 Category : DD; Medicine Descript ion: TRACHEOB RONCHITI S; Display in Medcin: YES; Display in ESB: YES; Confiden tiality Level: Level 1 Cordelia Mcclain REMIGIO [facility] 7 10:04:42 Chronic obstruct angy pulmonar y disease 46938776 Active 2004 Modified By: MARIA ANTONIA DEL REAL; Category : DD; Examiner : Veronica Jensen I.; Medicine Descript ion: CHRONIC OBSTRUCT ANGY PULMONAR Y DISEASE; Display in Medcin: YES; Display in ESB: YES; Confiden tiality Level: Level 1 Not Available [facility] 4 03:27:39 Clinical finding Completed 200402/26/2017 Modified By: YAZ MARSHALL; Category : DD; Examiner : Yaz Marshall; Medicine Descript ion: LARYNGOP HARYNGEA L REFLUX; Display in Medcin: NO; Display in ESB: NO; Confiden tiality Level: Level 1 REMIGIO [facility] 7 10:05:08 Allergic rhinitis 80426336 Active 2004 Category : DD; Medicine Descript ion: ALLERGIC RHINITIS ; Display in Medcin: YES; Display in ESB: YES; Confiden tiality Level: Level 1 Not Available [facility] 4 03:27:39 Neves's palsy 529837233 Completed 200502/26/2017 Category : DD; Medicine Descript ion: NEVES'S PALSY; Display in Medcin: YES; Display in ESB: YES; Confiden tiality Level: Level 1 REMIGIO [facility] 7 10:05:01 Family history of diabetes mellitus 186652778 Completed 200902/26/2017 Created By: VERONICA JENSEN ; Modified By: VERONICA JENSEN ; Category : DD; Examiner : VERONICA JENSEN I.; Medicine Descript ion: DIABETES MELLITUS ; Display in Medcin: NO; Display in ESB: YES; Confiden tiality Level: Level 1 Cordelia Mcclain LPN [facility] 7 10:04:51 Benign essentia l hyperten [place] 2096000 Completed 200902/26/2017 Created By: VERONICA JENSEN ; Modified By: GHAZAL PHAN; Category : DD; Examiner : VERONICA JENSEN I.; Medicine Descript ion: HYPERTEN [place] (SYSTEMI C); Display in Medcin: YES; Display in ESB: YES; Confiden tiality Level: Level 1 Cordelia Mcclain LPN [facility] 7 10:05:46 Family history of Cardiova scular disease [id number] Completed 200902/26/2017 Created By: VERONICA JENSEN ; Modified By: MARIA ANTONIA DEL REAL; Category : DD; Examiner : Veronica Jensen I.; Medicine Descript ion: reported family history ischemic heart disease before age 50; Display in Medcin: YES; Display in ESB: YES; Confiden tiality Level: Level 1 REMIGIO [facility] 7 10:05:23 Wheezing 47783618 Completed 200902/26/2017 Created By: VERONICA JENSEN ; Modified By: GHAZAL PHAN; Category : DD; Examiner : Veronica Jensen I.; Medicine Descript ion: wheezing [as a symptom] ; Display in Medcin: YES; Display in ESB: YES; Confiden tiality Level: Level 1 REMIGIO Lemus, [facility] 7 10:05:57 Mild intermit tent asthma 191237800 Active 2009 Created By: VERONICA JENSEN ; Modified By: GHAZAL PHAN; Category : DD; Examiner : Veronica Jensen I.; Medicine Descript ion: ASTHMA MILD INTERMIT TENT UNCOMPLI CATED; Display in Medcin: YES; Display in ESB: YES; Confiden tiality Level: Level 1 Not Available [facility] 4 03:27:39 Obesity 376881160 Active 2010 Created By: VERONICA JENSEN ; Modified By: GHAZAL PHAN; Category : DD; Examiner : VERONICA JENSEN I.; Medicine Descript ion: Obese; Display in Medcin: YES; Display in ESB: YES; Confiden tiality Level: Level 1 Not Available [facility] 4 03:27:39 Nicotine dependen ce 23444714 Active 2010 Created By: VERONICA JENSEN ; Modified By: YAZ MARSHALL; Category : DD; Examiner : Yaz Marshall; Medicine Descript ion: current smoker; Display in Medcin: NO; Display in ESB: NO; Confiden tiality Level: Level 1; Type: Diagnosi s Not Available [facility] 4 03:27:39 Hyperlip idemia 62076494 Active 2010 Created By: VERONICA JENSEN ; Modified By: VERONICA JENSEN ; Category : DD; Examiner : Veronica Jensen I.; Medicine Descript ion: DYSLIPID EMIA; Display in Medcin: YES; Display in ESB: YES; Confiden tiality Level: Level 1; Type: Diagnosi s Not Available [facility] 4 03:27:39 Long-ter m drug therapy Completed 201002/26/2017 Created By: VERONICA JENSEN ; Modified By: VERONICA JENSEN ; Category : DD; Examiner : Veronica Jensen I.; Medicine Descript ion: taking medicati on for a long time; Display in Medcin: YES; Display in ESB: YES; Confiden tiality Level: Level 1; Type: Sonia barry [facility] 7 10:05:21 Verruca plantari s 17276105 Completed 201102/26/2017 Created By: VERNOICA JENSEN ; Modified By: YAZ MARSHALL; Category : DD; Examiner : Yaz Marshall; Medicine Descript ion: Wartlike Lesions Feet Plantar; Display in Medcin: YES; Display in ESB: YES; Confiden tiality Level: Level 1; Type: Diagnosmaddi Coronadora [facility] 7 10:06:02 Plane wart 235247774 Completed 201102/26/2017 Created By: VERONICA JENSEN ; Modified By: YAZ MARSHALL; Category : DD; Examiner : Yaz Marshall; Medicine Descript ion: WARTS COMMON; Display in Medcin: YES; Display in ESB: YES; Confiden tiality Level: Level 1; Type: Sonia barry Cordelia Mcclain HELMINTHOLOGY TEACHER [facility] 7 10:05:14 Procedur e Completed 201102/26/2017 Created By: VERONICA JENSEN ; Modified By: YAZ MARSHALL; Category : DD; Examiner : Veronica Jensen I.; Medicine Descript ion: visit for: medicati on refill; Display in Medcin: NO; Display in ESB: NO; Confiden tiality Level: Level 1; Type: Sonia Mcclain, HELMINTHOLOGY TEACHER null, [facility] 7 10:05:40 Sciatica 00956018 Completed 201202/26/2017 Created By: VERONICA JENSEN ; Modified By: YAZ MARSHALL; Category : DD; Examiner : Veronica Jensen I.; Medicine Descript ion: NEURITIS SCIATIC; Display in Medcin: NO; Display in ESB: NO; Confiden tiality Level: Level 1; Type: Diagnosmaddi Mcclain, HELMINTHOLOGY TEACHER [facility] 7 10:05:12 Screenin g procedur e Completed 201402/26/2017 Created By: YAZ MARSHALL; Modified By: YAZ MARSHALL; Category : DD; Examiner : Yaz Marshall; Medicine Descript ion: visit for: screenin g malignan t neoplasm colon; Display in Medcin: NO; Display in ESB: NO; Confiden tiality Level: Level 1; Type: Diagnosmaddi Mcclain, HELMINTHOLOGY TEACHER [facility] 7 10:05:37 Adult health examinat ion Completed 201402/26/2017 Created By: YAZ MARSHALL; Modified By: YAZ MARSHALL; Category : DD; Examiner : Yaz Marshall; Medicine Descript ion: ROUTINE HISTORY AND PHYSICAL ; Display in Medcin: YES; Display in ESB: YES; Confiden tiality Level: Level 1; Type: Sonia Mcclain, HELMINTHOLOGY TEACHER null, [facility] 7 10:05:29 Abnormal finding on evaluati on procedur e [id number] Completed 201402/26/2017 Created By: YAZ MARSHALL; Modified By: YAZ MARSHALL; Category : DD; Examiner : Yaz Marshall; Medicine Descript ion: ROUTINE HISTORY AND PHYSICAL ; Display in Medcin: YES; Display in ESB: YES; Confiden tiality Level: Level 1; Type: Sonia Mcclain, HELMINTHOLOGY TEACHER null, [facility] 7 10:05:54 Palpitat ions [id number] Completed 201402/26/2017 Created By: YAZ MARSHALL; Modified By: YAZ MARSHALL; Category : DD; Examiner : Yaz Marshall; Medicine Descript ion: palpitat ions; Display in Medcin: NO; Display in ESB: NO; Confiden tiality Level: Level 1; Type: Sonia Mcclain, HELMINTHOLOGY TEACHER null, [facility] 7 10:06:05 Microsco pic hematuri a [id number] Completed 201402/26/2017 Created By: YAZ MARSHALL; Modified By: YAZ MARSHALL; Category : DD; Examiner : Yaz Marshall; Medicine Descript ion: MICROSCO PIC HEMATURI A; Display in Medcin: YES; Display in ESB: YES; Confiden tiality Level: Level 1; Type: Sonia Mcclain, HELMINTHOLOGY TEACHER null, [facility] 7 10:05:05 Electroc ardiogra m abnormal [id number] Completed 201402/26/2017 Created By: AYZ MARSHALL; Modified By: YAZ MARSHALL; Category : DD; Examiner : Yaz Marshall; Medicine Descript ion: ECG NORMAL VARIANT; Display in Medcin: NO; Display in ESB: NO; Confiden tiality Level: Level 1; Type: Sonia Mcclain, HELMINTHOLOGY TEACHER null, [facility] 7 10:04:38 Evaluati on procedur e Completed 201402/26/2017 Created By: ELVIE FERNANDEZ; Modified By: KEVEN OCTOBER; Category : DD; Examiner : Keven Muhammad; Medicine Descript ion: Observat ion For Suspecte d Conditio n; Display in Medcin: YES; Display in ESB: YES; Confiden tiality Level: Level 1; Type: Sonia Mcclain, HELMINTHOLOGY TEACHER null, [facility] 7 10:05:34 Hyperten sive disorder 55762765 Active 2015 Created By: YAZ MARSHALL; Modified By: YAZ MARSHALL; Category : DD; Examiner : Yaz Marshall; Medicine Descript ion: ESSENTIA L HYPERTEN [place] BENIGN; Display in Medcin: YES; Display in ESB: YES; Confiden tiality Level: Level 1; Type: Diagnosi s Not Available [facility] 4 03:27:39 Viral screenin g Completed 201502/26/2017 Created By: YAZ MARSHALL; Modified By: YAZ MARSHALL; Category : DD; Examiner : Yaz Marshall; Medicine Descript ion: visit for: screenin g exam dengue fever; Display in Medcin: YES; Display in ESB: YES; Confiden tiality Level: Level 1; Type: Diagnosi s Cordelia Mcclain, HELMINTHOLOGY TEACHER [facility] 7 10:05:16 Screenin g mammogra phy Completed 201502/26/2017 Created By: YAZ MARSHALL; Modified By: YAZ MARSHALL; Category : DD; Examiner : Yaz Marshall; Medicine Descript ion: Mammogra m Screenin g; Display in Medcin: YES; Display in ESB: YES; Confiden tiality Level: Level 1; Type: Diagnosi s Cordelia Mcclain, HELMINTHOLOGY TEACHER [facility] 7 10:05:19 Active immuniza tion Completed 201502/26/2017 Created By: YAZ AMRSHALL; Modified By: YAZ MARSHALL; Category : DD; Examiner : Yaz Marshall; Medicine Descript ion: visit for: immuniza tion; Display in Medcin: YES; Display in ESB: YES; Confiden tiality Level: Level 1; Type: Diagnosi s Cordelia Johny, HELMINTHOLOGY TEACHER null, [facility] 7 10:05:31 Pain of left shoulder joint [id number] 288606 Active 2017 Not Available [facility] 4 03:27:39 Vitamin D deficien cy 02166850 Active 2021 Not Available [facility] 4 03:27:39 Congesti ve heart failure 83447795 Active 2022 Not Available [facility] 4 03:27:39 Type 2 diabetes mellitus without complica tion 147577399 Active 2022 Not Available [facility] 4 03:27:39 Female urinary stress incontin ence 48466176 Active 2024 Adriana Poe NP [address] [place] [address], [phone] , [facility] 5 11:50:21 Dependen ce on suppleme ntal oxygen 64031751088 7 Active 2024 Adriana Poe NP [address] [place] [address], [address] [place] [address] , [facility] 5 12:26:07 Problem Notes None recorded. Procedures Surgical History Date Name Laterality Status Provider Name and Address Organization Details Recorded Time 05/17/20 25 Suture/Staple removal completed [address], [phone], [facility] 05/17/2025 15:52:31 05/05/20 25 Flu vaccine Screening completed Rita Olivarez [facility] 05/05/2025 12:16:34 08/20/20 24 Nebulizer tx duoneb completed [address], [id number] 08/20/2024 16:28:20 05/06/20 24 venipuncture completed Juliet Gatica [facility] 05/06/2024 11:42:54 02/19/20 24 Splint Application completed Adriana Poe NP [address] [place] [address], [phone], [facility] 02/19/2024 14:24:04 12/26/19 24 venipuncture completed Yuliya Hurd [facility] 12/26/2023 15:40:03 09/25/19 22 venipuncture completed Shauna Jordan [facility] 09/25/2021 13:07:04 11/25/19 21 venipuncture completed Jodi Mora [facility] 11/24/2020 11:10:23 12/18/19 20 venipuncture completed Yuliya Vickey [facility] 12/18/2019 16:28:31 12/18/19 20 venipuncture cancelled Tyler Mcfarlane [facility] 12/18/2019 09:21:06 04/14/20 19 venipuncture completed Cordelia Mcclain LPN [facility] 04/14/2019 09:25:36 08/08/20 18 venipuncture completed Cordelia Mcclain LPN [facility] 08/08/2018 09:13:48 09/10/19 18 venipuncture completed Homa Zarate [facility] 09/10/2017 10:01:27 02/27/20 17 venipuncture completed Cordelia Mcclain LPN [facility] 02/26/2017 10:26:37 08/15/20 16 venipuncture completed Homa Zarate [facility] 08/15/2016 10:27:51 Cardiac Surgery completed Cordelia waldrop LPN [facility] 02/26/2017 10:07:03 Imaging Results None recorded. Procedure Notes None recorded. Medical Equipment None Reported. Allergies Allergen ID Allergen Name Allergen Category Reaction Reaction Severity Criticality Documentation Date Start Date Code Code System Note Provider Name and Address Organization Details Recorded Time 62195 codeine medicatio n Not available Not available Not available 08/05/20162009 5160 RxNorm Comme nt: Last Edite d: 11-25 09:27 :35; Not Available [facility] 03:58:28 Medications Name Sig Start Date [...] per sliding scale before meals TID<150- 0 huqye469 -200-3 hofrx304 -250-6 -300- 9 ipiaq322 -350-12 -400-15 units Not Available Not Available [...] lable Vitals Date Recorded Body height Body weight Body mass index (BMI) Respiratory rate Body temperature Heart rate Oxygen saturation Inhaled oxygen flow rate Systolic And Diastolic Provider Name and Address Organization Details Last Updated DateTime 5 170.18 cm 375790. 18 g 47.7 kg/m2 20 /min 98.7 [degF] 90 /min 97 % 3 L/min 138/88 mm[Hg] Rita Olivarez [facility] 15:03:10 Social History Question Answer Notes LastModified by Organization Details LastModified Time Tobacco Smoking Status Current Every Day Smoker Rita tello [facility] 02/18/2025 15:08:04 Do You Have An Advance Directive? No [email or web address] Information not available 01/29/2017 Are You Blind Or Do You Have Difficulty Seeing? Yes [email or web address] Information not available 09/25/2021 Is Blood Transfusion Acceptable In An Emergency? Yes [email or web address] Information not available 09/25/2021 What Is Your Level Of Caffeine Consumption? Heavy [email or web address] Information not available 01/29/2017 How Much Tobacco Do You Chew? None [email or web address] Information not available 01/29/2017 Commercial Sex Work No [email or web address] Information not available 01/29/2017 In The 14 [...] Do You Have Serious Difficulty Hearing? No [email or web address] Information not available 09/25/2021 What Type Of Diet Are You Following? REGULAR [email or web address] Information not available 01/29/2017 Which Illicit Or Recreational Drugs Have You Used? None [email or web address] Information not available 01/29/2017 Have You Processed Blood Or Body Fluids From An Ebola Virus Disease Patient Without Appropriate PPE? No Information not available 09/25/2021 Education Less Than 8th Grade [email or web address] Information not available 01/29/2017 What Is The Highest Grade Or Level Of School You Have Completed Or The Highest Degree You Have Received? EW42982-8 [email or web address] Information not available 08/12/2025 Are There Any Guns Present In Your Home? Yes Information not available 02/26/2017 Hard Of Hearing Or Deaf In One Or Both Ears? No Information not available 01/29/2017 High Number Of Sexual Partners No [email or web address] Information not available 01/29/2017 History Of Inconsistent/no Condom Use No [email or web address] Information not available 01/29/2017 International Travel None Information not available 02/26/2017 Legally Blind In One Or Both Eyes? No [email or web address] Information not available 01/29/2017 In The Past 6 Months Have You Fallen No [email or web address] Information not available 01/29/2017 Medication List Reconciled Yes Information not available 04/14/2019 What Number (0-10) Best Describes How, During The Past Week, Has Interfered With Your General Activity? 0 [email or web address] Information not available 01/29/2017 What Number (0-10) Best Describes How, During The Past Week, Pain Has Interfered With Your Enjoyment In The Past Week 0 [email or web address] Information not available 01/29/2017 What Number (0-10) Best Describes Your Pain On Average In The Past Week 0 [email or web address] Information not available 01/29/2017 Total PEG Score 0 [email or web address] Informati on not available 01/29/2017 Most Recent Dental Visit 09/02/1996 Up To Date 04/23/22 Information not available 08/08/2018 Sexual Orientation Straight Or Heterosexual Information not available 11/24/2020 Gender Identity Female Informat ion not available 11/24/2020 Eye Exam 09/02/2015 Information not available 08/08/2018 Do You Feel Safe Yes Informa tion not available 11/24/2020 Hospital Follow Up Appointment 08/12/2025 [email or web address] Information not available 08/12/2025 Hospital Discharged Patient To Home [email or web address] Information not available 08/12/2025 ER Medication List Reconciled Yes Information not available 07/22/2025 ER Contact Date 07/22/2025 Informati on not available 07/22/2025 ER Follow Up Contact Date 07/22/2025 Information not available 07/22/2025 ER Follow Up Patient Contact Via Unable To Contact Went To [facility] ER Transferred To [facility] Diagnosis Pneumonia [email or web address] Information not available 07/22/2025 ER Date Of Discharge 07/21/2025 [email or web address] Information not available 07/22/2025 ER Discharged Patient To Caregiver Transfer [email or web address] Information not available 07/22/2025 ER Records Recieved Yes [email or web address] Information not available 07/22/2025 ER Records Requested Yes [email or web address] Information not available 07/22/2025 Marital Status Informatio n not available 01/29/2017 What Was The Date Of Your Most Recent Tobacco Screening? 08/12/2025 [email or web address] Information not available 08/12/2025 Mother With HIV? No [email or web address] Informat ion not available 01/29/2017 How Many Children Do You Have? 4 [email or web address] Information not available 08/12/2025 What Is Your Relationship Status? [email or web address] Information not available 08/12/2025 Do You Use Your Seat Belt Or Car Seat Routinely? Yes Information not available 07/28/2024 Seat Belts Used Routinely Yes [email or web address] Information not available 01/29/2017 Are You Sexually Active? Yes Information not available 08/08/2018 Sexual Partner Has HIV? No [email or web address] Information not available 01/29/2017 Sexual Partner Uses IV Drugs? No [email or web address] Information not available 01/29/2017 Smoke Alarm In Home No [email or web address] Information not available 01/29/2017 At What Age Did You Start Smoking Tobacco? 15 Information not available 02/26/2017 How Much Tobacco Do You Smoke? 0.5 PPD [email or web address] Information not available 05/05/2025 General Stress Level Medium Information not available 01/29/2017 Do You Use Sunscreen Routinely? No [email or web address] Information not available 01/29/2017 How Many Years Have You Smoked Tobacco? 41 Information not available 02/26/2017 Have You Used IV Drugs? No [email or web address] Information not available 01/29/2017 Do You Have Difficulty Walking Or Climbing Stairs? Yes [email or web address] Information not available 09/25/2021 Do You Want [...] use any illicit or recreational drugs? No [email or web address] Information not available 06/14/2025 Do you or have you ever used any other forms of tobacco or nicotine? Yes Nicotine patches Information not available 12/17/2024 What is your level of alcohol consumption? None [email or web address] Information not available 01/29/2017 Do you or have you ever used smokeless tobacco? Never used smokeless tobacco Information not available 04/14/2019 Are you currently employed? No [email or web address] Information not available 08/12/2025 Do you have transportation difficulties? No [email or web address] Information not available 09/25/2021 Are you able to walk independently without assistance or assistive devices? YESWOREST [email or web address] Information not available 01/29/2017 Do you have difficulty doing errands alone? No [email or web address] Information not available 09/25/2021 Are you able to care for yourself independently? Yes [email or web address] Information not available 09/25/2021 Do you have difficulty dressing, bathing, grooming, or toileting? No [email or web address] Information not available 09/25/2021 Do you or have you ever used e-cigarettes or vape? Never used electronic cigarettes Information not available 04/14/2019 What is your exercise level? Moderate [email or web address] Information not available 01/29/2017 Mental Status Question Answer Note LastModified by Organizat ion Details LastModified Time Do you feel stressed (tense, restless, nervous, or anxious, or unable to sleep at night)? [id number] [email or web address] Information not available 09/25/2021 Do you have difficulty concentrating, remembering or making decisions? No [email or web address] Information no t available 09/25/2021 Family History Relationship Description Onset Age of this Age Resolved Age Notes LastModified by Organization Details LastModified Time Mother Diabetes mellitus [email or web address] Not available 2016 14:32:39 Brother Diabetes mellitus [email or web address] Not available 2016 14:32:46 Medical History Condition Response Other N Gout N Blood Diseases N Kidney Stones N Hyperthyroidism N Blood Transfusion N Depression [...] Problems N Hospitalizations N Learning Disorder N Eating Disorder N Skin Problems N MRSA exposure N Constipation N Urinary Problems N Brain Injury N Visual Hallucinations N Tuberculosis N AIDS/HIV N Back Problems N Asthma N GERD/Reflux N Hepatitis N Pulmonary Embolism N Chronic Ear Infections N Autism Spectrum Disorder (ASD) N Thrombophilias N Thyroid Disease N Breast Cancer N Lung Disease N Hypothyroidism N Developmental or Behavioral Disorders N Defects or Inherited Disease N Breast Problem N Difficulty Swallowing N [...] Anemia N Colon Polyps N Heart Attack ([place]) N Diabetes N Ovarian Cancer N Bedwetting N Seizures/Epilepsy N Amnesia N Congestive Heart Failure (CHF) N Eczema N Dementia N Abuse/Domestic Violence N Diverticulitis N Cardiovascular Y Tourette Syndrome N Hypertension [...] MDCK, quadrivalent, preservative 9 completed Not Available [facility] 09/19/2019 02:39:19 Tdap 7 completed Not Available [facility] 09/19/2019 02:39:16 Influenza, split virus, trivalent, preservative 6 completed Not Available [facility] 09/25/2023 03:27:39 Tdap 5 completed Not Available [facility] 08/12/2025 12:00:37 Influenza, MDCK, quadrivalent, PF 4 completed [facility] 05/07/2024 12:22:36 Influenza, split virus, quadrivalent, PF 5 completed Rita Sher elisha, [facility] 05/05/2025 12:58:35 Pneumococcal conjugate PCV20, polysaccharide ILY098 conjugate, adjuvant, PF 5 completed Rita Olivarez elisha, [facility] 06/28/2025 15:43:32 Influenza, MDCK, quadrivalent, preservative 8 completed Not Available [facility] 09/19/2019 02:39:18 Past Encounters Encounter ID Performer Location Encounter Start Date Encounter Closed Date Diagnosis/Indication Diagnosis SNOMED-CT Code Diagnosis ICD10 Code Diagnosis IMO Codes Diagnosis Note [id number] MCKAY CUEVAS [address] [address] 06/07/2025 15:14:29 06/07/2025 17:30:00 Local infection of wound 94268780 T81.49XA [id number] A new dressing was applied. A foam dressing will be ordered to support wound healing. Patient voiced understand ing of the treatment plan. Body mass index 40+ - severely obese 762562939 Z68.42 404176 BMI 45.6 Diet education 81683918 Z71.3 Exercises education, guidance, and counseling 686403844 Z71.82 [id number] MCKAY CEUVAS [facility] [address] [place] [address] 06/14/2025 14:58:44 06/14/2025 15:33:09 Local infection of wound 46906632 T81.49XA [id number] A new dressing was applied. Body mass index 40+ - severely obese 071201891 E66.01 Z68.42 93303920 Diet education 25312221 Z71.3 Exercises education, guidance, and counseling 972551808 Z71.82 Congestive heart failure 01146027 I50.9 Lasix was increased to 80 mg daily for three days and while taking increase in lasix take potassium. The patient was advised to monitor for worsening symptoms and to go to the emergency room. [id number] Didier Hardin [address] [place] [address] 06/21/2025 14:57:19 06/22/2025 11:02:18 Local infection of wound 23779761 T81.49XA [id number] Advised to continue Levaquin as ordered. Observe for any worsening s/s of infection such as increased redness, drainage, swelling, odor or fever and RTC or seek care if symptoms occur. Otherwise follow up in one week. Questions encouraged and answered, verbalized understand ing. Diet education 62437891 Z71.3 Exercises education, guidance, and counseling 577448770 Z71.82 Body mass index 40+ - severely obese 354695732 Z68.42 3058294452 BMI is 46.2 [id number] MCKAY CUEVAS [facility] [address] [place] [address] 06/28/2025 14:26:03 06/28/2025 17:52:37 Body mass index 40+ - severely obese 983092660 Z68.42 447508 Diet education 98164194 Z71.3 Exercises education, guidance, and counseling 092986573 Z71.82 Insomnia 466422621 G47.0 9 04010 Will increase the trazodone to 100 mg at bedtime. Local infe ction of wound 88642148 T81.49XA [id number] Healing. Completed levaquin. Will recheck next week Requires v accination against Streptococcus pneumoniae 8463635186 Z23 [id number] [facility] [address] [place] [address] 07/06/2025 09:50:42 07/06/2025 12:42:45 [id number] MCKAY CUEVAS [facility] [address] [place] [address] 07/07/2025 14:54:32 07/07/2025 15:29:25 Local infection of wound 88297111 T81.49XA [id number] Healing. If noticing any increased redness or pain; Let us know. Patient voiced understand ing Body mass index 40+ - severely obese 166586882 E66.01 34217982 Diet education 90919089 Z71.3 Exercises education, guidance, and counseling 649895499 Z71.82 Cigarette smoker 4151738 7 F17.210 [id number] [facility] [address] [address] 07/07/2025 15:43:10 07/07/2025 16:42:44 Goals Section Goal Description Progress Status Start [...] management of stress None active 2024 Luisa Jaiems Information not available 07/06/2025 15:50:10 Health Concerns [...] Member ID Sofia Member ID Guarantor Name 07/07/2025 2 [place] Nadine Esquivel [id number] Nadine Esquivel 07/07/2025 1 [facility] [facility] [employer] [employer] [place] Nadine Esquivel [id number] Nadine Esquivel Notes Date Note Type Note Provider Name and Address Organization Details Recorded Time 07/07/2025 text/html Patient is here to follow up on skin infection. It is healing. Adriana Poe NP [address], [address], [facility] 07/07/2025 15:24:28 OBGyn Episode No OBEpisode recorded.
--- OUTSIDE RECORDS SUMMARY | 2025-08-29 09:07 | XMS_ITS | Continuity of Care Document ---
Author Organization [facility], [facility] Address [address] [place] [address] Care Team Providers Care Film Critic Name Role Phone LUISA JAIMES Nuclear Logging Engineer EUN Biggs Community Health Worker SHAWNA Rivera [...] Modified By Organization Details Last Modified Time 06/21/2025 [id number] heart-healthy diet: care instructions [email or web address] Not available 06/21/2025 16:56:22 walking for exercise: care instructions [email or web address] Not available 06/21/2025 16:56:21 Reason for Referral None Reported. Results Created Date Observation Date Name Description Value Unit Range Abnormal Flag Note LastModifiedBy Organization Detail LastModifiedTime 06/14/2006/14/2025 DERM- ID cutibacteriu m acnes DETECT ED abnormal Not Available [employer] [address], [address], 06/17/2025 09:59:12 06/14/2006/14/2025 DERM- ID pseudomonas aeruginosa DETECT ED abnormal Not Available [facility] [address], [address], 06/17/2025 09:59:12 06/14/2006/14/2025 DERM- ID corynebacter ium minutissimum , striatum, jeikeium DETECT ED abnormal Not Available [facility] [employer] [address] [place] [address], [address], 06/17/2025 09:59:12 06/14/2006/14/2025 DERM- ID malassezia (spp., globosa, restricta) DETECT ED abnormal Not Available [facility] [employer] [address] [place] [address], [address], 06/17/2025 09:59:12 06/14/2006/14/2025 DERM- ID finegoldia magna NOT DETECT ED Not Available [address], [address], 06/17/2025 09:59:12 06/14/2006/14/2025 DERM- ID staph haemolyticus , lugdunensis, saprophyticu s NOT DETECT ED Not Available [facility] [employer] [address] [place] [address], [address], 06/17/2025 09:59:12 06/14/2006/14/2025 DERM- ID fusobacteriu m nucleatum, necrophorum NOT DETECT ED Not Available [facility] [employer] [address] [place] [address], [address], 06/17/2025 09:59:12 06/14/2006/14/2025 DERM- ID escherichia coli NOT DETECT ED Not Available [facility] [employer] [address] [place] [address], [address], 06/17/2025 09:59:12 06/14/2006/14/2025 DERM- ID staphylococc us epidermidis NOT DETECT ED Not Available [facility] [employer] [address] [place] [address], [address], 06/17/2025 09:59:12 06/14/2006/14/2025 DERM- ID microsporum spp. NOT DETECT ED Not Available [facility] [employer] [address] [place] [address], [address], 06/17/2025 09:59:12 06/14/2006/14/2025 DERM- ID aspergillus spp. (fumigatus, niger, terreus, versicolor) NOT DETECT ED Not Available [facility] [employer] [address] [place] [address], [address], 06/17/2025 09:59:12 06/14/2006/14/2025 DERM- ID peptostrepto coccus prevotii, anaerobius, asaccharolyt icus NOT DETECT ED Not Available [facility] [employer] [address] [place] [address], [address], 06/17/2025 09:59:12 06/14/2006/14/2025 DERM- ID streptococcu s agalactiae NOT DETECT ED Not Available [facility] [employer] [address] [place] [address], [address], 06/17/2025 09:59:12 06/14/2006/14/2025 DERM- ID neisseria gonorrhoeae NOT DETECT ED Not Available [facility] [employer] [address] [place] [address], [address], 06/17/2025 09:59:12 06/14/2006/14/2025 DERM- ID klebsiella oxytoca, pneumoniae NOT DETECT ED Not Available [facility] [employer] [address] [place] [address], [address], 06/17/2025 09:59:12 06/14/2006/14/2025 DERM- ID peptoniphilu s harei, ivorii NOT DETECT ED Not Available [facility] [employer] [address] [place] [address], [address], 06/17/2025 09:59:12 06/14/2006/14/2025 DERM- ID edwin auris NOT DETECT ED Not Available [facility] [employer] [address], [address], 06/17/2025 09:59:12 06/14/2006/14/2025 DERM- ID morganella morganii NOT DETECT ED Not Available [employer] [facility] [employer] [address] [place] [address], [address], 06/17/2025 09:59:12 06/14/2006/14/2025 DERM- ID trichophyton (soudanense, violaceum, tonsurans, interdigital e, mentagrophyt es) NOT DETECT ED Not Available [employer] [address], [address], 06/17/2025 09:59:12 06/14/2006/14/2025 DERM- ID edwin glabrata NOT DETECT ED Not Available [employer] [address] [place] [address], [address], 06/17/2025 09:59:12 06/14/2006/14/2025 DERM- ID edwin krusei NOT DETECT ED Not Available [employer] [address] [place] [address], [address], 06/17/2025 09:59:12 06/14/2006/14/2025 DERM- ID mycoplasma gentalium, hominis NOT DETECT ED Not Available [employer] [address] [place] [address], [address], 06/17/2025 09:59:12 06/14/2006/14/2025 DERM- ID hsv2 NOT DETECT ED Not Available [employer] [address] [place] [address], [address], 06/17/2025 09:59:12 06/14/2006/14/2025 DERM- ID acinetobacte r baumannii NOT DETECT ED Not Available [employer] [address] [place] [address], [address], 06/17/2025 09:59:12 06/14/2006/14/2025 DERM- ID clostridium perfringens NOT DETECT ED Not Available [facility] [employer] [address] [place] [address], [address], 06/17/2025 09:59:12 06/14/2006/14/2025 DERM- ID vibrio cholerae, parahaemolyt icus, vulnificus NOT DETECT ED Not Available [facility] [employer] [address] [place] [address], [address], 06/17/2025 09:59:12 06/14/2006/14/2025 DERM- ID haemophilus influenzae NOT DETECT ED Not Available [facility] [employer] [address] [place] [address], [address], 06/17/2025 09:59:12 06/14/2006/14/2025 DERM- ID enterobacter cloacae complex NOT DETECT ED Not Available [facility] [employer] [address] [place] [address], [address], 06/17/2025 09:59:12 06/14/2006/14/2025 DERM- ID ralstonia spp. (pickettii) NOT DETECT ED Not Available [facility] [employer] [address] [place] [address], [address], 06/17/2025 09:59:12 06/14/2006/14/2025 DERM- ID serratia marcescens NOT DETECT ED Not Available [employer] [address] [place] [address], [address], 06/17/2025 09:59:12 06/14/2006/14/2025 DERM- ID streptococcu s pyogenes (group A) NOT DETECT ED Not Available [employer] [address] [place] [address], [address], 06/17/2025 09:59:12 06/14/2006/14/2025 DERM- ID mycobacteriu m abcessus, chelonae, fortuitum NOT DETECT ED Not Available [facility] [employer] [address] [place] [address], [address], 06/17/2025 09:59:12 06/14/2006/14/2025 DERM- ID cutibacteriu m avidum/granu losum NOT DETECT ED Not Available [facility] [employer] [address] [place] [address], [address], 06/17/2025 09:59:12 06/14/2006/14/2025 DERM- ID proteus mirabilis NOT DETECT ED Not Available [facility] [employer] [address] [place] [address], [address], 06/17/2025 09:59:12 06/14/2006/14/2025 DERM- ID staphylococc us aureus NOT DETECT ED Not Available [facility] [employer] [address] [place] [address], [address], 06/17/2025 09:59:12 06/14/2006/14/2025 DERM- ID enterococcus faecalis NOT DETECT ED Not Available [facility] [employer] [address] [place] [address], [address], 06/17/2025 09:59:12 06/14/2006/14/2025 DERM- ID prevotella (bivia, intermedia, nigrescens) NOT DETECT ED Not Available [facility] [employer] [address] [place] [address], [address], 06/17/2025 09:59:12 06/14/2006/14/2025 DERM- ID edwin tropicalis, parapsilosis NOT DETECT ED Not Available [facility] [employer] [address] [place] [address], [address]07[address], 06/17/2025 09:59:12 06/14/2006/14/2025 DERM- ID klebsiella aerogenes NOT DETECT ED Not Available [facility] [employer] [address] [place] [address], [address], 06/17/2025 09:59:12 06/14/2006/14/2025 DERM- ID bacteroides fragilis NOT DETECT ED Not Available [facility] [address] [place] [address], [address], 06/17/2025 09:59:12 06/14/2006/14/2025 DERM- ID anaerococcus prevotii, vaginalis NOT DETECT ED Not Available [facility] [address] [place] [address], 97[address], 06/17/2025 09:59:12 06/14/2006/14/2025 DERM- ID proteus vulgaris NOT DETECT ED Not Available [facility] [address] [place] [address], [address], 06/17/2025 09:59:12 06/14/2006/14/2025 DERM- ID hsv1 NOT DETECT ED Not Available [facility] [address] [place] [address], [address], 06/17/2025 09:59:12 06/14/2006/14/2025 DERM- ID fusarium solani, oxysporum NOT DETECT ED Not Available [facility] [address] [place] [address], [address], 06/17/2025 09:59:12 06/14/2006/14/2025 DERM- ID enterococcus faecium NOT DETECT ED Not Available [facility] [employer] [employer] [address] [place] [address], [address], 06/17/2025 09:59:12 06/14/2006/14/2025 DERM- ID varicella zoster virus (vzv) (hhv3) NOT DETECT ED Not Available [facility] [employer] [employer] [address] [place] [address], [address], 06/17/2025 09:59:12 06/14/2006/14/2025 DERM- ID HPV 16 NOT DETECT ED Not Available [employer] [employer] [address] [place] [address], [address], 06/17/2025 09:59:12 06/14/2006/14/2025 DERM- ID edwin albicans NOT DETECT ED Not Available [facility] [employer] [address] [place] [address], [address], 06/17/2025 09:59:12 06/14/2006/14/2025 DERM- ID trichophyton rubrum NOT DETECT ED Not Available [facility] [address], [address], 06/17/2025 09:59:12 06/14/2006/14/2025 DERM- ID streptococcu s pneumoniae NOT DETECT ED Not Available [facility] [address] [place] [address], [address]60, 06/17/2025 09:59:12 06/14/2006/14/2025 DERM- ID citrobacter freundii NOT DETECT ED Not Available [facility] [address] [place] [address], [address], 06/17/2025 09:59:12 06/14/2006/14/2025 DERM- ID salmonella enterica NOT DETECT ED Not Available [facility] [address] [place] [address], [address], 06/17/2025 09:59:12 06/14/2006/14/2025 DERM- ID HPV 18 NOT DETECT ED Not Available [facility] [address] [place] [address], [address], 06/17/2025 09:59:12 06/14/2006/14/2025 DERM- ID mycobacteriu m tuberculosis NOT DETECT ED Not Available [facility] [address] [place] [address], [address], 06/17/2025 09:59:12 06/14/2006/14/2025 DERM- ID sporothrix schenckii NOT DETECT ED Not Available [facility] [address] [address], [place], [address], 06/17/2025 09:59:12 Result Notes None recorded. Problems Name Problem SNOMED Code Status Onset Date Resolution Date Notes Provider Name and Address Organization Details Recorded Time Acute sinusiti s 65860037 Completed 200402/26/2017 Category : DD; Medicine Descript ion: SINUSITI S ACUTE; Display in Medcin: YES; Display in ESB: YES; Confiden tiality Level: Level 1 Cordeliadora Mcclain LPN null, [facility] 7 10:04:47 Dizzines s and giddines s [id number] Completed 200402/26/2017 Category : DD; Medicine Descript ion: dizzines s; Display in Medcin: YES; Display in ESB: YES; Confiden tiality Level: Level 1 Cordelia Mcclain LPN null, [facility] 7 10:05:26 Tracheob ronchiti s 80816084 Completed 200402/26/2017 Category : DD; Medicine Descript ion: TRACHEOB RONCHITI S; Display in Medcin: YES; Display in ESB: YES; Confiden tiality Level: Level 1 Cordelia McclainREMIGIO [facility], [facility] 7 10:04:42 Chronic obstruct angy pulmonar y disease 53625408 Active 2004 Modified By: MARIA ANTONIA DEL REAL; Category : DD; Examiner : Veronica Jensen I.; Medicine Descript ion: CHRONIC OBSTRUCT ANGY PULMONAR Y DISEASE; Display in Medcin: YES; Display in ESB: YES; Confiden tiality Level: Level 1 Not Available [facility] 4 03:27:39 Clinical finding Completed 200402/26/2017 Modified By: YAZ MARSHALL; Category : DD; Examiner : Yaz Marshall; Medicine Descript ion: LARYNGOP HARYNGEA L REFLUX; Display in Medcin: NO; Display in ESB: NO; Confiden tiality Level: Level 1 REMIGIO Lemus, [facility] 7 10:05:08 Allergic rhinitis 31664894 Active 2004 Category : DD; Medicine Descript ion: ALLERGIC RHINITIS ; Display in Medcin: YES; Display in ESB: YES; Confiden tiality Level: Level 1 Not Available [facility] 03:27:39 Neves's palsy 126107048 Completed 200502/26/2017 Category : DD; Medicine Descript ion: NEVES'S PALSY; Display in Medcin: YES; Display in ESB: YES; Confiden tiality Level: Level 1 [facility] 7 10:05:01 Family history of diabetes mellitus 049910518 Completed 200902/26/2017 Created By: VERONICA JENSEN ; Modified By: VERONICA JENSEN ; Category : DD; Examiner : VERONICA JENSEN I.; Medicine Descript ion: DIABETES MELLITUS ; Display in Medcin: NO; Display in ESB: YES; Confiden tiality Level: Level 1 [facility] 7 10:04:51 Benign essentia l hyperten [place] 0844178 Completed 200902/26/2017 Created By: VERONICA JENSEN ; Modified By: GHAZAL PHAN; Category : DD; Examiner : VERONICA JENSEN I.; Medicine Descript ion: HYPERTEN [place] (SYSTEMI C); Display in Medcin: YES; Display in ESB: YES; Confiden tiality Level: Level 1 [facility] 7 10:05:46 Family history of Cardiova scular disease 853420452 Completed 200902/26/2017 Created By: VERONICA JENSEN ; Modified By: MARIA ANTONIA DEL REAL; Category : DD; Examiner : Veronica Jensen I.; Medicine Descript ion: reported family history ischemic heart disease before age 50; Display in Medcin: YES; Display in ESB: YES; Confiden tiality Level: Level 1 REMIGIO Lemus, [facility] 7 10:05:23 Wheezing 51662583 Completed 200902/26/2017 Created By: VERONICA JENSEN ; Modified By: GHAZAL PHAN; Category : DD; Examiner : Veronica Jensen I.; Medicine Descript ion: wheezing [as a symptom] ; Display in Medcin: YES; Display in ESB: YES; Confiden tiality Level: Level 1 REMIGIO Lemus, [facility] 7 10:05:57 Mild intermit tent asthma 005916634 Active 2009 Created By: VERONICA JENSEN ; Modified By: GHAZAL PHAN; Category : DD; Examiner : Veronica Jensen I.; Medicine Descript ion: ASTHMA MILD INTERMIT TENT UNCOMPLI CATED; Display in Medcin: YES; Display in ESB: YES; Confiden tiality Level: Level 1 Not Available [facility] 4 03:27:39 Obesity 087932607 Active 2010 Created By: VERONICA JENSEN ; Modified By: GHAZAL PHAN; Category : DD; Examiner : VERONICA JENSEN I.; Medicine Descript ion: Obese; Display in Medcin: YES; Display in ESB: YES; Confiden tiality Level: Level 1 Not Available [facility] 4 03:27:39 Nicotine dependen ce 84669809 Active 2010 Created By: VERONICA JENSEN ; Modified By: YAZ MARSHALL; Category : DD; Examiner : Yaz Marshall; Medicine Descript ion: current smoker; Display in Medcin: NO; Display in ESB: NO; Confiden tiality Level: Level 1; Type: Diagnosi s Not Available [facility] 4 03:27:39 Hyperlip idemia 60902349 Active 2010 Created By: VERONICA JENSEN ; Modified By: VERONICA JENSEN ; Category : DD; Examiner : Veronica Jensen I.; Medicine Descript ion: DYSLIPID EMIA; Display in Medcin: YES; Display in ESB: YES; Confiden tiality Level: Level 1; Type: Diagnosi s Not Available [facility] 4 03:27:39 Long-ter m drug therapy Completed 201002/26/2017 Created By: VERONICA JENSEN ; Modified By: VERONICA JENSEN ; Category : DD; Examiner : Veronica Jensen I.; Medicine Descript ion: taking medicati on for a long time; Display in Medcin: YES; Display in ESB: YES; Confiden tiality Level: Level 1; Type: Diagnosi s Cordelia Johny, MORTGAGE CONSULTANT null, [facility] 7 10:05:21 Lexi barry [id number] Completed 201102/26/2017 Created By: VERONICA JENSEN ; Modified By: YAZ MARSHALL; Category : DD; Examiner : Yaz Marshall; Medicine Descript ion: Wartlike Lesions Feet Plantar; Display in Medcin: YES; Display in ESB: YES; Confiden tiality Level: Level 1; Type: Diagnosi s Cordelia Johny, MORTGAGE CONSULTANT null, [facility] 7 10:06:02 Plane nataliia [id number] Completed 201102/26/2017 Created By: VERONICA JENSEN ; Modified By: YAZ MARSHALL; Category : DD; Examiner : Yaz Marshall; Medicine Descript ion: WARTS COMMON; Display in Medcin: YES; Display in ESB: YES; Confiden tiality Level: Level 1; Type: Diagnosi s Cordelia Johny, MORTGAGE CONSULTANT null, [facility] 7 10:05:14 Procedur e Completed 201102/26/2017 Created By: VERONICA JENSEN ; Modified By: YAZ MARSHALL; Category : DD; Examiner : Veronica Jensen I.; Medicine Descript ion: visit for: medicati on refill; Display in Medcin: NO; Display in ESB: NO; Confiden tiality Level: Level 1; Type: Diagnosi s Cordelia Johny, MORTGAGE CONSULTANT null, [facility] 7 10:05:40 Sciatica 95652193 Completed 201202/26/2017 Created By: VERONICA JENSEN ; Modified By: YAZ MARSHALL; Category : DD; Examiner : Veronica Jensen I.; Medicine Descript ion: NEURITIS SCIATIC; Display in Medcin: NO; Display in ESB: NO; Confiden tiality Level: Level 1; Type: Diagnosmaddi s Cordelia Maloneal, MORTGAGE CONSULTANT null, [facility] 7 10:05:12 Screenin g procedur e Completed 201402/26/2017 Created By: YAZ MARSHALL; Modified By: YAZ MARSHALL; Category : DD; Examiner : Yaz Marshall; Medicine Descript ion: visit for: screenin g malignan t neoplasm colon; Display in Medcin: NO; Display in ESB: NO; Confiden tiality Level: Level 1; Type: Diagnosmaddi Mcclain, MORTGAGE CONSULTANT null, [facility] 7 10:05:37 Adult health examinat ion Completed 201402/26/2017 Created By: YAZ MARSHALL; Modified By: YAZ MARSHALL; Category : DD; Examiner : Yaz Marshall; Medicine Descript ion: ROUTINE HISTORY AND PHYSICAL ; Display in Medcin: YES; Display in ESB: YES; Confiden tiality Level: Level 1; Type: Diagnosmaddi Mcclain, MORTGAGE CONSULTANT null, [facility] 7 10:05:29 Abnormal finding on evaluati on procedur e [id number] Completed 201402/26/2017 Created By: YAZ MARSHALL; Modified By: YAZ MARSHALL; Category : DD; Examiner : Yaz Marshall; Medicine Descript ion: ROUTINE HISTORY AND PHYSICAL ; Display in Medcin: YES; Display in ESB: YES; Confiden tiality Level: Level 1; Type: Diagnosmaddi s Cordelia Mcclain, MORTGAGE CONSULTANT null, [facility] 7 10:05:54 Palpitat ions 53026000 Completed 201402/26/2017 Created By: YZA MARSHALL; Modified By: YAZ MARSHALL; Category : DD; Examiner : Yaz Marshall; Medicine Descript ion: palpitat ions; Display in Medcin: NO; Display in ESB: NO; Confiden tiality Level: Level 1; Type: [facility] asha Mcclain, MORTGAGE CONSULTANT null, [facility] 7 10:06:05 Microsco pic hematuri a 664081869 Completed 201402/26/2017 Created By: YAZ MARSHALL; Modified By: YAZ MARSHALL; Category : DD; Examiner : Yaz Marshall; Medicine Descript ion: MICROSCO PIC HEMATURI A; Display in Medcin: YES; Display in ESB: YES; Confiden tiality Level: Level 1; Type: [facility] asha Mcclain, MORTGAGE CONSULTANT null, [facility] 7 10:05:05 Electroc ardiogra m abnormal [id number] Completed 201402/26/2017 Created By: YAZ MARSHALL; Modified By: YAZ MARSHALL; Category : DD; Examiner : Yaz Marshall; Medicine Descript ion: ECG NORMAL VARIANT; Display in Medcin: NO; Display in ESB: NO; Confiden tiality Level: Level 1; Type: [facility] asha Mcclain, MORTGAGE CONSULTANT null, [facility] 7 10:04:38 Evaluati on procedur e Completed 201402/26/2017 Created By: ELVIE FERNANDEZ; Modified By: KEVEN OCTOBER; Category : DD; Examiner : Keven Muhammad; Medicine Descript ion: Observat ion For Suspecte d Conditio n; Display in Medcin: YES; Display in ESB: YES; Confiden tiality Level: Level 1; Type: Sonia s Cordelia Mcclain, MORTGAGE CONSULTANT null, [facility] 7 10:05:34 Hyperten sive disorder 27055604 Active 2015 Created By: YAZ MARSHALL; Modified By: YAZ MARSHALL; Category : DD; Examiner : Yaz Marshall; Medicine Descript ion: ESSENTIA L HYPERTEN [place] BENIGN; Display in Medcin: YES; Display in ESB: YES; Confiden tiality Level: Level 1; Type: Diagnosi s Not Available [facility] 4 03:27:39 Viral screenin g Completed 201502/26/2017 Created By: YAZ MARSHALL; Modified By: YAZ MARSHALL; Category : DD; Examiner : Yaz Marshall; Medicine Descript ion: visit for: screenin g exam dengue fever; Display in Medcin: YES; Display in ESB: YES; Confiden tiality Level: Level 1; Type: Diagnosi s [facility] 7 10:05[facility]16 Screenin g mammogra phy Completed 201502/26/2017 Created By: YAZ MARSHALL; Modified By: YAZ MARSHALL; Category : DD; Examiner : Yaz Marshall; Medicine Descript ion: Mammogra m Screenin g; Display in Medcin: YES; Display in ESB: YES; Confiden tiality Level: Level 1; Type: Diagnosi s Cordelia Mcclain, MORTGAGE CONSULTANT null, [facility] 7 10:05:19 Active immuniza tion Completed 201502/26/2017 Created By: YAZ MARSHALL; Modified By: YAZ MARSHALL; Category : DD; Examiner : Yaz Marshall; Medicine Descript ion: visit for: immuniza tion; Display in Medcin: YES; Display in ESB: YES; Confiden tiality Level: Level 1; Type: Diagnosi s Cordelia Johny, MORTGAGE CONSULTANT null, [facility] 7 10:05:31 Pain of left shoulder joint [id number] 783148 Active 2017 Not Available [facility] 4 03:27:39 Vitamin D deficien cy 79777742 Active 2021 Not Available [facility] 4 03:27:39 Congesti ve heart failure 45521047 Active 2022 Not Available [facility] 4 03:27:39 Type 2 diabetes mellitus without complica tion 915981452 Active 2022 Not Available [facility] 4 03:27:39 Female urinary stress incontin ence 64655013 Active 2024 Adriana Poe NP [address] [place] [address], [address] , [facility] 5 11:50:21 Dependen ce on suppleme ntal oxygen 67358464729 7 Active 2024 Adriana Poe NP [address] [place] [address], [address] , [facility] 5 12:26:07 Problem Notes None recorded. Procedures Surgical History Date Name Laterality Status Provider Name and Address Organization Details Recorded Time 05/17/20 25 Suture/Staple removal completed [address], [id number], [facility] 05/17/2025 15:52:31 05/05/20 25 Flu vaccine Screening completed Rita Olivarez [facility] 05/05/2025 12:16:34 08/20/20 24 Nebulizer tx duoneb completed [address], [address], [facility] 08/20/2024 16:28:20 05/06/20 24 venipuncture completed Juliet Gatica [facility] 05/06/2024 11:42:54 02/19/20 24 Splint Application completed Adriana Poe NP [address] [place] [address], [address], [facility] 02/19/2024 14:24:04 12/26/19 24 venipuncture completed Yuliya Hurd [facility] 12/26/2023 15:40:03 09/25/19 22 venipuncture completed Shauna Jordan [facility] 09/25/2021 13:07:04 11/25/19 21 venipuncture completed Jodi Mora [facility] 11/24/2020 11:10:23 12/18/19 20 venipuncture completed Yuliya Hurd [facility] 12/18/2019 16:28:31 12/18/19 20 venipuncture cancelled Tyler Mcfarlane [facility] 12/18/2019 09:21:06 04/14/20 19 venipuncture completed Cordelia Mcclain LPN [facility] 04/14/2019 09:25:36 08/08/20 18 venipuncture completed Cordelia Mcclain LPN [facility] 08/08/2018 09:13:48 09/10/19 18 venipuncture completed Homa Tessa [facility] - [place] 09/10/2017 10:01:27 02/27/20 17 venipuncture completed Cordelia Mcclain LPN [facility] [place] 02/26/2017 10:26:37 08/15/20 16 venipuncture completed Homa Zarate [facility] [place] 08/15/2016 10:27:51 Cardiac Surgery completed Cordelia waldrop LPN [facility] [place] 02/26/2017 10:07:03 Imaging Results None recorded. Procedure Notes None recorded. Medical Equipment None Reported. Allergies Allergen ID Allergen Name Allergen Category Reaction Reaction Severity Criticality Documentation Date Start Date Code Code System Note Provider Name and Address Organization Details Recorded Time 11565 codeine medicatio n Not available Not available Not available 08/05/20162009 2670 RxNorm Comme nt: Last Edite d: 11-25 09:27 :35; Not Available [facility] 03:58:28 Medications Name Sig Start Date [...] per sliding scale before meals TID<150- 0 tomhz920 -200-3 fgaqw931 -250-6 hvuhr943 -300- 9 ajqzx867 -350-12 -400-15 units Not Available Not Available [...] Available Pentips Pen Needle 32 gauge x /32 USE 1 PEN NEEDLE THREE TIMES DAILY [...] weight Body temperature Heart rate Oxygen saturation Respiratory rate Systolic And Diastolic Provider Name and Address Organization Details Last Updated DateTime 5 170.18 cm 46.2 kg/m2 436424. 45 g 98.3 [degF] 88 /min 91 % 20 /min 140/98 mm[Hg] Rita Olivarez [facility] [place] 15:09:24 Social History Question Answer Notes LastModified by Organization Details LastModified Time Tobacco Smoking Status Current Every Day Smoker Rita Olivarez [facility] [place] 02/18/2025 15:08:04 Do You Have An Advance Directive? No [email or web address] Information not available 01/29/2017 Are You Blind Or Do You Have Difficulty Seeing? Yes Information not available 09/25/2021 Is Blood Transfusion Acceptable In An Emergency? Yes [email or web address] Information not available 09/25/2021 What Is Your Level Of Caffeine Consumption? Heavy [email or web address] Information not available 01/29/2017 How Much Tobacco Do You Chew? None [email or web address] Information not available 01/29/2017 Commercial Sex Work No [email or web address] Information not available 01/29/2017 In The 14 [...] Do You Have Serious Difficulty Hearing? No [email or web address] Information not available 09/25/2021 What Type Of Diet Are You Following? REGULAR [email or web address] Information not available 01/29/2017 Which Illicit Or Recreational Drugs Have You Used? None [email or web address] Information not available 01/29/2017 Have You Processed Blood Or Body Fluids From An Ebola Virus Disease Patient Without Appropriate PPE? No [email or web address] Information not available 09/25/2021 Education Less Than 8th Grade [email or web address] Information not available 01/29/2017 What Is The Highest Grade Or Level Of School You Have Completed Or The Highest Degree You Have Received? [id number] [email or web address] Information not available 08/12/2025 Are There Any Guns Present In Your Home? Yes Information not available 02/26/2017 Hard Of Hearing Or Deaf In One Or Both Ears? No Information not available 01/29/2017 High Number Of Sexual Partners No [email or web address] Information not available 01/29/2017 History Of Inconsistent/no Condom Use No [email or web address] Information not available 01/29/2017 International Travel None Information not available 02/26/2017 Legally Blind In One Or Both Eyes? No [email or web address] Information not available 01/29/2017 In The Past 6 Months Have You Fallen No rrurlxz25 Information not available 01/29/2017 Medication List Reconciled Yes Information not available 04/14/2019 What Number (0-10) Best Describes How, During The Past Week, Has Interfered With Your General Activity? 0 [email or web address] Information not available 01/29/2017 What Number (0-10) Best Describes How, During The Past Week, Pain Has Interfered With Your Enjoyment In The Past Week 0 [email or web address] Information not available 01/29/2017 What Number (0-10) Best Describes Your Pain On Average In The Past Week 0 [email or web address] Information not available 01/29/2017 Total PEG Score 0 [email or web address] Informati on not available 01/29/2017 Most Recent Dental Visit 09/02/1996 Up To Date 04/23/22 Information not available 08/08/2018 Sexual Orientation Straight Or Heterosexual Information not available 11/24/2020 Gender Identity Female Informat ion not available 11/24/2020 Eye Exam 09/02/2015 Information not available 08/08/2018 Do You Feel Safe Yes Informa tion not available 11/24/2020 Hospital Follow Up Appointment 08/12/2025 [email or web address] Information not available 08/12/2025 Hospital Discharged Patient To Home [email or web address] Information not available 08/12/2025 ER Medication List Reconciled Yes [email or web address] Information not available 07/22/2025 ER Contact Date 07/22/2025 [email or web address] Informati on not available 07/22/2025 ER Follow Up Contact Date 07/22/2025 [email or web address] Information not available 07/22/2025 ER Follow Up Patient Contact Via Unable To Contact Went To [facility] ER Transferred To [facility] Diagnosis Pneumonia [email or web address] Information not available 07/22/2025 ER Date Of Discharge 07/21/2025 [email or web address] Information not available 07/22/2025 ER Discharged Patient To Caregiver Transfer [email or web address] Information not available 07/22/2025 ER Records Recieved Yes [email or web address] Information not available 07/22/2025 ER Records Requested Yes [email or web address] Information not available 07/22/2025 Marital Status [email or web address] Informatio n not available 01/29/2017 What Was The Date Of Your Most Recent Tobacco Screening? 08/12/2025 Information not available 08/12/2025 Mother With HIV? No [email or web address] Informat ion not available 01/29/2017 How Many Children Do You Have? 4 [email or web address] Information not available 08/12/2025 What Is Your Relationship Status? Information not available 08/12/2025 Do You Use Your Seat Belt Or Car Seat Routinely? Yes Information not available 07/28/2024 Seat Belts Used Routinely Yes [email or web address] Information not available 01/29/2017 Are You Sexually Active? Yes Information not available 08/08/2018 Sexual Partner Has HIV? No [email or web address] Information not available 01/29/2017 Sexual Partner Uses IV Drugs? No Information not available 01/29/2017 Smoke Alarm In Home No [email or web address] Information not available 01/29/2017 At What Age Did You Start Smoking Tobacco? 15 Information not available 02/26/2017 How Much Tobacco Do You Smoke? 0.5 PPD [email or web address] Information not available 05/05/2025 General Stress Level Medium Information not available 01/29/2017 Do You Use Sunscreen Routinely? No Information not available 01/29/2017 How Many Years Have You Smoked Tobacco? 41 Information not available 02/26/2017 Have You Used IV Drugs? No [email or web address] Information not available 01/29/2017 Do You Have [...] use any illicit or recreational drugs? No [email or web address] Information not available 06/14/2025 Do you or have you ever used any other forms of tobacco or nicotine? Yes Nicotine patches Information not available 12/17/2024 What is your level of alcohol consumption? None erutthx72 Information not available 01/29/2017 Do you or have you ever used smokeless tobacco? Never used smokeless tobacco Information not available 04/14/2019 Are you currently employed? No [email or web address] Information not available 08/12/2025 Do you have transportation difficulties? No sswqduoj71 Information not available 09/25/2021 Are you able to walk independently without assistance or assistive devices? YESWOREST qlqpgef68 Information not available 01/29/2017 Do you have difficulty doing errands alone? No Information not available 09/25/2021 Are you able to care for yourself independently? Yes [email or web address] Information not available 09/25/2021 Do you have difficulty dressing, bathing, grooming, or toileting? No lecesaaz27 Information not available 09/25/2021 Do you or have you ever used e-cigarettes or vape? Never used electronic cigarettes Information not available 04/14/2019 What is your exercise level? Moderate Information not available 01/29/2017 Mental Status Question Answer Note LastModified by Organizat ion Details LastModified Time Do you feel stressed (tense, restless, nervous, or anxious, or unable to sleep at night)? [id number] ifcorhxw56 Information not available 09/25/2021 Do you have difficulty concentrating, remembering or making decisions? No amyirflr05 Information no t available 09/25/2021 Family History Relationship Description Onset Age of this Age Resolved Age Notes LastModified by Organization Details LastModified Time Mother Diabetes mellitus Not available 2016 14:32:39 Brother Diabetes mellitus [email or web address] Not available 2016 14:32:46 Medical History Condition [...] Anemia N Colon Polyps N Heart Attack (IN) N Diabetes N Ovarian Cancer N Bedwetting [...] MDCK, quadrivalent, preservative 9 completed Not Available [facility] 09/19/2019 02:39:19 Tdap 7 completed Not Available [facility] 09/19/2019 02:39:16 Influenza, split virus, trivalent, preservative 6 completed Not Available [facility] 09/25/2023 03:27:39 Tdap 5 completed Not Available [facility] 08/12/2025 12:00:37 Influenza, MDCK, quadrivalent, PF 4 completed Juliet Gatica [facility] 05/07/2024 12:22:36 Influenza, split virus, quadrivalent, PF 5 completed Rita Olivarez [facility] 05/05/2025 12:58:35 Pneumococcal conjugate PCV20, polysaccharide LUQ374 conjugate, adjuvant, PF 5 completed Rita tello [facility] [place] 06/28/2025 15:43:32 Influenza, MDCK, quadrivalent, preservative 8 completed Not Available [facility] 09/19/2019 02:39:18 Past Encounters Encounter ID Performer Location Encounter Start Date Encounter Closed Date Diagnosis/Indication Diagnosis SNOMED-CT Code Diagnosis ICD10 Code Diagnosis IMO Codes Diagnosis Note [id number] MCKAY CUEVAS DO [facility] [address] [place] [address] 05/24/2025 15:14:12 05/24/2025 16:47:46 Laceration of left lower leg 0032925337 8858092 S81.812S [id number] Erythema to the left leg is resolving. Will continue the doxycyline for another 7 days. Wound redressedS cheduled for follow-up next week to assess healing and response to treatment. Body mass index 40+ - severely obese 093368046 E66.01 Z68.42 [id number] BMI 45.6 Diet education 90239672 Z71.3 Exercises education, guidance, and counseling 476407517 Z71.[id number] [facility] [address] [place] [address] 05/31/2025 14:56:17 05/31/2025 15:42:35 Local infection of wound 10427788 T81.49XA [id number] post laceration leg wound with infection. An additional suture that remained was removed today. Wound improving. Bandaid applied. Return to clinic in one week for further evaluation Mild inter mittent asthma 601901473 J45.[id number] [facility] [address] [place] [address] 06/07/2025 15:14:29 06/07/2025 17:30:00 Local infection of wound 78602831 T81.49XA [id number] A new dressing was applied. A foam dressing will be ordered to support wound healing. Patient voiced understand ing of the treatment plan. Body mass index 40+ - severely obese 603181324 Z68.42 690754 BMI 45.6 Diet education 99171822 Z71.3 Exercises education, guidance, and counseling 747970354 Z71.[id number] [facility] [address] [place] [address] 06/14/2025 14:58:44 06/14/2025 15:33:09 Local infection of wound 33499929 T81.49XA [id number] A new dressing was applied. Body mass index 40+ - severely obese 507381557 E66.01 Z68.42 [id number] Diet education 65064662 Z71.3 Exercises education, guidance, and counseling 594832314 Z71.82 Congestive heart failure 89589712 I50.9 Lasix was increased to 80 mg daily for three days and while taking increase in lasix take potassium. The patient was advised to monitor for worsening symptoms and to go to the emergency room. [id number] Didier Hardin [facility] [address] [place] [address] 06/21/2025 14:57:19 06/22/2025 11:02:18 Local infection of wound 22764775 T81.49XA [id number] Advised to continue Levaquin as ordered. Observe for any worsening s/s of infection such as increased redness, drainage, swelling, odor or fever and RTC or seek care if symptoms occur. Otherwise follow up in one week. Questions encouraged and answered, verbalized understand ing. Diet education 60929647 Z71.3 Exercises education, guidance, and counseling 569520733 Z71.82 Body mass index 40+ - severely obese 242630289 Z68.42 7457855180 BMI is 46.2 Goals Section Goal Description Progress Status Start [...] Member ID Sofia Member ID Guarantor Name 06/21/2025 2 [place] Nadine Esquivel [id number] Nadine Esquivel 06/21/2025 1 [employer] [employer] [place] Nadine Esquivel [id number] 01 Nadine Esquivel Notes Date Note Type Note Provider Name and Address Organization Details Recorded Time 06/21/2025 text/html Pt presents in the clinic today for a follow up on a previous skin infection.Pt was previously seen for a lower L leg wound and post laceration infection was treated last visit with doxycycline and a new would dressing was applied on 06/14/25.Her antibiotic was changed to Levofloxacin 500mg tablet from the doxycycline on 06/17/25.Pt reports the wound is looking better. The left leg is still slightly red but not warm to touch and has the open wound present, has around 6 days left of the levofloxacin to take.Pt is covering with a drssing, states there is a small amount of drainage when she removes it. Denies any odor, fever, or N/V. JUAN ADKINS,CPNP-P C, QUALITY CONTROL-C, [facility] [address], [address], [facility] [facility] 06/21/2025 16:56:25 OBGyn Episode No OBEpisode recorded.
--- OUTSIDE RECORDS SUMMARY | 2025-08-29 09:07 | XMS_ITS | Encounter Summary ---
Author Organization [facility] Address [address] [place] [address] Care Team Providers Care Hard Metals Hand Engraver Name Role Phone Yaz Santos Primary Care Provider [phone] Encounter Details Date Type Department Care Team (Latest Contact Info) Description 08/20/2002 Outpatient Historical [facility] Medicine [address] [phone] Simeon Velazquez MD ESOPHAGEAL REFLUX (Primary Dx) Social History Tobacco Use Types Packs/Day Years Used Date Smoking Tobacco: Never Assessed Comments Unknown Sex and Gender Information Value Date Recorded Sex Assigned at Not on file Legal Sex Female 6:12 AM GASOLINE ENGINE INSPECTOR Gender Identity Not on file Sexual Orientation Not on file documented as of this encounter Plan of Treatment Not on file documented as of this encounter Visit Diagnoses Diagnosis Esophageal reflux- Primary documented in this encounter Additional Health Concerns Infection Onset Date Last Indicated Resolved Time R/O COVID-19 07/10/2020 07/10/2020 07/12/2020 12:4 5 AM GASOLINE ENGINE INSPECTOR documented as of this encounter Care Teams Hard Metals Hand Engraver Relationship Specialty Start Date End Date Yaz Santos FNP PCP - General NURSE PRACTITIONER 02/09/15 documented as of this encounter
--- OUTSIDE RECORDS SUMMARY | 2025-08-29 09:07 | XMS_ITS | Encounter Summary ---
Author Organization [facility] Address [address] [place] [address] Care Team Providers Care Dishroom Attendant Name Role Phone Yaz Santos Primary Care Provider [phone] Reason for Referral * Outpatient Services (Routine) - Closed Specialty Diagnoses / Procedures Referred By Contedgard t Referred To Contact Radiology Diagnoses Encounter for screening mammogram for malignant neoplasm of breast Procedures MAMMO DIGITAL SCREEN BILAT Yaz Santos FNP [address] [place] [address] Phone: tel: fax: [facility] [address] [facility] [address] [place] [address] Phone: tel: fax: Referral ID Status Reason Start Date Expiration Date V isits Requested Visits Authorized [id number] Closed [facility]N View CTS to Schedule (SGF) 05/17/2016 06/17/2017 1 1 Encounter Details Date Type Department Care Team (Latest Contact Info) Description 05/17/2016 Ancillary Orders [facility] Centralized Scheduling [address] [facility] [address] [place] [phone] Yaz Santos FNP [address] [place], [place] [phone] Encounter for screening mammogram for malignant neoplasm of breast (Primary Dx) Social History Tobacco Use Types Packs/Day Years Used Date Smoking Tobacco: Every Day Cigarettes Alcohol Use Standard Drinks/Week Comments No 0 (1 standard drink = 0.6 oz pur e alcohol) Comments No Sex and Gender Information Value Date Recorded Sex Assigned at Not on file 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 I recommend straight mediolateral image with compressed magnified CC and ML images, with ultrasound as necessary. [id number] Narrative 05/30/2016 10:31 AM CDT Bilateral Digital Screening Mammogram: Screening mammogram on this 56-year-old female is presented. We do not have previous for comparison, and received history that previous were more than 25 years ago, and will not be available for comparison. Breast tissue is of average density and asymmetrical. Left side appears unremarkable. There are 2 suspected nodular densities on the right, one just at the superior subareolar area and the other anteriorly upper outer. No other abnormality is suggested. This digital mammogram was also analyzed by the Computer Aided Detection System (CAD), [employer] ImageChecker, Version 8.3. Yaz BIRD MAMMO ORDERABLES Final Result documented in this encounter Visit Diagnoses Diagnosis Encounter for screening mammogram for malignant neoplasm of breast- Primary Other screening mammogram Encounter for screening mammogram for malignant neoplasm of breast Other screening mammogram documented in this encounter Additional Health Concerns Infection Onset Date Last Indicated Resolved Time R/O COVID-19 07/10/2020 07/10/2020 07/12/2020 12:4 5 AM STORE GIFT WRAP ASSOCIATE documented as of this encounter Care Teams Dishroom Attendant Relationship Specialty Start Date End Date Yaz Santos FNP PCP - General NURSE PRACTITIONER 02/09/15 documented as of this encounter
--- OUTSIDE RECORDS SUMMARY | 2025-08-29 09:07 | XMS_ITS | Encounter Summary ---
Author Organization [facility] Address [address] [place] [address] Care Team Providers Care Charm Filter Operator Helper Name Role Phone Yaz Santos Primary Care Provider [phone] Encounter Details Date Type Department Care Team (Latest Contact Info) Description 07/27/2002 Outpatient Historical [facility] Medicine [address] [phone] Simeon Velazquez MD ESOPHAGEAL REFLUX (Primary Dx) Social History Tobacco Use Types Packs/Day Years Used Date Smoking Tobacco: Never Assessed Comments Unknown Sex and Gender Information Value Date Recorded Sex Assigned at Not on file Legal Sex Female 6:12 AM TRANSPORTATION ENGINEER Gender Identity Not on file Sexual Orientation Not on file documented as of this encounter Plan of Treatment Not on file documented as of this encounter Visit Diagnoses Diagnosis Esophageal reflux- Primary documented in this encounter Additional Health Concerns Infection Onset Date Last Indicated Resolved Time R/O COVID-19 07/10/2020 07/10/2020 07/12/2020 12:4 5 AM TRANSPORTATION ENGINEER documented as of this encounter Care Teams Charm Filter Operator Helper Relationship Specialty Start Date End Date Yaz Santos FNP PCP - General NURSE PRACTITIONER 02/09/15 documented as of this encounter
--- OUTSIDE RECORDS SUMMARY | 2025-08-29 09:07 | XMS_ITS | Continuity of Care Document ---
Author Organization [facility], Community Health Workers Address [address] [place] [address] Care Team Providers Care Derrick Helper Name Role Phone LUISA JAIMES Supervisor [employer]atic F[employer]izer EUN Biggs Community Health Worker [facility] Assessment Encounter Date Assessment Date Assessment LastModified by Organization Details LastModified Time 08/12/2025 08/12/2025 Care Plan for Nadine Esquivel (Briseida) 64 Enrolled [facility] 07/27 Diagnosis: Depression, CHF, COPD, Tobacco, BMI, [...] -Report any hospital or ER visits to child care group leader or clinic staff. Interventions ([facility] Nurse Steps) -RN will provide educational material [...] phone, by mail, through Primary Care Physician, TEAMCENTER CONSULTANT, or others physicians at our office. Evaluations 08/12/25- completed PRAPARE verbally to reflect [facility] needs. Researched [facility] Food Pantries. Emailed pt with the following information: [facility] Address: [address] [place] [address], [place] Hours: Saturday after the Saturday each month; 9am-11:30am and 2pm-5pm for 60+ residents [place] [facility] Address: [address] [facility], [place] Hours: Saturday after the Saturday each month; 9am-11am [employer] Address: [address] [facility], [place] Hours: Saturday each month; 12:30pm-2pm No other needs addressed. TONI Schultz 08/12/25- I met with pt during her appt in clinic today to follow-up on pt case for resources needed. Pt states that she is living with her grandson but will continue to live with him because he is going to be her pet care worker. She states that she would like a list of food pantries in [place] and [place] because she was approved for SNAP benefits but they wont be in effect for 2 more weeks. I explained to the pt that I could not text. She stated understanding. I took the pt's email for communication. email: [email or web address] No other needs at this time. TONI Schultz 08/12/2025-[facility] - [place] Description DISTRICT ATTORNEY REFERRAL - PLEASE CALL LUISA AT [phone] FOR NEEDS, QUESTIONS OR SCHEDULING Diagnosis Chronic obstructive pulmonary disease ICD-10 J44.9 Chronic obstructive pulmonary disease, unspecified Decline Send to [facility] Pul[facility] Clinic: [address] [facility] [address], , Ordering ProviderTU POE NP sent by [employer]. Pt was seen FTF in clinic. She was advised upon hospital discharge to FU with pulmonology in on week. Pt said she did not know this and had not made appt. She does not want to go to for pulm she is requesting to go to [place]. Referral sent. Demario 08/05/25- attempted to call pt to follow-up on pt case for SDOH needs. The pt case says to text before calling but I am not set up for secure texting at this time and unable to text. Pt did no answer the phone call and I left a voicemail with my contact information. TONI Schultz 07/26/2025- Pt was discharged from [facility] on 07/25/25. Discharge diagnosis CHF exacerbation, COPD. She was discharged on 2 oral antibiotics and oral steroids. Pt was also instructed to start Lantus insulin 25u daily and sliding scale TID. Attempted to call pt, no answer, left message asking her to call me back. Contacted PSRs and asked they attempt to contact pt today and make FU appt with PCP. Demario 07/23/2025-Per [facility] EMR pt remains hospitalized with R lower [...] and neb treatments. She was transferred to [facility], diagnosis L lower lobe pneumonia, CHF. Called [facility] pt is there in room 5014, med [...] benefits this month. Case sent to Kajal MUÑOZ asking her to contact pt. Pt said she has to be texted then she will call back, that her phone will not accept calls. Demario 07/06/25-New Enrollment into [facility] program. Dx: Depression, CHF, COPD, Tobacco, BMI, asthma Pt does not have Health Jail. Pt has active Medicaid Pt has had ER visits in the last year. Will develop a Care Plan to assist with the patients Chronic Illness. Will introduce myself, explain program and give pt care plan at next FTF visit. Pt has appt tomorrow Demario [email or web address] Not available 08/12/2025 14:46:00 Plan of Treatment Reminders Order Date Submit Date Provider Last Modified By Organization Details Last Modified Time Details Appointments None record ed. Lab None record ed. Referral None record ed. Procedures None record ed. Surgeries None record ed. Imaging None record ed. Medication Orders None record ed. Patient TargetsNo targets recorded. Patient InstructionsNo instructions recorded. Reason for Referral None Reported. Results Created Date Observation Date Name Description Value Unit Range Abnormal Flag Note LastModifiedBy Organization Detail LastModifiedTime 08/12/2008/12/2025 CBC WBC 12.58 x10(3 )/uL 3.98 - 10.40 high Not Available [facility] [address] [place], [place], [address], 08/12/2025 17:25:39 08/12/20 25 08/12/2025 CBC RBC 5.41 x10(6 )/uL 3.93 - 5.22 high Not Available [facility] [address] [place], [place], [address], 08/12/2025 17:25:39 08/12/20 25 08/12/2025 CBC HGB 14.8 g/dL 11.2 - 15.7 Not Available [facility] [address] [place], [place], [address], 08/12/2025 17:25:39 08/12/20 25 08/12/2025 CBC HCT 49.9 % 34.1 - 44.9 high Not Available [facility] [address] [place], [address], 08/12/2025 17:25:39 08/12/20 25 08/12/2025 CBC MCV 92.2 fL 79.4 - 94.8 Not Available [facility] [address] [place], [address], 08/12/2025 17:25:39 08/12/20 25 08/12/2025 CBC MCH 27.4 pg 25.6 - 32.2 Not Available [facility] [address] [place], [address], 08/12/2025 17:25:39 08/12/20 25 08/12/2025 CBC MCHC 29.7 g/dL 32.2 - 35.5 low Not Available [facility] [address], [place], [address], 08/12/2025 17:25:39 08/12/20 08/12/2025 CBC platelet count 214 x10(3 )/uL 182 - 369 Not Available [facility] [address] [place], [place], [address], 08/12/2025 17:25:39 08/12/20 25 08/12/2025 CBC neut% 78.9 % 34.0 - 71.1 high Not Available [facility] [address], [place], [place], [address], 08/12/2025 17:25:39 08/12/20 25 08/12/2025 CBC lymph% 14.5 % 19.3 - 51.7 low Not Available [facility] [address] [place], [place], [address], 08/12/2025 17:25:39 08/12/20 25 08/12/2025 CBC mono% 4.6 % 4.7 - 12.5 low Not Available [facility] [address] [place], [place], [address], 08/12/2025 17:25:39 08/12/20 25 08/12/2025 CBC baso% 0.4 % 0.1 - 1.2 Not Available [facility] [address] [place], [place], [address], 08/12/2025 17:25:39 08/12/20 25 08/12/2025 CBC eo% 1.3 % 0.7 - 5.8 Not Available [facility] [address], [place], [address], 08/12/2025 17:25:39 08/12/20 25 08/12/2025 CBC Ig% 0.3 % 0.0 - 0.4 Not Available [facility] [address], [place], [address], 08/12/2025 17:25:39 08/12/20 25 08/12/2025 CBC neut# 9.93 x10(3 )/uL 1.56 - 6.13 high Not Available [facility] [address] [place], [address], 08/12/2025 17:25:39 08/12/20 25 08/12/2025 CBC lymph# 1.82 x10(3 )/uL 1.18 - 3.74 Not Available [facility] [address] [place], [address], 08/12/2025 17:25:39 08/12/20 25 08/12/2025 CBC mono# 0.58 x10(3 )/uL 0.24 - 0.86 Not Available [facility] [address] [place], [place], [address], 08/12/2025 17:25:39 08/12/20 25 08/12/2025 CBC baso# 0.05 x10(3 )/uL 0.01 - 0.08 Not Available [facility] [address] [place], [place], [address], 08/12/2025 17:25:39 08/12/20 25 08/12/2025 CBC eo# 0.16 x10(3 )/uL 0.04 - 0.36 Not Available [facility] [address], [place], [place], [address], 08/12/2025 17:25:39 08/12/20 25 08/12/2025 CBC Ig# 0.04 x10(3 )/uL 0.00 - 0.03 high Not Available [facility] [address], [place], [place], [address], 08/12/2025 17:25:39 08/12/20 25 08/12/2025 CBC RDW-CV 15.3 % 11.7 - 14.4 high Not Available [facility] [address] [place], [address], 08/12/2025 17:25:39 08/12/20 25 08/12/2025 CBC RDW-SD 52.4 fL 36.4 - 46.3 high Not Available [facility] [address] [place], [address], 08/12/2025 17:25:39 08/12/20 25 08/12/2025 CBC MPV 10.5 fL 9.4 - 12.3 Not Available [facility] [address] [place], [address], 08/12/2025 17:25:39 08/12/20 25 08/12/2025 CBC NRBC# 0.00 x10(3 )/uL 0.00 - 0.01 Not Available [facility] [address] [place], [address], 08/12/2025 17:25:39 08/12/20 25 08/12/2025 CBC NRBC% 0.0 % 0.0 - 0.2 Not Available [facility] [address] [place], [address], 08/12/2025 17:25:39 08/12/20 25 08/12/2025 COMPR EHENS ANGY METAB OLIC PANEL (CMP) albumin 4.1 g/dL 3.5 - 5.0 Not Available [facility] [address] [place], [address], 08/12/2025 17:25:39 08/12/20 25 08/12/2025 COMPR EHENS ANGY METAB OLIC PANEL (CMP) chloride 99 mmol/ L 98 - 107 Not Available [facility] [address] [place], [address], 08/12/2025 17:25:39 08/12/20 25 08/12/2025 COMPR EHENS ANGY METAB OLIC PANEL (CMP) creatinine 1.17 mg/dL 0.52 - 1.04 high Not Available [facility] [address] [place], [address], 08/12/2025 17:25:39 08/12/20 25 08/12/2025 COMPR EHENS ANGY METAB OLIC PANEL (CMP) eco2 37.0 mmol/ L 22.0 - 30.0 high Not Available [facility] [address] [place], [address], 08/12/2025 17:25:39 08/12/20 25 08/12/2025 COMPR EHENS ANGY METAB OLIC PANEL (CMP) glucose 198 mg/dL 74 - 106 high Not Available [facility] [address] [place], [address], 08/12/2025 17:25:39 08/12/20 25 08/12/2025 COMPR EHENS ANGY METAB OLIC PANEL (CMP) potassium 4.60 mmol/ L 3.50 - 5.10 Not Available [facility] [address] [place], [address], 08/12/2025 17:25:39 08/12/20 25 08/12/2025 COMPR EHENS ANGY METAB OLIC PANEL (CMP) alkaline phos 114 U/L 38 - 126 Not Available [facility] [address] [place], [address], 08/12/2025 17:25:39 08/12/20 25 08/12/2025 COMPR EHENS ANGY METAB OLIC PANEL (CMP) sodium 141 mmol/ L 137 - 145 Not Available [facility] [address] [place], [address], 08/12/2025 17:25:39 08/12/20 25 08/12/2025 COMPR EHENS ANGY METAB OLIC PANEL (CMP) total bilirubin 0.6 mg/dL 0.2 - 1.3 Not Available [facility] [address] [place], [address], 08/12/2025 17:25:39 08/12/20 25 08/12/2025 COMPR EHENS ANGY METAB OLIC PANEL (CMP) total protein 7.3 g/dL 6.3 - 8.2 Not Available [facility] [address] [place], [address], 08/12/2025 17:25:39 08/12/20 25 08/12/2025 COMPR EHENS ANGY METAB OLIC PANEL (CMP) ALT 16 U/L 0 - 35 Not Available [facility] [address] [place], [address], 08/12/2025 17:25:39 08/12/20 25 08/12/2025 COMPR EHENS ANGY METAB OLIC PANEL (CMP) BUN/urea 27 mg/dL 7 - 17 high Not Available [facility] [address] [place], [address], 08/12/2025 17:25:39 08/12/20 25 08/12/2025 COMPR EHENS ANGY METAB OLIC PANEL (CMP) eGFR 52 mL/mi n/1.7 3m2 >60 low *eGFR Refer ence Value s Maria Del Rosario l: >60 mL/mi n/1.7 3m2 Abnor mal: < 60 mL/mi n/1.7 3m2 Not Available [facility] [address] [place], [address], 08/12/2025 17:25:39 08/12/20 25 08/12/2025 COMPR EHENS ANGY METAB OLIC PANEL (CMP) A/G ratio 1.3 (calc ) 1.0 - 2.5 Not Available [facility] [address] [place], [address], 08/12/2025 17:25:39 08/12/20 25 08/12/2025 COMPR EHENS ANGY METAB OLIC PANEL (CMP) globulin 3.2 g/dL_ (calc ) 1.9 - 3.7 Not Available [facility] [address] [place], [address], 08/12/2025 17:25:39 08/12/20 25 08/12/2025 COMPR EHENS ANGY METAB OLIC PANEL (CMP) calcium 9.4 mg/dL 8.4 - 10.2 Not Available [facility] [address] [place], [address], 08/12/2025 17:25:39 08/12/20 25 08/12/2025 COMPR EHENS ANGY METAB OLIC PANEL (CMP) AST 22 U/L 14 - 36 Not Available [facility] [address] [place], [address], 08/12/2025 17:25:39 08/12/20 25 08/12/2025 COMPR EHENS ANGY METAB OLIC PANEL (CMP) BUN/crea ratio 23 (calc ) 6 - 22 high Not Available [facility] [address] [place], [address], 08/12/2025 17:25:39 08/12/20 25 08/12/2025 LIPID PANEL VLDL (calculated) 30 mg/dL (calc ) 0 - 30 Not Available [facility] [address] [place], [address], 08/12/2025 17:25:40 08/12/20 25 08/12/2025 LIPID PANEL direct HDL 33 mg/dL 40 - 60 low Not Available [facility] [address] [place], [address], 08/12/2025 17:25:40 08/12/20 25 08/12/2025 LIPID PANEL triglyceride s 149 mg/dL 0 - 199 Not Available [facility] [address] [place], [address], 08/12/2025 17:25:40 08/12/20 25 08/12/2025 LIPID PANEL cholesterol 144 mg/dL <200 Not Available [facility] [address] [place], [address], 08/12/2025 17:25:40 08/12/20 25 08/12/2025 LIPID PANEL chol/DHDL ratio 4 %_(ca lc) 0 - 5 Not Available [facility] [address] [place], [address], 08/12/2025 17:25:40 08/12/20 25 08/12/2025 LIPID PANEL LDL (calculated) 81 mg/dL 0 - 100 Not Available [facility] [address] [place], [address], 08/12/2025 17:25:40 08/12/20 25 08/13/2025 HEMOG LOBIN A1C hemoglobin A1C 10.2 % <5.7 high The follo wing HbA1c range s recom srinivasan d by the [place] Diabe lorena Assoc iatio n (ADA) may be used as an aid in the diagn osis of diabe lorena melli tus. HbA1c Sugge sted Diagn osis >=6.5 % Diabe tic 5.7% - 6.4% Pre-D iabet ic <5.7% Non-D iabet ic Not Available [facility] [address] [place], [address], 08/13/2025 18:43:42 08/12/20 25 08/13/2025 MICRO ALBUM IN/CR EATIN INE, RANDO M URINE SAMPL E albumin/crea tinine ratio, urine 29 ug/mg 0-30 Not Available [facility] [address] [place], [address], 08/13/2025 18:43:42 08/12/20 25 08/13/2025 MICRO ALBUM IN/CR EATIN INE, RANDO M URINE SAMPL E microalbumin , urine, random 2.8 mg/dL Not Available [facility] [address] [place], [address], 08/13/2025 18:43:42 08/12/20 25 08/13/2025 MICRO ALBUM IN/CR EATIN INE, RANDO M URINE SAMPL E creatinine, urine 97.5 mg/dL Not Available [facility] [address] [place], [address], 08/13/2025 18:43:42 08/12/20 25 08/13/2025 ESTIM ATED AVERA GE GLUCO SE estimated average glucose (EAG) 246 mg/dL Estim ated Morley ge Gluco se (eAG) is calcu lated using the equat ion eAG = (28.7 x HbA1c ) - 46.7 based on the guide lines estab lishe d by the ADA. If the patie nt has certa in disea ses inclu ding kidne y disea se, sickl e cell anemi a, thala ssemi a, or is takin g medic ation s such as dapso ne, eryth ropoi etin, or iron, eAG shoul d not be evalu ated. Not Available [facility] [address] [place], [address], 08/13/2025 18:43:43 Result Notes None recorded. Problems Name Problem SNOMED Code Status Onset Date Resolution Date Notes Provider Name and Address Organization Details Recorded Time Acute sinusiti s 59861924 Completed 200402/26/2017 Category : DD; Medicine Descript ion: SINUSITI S ACUTE; Display in Medcin: YES; Display in ESB: YES; Confiden tiality Level: Level 1 Cordelia Mcclain LPN [facility] 7 10:04:47 Dizzines s and giddines s [id number] Completed 200402/26/2017 Category : DD; Medicine Descript ion: dizzines s; Display in Medcin: YES; Display in ESB: YES; Confiden tiality Level: Level 1 Cordelia Mcclain LPN [facility] 7 10:05:26 Tracheob ronchiti s [id number] Completed 200402/26/2017 Category : DD; Medicine Descript ion: TRACHEOB RONCHITI S; Display in Medcin: YES; Display in ESB: YES; Confiden tiality Level: Level 1 Cordelia Mcclain LPN [facility] 7 10:04:42 Chronic obstruct angy pulmonar y disease [id number] Active 2004 Modified By: MARIA ANTONIA DEL REAL; Category : DD; Examiner : Veronica Jensen I.; Medicine Descript ion: CHRONIC OBSTRUCT ANGY PULMONAR Y DISEASE; Display in Medcin: YES; Display in ESB: YES; Confiden tiality Level: Level 1 Not Available [facility] 4 03:27:39 Clinical finding Completed 200402/26/2017 Modified By: YAZ MARSHALL; Category : DD; Examiner : Yaz Marshall; Medicine Descript ion: LARYNGOP HARYNGEA L REFLUX; Display in Medcin: NO; Display in ESB: NO; Confiden tiality Level: Level 1 REMIGIO Lemus, [facility] 7 10:05:08 Allergic rhinitis 05573039 Active 2004 Category : DD; Medicine Descript ion: ALLERGIC RHINITIS ; Display in Medcin: YES; Display in ESB: YES; Confiden tiality Level: Level 1 Not Available [facility] 4 03:27:39 Neves's palsy 989382091 Completed 200502/26/2017 Category : DD; Medicine Descript ion: NEVES'S PALSY; Display in Medcin: YES; Display in ESB: YES; Confiden tiality Level: Level 1 Cordelia REMIGIO Mcclain, [facility] 7 10:05:01 Family history of diabetes mellitus 064023372 Completed 200902/26/2017 Created By: VERONICA JENSEN ; Modified By: VERONICA JENSEN ; Category : DD; Examiner : VERONICA JENSEN I.; Medicine Descript ion: DIABETES MELLITUS ; Display in Medcin: NO; Display in ESB: YES; Confiden tiality Level: Level 1 REMIGIO Lemus, [facility] 7 10:04:51 Benign essentia l hyperten [place] 2390153 Completed 200902/26/2017 Created By: VERONICA JENSEN ; Modified By: GHAZAL PHAN; Category : DD; Examiner : VERONICA JENSEN I.; Medicine Descript ion: HYPERTEN [place] (SYSTEMI C); Display in Medcin: YES; Display in ESB: YES; Confiden tiality Level: Level 1 REMIGIO Lemus, [facility] 7 10:05:46 Family history of Cardiova scular disease 564236987 Completed 200902/26/2017 Created By: VERONICA JENSEN ; Modified By: MARIA ANTONIA DEL REAL; Category : DD; Examiner : Veronica Jensen I.; Medicine Descript ion: reported family history ischemic heart disease before age 50; Display in Medcin: YES; Display in ESB: YES; Confiden tiality Level: Level 1 REMIGIO Lemus, [facility] 7 10:05:23 Wheezing 82211432 Completed 200902/26/2017 Created By: VERONICA JENSEN ; Modified By: GHAZAL PHAN; Category : DD; Examiner : Veronica Jensen I.; Medicine Descript ion: wheezing [as a symptom] ; Display in Medcin: YES; Display in ESB: YES; Confiden tiality Level: Level 1 Cordelia Mcclain LPN [facility], [place] - [facility] 7 10:05:57 Mild intermit tent asthma 864877503 Active 2009 Created By: VERONICA JENSEN ; Modified By: GHAZAL PHAN; Category : DD; Examiner : Veronica Jensen I.; Medicine Descript ion: ASTHMA MILD INTERMIT TENT UNCOMPLI CATED; Display in Medcin: YES; Display in ESB: YES; Confiden tiality Level: Level 1 Not Available [facility] 4 03:27:39 Obesity 917262477 Active 2010 Created By: VERONICA JENSEN ; Modified By: GHAZAL PHAN; Category : DD; Examiner : VERONICA JENSEN I.; Medicine Descript ion: Obese; Display in Medcin: YES; Display in ESB: YES; Confiden tiality Level: Level 1 Not Available [facility] 4 03:27:39 Nicotine dependen ce 09780905 Active 2010 Created By: VERONICA JENSEN ; Modified By: YAZ MARSHALL; Category : DD; Examiner : Yaz Marshall; Medicine Descript ion: current smoker; Display in Medcin: NO; Display in ESB: NO; Confiden tiality Level: Level 1; Type: Diagnosi s Not Available [facility] 4 03:27:39 Hyperlip idemia 46045543 Active 2010 Created By: VERONICA JENSEN ; Modified By: VERONICA JENSEN ; Category : DD; Examiner : Veronica Jensen I.; Medicine Descript ion: DYSLIPID EMIA; Display in Medcin: YES; Display in ESB: YES; Confiden tiality Level: Level 1; Type: Diagnosi s Not Available [facility] 4 03:27:39 Long-ter m drug therapy Completed 201002/26/2017 Created By: VERONICA JENSEN ; Modified By: VERONICA JENSEN ; Category : DD; Examiner : Veronica Jensen I.; Medicine Descript ion: taking medicati on for a long time; Display in Medcin: YES; Display in ESB: YES; Confiden tiality Level: Level 1; Type: Sonia Storey Johny, [employer] null, [facility] 7 10:05:21 Verrualex plantari s 56226537 Completed 201102/26/2017 Created By: VERONICA JENSEN ; Modified By: YAZ MARSHALL; Category : DD; Examiner : Yaz Marshall; Medicine Descript ion: Wartlike Lesions Feet Plantar; Display in Medcin: YES; Display in ESB: YES; Confiden tiality Level: Level 1; Type: Sonia Storey Johny, [employer] null, [facility] 7 10:06:02 Plane wart [id number] Completed 201102/26/2017 Created By: VERONICA JENSEN ; Modified By: YAZ MARSHALL; Category : DD; Examiner : Yaz Marshall; Medicine Descript ion: WARTS COMMON; Display in Medcin: YES; Display in ESB: YES; Confiden tiality Level: Level 1; Type: Sonia Storey JohnySHAKIRN null, [facility] 7 10:05:14 Procedur e Completed 201102/26/2017 Created By: VERONICA JENSEN ; Modified By: YAZ MARSHALL; Category : DD; Examiner : Veronica Jensen I.; Medicine Descript ion: visit for: medicati on refill; Display in Medcin: NO; Display in ESB: NO; Confiden tiality Level: Level 1; Type: Sonia s Cordelia Johny, [employer] null, [facility] 7 10:05:40 Sciatica 17635486 Completed 201202/26/2017 Created By: VERONICA JENSEN ; Modified By: YAZ MARSHALL; Category : DD; Examiner : Veronica Jensen I.; Medicine Descript ion: NEURITIS SCIATIC; Display in Medcin: NO; Display in ESB: NO; Confiden tiality Level: Level 1; Type: Diagnosi s Codrelia Johny, [employer] null, [facility] 7 10:05:12 Screenin g procedur e Completed 201402/26/2017 Created By: YAZ MARSHALL; Modified By: YAZ MARSHALL; Category : DD; Examiner : Yaz Marshall; Medicine Descript ion: visit for: screenin g malignan t neoplasm colon; Display in Medcin: NO; Display in ESB: NO; Confiden tiality Level: Level 1; Type: Diagnosi s Cordelia Johny, [employer] null, [facility] 7 10:05:37 Adult health examinat ion Completed 201402/26/2017 Created By: YAZ MARSHALL; Modified By: YAZ MARSHALL; Category : DD; Examiner : Yaz Marshall; Medicine Descript ion: ROUTINE HISTORY AND PHYSICAL ; Display in Medcin: YES; Display in ESB: YES; Confiden tiality Level: Level 1; Type: Diagnosi s Cordelia Johny, [employer] null, [facility] 7 10:05:29 Abnormal finding on evaluati on procedur e [id number] Completed 201402/26/2017 Created By: YAZ MARSHALL; Modified By: YAZ MARSHALL; Category : DD; Examiner : Yaz Marshall; Medicine Descript ion: ROUTINE HISTORY AND PHYSICAL ; Display in Medcin: YES; Display in ESB: YES; Confiden tiality Level: Level 1; Type: Diagnosi s Cordelia Johny, [employer] null, [facility] 7 10:05:54 Palpitat ions [id number] Completed 201402/26/2017 Created By: YAZ MARSHALL; Modified By: YAZ MARSHALL; Category : DD; Examiner : Yaz Mrashall; Medicine Descript ion: palpitat ions; Display in Medcin: NO; Display in ESB: NO; Confiden tiality Level: Level 1; Type: Sonia Mcclain, [employer] null, [facility] 7 10:06:05 Microsco pic hematuri a [id number] Completed 201402/26/2017 Created By: YAZ MARSHALL; Modified By: YAZ MARSHALL; Category : DD; Examiner : Yaz Marshall; Medicine Descript ion: MICROSCO PIC HEMATURI A; Display in Medcin: YES; Display in ESB: YES; Confiden tiality Level: Level 1; Type: Sonia Mcclain, [employer] null, [facility] 7 10:05:05 Electroc ardiogra m abnormal [id number] Completed 201402/26/2017 Created By: YAZ MARSHALL; Modified By: YAZ MARSHALL; Category : DD; Examiner : Yaz Marshall; Medicine Descript ion: ECG NORMAL VARIANT; Display in Medcin: NO; Display in ESB: NO; Confiden tiality Level: Level 1; Type: Sonia Mcclain, LEATHER BELT MAKER null, [facility] 7 10:04:38 Evaluati on procedur e Completed 201402/26/2017 Created By: ELVIE FERNANDEZ; Modified By: KEVEN OCTOBER; Category : DD; Examiner : Keevn Muhammad; Medicine Descript ion: Observat ion For Suspecte d Conditio n; Display in Medcin: YES; Display in ESB: YES; Confiden tiality Level: Level 1; Type: Sonia Storey Johny, LEATHER BELT MAKER null, [facility] 7 10:05:34 Hyperten sive disorder 23493645 Active 2015 Created By: YAZ MARSHALL; Modified By: YAZ MARSHALL; Category : DD; Examiner : Yaz Marshall; Medicine Descript ion: ESSENTIA L HYPERTEN GE[place] BENIGN; Display in Medcin: YES; Display in ESB: YES; Confiden tiality Level: Level 1; Type: Diagnosi s Not Available [facility] 4 03:27:39 Viral screenin g Completed 201502/26/2017 Created By: YAZ MARSHALL; Modified By: YAZ MARSHALL; Category : DD; Examiner : Yaz Marshall; Medicine Descript ion: visit for: screenin g exam dengue fever; Display in Medcin: YES; Display in ESB: YES; Confiden tiality Level: Level 1; Type: Diagnosi s Cordeliadora Mcclain, REMIGIO [facility], [facility] 7 10:05:16 Screenin g mammogra phy Completed 201502/26/2017 Created By: YAZ MARSHALL; Modified By: YAZ MARSHALL; Category : DD; Examiner : Yaz Marshall; Medicine Descript ion: Mammogra m Screenin g; Display in Medcin: YES; Display in ESB: YES; Confiden tiality Level: Level 1; Type: Diagnosi s Cordeliadora Mcclain, REMIGIO [facility] 7 10:05:19 Active immuniza tion Completed 201502/26/2017 Created By: YAZ MARSHALL; Modified By: YAZ MARSHALL; Category : DD; Examiner : Yaz Marshall; Medicine Descript ion: visit for: immuniza tion; Display in Medcin: YES; Display in ESB: YES; Confiden tiality Level: Level 1; Type: Diagnosi s Cordelia MaloneREMIGIO garibay [facility] 7 10:05:31 Pain of left shoulder joint 56476228060 343876 Active 2017 Not Available [facility] 4 03:27:39 Vitamin D deficien cy 90374430 Active 2021 Not Available [facility] 4 03:27:39 Congesti ve heart failure 12534992 Active 2022 Not Available [facility] 4 03:27:39 Type 2 diabetes mellitus without complica tion 688165302 Active 2022 Not Available [facility] 4 03:27:39 Female urinary stress incontin ence 18898719 Active 2024 Tu Poe NP [address] [place] [address], [phone] , [facility] 5 11:50:21 Dependen ce on suppleme ntal oxygen 02915633459 7 Active 2024 Tu Poe NP [address] [place] [address], [phone] , [facility] 12:26:07 Problem Notes None recorded. Procedures Surgical History Date Name Laterality Status Provider Name and Address Organization Details Recorded Time 05/17/20 25 Suture/Staple removal completed [address], [phone] [place] [address] 05/17/2025 15:52:31 05/05/20 25 Flu vaccine Screening completed Rita Olivarez [facility] 05/05/2025 12:16:34 08/20/20 24 Nebulizer tx duoneb completed [address], [phone] [place] [address] 08/20/2024 16:28:20 05/06/20 24 venipuncture completed Juliet Gatica [facility] 05/06/2024 11:42:54 02/19/20 24 Splint Application completed Tu Poe NP [address] [place] [address], [phone] 02/19/2024 14:24:04 12/26/19 24 venipuncture completed Yuliya Hurd [facility] 12/26/2023 15:40:03 09/25/19 22 venipuncture completed Shauna Jordan [facility] 09/25/2021 13:07:04 11/25/19 21 venipuncture completed Jodi Mora [facility] 11/24/2020 11:10:23 12/18/19 20 venipuncture completed Yuliya Hurd [facility] 12/18/2019 16:28:31 12/18/19 20 venipuncture cancelled Tyler Mcfarlane [facility] 12/18/2019 09:21:06 04/14/20 19 venipuncture completed Cordelia Mcclain LPN [facility] 04/14/2019 09:25:36 08/08/20 18 venipuncture completed Cordelia Mcclain LPN [facility] 08/08/2018 09:13:48 09/10/19 18 venipuncture completed Homa Zarate [facility] 09/10/2017 10:01:27 02/27/20 17 venipuncture completed Cordelia Mcclain LPN [facility] 02/26/2017 10:26:37 08/15/20 16 venipuncture completed Homa Zarate [facility] 08/15/2016 10:27:51 Cardiac Surgery completed Cordelia waldrop LPN [facility] 02/26/2017 10:07:03 Imaging Results None recorded. Procedure Notes None recorded. Medical Equipment None Reported. Allergies Allergen ID Allergen Name Allergen Category Reaction Reaction Severity Criticality Documentation Date Start Date Code Code System Note Provider Name and Address Organization Details Recorded Time 64367 codeine medicatio n Not available Not available Not available 08/05/20162009 7170 RxNorm Comme nt: Last Edite d: 11-25 09:27 :35; Not Available [facility] 6 03:58:28 Medications Name Sig Start Date [...] Not Available Not Available Not Available levofloxa haredep 500 mg tablet TAKE 1 TABLET BY [...] per sliding scale before meals TID<150- 0 jaifc062 -200-3 -250-6 yawvw397 -300- 9 arncm075 -350-12 uncuh217 -400-15 units Not Available Not Available Not [...] Details Last Updated DateTime 5 170.18 cm 45.5 kg/m2 791856. 24 g 97.3 [degF] 20 /min 75 /min 90 % Migdalia Metz [facility] 12:05:19 Social History Question Answer Notes LastModified by Organization Details LastModified Time Tobacco Smoking Status Current Every Day Smoker Rita Olivarez [facility] 02/18/2025 15:08:04 Do You Have An Advance Directive? No Information not available 01/29/2017 Are You Blind Or Do You Have Difficulty Seeing? Yes [email or web address] Information not available 09/25/2021 Is Blood Transfusion Acceptable In An Emergency? Yes [email or web address] Information not available 09/25/2021 What Is Your Level Of Caffeine Consumption? Heavy Information not available 01/29/2017 How Much Tobacco Do You Chew? None [email or web address] Information not available 01/29/2017 Commercial Sex Work No [email or web address] Information not available 01/29/2017 In The 14 [...] Do You Have Serious Difficulty Hearing? No [email or web address] Information not available 09/25/2021 What Type Of Diet Are You Following? REGULAR [email or web address] Information not available 01/29/2017 Which Illicit Or Recreational Drugs Have You Used? None [email or web address] Information not available 01/29/2017 Have You Processed Blood Or Body Fluids From An Ebola Virus Disease Patient Without Appropriate PPE? No [email or web address] Information not available 09/25/2021 Education Less Than 8th Grade [email or web address] Information not available 01/29/2017 What Is The Highest Grade Or Level Of School You Have Completed Or The Highest Degree You Have Received? HL42097-3 [email or web address] Information not available 08/12/2025 Are There Any Guns Present In Your Home? Yes Information not available 02/26/2017 Hard Of Hearing Or Deaf In One Or Both Ears? No [email or web address] Information not available 01/29/2017 High Number Of Sexual Partners No [email or web address] Information not available 01/29/2017 History Of Inconsistent/no Condom Use No [email or web address] Information not available 01/29/2017 International Travel None Information not available 02/26/2017 Legally Blind In One Or Both Eyes? No Information not available 01/29/2017 In The Past 6 Months Have You Fallen No [email or web address] Information not available 01/29/2017 Medication List Reconciled Yes Information not available 04/14/2019 What Number (0-10) Best Describes How, During The Past Week, Has Interfered With Your General Activity? 0 [email or web address] Information not available 01/29/2017 What Number (0-10) Best Describes How, During The Past Week, Pain Has Interfered With Your Enjoyment In The Past Week 0 [email or web address] Information not available 01/29/2017 What Number (0-10) Best Describes Your Pain On Average In The Past Week 0 [email or web address] Information not available 01/29/2017 Total PEG Score [...] available 11/24/2020 Hospital Follow Up Appointment 08/12/2025 [email or web address] Information not available 08/12/2025 Hospital Discharged Patient To Home Information not available 08/12/2025 ER Medication List Reconciled Yes [email or web address] Information not available 07/22/2025 ER Contact Date 07/22/2025 Informati on not available 07/22/2025 ER Follow Up Contact Date 07/22/2025 [email or web address] Information not available 07/22/2025 ER Follow Up Patient Contact Via Unable To Contact Went To [facility] ER Transferred To [facility] Diagnosis Pneumonia Information not available 07/22/2025 ER Date Of Discharge 07/21/2025 [email or web address] Information not available 07/22/2025 ER Discharged Patient To Caregiver Transfer [email or web address] Information not available 07/22/2025 ER Records Recieved Yes [email or web address] Information not available 07/22/2025 ER Records Requested Yes [email or web address] Information not available 07/22/2025 Marital Status [email or web address] Informatio n not available 01/29/2017 What Was The Date Of Your Most Recent Tobacco Screening? 08/12/2025 [email or web address] Information not available 08/12/2025 Mother With HIV? No [email or web address] Informat ion not available 01/29/2017 How Many Children Do You Have? 4 [email or web address] Information not available 08/12/2025 What Is Your Relationship Status? [email or web address] Information not available 08/12/2025 Do You Use Your Seat Belt Or Car Seat Routinely? Yes Information not available 07/28/2024 Seat Belts Used Routinely Yes Information not available 01/29/2017 Are You Sexually Active? Yes Information not available 08/08/2018 Sexual Partner Has HIV? No [email or web address] Information not available 01/29/2017 Sexual Partner Uses IV Drugs? No [email or web address] Information not available 01/29/2017 Smoke Alarm In Home No Information not available 01/29/2017 At What Age Did You Start Smoking Tobacco? 15 Information not available 02/26/2017 How Much Tobacco Do You Smoke? 0.5 PPD [email or web address] Information not available 05/05/2025 General Stress Level Medium [email or web address] Information not available 01/29/2017 Do You Use Sunscreen Routinely? No [email or web address] Information not available 01/29/2017 How Many Years Have You Smoked Tobacco? 41 Information not available 02/26/2017 Have You Used IV Drugs? No Information not available 01/29/2017 Do You Have Difficulty Walking Or Climbing Stairs? Yes [email or web address] Information not available 09/25/2021 Do You Want [...] use any illicit or recreational drugs? No [email or web address] Information not available 06/14/2025 Do you or have you ever used any other forms of tobacco or nicotine? Yes Nicotine patches Information not available 12/17/2024 What is your level of alcohol consumption? None [email or web address] Information not available 01/29/2017 Do you or have you ever used smokeless tobacco? Never used smokeless tobacco Information not available 04/14/2019 Are you currently employed? No [email or web address] Information not available 08/12/2025 Do you have transportation difficulties? No [email or web address] Information not available 09/25/2021 Are you able to walk independently without assistance or assistive devices? YESWOREST [email or web address] Information not available 01/29/2017 Do you have difficulty doing errands alone? No [email or web address] Information not available 09/25/2021 Are you able to care for yourself independently? Yes Information not available 09/25/2021 Do you have difficulty dressing, bathing, grooming, or toileting? No [email or web address] Information not available 09/25/2021 Do you or have you ever used e-cigarettes or vape? Never used electronic cigarettes Information not available 04/14/2019 What is your exercise level? Moderate Information not available 01/29/2017 Mental Status Question Answer Note LastModified by Organizat ion Details LastModified Time Do you feel stressed (tense, restless, nervous, or anxious, or unable to sleep at night)? [id number] [email or web address] Information not available 09/25/2021 Do you have difficulty concentrating, remembering or making decisions? No [email or web address] Information no t available 09/25/2021 Family History [...] Anemia N Colon Polyps N Heart Attack (ID) N Ovarian Cancer N Diabetes N Bedwetting [...] MDCK, quadrivalent, preservative 9 completed Not Available [facility] 09/19/2019 02:39:19 Tdap 7 completed Not Available [facility] 09/19/2019 02:39:16 Influenza, split virus, trivalent, preservative 6 completed Not Available [facility] 09/25/2023 03:27:39 Tdap 5 completed Not Available [facility] 08/12/2025 12:00:37 Influenza, MDCK, quadrivalent, PF 4 completed Juliet Gatica [facility] 05/07/2024 12:22:36 Influenza, split virus, quadrivalent, PF 5 completed Rita Olivarez [facility] 05/05/2025 12:58:35 Pneumococcal conjugate PCV20, polysaccharide VQP913 conjugate, adjuvant, PF 5 completed Rita Olivarez [facility] 06/28/2025 15:43:32 Influenza, MDCK, quadrivalent, preservative 8 completed Not Available [facility] 09/19/2019 02:39:18 Past Encounters Encounter ID Performer Location Encounter Start Date Encounter Closed Date Diagnosis/Indication Diagnosis SNOMED-CT Code Diagnosis ICD10 Code Diagnosis IMO Codes Diagnosis Note [id number] [facility] [address] [place] [address] 07/22/2025 15:07:34 07/22/2025 17:21:39 [id number] [facility] [address] [place] [address] 07/23/2025 07:58:37 07/26/2025 08:44:39 [id number] [facility] [address] [place] [address] 07/26/2025 09:20:12 07/26/2025 11:14:46 [id number] [facility] [address] [facility], [address] [place] [address] 08/05/2025 15:56:46 08/05/2025 15:59:56 [id number] MCKAY CUEVAS DO [facility] [address] [place] [address] 08/12/2025 11:57:16 08/12/2025 18:24:40 Post-discharge follow-up [id number] Z51.89 [id number] admitted 07/21/2025 ; Transferre d [facility] to [facility]; discharged 07/25/2025 Chronic ob structive pulmonary disease 74218787 J44.9 Pneumonia 080171676 J18. 9 [id number] Type 2 deepak betes mellitus without complication 740870296 E11.9 Will increase ozempic to 1 mg Dependence on supplemental oxygen 3281878120 07 Z99.81 [id number] on 3 L/[place] [id number] [facility] [address] [place] [phone] 08/12/2025 14:02:33 08/12/2025 16:10:51 [id number] [facility] [address] [facility],[address] [place] [address] 08/12/2025 14:17:02 08/12/2025 14:37:17 [id number] [facility] [address] [facility],[address] [place] [address] 08/12/2025 14:37:49 08/12/2025 14:46:05 Goals Section [...] Name 08/12/2025 2 [place] Nadine Esquivel [id number] Nadine Esquivel 08/12/2025 1 [facility] Nadine Esquivel [id number] Nadine Esquivel Notes Date Note Type [...] within one week. She prefers referral to [place] rather than [place] due to distance. She lives in [place] with her girlfriend who provides caregiving assistance. [...] Home and Environment Living situation: Lives in [place] with girlfriend who serves as caregiver and provides transportation Other Oxygen use: 3 liters supplemental oxygen at home Tests - Echocardiogram during recent hospitalization: Ejection fraction 55% Tu Poe NP [address], [address], [facility] 08/12/2025 14:28:56 OBGyn Episode No OBEpisode recorded.
--- OUTSIDE RECORDS SUMMARY | 2025-08-29 09:07 | XMS_ITS | Continuity of Care Document ---
Author Organization [facility], [facility] Address [address] [place] [address] Care Team Providers Care Bobcat Driver/Labor Name Role Phone LUISA JAIMES Estate Tax Examiner EUN Biggs Community [facility] Worker SHAWNA Rivera [...] Modified By Organization Details Last Modified Time 06/07/2025 [id number] heart-healthy diet: care instructions Not available 06/07/2025 17:18:55 walking for exercise: care instructions Not available 06/07/2025 17:18:55 Reason for Referral None Reported. Problems Name Problem SNOMED Code Status Onset Date Resolution Date Notes Provider Name and Address Organization Details Recorded Time Acute sinusiti s 15594102 Completed 200402/26/2017 Category : DD; Medicine Descript ion: SINUSITI S ACUTE; Display in Medcin: YES; Display in ESB: YES; Confiden tiality Level: Level 1 Cordelia Mcclain LPN [facility] 7 10:04:47 Dizzines s and giddines s 259045161 Completed 200402/26/2017 Category : DD; Medicine Descript ion: dizzines s; Display in Medcin: YES; Display in ESB: YES; Confiden tiality Level: Level 1 REMIGIO Lemus, [facility] 7 10:05:26 Tracheob ronchiti s 04779759 Completed 200402/26/2017 Category : DD; Medicine Descript ion: TRACHEOB RONCHITI S; Display in Medcin: YES; Display in ESB: YES; Confiden tiality Level: Level 1 REMIGIO Lemus, [facility] 7 10:04:42 Chronic obstruct angy pulmonar y disease 60737616 Active 2004 Modified By: MARIA ANTONIA DEL REAL; Category : DD; Examiner : Veronica Jensen I.; Medicine Descript ion: CHRONIC OBSTRUCT ANGY PULMONAR Y DISEASE; Display in Medcin: YES; Display in ESB: YES; Confiden tiality Level: Level 1 Not Available [facility] 4 03:27:39 Clinical finding Completed 200402/26/2017 Modified By: YAZ MARSHALL; Category : DD; Examiner : Yaz Marshall; Medicine Descript ion: LARYNGOP HARYNGEA L REFLUX; Display in Medcin: NO; Display in ESB: NO; Confiden tiality Level: Level 1 [facility] 7 10:05:08 Allergic rhinitis 33640804 Active 2004 Category : DD; Medicine Descript ion: ALLERGIC RHINITIS ; Display in Medcin: YES; Display in ESB: YES; Confiden tiality Level: Level 1 Not Available [facility] 4 03:27:39 Neves's palsy 696239111 Completed 200502/26/2017 Category : DD; Medicine Descript ion: NEVES'S PALSY; Display in Medcin: YES; Display in ESB: YES; Confiden tiality Level: Level 1 REMIGIO Lemus, [facility] 7 10:05:01 Family history of diabetes mellitus 354581484 Completed 200902/26/2017 Created By: VERONICA JENSEN ; Modified By: VERONICA JENSEN ; Category : DD; Examiner : VERONICA JENSEN I.; Medicine Descript ion: DIABETES MELLITUS ; Display in Medcin: NO; Display in ESB: YES; Confiden tiality Level: Level 1 Cordelia REMIGIO Mcclain, [facility] 7 10:04:51 Benign essentia l hyperten [place] 8110824 Completed 200902/26/2017 Created By: VERONICA JENSEN ; Modified By: GHAZAL PHAN; Category : DD; Examiner : VERONICA JENSEN I.; Medicine Descript ion: HYPERTEN [place] (SYSTEMI C); Display in Medcin: YES; Display in ESB: YES; Confiden tiality Level: Level 1 [facility] 7 10:05:46 Family history of Cardiova scular disease 869274360 Completed 200902/26/2017 Created By: VERONICA JENSEN ; Modified By: MARIA ANTONIA DEL REAL; Category : DD; Examiner : Veronica Jensen I.; Medicine Descript ion: reported family history ischemic heart disease before age 50; Display in Medcin: YES; Display in ESB: YES; Confiden tiality Level: Level 1 [facility]IGIO [facility] 7 10:05:23 Wheezing 64022567 Completed 200902/26/2017 Created By: VERONICA JENSEN ; Modified By: GHAZAL PHAN; Category : DD; Examiner : Veronica Jensen I.; Medicine Descript ion: wheezing [as a symptom] ; Display in Medcin: YES; Display in ESB: YES; Confiden tiality Level: Level 1 REMIGIO Lemus, [facility] 7 10:05:57 Mild intermit tent asthma 925998117 Active 2009 Created By: VERONICA JENSEN ; Modified By: GHAZAL PHAN; Category : DD; Examiner : Veronica Jensen I.; Medicine Descript ion: ASTHMA MILD INTERMIT TENT UNCOMPLI CATED; Display in Medcin: YES; Display in ESB: YES; Confiden tiality Level: Level 1 Not Available [facility] 4 03:27:39 Obesity 653351972 Active 2010 Created By: VERONICA JENSEN ; Modified By: GHAZAL PHAN; Category : DD; Examiner : VERONICA JENSEN I.; Medicine Descript ion: Obese; Display in Medcin: YES; Display in ESB: YES; Confiden tiality Level: Level 1 Not Available [facility] 4 03:27:39 Nicotine dependen ce 01751477 Active 2010 Created By: VERONICA JENSEN ; Modified By: YAZ MARSHALL; Category : DD; Examiner : Yaz Marshall; Medicine Descript ion: current smoker; Display in Medcin: NO; Display in ESB: NO; Confiden tiality Level: Level 1; Type: Diagnosi s Not Available [facility] 4 03:27:39 Hyperlip idemia 49259802 Active 2010 Created By: VERONICA JENSEN ; Modified By: VERONICA EJNSEN ; Category : DD; Examiner : Veronica Jensen I.; Medicine Descript ion: DYSLIPID EMIA; Display in Medcin: YES; Display in ESB: YES; Confiden tiality Level: Level 1; Type: Diagnosi s Not Available [facility] 4 03:27:39 Long-ter m drug therapy Completed 201002/26/2017 Created By: VERONICA JENSEN ; Modified By: VERONICA JENSEN ; Category : DD; Examiner : Veronica Jensen I.; Medicine Descript ion: taking medicati on for a long time; Display in Medcin: YES; Display in ESB: YES; Confiden tiality Level: Level 1; Type: Diagnosi s Cordelia Mcclain LPN [facility] 7 10:05:21 Verruca plantari s 96049035 Completed 201102/26/2017 Created By: VERONICA JENSEN ; Modified By: YAZ MARSHALL; Category : DD; Examiner : Yaz Marshall; Medicine Descript ion: Wartlike Lesions Feet Plantar; Display in Medcin: YES; Display in ESB: YES; Confiden tiality Level: Level 1; Type: Sonia Mcclain, GENETICS PHYSICIAN null, [facility] 7 10:06:02 Plane wart 096893344 Completed 201102/26/2017 Created By: VERONICA JENSEN ; Modified By: YAZ MARSHALL; Category : DD; Examiner : Yaz Marshall; Medicine Descript ion: WARTS COMMON; Display in Medcin: YES; Display in ESB: YES; Confiden tiality Level: Level 1; Type: Sonia Mcclain, GENETICS PHYSICIAN null, [facility] 7 10:05:14 Procedur e Completed 201102/26/2017 Created By: VERONICA JENSEN ; Modified By: YAZ MARSHALL; Category : DD; Examiner : Veronica Jensen I.; Medicine Descript ion: visit for: medicati on refill; Display in Medcin: NO; Display in ESB: NO; Confiden tiality Level: Level 1; Type: Sonia Mcclain, GENETICS PHYSICIAN null, [facility] 7 10:05:40 Sciatica 44907202 Completed 201202/26/2017 Created By: VERONICA JENSEN ; Modified By: YAZ MARSHALL; Category : DD; Examiner : Veronica Jensen I.; Medicine Descript ion: NEURITIS SCIATIC; Display in Medcin: NO; Display in ESB: NO; Confiden tiality Level: Level 1; Type: Sonia Mcclain, GENETICS PHYSICIAN null, [facility] 7 10:05:12 Screenin g procedur e Completed 201402/26/2017 Created By: YAZ MARSHALL; Modified By: YAZ MARSHALL; Category : DD; Examiner : Yaz Marshall; Medicine Descript ion: visit for: screenin g malignan t neoplasm colon; Display in Medcin: NO; Display in ESB: NO; Confiden tiality Level: Level 1; Type: Sonia Mcclain, GENETICS PHYSICIAN null, [facility] 7 10:05:37 Adult health examinat ion Completed 201402/26/2017 Created By: YAZ MARSHALL; Modified By: YAZ MARSHALL; Category : DD; Examiner : Yaz Marshall; Medicine Descript ion: ROUTINE HISTORY AND PHYSICAL ; Display in Medcin: YES; Display in ESB: YES; Confiden tiality Level: Level 1; Type: Sonia Mcclain, GENETICS PHYSICIAN null, [facility] 7 10:05:29 Abnormal finding on evaluati on procedur e [id number] Completed 201402/26/2017 Created By: YAZ MARSHALL; Modified By: YAZ MARSHALL; Category : DD; Examiner : Yaz Marshall; Medicine Descript ion: ROUTINE HISTORY AND PHYSICAL ; Display in Medcin: YES; Display in ESB: YES; Confiden tiality Level: Level 1; Type: Sonia Mcclain, GENETICS PHYSICIAN null, [facility] 7 10:05:54 Palpitat ions 81197965 Completed 201402/26/2017 Created By: YAZ MARSHALL; Modified By: YAZ MARSHALL; Category : DD; Examiner : Yaz Marshall; Medicine Descript ion: palpitat ions; Display in Medcin: NO; Display in ESB: NO; Confiden tiality Level: Level 1; Type: Sonia Mcclain, GENETICS PHYSICIAN null, [facility] 7 10:06:05 Microsco pic hematuri a 501647267 Completed 201402/26/2017 Created By: YAZ MARSHALL; Modified By: YAZ MARSHALL; Category : DD; Examiner : Yaz Marshall; Medicine Descript ion: MICROSCO PIC HEMATURI A; Display in Medcin: YES; Display in ESB: YES; Confiden tiality Level: Level 1; Type: Sonia Mcclain, GENETICS PHYSICIAN null, [facility] 7 10:05:05 Electroc ardiogra m abnormal 654795000 Completed 201402/26/2017 Created By: YAZ MARSHALL; Modified By: YAZ MARSHALL; Category : DD; Examiner : Yaz Marshall; Medicine Descript ion: ECG NORMAL VARIANT; Display in Medcin: NO; Display in ESB: NO; Confiden tiality Level: Level 1; Type: Diagnosi s Cordeliadora Mcclain LPN [facility] 7 10:04:38 Evaluati on procedur e Completed 201402/26/2017 Created By: ELVIE FERNANDEZ; Modified By: KEVEN OCTOBER; Category : DD; Examiner : Keven Muhammad; Medicine Descript ion: Observat ion For Suspecte d Conditio n; Display in Medcin: YES; Display in ESB: YES; Confiden tiality Level: Level 1; Type: Diagnosi s Cordeliadora Mcclain LPN [facility] 7 10:05:34 Hyperten sive disorder 96628697 Active 2015 Created By: YAZ MARSHALL; Modified By: YAZ MARSHALL; Category : DD; Examiner : Yaz Marshall; Medicine Descript ion: ESSENTIA L HYPERTEN [place] BENIGN; Display in Medcin: YES; Display in ESB: YES; Confiden tiality Level: Level 1; Type: Diagnosi s Not Available [facility] 4 03:27:39 Viral screenin g Completed 201502/26/2017 Created By: YAZ MARSHALL; Modified By: YAZ MARSHALL; Category : DD; Examiner : Yaz Marshall; Medicine Descript ion: visit for: screenin g exam dengue fever; Display in Medcin: YES; Display in ESB: YES; Confiden tiality Level: Level 1; Type: Diagnosi s Cordeliadora Mcclain LPN null, [facility] 7 10:05:16 Screenin g mammogra phy Completed 201502/26/2017 Created By: YAZ MARSHALL; Modified By: YAZ MARSHALL; Category : DD; Examiner : Yaz Marshall; Medicine Descript ion: Mammogra m Screenin g; Display in Medcin: YES; Display in ESB: YES; Confiden tiality Level: Level 1; Type: Sonia Mcclain, GENETICS PHYSICIAN [facility], [facility] 7 10:05:19 Active immuniza tion Completed 201502/26/2017 Created By: YAZ MARSHALL; Modified By: YAZ MARSHALL; Category : DD; Examiner : Yaz Marshall; Medicine Descript ion: visit for: immuniza tion; Display in Medcin: YES; Display in ESB: YES; Confiden tiality Level: Level 1; Type: Sonia Mcclain, GENETICS PHYSICIAN [facility], [facility] 7 10:05:31 Pain of left shoulder joint 76966097601 152141 Active 2017 Not Available [facility] 4 03:27:39 Vitamin D deficien cy 59855810 Active 2021 Not Available [facility] 4 03:27:39 Congesti ve heart failure 91359590 Active 2022 Not Available [facility] 4 03:27:39 Type 2 diabetes mellitus without complica tion 404374562 Active 2022 Not Available [facility] 4 03:27:39 Female urinary stress incontin ence 64865354 Active 2024 Adriana Poe NP [address] [place] [address], [phone] , [facility] 5 11:50:21 Dependen ce on suppleme ntal oxygen 36517424506 7 Active 2024 Adriana Poe NP [address] [place] [address], [phone] , [facility] 5 12:26:07 Problem Notes None recorded. Procedures Surgical History Date Name Laterality Status Provider Name and Address Organization Details Recorded Time 05/17/20 25 Suture/Staple removal completed Emily[address], [address], [facility] 05/17/2025 15:52:31 05/05/20 25 Flu vaccine Screening completed Rita Olivarez [facility] 05/05/2025 12:16:34 08/20/20 24 Nebulizer tx duoneb completed [address], [address], [facility] 08/20/2024 16:28:20 05/06/20 24 venipuncture completed Juliet Gatica [facility] 05/06/2024 11:42:54 02/19/20 24 Splint Application completed Adriana Poe NP [address] [place] [address], [phone], [facility] 02/19/2024 14:24:04 12/26/19 24 venipuncture completed uYliya Hurd [facility] 12/26/2023 15:40:03 09/25/19 22 venipuncture completed Shauna Jordan [facility] 09/25/2021 13:07:04 11/25/19 21 venipuncture completed Jodi Mora [facility] 11/24/2020 11:10:23 12/18/19 20 venipuncture completed Yuliya Hurd [facility] 12/18/2019 16:28:31 12/18/19 20 venipuncture cancelled Tyler Mcfarlane [facility] 12/18/2019 09:21:06 04/14/20 19 venipuncture completed Cordelia Mcclain LPN [facility] 04/14/2019 09:25:36 08/08/20 18 venipuncture completed Cordelia Mcclain LPN [facility] 08/08/2018 09:13:48 09/10/19 18 venipuncture completed Homa Zarate [facility] 09/10/2017 10:01:27 02/27/20 17 venipuncture completed Cordelia Mcclain LPN [facility] 02/26/2017 10:26:37 08/15/20 16 venipuncture completed Homa Tessa [facility] 08/15/2016 10:27:51 Cardiac Surgery completed Cordelia waldrop LPN [facility] 02/26/2017 10:07:03 Imaging Results None recorded. Procedure Notes None recorded. Medical Equipment None Reported. Allergies Allergen ID Allergen Name Allergen Category Reaction Reaction Severity Criticality Documentation Date Start Date Code Code System Note Provider Name and Address Organization Details Recorded Time 61995 codeine medicatio n Not available Not available Not available 08/05/20162009 1380 RxNorm Comme nt: Last Edite d: 11-25 09:27 :35; Not Available [facility] 6 03:58:28 Medications Name Sig Start Date [...] per sliding scale before meals TID<150- 0 ldurm312 -200-3 -250-6 -300- 9 wdjal039 -350-12 zosah280 -400-15 units Not Available Not Available Not [...] temperature Heart rate Oxygen saturation Respiratory rate Oxygen saturation Inhaled oxygen flow rate Respiratory rate Heart rate Systolic And Diastolic Systolic And Diastolic Provider Name and Address Organization Details Last Updated DateTime 170.18 cm 46.4 kg/m2 674310. 69 g 98 [degF] 96 /min 90 % 28 /min 96 % 3 L/min 22 /min 84 /min 148/92 mm[Hg] 142/95 mm[Hg] Jenna Hooker [facility] 15:29:20 Social History Question Answer Notes LastModified by Organization Details LastModified Time Tobacco Smoking Status Current Every Day Smoker Rita Olivarez [facility] 02/18/2025 15:08:04 Do You Have An Advance Directive? No [email or web address] Information not available 01/29/2017 Are You Blind Or Do You Have Difficulty Seeing? Yes Information not available 09/25/2021 Is Blood Transfusion Acceptable In An Emergency? Yes [email or web address] Information not available 09/25/2021 What Is Your Level Of Caffeine Consumption? Heavy Information not available 01/29/2017 How Much Tobacco Do You Chew? None Information not available 01/29/2017 Commercial Sex Work No [email or web address] Information not available 01/29/2017 In The 14 [...] Do You Have Serious Difficulty Hearing? No [email or web address] Information not available 09/25/2021 What Type Of Diet Are You Following? REGULAR [email or web address] Information not available 01/29/2017 Which Illicit Or Recreational Drugs Have You Used? None Information not available 01/29/2017 Have You Processed Blood Or Body Fluids From An Ebola Virus Disease Patient Without Appropriate PPE? No [email or web address] Information not available 09/25/2021 Education Less Than 8th Grade Information not available 01/29/2017 What Is The Highest Grade Or Level Of School You Have Completed Or The Highest Degree You Have Received? KW22506-4 [email or web address] Information not available 08/12/2025 Are There Any Guns Present In Your Home? Yes Information not available 02/26/2017 Hard Of Hearing Or Deaf In One Or Both Ears? No Information not available 01/29/2017 High Number Of Sexual Partners No [email or web address] Information not available 01/29/2017 History Of Inconsistent/no Condom Use No [email or web address] Information not available 01/29/2017 International Travel None Information not available 02/26/2017 Legally Blind In One Or Both Eyes? No [email or web address] Information not available 01/29/2017 In The Past 6 Months Have You Fallen No Information not available 01/29/2017 Medication List Reconciled Yes Information not available 04/14/2019 What Number (0-10) Best Describes How, During The Past Week, Has Interfered With Your General Activity? 0 Information not available 01/29/2017 What Number (0-10) Best Describes How, During The Past Week, Pain Has Interfered With Your Enjoyment In The Past Week 0 [email or web address] Information not available 01/29/2017 What Number (0-10) Best Describes Your Pain On Average In The Past Week 0 [email or web address] Information not available 01/29/2017 Total PEG Score 0 [email or web address] Informati on not available 01/29/2017 Most Recent Dental Visit 09/02/1996 Up To Date 04/23/22 Information not available 08/08/2018 Sexual Orientation Straight Or Heterosexual Information not available 11/24/2020 Gender Identity Female [email or web address] Informat ion not available 11/24/2020 Eye Exam 09/02/2015 Information not available 08/08/2018 Do You Feel Safe Yes [email or web address] Informa tion not available 11/24/2020 Hospital Follow Up Appointment 08/12/2025 [email or web address] Information not available 08/12/2025 Hospital Discharged Patient To Home Information not available 08/12/2025 ER Medication List Reconciled Yes [email or web address] Information not available 07/22/2025 ER Contact Date 07/22/2025 [email or web address] Informati on not available 07/22/2025 ER Follow Up Contact Date 07/22/2025 [email or web address] Information not available 07/22/2025 ER Follow Up Patient Contact Via Unable To Contact Went To [facility] ER Transferred To [facility] Diagnosis Pneumonia [email or web address] Information not available 07/22/2025 ER Date Of Discharge 07/21/2025 [email or web address] Information not available 07/22/2025 ER Discharged Patient To Caregiver Transfer [email or web address] Information not available 07/22/2025 ER Records Recieved Yes [email or web address] Information not available 07/22/2025 ER Records Requested Yes [email or web address] Information not available 07/22/2025 Marital Status [email or web address] Informatio n not available 01/29/2017 What Was The Date Of Your Most Recent Tobacco Screening? 08/12/2025 [email or web address] Information not available 08/12/2025 Mother With HIV? No [email or web address] Informat ion not available 01/29/2017 How Many Children Do You Have? 4 [email or web address] Information not available 08/12/2025 What Is Your Relationship Status? [email or web address] Information not available 08/12/2025 Do You Use Your Seat Belt Or Car Seat Routinely? Yes Information not available 07/28/2024 Seat Belts Used Routinely Yes Information not available 01/29/2017 Are You Sexually Active? Yes Information not available 08/08/2018 Sexual Partner Has HIV? No [email or web address] Information not available 01/29/2017 Sexual Partner Uses IV Drugs? No [email or web address] Information not available 01/29/2017 Smoke Alarm In Home No Information not available 01/29/2017 At What Age Did You Start Smoking Tobacco? 15 Information not available 02/26/2017 How Much Tobacco Do You Smoke? 0.5 PPD [email or web address] Information not available 05/05/2025 General Stress Level Medium [email or web address] Information not available 01/29/2017 Do You Use Sunscreen Routinely? No [email or web address] Information not available 01/29/2017 How Many Years Have You Smoked Tobacco? 41 Information not available 02/26/2017 Have You Used IV Drugs? No [email or web address] Information not available 01/29/2017 Do You Have Difficulty Walking Or Climbing Stairs? Yes [email or web address] Information not available 09/25/2021 Do You Want [...] use any illicit or recreational drugs? No Information not available 06/14/2025 Do you or have you ever used any other forms of tobacco or nicotine? Yes Nicotine patches Information not available 12/17/2024 What is your level of alcohol consumption? None Information not available 01/29/2017 Do you or have you ever used smokeless tobacco? Never used smokeless tobacco Information not available 04/14/2019 Are you currently employed? No [email or web address] Information not available 08/12/2025 Do you have transportation difficulties? No [email or web address] Information not available 09/25/2021 Are you able to walk independently without assistance or assistive devices? YESWOREST [email or web address] Information not available 01/29/2017 Do you have difficulty doing errands alone? No [email or web address] Information not available 09/25/2021 Are you able to care for yourself independently? Yes Information not available 09/25/2021 Do you have difficulty dressing, bathing, grooming, or toileting? No [email or web address] Information not available 09/25/2021 Do you or have you ever used e-cigarettes or vape? Never used electronic cigarettes Information not available 04/14/2019 What is your exercise level? Moderate [email or web address] Information not available 01/29/2017 Mental Status Question Answer Note LastModified by Organizat ion Details LastModified Time Do you feel stressed (tense, restless, nervous, or anxious, or unable to sleep at night)? [id number] [email or web address] Information not available 09/25/2021 Do you have difficulty concentrating, remembering or making decisions? No [email or web address] Information no t available 09/25/2021 Family History Relationship Description Onset Age of this Age Resolved Age Notes LastModified by Organization Details LastModified Time Mother Diabetes mellitus Not available 2016 14:32:39 Brother Diabetes mellitus [email or web address] Not available 2016 14:32:46 Medical History Condition [...] Anemia N Colon Polyps N Heart Attack ([place]) N Ovarian Cancer N Diabetes N Bedwetting [...] MDCK, quadrivalent, preservative 9 completed Not Available [facility] 09/19/2019 02:39:19 Tdap 7 completed Not Available [facility] 09/19/2019 02:39:16 Influenza, split virus, trivalent, preservative 6 completed Not Available [facility] 09/25/2023 03:27:39 Tdap 5 completed Not Available [facility] 08/12/2025 12:00:37 Influenza, MDCK, quadrivalent, PF 4 completed Juliet Gatica [facility] 05/07/2024 12:22:36 Influenza, split virus, quadrivalent, PF 5 completed Rita Olivarez [facility] 05/05/2025 12:58:35 Pneumococcal conjugate PCV20, polysaccharide CKZ549 conjugate, adjuvant, 5 completed Rita Olivarez [facility] 06/28/2025 15:43:32 Influenza, MDCK, quadrivalent, preservative 8 completed Not Available [facility] 09/19/2019 02:39:18 Past Encounters Encounter ID Performer Location Encounter Start Date Encounter Closed Date Diagnosis/Indication Diagnosis SNOMED-CT Code Diagnosis ICD10 Code Diagnosis IMO Codes Diagnosis Note [id number] MCKAY CUEVAS DO [facility] [place] [address] [place] [address] 05/17/2025 14:56:52 05/18/2025 08:22:12 Chronic obstructive pulmonary disease 64249479 J44.9 [id number] Laceration of left lower leg [id number] 2871784 S81.812A L08.9 [id number] Patient has been prescribed a course of oral antibiotic s.Advised to seek immediate medical attention in the Emergency Room if symptoms worsen, including increased pain, redness, or developmen t of fever.Sche duled for follow-up on Saturday to assess healing and response to treatment. Body mass index 40+ - severely obese [id number] E66.01 [id number] BMI 45.6 Diet education 87642744 Z71.3 Exercises education, guidance, and counseling [id number] Z71.82 Removal of sutures done [id number] 48730 Z48.02 [id number] Five sutures were removed from left leg. [id number] MCKAY CUEVAS [address] [phone] 05/24/2025 15:14:12 05/24/2025 16:47:46 Laceration of left lower leg [id number] S81.812S [id number] Erythema to the left leg is resolving. Will continue the doxycyline for another 7 days. Wound redressedS cheduled for follow-up next week to assess healing and response to treatment. Body mass index 40+ - severely obese [id number] E66.01 Z68.42 00081699 BMI 45.6 Diet education 86580794 Z71.3 Exercises education, guidance, and counseling [id number] Z71.82 [id number] MCKAY CUEVAS [facility] [address] [place] [phone] 05/31/2025 14:56:17 05/31/2025 15:42:35 Local infection of wound [id number] T81.49XA [id number] post laceration leg wound with infection. An additional suture that remained was removed today. Wound improving. Bandaid applied. Return to clinic in one week for further evaluation Mild inter mittent asthma [id number] J45.20 [id number] MCKAY CUEVAS [facility] [id number] [place] [phone] 06/07/2025 15:14:29 06/07/2025 17:30:00 Local infection of wound 63780548 T81.49XA [id number] A new dressing was applied. A foam dressing will be ordered to support wound healing. Patient voiced understand ing of the treatment plan. Body mass index 40+ - severely obese [id number] Z68.42 [id number] BMI 45.6 Diet education 69291664 Z71.3 Exercises education, guidance, and counseling 479701426 Z71.82 Goals Section Goal Description Progress Status Start [...] Member ID Sofia Member ID Guarantor Name 06/07/2025 2 [place] Nadine Esquivel [id number] Nadine Esquivel 06/07/2025 1 [facility] [facility] [facility] [employer] [facility] [employer] [facility] Nadine Esquivel [id number] Nadine Esquivel Notes Date Note Type Note Provider Name and Address Organization Details Recorded Time 06/07/2025 text/html Patient presents for follow-up of a leg wound with post-laceration infection. She has been on Augmentin. She thinks it is looking better. Adriana Poe NP [address] [place] [address], [phone], [facility] 06/07/2025 17:09:56 OBGyn Episode No OBEpisode recorded.
--- OUTSIDE RECORDS SUMMARY | 2025-08-29 09:08 | XMS_ITS | Continuity of Care Document ---
Author Organization [facility], [facility] Address [address] [place] [address] Care Team Providers Care Gear Milling Machine Set Up Operator Name Role Phone LUISA JAIMES Training Development Manager ENU Biggs [facility] Worker SHAWNA [facility] [phone] Assessment No assessment recorded. Plan of Treatment Reminders Order Date Submit Date Provider Last Modified By Organization Details Last Modified Time Details Appointments None recorded. Lab infectious disease panel 2024 025 [employer], [address], [address], 09:59:12 Referral None recorded. Procedures None recorded. Surgeries None recorded. Imaging None recorded. Medication Orders doxycycline hyclate 100 mg tablet 2024 025 [id number] 1 [facility] [place], [address] [place], [address], 12:06:33 potassium chloride ER 10 mEq tablet,exte nded release 2024 025 [facility] [place], [address] [place], [address], 12:18:12 Patient TargetsNo targets recorded. Patient Instructions Encounter Date Encounter Id Patient Instructions Last Modified By Organization Details Last Modified Time 06/14/2025 [id number] heart-healthy diet: care instructions Not available 06/14/2025 18:41:43 walking for exercise: care instructions Not available 06/14/2025 18:41:43 Reason for Referral None Reported. Results Created Date Observation Date Name Description Value Unit Range Abnormal Flag Note LastModifiedBy Organization Detail LastModifiedTime 06/14/2006/14/2025 DERM- ID cutibacteriu m acnes DETECT ED abnormal Not Available [facility] [address] [place] [address], [address], 06/17/2025 09:59:12 06/14/2006/14/2025 DERM- ID pseudomonas aeruginosa DETECT ED abnormal Not Available [facility] [employer] [address] [place] [address], [address], 06/17/2025 09:59:12 06/14/2006/14/2025 DERM- ID corynebacter ium minutissimum , striatum, jeikeium DETECT ED abnormal Not Available [facility] [address] [place] [address], [address], 06/17/2025 09:59:12 06/14/2006/14/2025 DERM- ID malassezia (spp., globosa, restricta) DETECT ED abnormal Not Available [facility] [employer] [address] [place] [address], [address], 06/17/2025 09:59:12 06/14/2006/14/2025 DERM- ID finegoldia magna NOT DETECT ED Not Available [employer] [facility] [address] [place] [address], [address], 06/17/2025 09:59:12 06/14/2006/14/2025 DERM- ID staph haemolyticus , lugdunensis, saprophyticu s NOT DETECT ED Not Available [facility] [address] [place] [address], 200[address], 06/17/2025 09:59:12 06/14/2006/14/2025 DERM- ID fusobacteriu m nucleatum, necrophorum NOT DETECT ED Not Available [facility] [employer] [address] [place] [address], 816[address], 06/17/2025 09:59:12 06/14/2006/14/2025 DERM- ID escherichia coli NOT DETECT ED Not Available [facility] [address] [place] [address], 07[address], 06/17/2025 09:59:12 06/14/2006/14/2025 DERM- ID staphylococc us epidermidis NOT DETECT ED Not Available [facility] [address] [place] [address], 376[address], 06/17/2025 09:59:12 06/14/2006/14/2025 DERM- ID microsporum spp. NOT DETECT ED Not Available [facility] [address] [place] [address], [address], 06/17/2025 09:59:12 06/14/2006/14/2025 DERM- ID aspergillus spp. (fumigatus, niger, terreus, versicolor) NOT DETECT ED Not Available [facility] [employer] [address] [place] [address], 39[address], 06/17/2025 09:59:12 06/14/2006/14/2025 DERM- ID peptostrepto coccus prevotii, anaerobius, asaccharolyt icus NOT DETECT ED Not Available [facility] [employer] [address] [place] [address], 030[address], 06/17/2025 09:59:12 06/14/2006/14/2025 DERM- ID streptococcu s agalactiae NOT DETECT ED Not Available [employer] [address] [place] [address], 46470, 06/17/2025 09:59:12 06/14/2006/14/2025 DERM- ID neisseria gonorrhoeae NOT DETECT ED Not Available [employer] [address] [place] [address], 7[address], 06/17/2025 09:59:12 06/14/2006/14/2025 DERM- ID klebsiella oxytoca, pneumoniae NOT DETECT ED Not Available [facility] [employer] [address] [place] [address], 522[address], 06/17/2025 09:59:12 06/14/2006/14/2025 DERM- ID peptoniphilu s harei, ivorii NOT DETECT ED Not Available [employer] [address] [place] [address], 17[address], 06/17/2025 09:59:12 06/14/2006/14/2025 DERM- ID edwin auris NOT DETECT ED Not Available [employer] [address] [place] [address], 245[address], 06/17/2025 09:59:12 06/14/2006/14/2025 DERM- ID morganella morganii NOT DETECT ED Not Available [facility] [employer] [address] [place] [address], 864[address], 06/17/2025 09:59:12 06/14/2006/14/2025 DERM- ID trichophyton (soudanense, violaceum, tonsurans, interdigital e, mentagrophyt es) NOT DETECT ED Not Available [employer] [address] [place] [address], 39[address], 06/17/2025 09:59:12 06/14/2006/14/2025 DERM- ID edwin glabrata NOT DETECT ED Not Available [facility] [employer] [address] [place] [address], 92[address], 06/17/2025 09:59:12 06/14/2006/14/2025 DERM- ID edwin krusei NOT DETECT ED Not Available [facility] [address] [place] [address], 717[address], 06/17/2025 09:59:12 06/14/2006/14/2025 DERM- ID mycoplasma gentalium, hominis NOT DETECT ED Not Available [facility] [address], [address], 06/17/2025 09:59:12 06/14/2006/14/2025 DERM- ID hsv2 NOT DETECT ED Not Available [facility] [address] [place] [address], 46[address], 06/17/2025 09:59:12 06/14/2006/14/2025 DERM- ID acinetobacte r baumannii NOT DETECT ED Not Available [facility] [employer] [address] [place] [address], 138[address], 06/17/2025 09:59:12 06/14/2006/14/2025 DERM- ID clostridium perfringens NOT DETECT ED Not Available [facility] [address] [place] [address], 49985, 06/17/2025 09:59:12 06/14/2006/14/2025 DERM- ID vibrio cholerae, parahaemolyt icus, vulnificus NOT DETECT ED Not Available [facility] [address] [place] [address], 85014, 06/17/2025 09:59:12 06/14/2006/14/2025 DERM- ID haemophilus influenzae NOT DETECT ED Not Available [facility] [employer] [address] [place] [address], 65021, 06/17/2025 09:59:12 06/14/2006/14/2025 DERM- ID enterobacter cloacae complex NOT DETECT ED Not Available [facility] [employer] [address] [place] [address], 65753, 06/17/2025 09:59:12 06/14/20 25 06/14/2025 DERM- ID ralstonia spp. (pickettii) NOT DETECT ED Not Available [facility] [employer] [address] [place] [address], 30578, 06/17/2025 09:59:12 06/14/2006/14/2025 DERM- ID serratia marcescens NOT DETECT ED Not Available [facility] [address] [place] [address], 400[address], 06/17/2025 09:59:12 06/14/2006/14/2025 DERM- ID streptococcu s pyogenes (group A) NOT DETECT ED Not Available [employer] [address] [place] [address], 674[address], 06/17/2025 09:59:12 06/14/2006/14/2025 DERM- ID mycobacteriu m abcessus, chelonae, fortuitum NOT DETECT ED Not Available [facility] [address] [place] [address], 08201, 06/17/2025 09:59:12 06/14/2006/14/2025 DERM- ID cutibacteriu m avidum/granu losum NOT DETECT ED Not Available [facility] [address] [place] [address], 54635, 06/17/2025 09:59:12 06/14/2006/14/2025 DERM- ID proteus mirabilis NOT DETECT ED Not Available [facility] [address] [place] [address], 12648, 06/17/2025 09:59:12 06/14/2006/14/2025 DERM- ID staphylococc us aureus NOT DETECT ED Not Available [facility] [address] [place] [address], 77746, 06/17/2025 09:59:12 06/14/2006/14/2025 DERM- ID enterococcus faecalis NOT DETECT ED Not Available [facility] [address] [place] [address], 35834, 06/17/2025 09:59:12 06/14/2006/14/2025 DERM- ID prevotella (bivia, intermedia, nigrescens) NOT DETECT ED Not Available [employer] [facility] [address] [place] [address], 53772, 06/17/2025 09:59:12 06/14/2006/14/2025 DERM- ID edwin tropicalis, parapsilosis NOT DETECT ED Not Available [employer] [address] [place] [address], 97968, 06/17/2025 09:59:12 06/14/2006/14/2025 DERM- ID klebsiella aerogenes NOT DETECT ED Not Available [employer] [facility] [address] [place] [address], 09095, 06/17/2025 09:59:12 06/14/2006/14/2025 DERM- ID bacteroides fragilis NOT DETECT ED Not Available [employer] [facility] [address] [place] [address], 51464, 06/17/2025 09:59:12 06/14/2006/14/2025 DERM- ID anaerococcus prevotii, vaginalis NOT DETECT ED Not Available [employer] [facility] [address] [place] [address], 34306, 06/17/2025 09:59:12 06/14/2006/14/2025 DERM- ID proteus vulgaris NOT DETECT ED Not Available [employer] [facility] [address] [place] [address], 795[address], 06/17/2025 09:59:12 06/14/2006/14/2025 DERM- ID hsv1 NOT DETECT ED Not Available [employer] [facility] [address] [place] [address], 70969, 06/17/2025 09:59:12 06/14/20 25 06/14/2025 DERM- ID fusarium solani, oxysporum NOT DETECT ED Not Available [employer] [facility] [address] [place] [address] [place], [address], 06/17/2025 09:59:12 06/14/2006/14/2025 DERM- ID enterococcus faecium NOT DETECT ED Not Available [employer] [address], [address], 06/17/2025 09:59:12 06/14/2006/14/2025 DERM- ID varicella zoster virus (vzv) (hhv3) NOT DETECT ED Not Available [employer] [address], [address], 06/17/2025 09:59:12 06/14/2006/14/2025 DERM- ID HPV 16 NOT DETECT ED Not Available [employer] [address] [place] [address], 65410, 06/17/2025 09:59:12 06/14/2006/14/2025 DERM- ID edwin albicans NOT DETECT ED Not Available [employer] [address], [address], 06/17/2025 09:59:12 06/14/2006/14/2025 DERM- ID trichophyton rubrum NOT DETECT ED Not Available [employer] [address] [place] [address], 55317, 06/17/2025 09:59:12 06/14/2006/14/2025 DERM- ID streptococcu s pneumoniae NOT DETECT ED Not Available [employer] [address], [address], 06/17/2025 09:59:12 06/14/2006/14/2025 DERM- ID citrobacter freundii NOT DETECT ED Not Available [employer] [address] [place] [address], 05915, 06/17/2025 09:59:12 06/14/2006/14/2025 DERM- ID salmonella enterica NOT DETECT ED Not Available [facility] [address] [place] [address], 70960, 06/17/2025 09:59:12 06/14/2006/14/2025 DERM- ID HPV 18 NOT DETECT ED Not Available [facility] [address] [place] [address], 80206, 06/17/2025 09:59:12 06/14/2006/14/2025 DERM- ID mycobacteriu m tuberculosis NOT DETECT ED Not Available [employer] [address] [place] [address], 19154, 06/17/2025 09:59:12 06/14/2006/14/2025 DERM- ID sporothrix schenckii NOT DETECT ED Not Available [employer] [address] [place] [address], 3[address], 06/17/2025 09:59:12 Result Notes None recorded. Problems Name Problem SNOMED Code Status Onset Date Resolution Date Notes Provider Name and Address Organization Details Recorded Time Acute sinusiti s 55160832 Completed 200402/26/2017 Category : DD; Medicine Descript ion: SINUSITI S ACUTE; Display in Medcin: YES; Display in ESB: YES; Confiden tiality Level: Level 1 REMIGIO Lemus [facility] 7 10:04:47 Dizzines s and giddines s 970557007 Completed 200402/26/2017 Category : DD; Medicine Descript ion: dizzines s; Display in Medcin: YES; Display in ESB: YES; Confiden tiality Level: Level 1 REMIGIO Lemus [facility] 7 10:05:26 Tracheob ronchiti s [id number] Completed 200402/26/2017 Category : DD; Medicine Descript ion: TRACHEOB RONCHITI S; Display in Medcin: YES; Display in ESB: YES; Confiden tiality Level: Level 1 REMIGIO Lemus [facility] 7 10:04:42 Chronic obstruct angy pulmonar y disease 29656326 Active 2004 Modified By: MARIA ANTONIA DEL REAL; Category : DD; Examiner : Veronica Jensen I.; Medicine Descript ion: CHRONIC OBSTRUCT ANGY PULMONAR Y DISEASE; Display in Medcin: YES; Display in ESB: YES; Confiden tiality Level: Level 1 Not Available [facility] 4 03:27:39 Clinical finding Completed 200402/26/2017 Modified By: YAZ MARSHALL; Category : DD; Examiner : Yaz Marshall; Medicine Descript ion: LARYNGOP HARYNGEA L REFLUX; Display in Medcin: NO; Display in ESB: NO; Confiden tiality Level: Level 1 Cordelia Mcclain REMIGIO elisha, [facility] 7 10:05:08 Allergic rhinitis 39268699 Active 2004 Category : DD; Medicine Descript ion: ALLERGIC RHINITIS ; Display in Medcin: YES; Display in ESB: YES; Confiden tiality Level: Level 1 Not Available [facility] 4 03:27:39 Neves's palsy 858429546 Completed 200502/26/2017 Category : DD; Medicine Descript ion: NEVES'S PALSY; Display in Medcin: YES; Display in ESB: YES; Confiden tiality Level: Level 1 Cordelia Mcclain REMIGIO elisha, [facility] 7 10:05:01 Family history of diabetes mellitus 294799013 Completed 200902/26/2017 Created By: VERONICA JENSEN ; Modified By: VERONICA JENSEN ; Category : DD; Examiner : VERONICA JENSEN I.; Medicine Descript ion: DIABETES MELLITUS ; Display in Medcin: NO; Display in ESB: YES; Confiden tiality Level: Level 1 Cordelia Mcclain REMIGIO elisha, [facility] 7 10:04:51 Benign essentia l hyperten [place] 7114123 Completed 200902/26/2017 Created By: VERONICA JENSEN ; Modified By: GHAZAL PHAN; Category : DD; Examiner : VERONICA JENSEN I.; Medicine Descript ion: HYPERTEN [place] (SYSTEMI C); Display in Medcin: YES; Display in ESB: YES; Confiden tiality Level: Level [facility] 7 10:05:46 Family history of Cardiova scular disease 686056266 Completed 200902/26/2017 Created By: VERONICA JENSEN ; Modified By: MARIA ANTONIA DEL REAL; Category : DD; Examiner : Veronica Jensen I.; Medicine Descript ion: reported family history ischemic heart disease before age 50; Display in Medcin: YES; Display in ESB: YES; Confiden tiality Level: Level 1 Cordelia Mcclain LPN [facility] 7 10:05:23 Wheezing 23534148 Completed 200902/26/2017 Created By: VERONICA JENSEN ; Modified By: GHAZAL PHAN; Category : DD; Examiner : Veronica Jensen I.; Medicine Descript ion: wheezing [as a symptom] ; Display in Medcin: YES; Display in ESB: YES; Confiden tiality Level: Level [facility] 7 10:05:57 Mild intermit tent asthma 077840826 Active 2009 Created By: VERONICA JENSEN ; Modified By: GHAZAL PHAN; Category : DD; Examiner : Veronica Jensen I.; Medicine Descript ion: ASTHMA MILD INTERMIT TENT UNCOMPLI CATED; Display in Medcin: YES; Display in ESB: YES; Confiden tiality Level: Level 1 Not Available [facility] 4 03:27:39 Obesity 527509796 Active 2010 Created By: VERONICA JENSEN ; Modified By: GHAZAL PHAN; Category : DD; Examiner : VERONICA JENSEN I.; Medicine Descript ion: Obese; Display in Medcin: YES; Display in ESB: YES; Confiden tiality Level: Level 1 Not Available [facility] 4 03:27:39 Nicotine dependen ce 58754327 Active 2010 Created By: VERONICA JENSEN ; Modified By: YAZ MARSHALL; Category : DD; Examiner : Yaz Marshall; Medicine Descript ion: current smoker; Display in Medcin: NO; Display in ESB: NO; Confiden tiality Level: Level 1; Type: Diagnosi s Not Available [facility] 4 03:27:39 Hyperlip idemia 75337532 Active 2010 Created By: VERONICA JENSEN ; Modified By: VERONICA JENSEN ; Category : DD; Examiner : Veronica Jensen I.; Medicine Descript ion: DYSLIPID EMIA; Display in Medcin: YES; Display in ESB: YES; Confiden tiality Level: Level 1; Type: Diagnosi s Not Available [facility] 4 03:27:39 Long-ter m drug therapy Completed 201002/26/2017 Created By: VERONICA JENSEN ; Modified By: VERONICA JENSEN ; Category : DD; Examiner : Veronica Jensen I.; Medicine Descript ion: taking medicati on for a long time; Display in Medcin: YES; Display in ESB: YES; Confiden tiality Level: Level 1; Type: Diagnosi s Cordelia Mcclain LPN [facility] 7 10:05:21 Verruca plantari s 01976716 Completed 201102/26/2017 Created By: VERONICA JENSEN ; Modified By: YAZ MARSHALL; Category : DD; Examiner : Yaz Marshall; Medicine Descript ion: Wartlike Lesions Feet Plantar; Display in Medcin: YES; Display in ESB: YES; Confiden tiality Level: Level 1; Type: Diagnosi s REMIGIO Lemus, [facility] 7 10:06:02 Plane wart 487799330 Completed 201102/26/2017 Created By: VERONICA JENSEN ; Modified By: YAZ MARSHALL; Category : DD; Examiner : Yaz Marshall; Medicine Descript ion: WARTS COMMON; Display in Medcin: YES; Display in ESB: YES; Confiden tiality Level: Level 1; Type: Sonia Mcclain, DATA PROCESSING EQUIPMENT REPAIRER null, [facility] 7 10:05:14 Procedur e Completed 201102/26/2017 Created By: VERONICA JENSEN ; Modified By: YAZ MARSHALL; Category : DD; Examiner : Veronica Jensen I.; Medicine Descript ion: visit for: medicati on refill; Display in Medcin: NO; Display in ESB: NO; Confiden tiality Level: Level 1; Type: Sonia Mcclain, DATA PROCESSING EQUIPMENT REPAIRER [facility] 7 10:05:40 Sciatica 55296534 Completed 201202/26/2017 Created By: VERONICA JENSEN ; Modified By: YAZ MARSHALL; Category : DD; Examiner : Veronica Jensen I.; Medicine Descript ion: NEURITIS SCIATIC; Display in Medcin: NO; Display in ESB: NO; Confiden tiality Level: Level 1; Type: Sonia Mcclain, DATA PROCESSING EQUIPMENT REPAIRER null, [facility] 7 10:05:12 Screenin g procedur e Completed 201402/26/2017 Created By: YAZ MARSHALL; Modified By: YAZ MARSHALL; Category : DD; Examiner : Yaz Marshall; Medicine Descript ion: visit for: screenin g malignan t neoplasm colon; Display in Medcin: NO; Display in ESB: NO; Confiden tiality Level: Level 1; Type: Diagnosi s Cordelia Mcclain, DATA PROCESSING EQUIPMENT REPAIRER null, [facility] 7 10:05:37 Adult health examinat ion Completed 201402/26/2017 Created By: YAZ MARSHALL; Modified By: YAZ MARSHALL; Category : DD; Examiner : Yaz Marshall; Medicine Descript ion: ROUTINE HISTORY AND PHYSICAL ; Display in Medcin: YES; Display in ESB: YES; Confiden tiality Level: Level 1; Type: Sonia Mcclain, DATA PROCESSING EQUIPMENT REPAIRER null, [facility] 7 10:05:29 Abnormal finding on evaluati on procedur e [id number] Completed 201402/26/2017 Created By: YAZ MARSHALL; Modified By: YAZ MARSHALL; Category : DD; Examiner : Yaz Marshall; Medicine Descript ion: ROUTINE HISTORY AND PHYSICAL ; Display in Medcin: YES; Display in ESB: YES; Confiden tiality Level: Level 1; Type: Sonia Mcclain, DATA PROCESSING EQUIPMENT REPA[facility] 7 10:05[facility]54 Palpitat ions [id number] Completed 201402/26/2017 Created By: YAZ MARSHALL; Modified By: YAZ MARSHALL; Category : DD; Examiner : Yaz Marshall; Medicine Descript ion: palpitat ions; Display in Medcin: NO; Display in ESB: NO; Confiden tiality Level: Level 1; Type: Sonia Mcclain, DATA PROCESSING EQUIPMENT REPAIRER [facility] 7 10:06:05 Microsco pic hematuri a 499250209 Completed 201402/26/2017 Created By: YAZ MARSHALL; Modified By: YAZ MARSHALL; Category : DD; Examiner : Yaz Marshall; Medicine Descript ion: MICROSCO PIC HEMATURI A; Display in Medcin: YES; Display in ESB: YES; Confiden tiality Level: Level 1; Type: Sonia Mcclain, DATA PROCESSING EQUIPMENT REPAIRER null, [facility] 7 10:05:05 Electroc ardiogra m abnormal [id number] Completed 201402/26/2017 Created By: YAZ MARSHALL; Modified By: YAZ MARSHALL; Category : DD; Examiner : Yaz Marshall; Medicine Descript ion: ECG NORMAL VARIANT; Display in Medcin: NO; Display in ESB: NO; Confiden tiality Level: Level 1; Type: Diagnosi s Cordelia Mcclain, DATA PROCESSING EQUIPMENT REPAIRER null, [facility] 7 10:04:38 Evaluati on procedur e Completed 201402/26/2017 Created By: ELVIE FERNANDEZ; Modified By: KEVEN OCTOBER; Category : DD; Examiner : Keven Muhammad; Medicine Descript ion: Observat ion For Suspecte d Conditio n; Display in Medcin: YES; Display in ESB: YES; Confiden tiality Level: Level 1; Type: Diagnosi s Cordelia Mcclain, DATA PROCESSING EQUIPMENT REPAIRER null, [facility] 7 10:05:34 Hyperten sive disorder 50331493 Active 2015 Created By: YAZ MARSHALL; Modified By: YAZ MARSHALL; Category : DD; Examiner : Yaz Marshall; Medicine Descript ion: ESSENTIA L HYPERTEN [place] BENIGN; Display in Medcin: YES; Display in ESB: YES; Confiden tiality Level: Level 1; Type: Diagnosi s Not Available [facility] 4 03:27:39 Viral screenin g Completed 201502/26/2017 Created By: YAZ MARSHALL; Modified By: YAZ MARSHALL; Category : DD; Examiner : Yaz Marshall; Medicine Descript ion: visit for: screenin g exam dengue fever; Display in Medcin: YES; Display in ESB: YES; Confiden tiality Level: Level 1; Type: Diagnosi s Cordelia Mcclain, DATA PROCESSING EQUIPMENT REPAIRER null, [facility] 7 10:05:16 Screenin g mammogra phy Completed 201502/26/2017 Created By: YAZ MARSHALL; Modified By: YAZ MARSHALL; Category : DD; Examiner : Yaz Marshall; Medicine Descript ion: Mammogra m Screenin g; Display in Medcin: YES; Display in ESB: YES; Confiden tiality Level: Level 1; Type: Diagnosi s Cordelia Mcclain, DATA PROCESSING EQUIPMENT REPAIRER null, [facility] 7 10:05:19 Active immuniza tion Completed 201502/26/2017 Created By: YAZ MARSHALL; Modified By: YAZ MARSHALL; Category : DD; Examiner : Yaz Marshall; Medicine Descript ion: visit for: immuniza tion; Display in Medcin: YES; Display in ESB: YES; Confiden tiality Level: Level 1; Type: Diagnosi s Cordelia Mcclain LPN [facility] 7 10:05:31 Pain of left shoulder joint [id number] 574713 Active 2017 Not Available [facility] 4 03:27:39 Vitamin D deficien cy 95715452 Active 2021 Not Available [facility] 4 03:27:39 Congesti ve heart failure 66808631 Active 2022 Not Available [facility] 4 03:27:39 Type 2 diabetes mellitus without complica tion 652509060 Active 2022 Not Available [facility] 4 03:27:39 Female urinary stress incontin ence 09825957 Active 2024 Adriana Poe NP [address] [place] [address], [address] , [facility] 5 11:50:21 Dependen ce on suppleme ntal oxygen 49949324867 7 Active 2024 Adriana Poe NP [address] [place] [address], [address] , [facility] 5 12:26:07 Problem Notes None recorded. Procedures Surgical History Date Name Laterality Status Provider Name and Address Organization Details Recorded Time 05/17/20 25 Suture/Staple removal completed [address], [address], [facility] 05/17/2025 15:52:31 05/05/20 25 Flu vaccine Screening completed Rita Olivarez [facility] 05/05/2025 12:16:34 08/20/20 24 Nebulizer tx duoneb completed [address], [address], [facility] 08/20/2024 16:28:20 05/06/20 24 venipuncture completed Juliet Gatica [facility] 05/06/2024 11:42:54 02/19/20 24 Splint Application completed Adriana Poe NP [address], [address], [facility] 02/19/2024 14:24:04 12/26/19 24 venipuncture completed Yuliya Hurd [facility] 12/26/2023 15:40:03 09/25/19 22 venipuncture completed Shauna Jordan [facility] 09/25/2021 13:07:04 11/25/19 21 venipuncture completed Jodi Mora [facility] 11/24/2020 11:10:23 12/18/19 20 venipuncture completed Yuliya Hurd [facility] 12/18/2019 16:28:31 12/18/19 20 venipuncture cancelled Tyler Mcfarlane [facility] 12/18/2019 09:21:06 04/14/20 19 venipuncture completed Cordelia Mcclain LPN [facility] 04/14/2019 09:25:36 08/08/20 18 venipuncture completed Cordelia Mcclain LPN [facility] 08/08/2018 09:13:48 09/10/19 18 venipuncture completed Homa Zarate [facility] 09/10/2017 10:01:27 02/27/20 17 venipuncture completed Cordelia Mcclain LPN [facility] 02/26/2017 10:26:37 08/15/20 16 venipuncture completed Homa Zarate [facility] 08/15/2016 10:27:51 Cardiac Surgery completed Cordelia waldrop LPN [facility] 02/26/2017 10:07:03 Imaging Results None recorded. Procedure Notes None recorded. Medical Equipment None Reported. Allergies Allergen ID Allergen Name Allergen Category Reaction Reaction Severity Criticality Documentation Date Start Date Code Code System Note Provider Name and Address Organization Details Recorded Time 40709 codeine medicatio n Not available Not available Not available 08/05/20162009 4330 RxNorm Comme nt: Last Edite d: 11-25 09:27 :35; Not Available [facility] 6 03:58:28 Medications Name Sig Start [...] per sliding scale before meals TID<150- 0 sowal136 -200-3 nesaf975 -250-6 ztoam175 -300- 9 kejeu042 -350-12 zyqdb471 -400-15 units Not Available Not Available Not [...] weight Body temperature Heart rate Oxygen saturation Inhaled oxygen flow rate Respiratory rate Systolic And Diastolic Systolic And Diastolic Provider Name and Address Organization Details Last Updated DateTime 170.18 cm 47.2 kg/m2 836273. 45 g 98 [degF] 85 /min 96 % 3 L/min 24 /min 170/105 mm[Hg] 152/90 mm[Hg] Jenna Morro [facility] 15:09:17 Social History Question Answer Notes LastModified by Organization Details LastModified Time Tobacco Smoking Status Current Every Day Smoker Rita Sher [facility] 02/18/2025 15:08:04 Do You Have An Advance Directive? No [email or web address] Information not available 01/29/2017 Are You Blind Or Do You Have Difficulty Seeing? Yes [email or web address] Information not available 09/25/2021 Is Blood Transfusion Acceptable In An Emergency? Yes [email or web address] Information not available 09/25/2021 What Is Your Level Of Caffeine Consumption? Heavy Information not available 01/29/2017 How Much Tobacco Do You Chew? None [email or web address] Information not available 01/29/2017 Commercial Sex Work No [email or web address] Information not available 01/29/2017 In The 14 [...] Do You Have Serious Difficulty Hearing? No [email or web address] Information not available 09/25/2021 What Type Of Diet Are You Following? REGULAR gtyabha24 Information not available 01/29/2017 Which Illicit Or Recreational Drugs Have You Used? None [email or web address] Information not available 01/29/2017 Have You Processed Blood Or Body Fluids From An Ebola Virus Disease Patient Without Appropriate PPE? No [email or web address] Information not available 09/25/2021 Education Less Than 8th Grade [email or web address] Information not available 01/29/2017 What Is The Highest Grade Or Level Of School You Have Completed Or The Highest Degree You Have Received? ZK42080-5 aqoyuvr114 Information not available 08/12/2025 Are There Any Guns Present In Your Home? Yes Information not available 02/26/2017 Hard Of Hearing Or Deaf In One Or Both Ears? No [email or web address] Information not available 01/29/2017 High Number Of Sexual Partners No [email or web address] Information not available 01/29/2017 History Of Inconsistent/no Condom Use No nlitvmh39 Information not available 01/29/2017 International Travel None Information not available 02/26/2017 Legally Blind In One Or Both Eyes? No [email or web address] Information not available 01/29/2017 In The Past 6 Months Have You Fallen No [email or web address] Information not available 01/29/2017 Medication List Reconciled Yes Information not available 04/14/2019 What Number (0-10) Best Describes How, During The Past Week, Has Interfered With Your General Activity? 0 [email or web address] Information not available 01/29/2017 What Number (0-10) Best Describes How, During The Past Week, Pain Has Interfered With Your Enjoyment In The Past Week 0 [email or web address] Information not available 01/29/2017 What Number (0-10) Best Describes Your Pain On Average In The Past Week 0 [email or web address] Information not available 01/29/2017 Total PEG Score 0 [email or web address] Informati on not available 01/29/2017 Most Recent Dental Visit 09/02/1996 Up To Date 04/23/22 Information not available 08/08/2018 Sexual Orientation Straight Or Heterosexual Information not available 11/24/2020 Gender Identity Female Informat ion not available 11/24/2020 Eye Exam 09/02/2015 Information not available 08/08/2018 Do You Feel Safe Yes Informa tion not available 11/24/2020 Hospital Follow Up Appointment 08/12/2025 [email or web address] Information not available 08/12/2025 Hospital Discharged Patient To Home [email or web address] Information not available 08/12/2025 ER Medication List Reconciled Yes [email or web address] Information not available 07/22/2025 ER Contact Date 07/22/2025 [email or web address] Informati on not available 07/22/2025 ER Follow Up Contact Date 07/22/2025 [email or web address] Information not available 07/22/2025 ER Follow Up Patient Contact Via Unable To Contact Went To [facility] ER Transferred To [facility] Diagnosis Pneumonia [email or web address] Information not available 07/22/2025 ER Date Of Discharge 07/21/2025 [email or web address] Information not available 07/22/2025 ER Discharged Patient To Caregiver Transfer [email or web address] Information not available 07/22/2025 ER Records Recieved Yes [email or web address] Information not available 07/22/2025 ER Records Requested Yes [email or web address] Information not available 07/22/2025 Marital Status [email or web address] Informatio n not available 01/29/2017 What Was The Date Of Your Most Recent Tobacco Screening? 08/12/2025 Information not available 08/12/2025 Mother With HIV? No hxykuzi60 Informat ion not available 01/29/2017 How Many Children Do You Have? 4 [email or web address] Information not available 08/12/2025 What Is Your Relationship Status? [email or web address] Information not available 08/12/2025 Do You Use Your Seat Belt Or Car Seat Routinely? Yes Information not available 07/28/2024 Seat Belts Used Routinely Yes [email or web address] Information not available 01/29/2017 Are You Sexually Active? Yes Information not available 08/08/2018 Sexual Partner Has HIV? No tyobxin72 Information not available 01/29/2017 Sexual Partner Uses IV Drugs? No rbeevni34 Information not available 01/29/2017 Smoke Alarm In Home No ylvhvqv05 Information not available 01/29/2017 At What Age Did You Start Smoking Tobacco? 15 Information not available 02/26/2017 How Much Tobacco Do You Smoke? 0.5 PPD ilugjyvn00 Information not available 05/05/2025 General Stress Level Medium [email or web address] Information not available 01/29/2017 Do You Use Sunscreen Routinely? No evnbrnj23 Information not available 01/29/2017 How Many Years Have You Smoked Tobacco? 41 Information not available 02/26/2017 Have You Used IV Drugs? No xmddzlo20 Information not available 01/29/2017 Do You Have Difficulty Walking Or Climbing Stairs? Yes gkbhloht72 Information not available 09/25/2021 Do You Want [...] is your level of alcohol consumption? None orohzjs02 Information not available 01/29/2017 Do you or have you ever used smokeless tobacco? Never used smokeless tobacco Information not available 04/14/2019 Are you currently employed? No [email or web address] Information not available 08/12/2025 Do you have transportation difficulties? No npsgqbre90 Information not available 09/25/2021 Are you able to walk independently without assistance or assistive devices? YESWOREST ufpsifg12 Information not available 01/29/2017 Do you have difficulty doing errands alone? No [email or web address] Information not available 09/25/2021 Are you able to care for yourself independently? Yes iyrlrecg28 Information not available 09/25/2021 Do you have difficulty dressing, bathing, grooming, or toileting? No hcqakkwp51 Information not available 09/25/2021 Do you or have you ever used e-cigarettes or vape? Never used electronic cigarettes Information not available 04/14/2019 What is your exercise level? Moderate [email or web address] Information not available 01/29/2017 Mental Status Question Answer Note LastModified by Organizat ion Details LastModified Time Do you feel stressed (tense, restless, nervous, or anxious, or unable to sleep at night)? [id number] zucpppdk60 Information not available 09/25/2021 Do you have difficulty concentrating, remembering or making decisions? No [email or web address] Information no t available 09/25/2021 Family History Relationship Description Onset Age of this Age Resolved Age Notes LastModified by Organization Details LastModified Time Mother Diabetes mellitus Not available 2016 14:32:39 Brother Diabetes mellitus [email or web address] Not available 2016 14:32:46 Medical History Condition [...] Anemia N Colon Polyps N Heart Attack (NM) N Diabetes N Ovarian Cancer N Bedwetting [...] MDCK, quadrivalent, preservative 9 completed Not Available [facility] 09/19/2019 02:39:19 Tdap 7 completed Not Available [facility] 09/19/2019 02:39:16 Influenza, split virus, trivalent, preservative 6 completed Not Available [facility] 09/25/2023 03:27:39 Tdap 5 completed Not Available [facility] 08/12/2025 12:00:37 Influenza, MDCK, quadrivalent, PF 4 completed Juliet Gatica [facility] 05/07/2024 12:22:36 Influenza, split virus, quadrivalent, PF 5 completed Rita Olivarez [facility] 05/05/2025 12:58:35 Pneumococcal conjugate PCV20, polysaccharide ZDJ873 conjugate, adjuvant, 5 completed Rita Olivarez [facility] 06/28/2025 15:43:32 Influenza, MDCK, quadrivalent, preservative 8 completed Not Available [facility] 09/19/2019 02:39:18 Past Encounters Encounter ID Performer Location Encounter Start Date Encounter Closed Date Diagnosis/Indication Diagnosis SNOMED-CT Code Diagnosis ICD10 Code Diagnosis IMO Codes Diagnosis Note [id number] MCKAY CUEVAS DO [facility] [address] [place] [address] 05/17/2025 14:56:52 05/18/2025 08:22:12 Chronic obstructive pulmonary disease 98344743 J44.9 [id number] Laceration of left lower leg [id number] 3518983 S81.812A L08.9 [id number] Patient has been prescribed a course of oral antibiotic s.Advised to seek immediate medical attention in the Emergency Room if symptoms worsen, including increased pain, redness, or developmen t of fever.Sche duled for follow-up on Saturday to assess healing and response to treatment. Body mass index 40+ - severely obese 544698535 E66.01 71116773 BMI 45.6 Diet education 95944801 Z71.3 Exercises education, guidance, and counseling 847556791 Z71.82 Removal of sutures done 1979727563 14936 Z48.02 3997450 Five sutures were removed from left leg. [id number] MCKAY CUEVAS DO [facility] [address] [place] [address] 05/24/2025 15:14:12 05/24/2025 16:47:46 Laceration of left lower leg [id number] 2939014 S81.812S [id number] Erythema to the left leg is resolving. Will continue the doxycyline for another 7 days. Wound redressedS cheduled for follow-up next week to assess healing and response to treatment. Body mass index 40+ - severely obese 501415079 E66.01 Z68.42 44975617 BMI 45.6 Diet education 65726798 Z71.3 Exercises education, guidance, and counseling 573081670 Z71.82 [id number] MCKAY CUEVAS [facility] [address] [place] [address] 05/31/2025 14:56:17 05/31/2025 15:42:35 Local infection of wound 46240068 T81.49XA [id number] post laceration leg wound with infection. An additional suture that remained was removed today. Wound improving. Bandaid applied. Return to clinic in one week for further evaluation Mild inter mittent asthma 224608705 J45.20 [id number] MCKAY CUEVAS [facility] [address] [place] [address] 06/07/2025 15:14:29 06/07/2025 17:30:00 Local infection of wound 80300288 T81.49XA [id number] A new dressing was applied. A foam dressing will be ordered to support wound healing. Patient voiced understand ing of the treatment plan. Body mass index 40+ - severely obese 111522466 Z68.42 490786 BMI 45.6 Diet education 95536150 Z71.3 Exercises education, guidance, and counseling 889035745 Z71.82 [id number] MCKAY CUEVAS [facility] [address] [place] [address] 06/14/2025 14:58:44 06/14/2025 15:33:09 Local infection of wound 51163184 T81.49XA [id number] A new dressing was applied. Body mass index 40+ - severely obese 191927120 E66.01 Z68.42 15312377 Diet education 83753469 Z71.3 Exercises education, guidance, and counseling 881463200 Z71.82 Congestive heart failure 45732103 I50.9 Lasix was increased to 80 mg daily for three days and while taking increase in lasix take potassium. The patient was advised to monitor for worsening symptoms and to go to the emergency room. Goals Section Goal Description Progress Status Start [...] Member ID Sofia Member ID Guarantor Name 06/14/2025 2 [place] Nadine Esquivel [id number] Nadine Esquivel 06/14/2025 1 [employer] (EPO) Nadine Esquivel [id number] Nadine Esquivel Notes Date Note Type Note Provider Name and Address Organization Details Recorded Time 06/14/2025 text/html Patient presents for follow-up of a leg wound with post-laceration infection. Adriana Poe NP [address], [address], [facility] 06/14/2025 19:12:07 OBGyn Episode No OBEpisode recorded.
--- OUTSIDE RECORDS SUMMARY | 2025-08-29 09:08 | XMS_ITS | Continuity of Care Document ---
Author Organization [facility], Care Managers Address [address] [place] [id number] Care Team Providers Care Salt Washer Name Role Phone LUISA JAIMES Director Of Casework Services EUN Biggs Community Health Worker SHAWNA Rivera [facility] [phone] Assessment Encounter Date Assessment Date Assessment LastModified by Organization Details LastModified Time 07/06/2025 07/06/2025 Care Plan for Nadine Esquivel (Briseida) 64 Enrolled [facility] 07/27 Diagnosis: Depression, CHF, COPD, Tobacco, BMI, [...] -Report any hospital or ER visits to medication care manager or clinic staff. Interventions ([facility] Nurse Steps) -RN will provide educational material [...] phone, by mail, through Primary Care Physician, MANAGER RECOVERY, or others physicians at our office. Evaluations 07/06/25-New Enrollment into [facility] program. Dx: Depression, CHF, COPD, Tobacco, BMI, asthma Pt does not have Health Fpc. Pt has active Medicaid Pt has had ER visits in the last year. Will develop a Care Plan to assist with the patients Chronic Illness. Will introduce myself, explain program and give pt care plan at next FTF visit. Pt has appt tomorrow Demario [email or web address] Not available 07/06/2025 10:28:08 Plan of Treatment Reminders Order Date Submit [...] m acnes DETECT ED abnormal Not Available [facility] [address] [place] [address], [place], [address], 06/17/2025 09:59:12 06/14/2006/14/2025 DERM- ID pseudomonas aeruginosa DETECT ED abnormal Not Available [facility] [employer] [address] [place] [address], [address], 06/17/2025 09:59:12 06/14/2006/14/2025 DERM- ID corynebacter ium minutissimum , striatum, jeikeium DETECT ED abnormal Not Available [facility] [employer] [address] [place] [address], [address], 06/17/2025 09:59:12 06/14/2006/14/2025 DERM- ID malassezia (spp., globosa, restricta) DETECT ED abnormal Not Available [facility] [employer] [address] [place] [address], [address], 06/17/2025 09:59:12 06/14/2006/14/2025 DERM- ID finegoldia magna NOT DETECT ED Not Available [facility] [employer] [address] [place] [address], [address], 06/17/2025 09:59:12 06/14/2006/14/2025 DERM- ID staph haemolyticus , lugdunensis, saprophyticu s NOT DETECT ED Not Available [employer] [employer] [address] [place] [address], [address], 06/17/2025 09:59:12 06/14/2006/14/2025 DERM- ID fusobacteriu m nucleatum, necrophorum NOT DETECT ED Not Available [facility] [employer] [employer] [address] [place] [address], [address], 06/17/2025 09:59:12 06/14/2006/14/2025 DERM- ID escherichia coli NOT DETECT ED Not Available [facility] [employer] [address] [place] [address], [address], 06/17/2025 09:59:12 06/14/2006/14/2025 DERM- ID staphylococc us epidermidis NOT DETECT ED Not Available [employer] [address] [place] [address], [address], 06/17/2025 09:59:12 06/14/2006/14/2025 DERM- ID microsporum spp. NOT DETECT ED Not Available [employer] [address] [place] [address], [address], 06/17/2025 09:59:12 06/14/2006/14/2025 DERM- ID aspergillus spp. (fumigatus, niger, terreus, versicolor) NOT DETECT ED Not Available [employer] [address] [place] [address], [address], 06/17/2025 09:59:12 06/14/2006/14/2025 DERM- ID peptostrepto coccus prevotii, anaerobius, asaccharolyt icus NOT DETECT ED Not Available [employer] [address] [place] [address], [address], 06/17/2025 09:59:12 06/14/2006/14/2025 DERM- ID streptococcu s agalactiae NOT DETECT ED Not Available [facility] [employer] [address] [place] [address], [address], 06/17/2025 09:59:12 06/14/2006/14/2025 DERM- ID neisseria gonorrhoeae NOT DETECT ED Not Available [employer] [address] [place] [address], [address], 06/17/2025 09:59:12 06/14/2006/14/2025 DERM- ID klebsiella oxytoca, pneumoniae NOT DETECT ED Not Available [facility] [employer] [address] [place] [address], 27[address], 06/17/2025 09:59:12 06/14/2006/14/2025 DERM- ID peptoniphilu s harei, ivorii NOT DETECT ED Not Available [facility] [address] [place] [address], [address], 06/17/2025 09:59:12 06/14/2006/14/2025 DERM- ID edwin auris NOT DETECT ED Not Available [facility] [employer] [address] [place] [address], [address], 06/17/2025 09:59:12 06/14/2006/14/2025 DERM- ID morganella morganii NOT DETECT ED Not Available [employer] [employer] [address] [place] [address], [address], 06/17/2025 09:59:12 06/14/2006/14/2025 DERM- ID trichophyton (soudanense, violaceum, tonsurans, interdigital e, mentagrophyt es) NOT DETECT ED Not Available [facility] [employer] [address] [place] [address], 39[address], 06/17/2025 09:59:12 06/14/2006/14/2025 DERM- ID edwin glabrata NOT DETECT ED Not Available [facility] [employer] [address] [place] [address], 04[address], 06/17/2025 09:59:12 06/14/2006/14/2025 DERM- ID edwin krusei NOT DETECT ED Not Available [facility] [employer] [address] [place] [address], 09[address], 06/17/2025 09:59:12 06/14/2006/14/2025 DERM- ID mycoplasma gentalium, hominis NOT DETECT ED Not Available [facility] [employer] [employer] [address] [place] [address], [address], 06/17/2025 09:59:12 06/14/2006/14/2025 DERM- ID hsv2 NOT DETECT ED Not Available [employer] [address] [place] [address], 816[address], 06/17/2025 09:59:12 06/14/2006/14/2025 DERM- ID acinetobacte r baumannii NOT DETECT ED Not Available [facility] [employer] [address] [place] [address], 20[address], 06/17/2025 09:59:12 06/14/2006/14/2025 DERM- ID clostridium perfringens NOT DETECT ED Not Available [facility] [employer] [address] [place] [address], 55481, 06/17/2025 09:59:12 06/14/2006/14/2025 DERM- ID vibrio cholerae, parahaemolyt icus, vulnificus NOT DETECT ED Not Available [employer] [address] [place] [address], 659[address], 06/17/2025 09:59:12 06/14/2006/14/2025 DERM- ID haemophilus influenzae NOT DETECT ED Not Available [employer] [address] [place] [address], 56686, 06/17/2025 09:59:12 06/14/2006/14/2025 DERM- ID enterobacter cloacae complex NOT DETECT ED Not Available [employer] [address] [place] [address], 88783, 06/17/2025 09:59:12 06/14/2006/14/2025 DERM- ID ralstonia spp. (pickettii) NOT DETECT ED Not Available [employer] [employer] [address] [place] [address], 49940, 06/17/2025 09:59:12 06/14/2006/14/2025 DERM- ID serratia marcescens NOT DETECT ED Not Available [employer] [address] [place] [address], 75704, 06/17/2025 09:59:12 06/14/2006/14/2025 DERM- ID streptococcu s pyogenes (group A) NOT DETECT ED Not Available [facility] [address] [place] [address], 37605, 06/17/2025 09:59:12 06/14/2006/14/2025 DERM- ID mycobacteriu m abcessus, chelonae, fortuitum NOT DETECT ED Not Available [employer] [employer] [address] [place] [address], 45[address], 06/17/2025 09:59:12 06/14/2006/14/2025 DERM- ID cutibacteriu m avidum/granu losum NOT DETECT ED Not Available [facility] [address] [place] [address], [address], 06/17/2025 09:59:12 06/14/2006/14/2025 DERM- ID proteus mirabilis NOT DETECT ED Not Available [facility] [employer] [address] [place] [address], 695[address], 06/17/2025 09:59:12 06/14/2006/14/2025 DERM- ID staphylococc us aureus NOT DETECT ED Not Available [employer] [employer] [address] [place] [address], 62014, 06/17/2025 09:59:12 06/14/2006/14/2025 DERM- ID enterococcus faecalis NOT DETECT ED Not Available [facility] [employer] [address] [place] [address], 28996, 06/17/2025 09:59:12 06/14/2006/14/2025 DERM- ID prevotella (bivia, intermedia, nigrescens) NOT DETECT ED Not Available [facility] [employer] [employer] [address] [place] [address], 967[address], 06/17/2025 09:59:12 06/14/2006/14/2025 DERM- ID edwin tropicalis, parapsilosis NOT DETECT ED Not Available [employer] [employer] [employer] [address], [address], 06/17/2025 09:59:12 06/14/2006/14/2025 DERM- ID klebsiella aerogenes NOT DETECT ED Not Available [facility] [employer] [employer] [address] [place] [address], 63327, 06/17/2025 09:59:12 06/14/2006/14/2025 DERM- ID bacteroides fragilis NOT DETECT ED Not Available [facility] [employer] [address] [place] [address], 77165, 06/17/2025 09:59:12 06/14/2006/14/2025 DERM- ID anaerococcus prevotii, vaginalis NOT DETECT ED Not Available [facility] [employer] [employer] [address] [place] [address], 55376, 06/17/2025 09:59:12 06/14/2006/14/2025 DERM- ID proteus vulgaris NOT DETECT ED Not Available [employer] [employer] [employer] [address], [address], 06/17/2025 09:59:12 06/14/2006/14/2025 DERM- ID hsv1 NOT DETECT ED Not Available [facility] [employer] [employer] [address] [place] [address], 36734, 06/17/2025 09:59:12 06/14/2006/14/2025 DERM- ID fusarium solani, oxysporum NOT DETECT ED Not Available [facility] [employer] [address] [place] [address], 54579, 06/17/2025 09:59:12 06/14/2006/14/2025 DERM- ID enterococcus faecium NOT DETECT ED Not Available [facility] [employer] [address] [place] [address], 76822, 06/17/2025 09:59:12 06/14/2006/14/2025 DERM- ID varicella zoster virus (vzv) (hhv3) NOT DETECT ED Not Available [facility] [employer] [address], [address], 06/17/2025 09:59:12 06/14/2006/14/2025 DERM- ID HPV 16 NOT DETECT ED Not Available [facility] [employer] [address] [place] [address], 73763, 06/17/2025 09:59:12 06/14/2006/14/2025 DERM- ID edwin albicans NOT DETECT ED Not Available [facility] [employer] [address], [address], 06/17/2025 09:59:12 06/14/2006/14/2025 DERM- ID trichophyton rubrum NOT DETECT ED Not Available [facility] [employer] [address] [place] [address], 55232, 06/17/2025 09:59:12 06/14/2006/14/2025 DERM- ID streptococcu s pneumoniae NOT DETECT ED Not Available [facility] [employer] [address], [address], 06/17/2025 09:59:12 06/14/2006/14/2025 DERM- ID citrobacter freundii NOT DETECT ED Not Available [facility] [employer] [address] [place] [address], 95789, 06/17/2025 09:59:12 06/14/2006/14/2025 DERM- ID salmonella enterica NOT DETECT ED Not Available [employer] [employer] [address] [place] [address], 63120, 06/17/2025 09:59:12 06/14/2006/14/2025 DERM- ID HPV 18 NOT DETECT ED Not Available [facility] [employer] [address] [place] [address], 98501, 06/17/2025 09:59:12 06/14/2006/14/2025 DERM- ID mycobacteriu m tuberculosis NOT DETECT ED Not Available [facility] [address] [place] [address], 70615, 06/17/2025 09:59:12 06/14/2006/14/2025 DERM- ID sporothrix schenckii NOT DETECT ED Not Available [facility] [address] [place] [address], 50946, 06/17/2025 09:59:12 Result Notes None recorded. Problems Name Problem SNOMED Code Status Onset Date Resolution Date Notes Provider Name and Address Organization Details Recorded Time Acute sinusiti s 04998204 Completed 200402/26/2017 Category : DD; Medicine Descript ion: SINUSITI S ACUTE; Display in Medcin: YES; Display in ESB: YES; Confiden tiality Level: Level 1 [facility] 7 10:04:47 Dizzines s and giddines s [id number] Completed 200402/26/2017 Category : DD; Medicine Descript ion: dizzines s; Display in Medcin: YES; Display in ESB: YES; Confiden tiality Level: Level 1 Cordelia Mcclain LPN [facility] [address] 7 10:05:26 Tracheob ronchiti s [id number] Completed 200402/26/2017 Category : DD; Medicine Descript ion: TRACHEOB RONCHITI S; Display in Medcin: YES; Display in ESB: YES; Confiden tiality Level: Level 1 [facility] 7 10:04:42 Chronic obstruct angy pulmonar y disease 57237231 Active 2004 Modified By: MARIA ANTONIA DEL REAL; Category : DD; Examiner : Veronica Jensen I.; Medicine Descript ion: CHRONIC OBSTRUCT ANGY PULMONAR Y DISEASE; Display in Medcin: YES; Display in ESB: YES; Confiden tiality Level: Level 1 Not Available [facility] 4 03:27:39 Clinical finding Completed 200402/26/2017 Modified By: YAZ MARSHALL; Category : DD; Examiner : Yaz Marshall; Medicine Descript ion: LARYNGOP HARYNGEA L REFLUX; Display in Medcin: NO; Display in ESB: NO; Confiden tiality Level: Level 1 Cordelia Mcclain REMIGIO elisha, [facility] 7 10:05:08 Allergic rhinitis 34381767 Active 2004 Category : DD; Medicine Descript ion: ALLERGIC RHINITIS ; Display in Medcin: YES; Display in ESB: YES; Confiden tiality Level: Level 1 Not Available [facility] 4 03:27:39 Neves's palsy 528122912 Completed 200502/26/2017 Category : DD; Medicine Descript ion: NEVES'S PALSY; Display in Medcin: YES; Display in ESB: YES; Confiden tiality Level: Level 1 [facility]clain [facility] 7 10:05:01 Family history of diabetes mellitus 757498419 Completed 200902/26/2017 Created By: VERONICA JENSEN ; Modified By: VERONICA JENSEN ; Category : DD; Examiner : VERONICA JENSEN I.; Medicine Descript ion: DIABETES MELLITUS ; Display in Medcin: NO; Display in ESB: YES; Confiden tiality Level: Level 1 Cordelia MaloneREMIGIO [facility] 7 10:04:51 Benign essentia l hyperten [place] 0054568 Completed 200902/26/2017 Created By: VERONICA JENSEN ; Modified By: GHAZAL PHAN; Category : DD; Examiner : VERONICA JENSEN I.; Medicine Descript ion: HYPERTEN [place] (SYSTEMI C); Display in Medcin: YES; Display in ESB: YES; Confiden tiality Level: Level 1 Cordelia Johny REMIGIO tello, [facility] 7 10:05:46 Family history of Cardiova scular disease [id number] Completed 200902/26/2017 Created By: VERONICA JENSEN ; Modified By: MARIA ANTONIA DEL REAL; Category : DD; Examiner : Veronica Jensen I.; Medicine Descript ion: reported family history ischemic heart disease before age 50; Display in Medcin: YES; Display in ESB: YES; Confiden tiality Level: Level 1 Cordelia Mcclain LPN [facility] [address] 7 10:05:23 Wheezing 61559024 Completed 200902/26/2017 Created By: VERONICA JENSEN ; Modified By: GHAZAL PHAN; Category : DD; Examiner : Veronica Jensen I.; Medicine Descript ion: wheezing [as a symptom] ; Display in Medcin: YES; Display in ESB: YES; Confiden tiality Level: Level 1 [facility] 7 10:05:57 Mild intermit tent asthma 215541813 Active 2009 Created By: VERONICA JENSEN ; Modified By: GHAZAL PHAN; Category : DD; Examiner : Veronica Jensen I.; Medicine Descript ion: ASTHMA MILD INTERMIT TENT UNCOMPLI CATED; Display in Medcin: YES; Display in ESB: YES; Confiden tiality Level: Level 1 Not Available [facility] 4 03:27:39 Obesity 160512160 Active 2010 Created By: VERONICA JENSEN ; Modified By: GHAZAL PHAN; Category : DD; Examiner : VERONICA JENSEN I.; Medicine Descript ion: Obese; Display in Medcin: YES; Display in ESB: YES; Confiden tiality Level: Level 1 Not Available [facility] 4 03:27:39 Nicotine dependen ce 83207149 Active 2010 Created By: VERONICA JENSEN ; Modified By: YAZ MARSHALL; Category : DD; Examiner : Yaz Marshall; Medicine Descript ion: current smoker; Display in Medcin: NO; Display in ESB: NO; Confiden tiality Level: Level 1; Type: Diagnosi s Not Available [facility] 4 03:27:39 Hyperlip idemia 13755550 Active 2010 Created By: VERONICA JENSEN ; Modified By: VERONICA JENSEN ; Category : DD; Examiner : Veronica Jensen I.; Medicine Descript ion: DYSLIPID EMIA; Display in Medcin: YES; Display in ESB: YES; Confiden tiality Level: Level 1; Type: Diagnosi s Not Available [facility] 4 03:27:39 Long-ter m drug therapy Completed 201002/26/2017 Created By: VERONICA JENSEN ; Modified By: VERONICA JENSEN ; Category : DD; Examiner : Veronica Jensen I.; Medicine Descript ion: taking medicati on for a long time; Display in Medcin: YES; Display in ESB: YES; Confiden tiality Level: Level 1; Type: Diagnosi s Cordelia Mcclain LPN [facility] [address] 7 10:05:21 Verruca plantari s 59516978 Completed 201102/26/2017 Created By: VERONICA JENSEN ; Modified By: YAZ MARSHALL; Category : DD; Examiner : Yaz Marshall; Medicine Descript ion: Wartlike Lesions Feet Plantar; Display in Medcin: YES; Display in ESB: YES; Confiden tiality Level: Level 1; Type: Diagnosmaddi barry Cordelia Mcclain LPN [facility] [address] 7 10:06:02 Plane wart [id number] Completed 201102/26/2017 Created By: VERONICA JENSEN ; Modified By: YAZ MARSHALL; Category : DD; Examiner : Yaz Marshall; Medicine Descript ion: WARTS COMMON; Display in Medcin: YES; Display in ESB: YES; Confiden tiality Level: Level 1; Type: Diagnosi s Cordeliadora Mcclain LPN [facility] [address] 7 10:05:14 Procedur e Completed 201102/26/2017 Created By: VERONICA JENSEN ; Modified By: YAZ MARSHALL; Category : DD; Examiner : Veronica Jensen I.; Medicine Descript ion: visit for: medicati on refill; Display in Medcin: NO; Display in ESB: NO; Confiden tiality Level: Level 1; Type: Diagnosmaddi s Cordelia Mcclain, STREETSWEEPER OPERATOR null, [facility] 7 10:05:40 Sciatica 46842313 Completed 201202/26/2017 Created By: VERONICA JENSEN ; Modified By: YAZ MARSHALL; Category : DD; Examiner : Veronica Jensen I.; Medicine Descript ion: NEURITIS SCIATIC; Display in Medcin: NO; Display in ESB: NO; Confiden tiality Level: Level 1; Type: Diagnosmaddi s Cordelia Mcclain, STREETSWEEPER OPERATOR null, [facility] 7 10:05:12 Screenin g procedur e Completed 201402/26/2017 Created By: YAZ MARSHALL; Modified By: YAZ MARSHALL; Category : DD; Examiner : Yaz Marshall; Medicine Descript ion: visit for: screenin g malignan t neoplasm colon; Display in Medcin: NO; Display in ESB: NO; Confiden tiality Level: Level 1; Type: Diagnosmaddi s Cordelia Mcclain, STREETSWEEPER OPERATOR null, [facility] 7 10:05:37 Adult health examinat ion Completed 201402/26/2017 Created By: YAZ MARSHALL; Modified By: YAZ MARSHALL; Category : DD; Examiner : Yaz Marshall; Medicine Descript ion: ROUTINE HISTORY AND PHYSICAL ; Display in Medcin: YES; Display in ESB: YES; Confiden tiality Level: Level 1; Type: Diagnosi s Cordeliadora Mcclain, STREETSWEEPER OPERATOR null, [facility] 7 10:05:29 Abnormal finding on evaluati on procedur e [id number] Completed 201402/26/2017 Created By: YAZ MARSHALL; Modified By: YAZ MARSHALL; Category : DD; Examiner : Yaz Marshall; Medicine Descript ion: ROUTINE HISTORY AND PHYSICAL ; Display in Medcin: YES; Display in ESB: YES; Confiden tiality Level: Level 1; Type: Sonia Mcclain, STREETSWEEPER OPERATOR null, [facility] 7 10:05:54 Palpitat ions 58270343 Completed 201402/26/2017 Created By: YAZ MARSHALL; Modified By: YAZ MARSHALL; Category : DD; Examiner : Yaz Marshall; Medicine Descript ion: palpitat ions; Display in Medcin: NO; Display in ESB: NO; Confiden tiality Level: Level 1; Type: Sonia Mcclain, STREETSWEEPER OPERATOR null, [facility] 7 10:06:05 Microsco pic hematuri a [id number] Completed 201402/26/2017 Created By: YAZ MARSHALL; Modified By: YAZ MARSHALL; Category : DD; Examiner : Yaz Marshall; Medicine Descript ion: MICROSCO PIC HEMATURI A; Display in Medcin: YES; Display in ESB: YES; Confiden tiality Level: Level 1; Type: Sonia Mcclain, STREETSWEEPER OPERATOR null, [facility] 7 10:05:05 Electroc ardiogra m abnormal [id number] Completed 201402/26/2017 Created By: YAZ MARSHALL; Modified By: YAZ MARSHALL; Category : DD; Examiner : Yaz Marshall; Medicine Descript ion: ECG NORMAL VARIANT; Display in Medcin: NO; Display in ESB: NO; Confiden tiality Level: Level 1; Type: Sonia Mcclain, STREETSWEEPER OPERATOR null, [facility] 7 10:04:38 Evaluati on procedur e Completed 201402/26/2017 Created By: ELVIE FERNANDEZ; Modified By: KEVEN OCTOBER; Category : DD; Examiner : Keven Muhammad; Medicine Descript ion: Observat ion For Suspecte d Conditio n; Display in Medcin: YES; Display in ESB: YES; Confiden tiality Level: Level 1; Type: Diagnosi s Cordelia Johny, STREETSWEEPER OPERATOR null, [facility] 7 10:05:34 Hyperten sive disorder 57455628 Active 2015 Created By: YAZ MARSHALL; Modified By: YAZ MARSHALL; Category : DD; Examiner : Yaz Marshall; Medicine Descript ion: ESSENTIA L HYPERTEN [place] BENIGN; Display in Medcin: YES; Display in ESB: YES; Confiden tiality Level: Level 1; Type: Diagnosi s Not Available [facility] 4 03:27:39 Viral screenin g Completed 201502/26/2017 Created By: YAZ MARSHALL; Modified By: YAZ MARSHALL; Category : DD; Examiner : Yaz Marshall; Medicine Descript ion: visit for: screenin g exam dengue fever; Display in Medcin: YES; Display in ESB: YES; Confiden tiality Level: Level 1; Type: Diagnosi s Cordelia Mcclain, STREETSWEEPER OPERATOR null, [facility] 7 10:05:16 Screenin g mammogra phy Completed 201502/26/2017 Created By: YAZ MARSHALL; Modified By: YAZ MARSHALL; Category : DD; Examiner : Yaz Marshall; Medicine Descript ion: Mammogra m Screenin g; Display in Medcin: YES; Display in ESB: YES; Confiden tiality Level: Level 1; Type: Diagnosi s Cordelia Mcclain, STREETSWEEPER OPERATOR null, [facility] 7 10:05:19 Active immuniza tion Completed 201502/26/2017 Created By: YAZ MARSHALL; Modified By: YAZ MARSHALL; Category : DD; Examiner : Yaz Marshall; Medicine Descript ion: visit for: immuniza tion; Display in Medcin: YES; Display in ESB: YES; Confiden tiality Level: Level 1; Type: Diagnosi s Cordelia Johny, STREETSWEEPER OPERATOR null, [facility] 7 10:05:31 Pain of left shoulder joint [id number] 715989 Active 2017 Not Available [facility] 4 03:27:39 Vitamin D deficien cy 71307149 Active 2021 Not Available [facility] 4 03:27:39 Congesti ve heart failure 13337332 Active 2022 Not Available [facility] 4 03:27:39 Type 2 diabetes mellitus without complica tion 539856420 Active 2022 Not Available [facility] 4 03:27:39 Female urinary stress incontin ence 93505470 Active 2024 Adriana Poe NP [address] [place] [address], [id number] , [facility] 5 11:50:21 Dependen ce on suppleme ntal oxygen 43184474062 7 Active 2024 Adriana Poe NP [address] [place] [address] 5 12:26:07 Problem Notes None recorded. Procedures Surgical History Date Name Laterality Status Provider Name and Address Organization Details Recorded Time 05/17/20 25 Suture/Staple removal completed [address], [address] [place] [address] 05/17/2025 15:52:31 05/05/20 25 Flu vaccine Screening completed Rita Olivarez [facility] [facility] 05/05/2025 12:16:34 08/20/20 24 Nebulizer tx duoneb completed [address], [id number] 08/20/2024 16:28:20 05/06/20 24 venipuncture completed Juliet Gatica [facility] 05/06/2024 11:42:54 02/19/20 24 Splint Application completed Adriana Poe NP [address] [place] [address], [id number] [place] [address] 02/19/2024 14:24:04 12/26/19 24 venipuncture completed Yuliya Hurd [facility] 12/26/2023 15:40:03 09/25/19 22 venipuncture completed Shauna Jordan [facility] 09/25/2021 13:07:04 11/25/19 21 venipuncture completed Jodi Mora [facility] 11/24/2020 11:10:23 12/18/19 20 venipuncture completed Yuliya Hurd [facility] 12/18/2019 16:28:31 12/18/19 20 venipuncture cancelled Tyler Mcfarlane [facility] 12/18/2019 09:21:06 04/14/20 19 venipuncture completed Cordelia Mcclain LPN [facility] 04/14/2019 09:25:36 08/08/20 18 venipuncture completed Cordelia Mcclain LPN [facility] 08/08/2018 09:13:48 09/10/19 18 venipuncture completed Homa Zarate [facility] 09/10/2017 10:01:27 02/27/20 17 venipuncture completed Cordelia Mcclain LPN [facility] 02/26/2017 10:26:37 08/15/20 16 venipuncture completed Homa [facility] 08/15/2016 10:27:51 Cardiac Surgery completed Cordelia waldrop LPN [facility] 02/26/2017 10:07:03 Imaging Results None recorded. Procedure Notes None recorded. Medical Equipment None Reported. Allergies Allergen ID Allergen Name Allergen Category Reaction Reaction Severity Criticality Documentation Date Start Date Code Code System Note Provider Name and Address Organization Details Recorded Time 58751 codeine medicatio n Not available Not available Not available 08/05/20162009 2670 RxNorm Comme nt: Last Edite d: 11-25 09:27 :35; [facility] 03:58:28 Medications Name Sig Start [...] per sliding scale before meals TID<150- 0 rzrma395 -200-3 -250-6 mynak351 -300- 9 tdxuy070 -350-12 -400-15 units Not Available Not Available [...] Tobacco Smoking Status Current Every Day Smoker VONDA Diaz - [facility] 02/18/2025 15:08:04 Do You Have An Advance Directive? No [email or web address] Information not available 01/29/2017 Are You Blind Or Do You Have Difficulty Seeing? Yes [email or web address] Information not available 09/25/2021 Is Blood Transfusion Acceptable In An Emergency? Yes [email or web address] Information not available 09/25/2021 What Is Your Level Of Caffeine Consumption? Heavy [email or web address] Information not available 01/29/2017 How Much Tobacco Do You Chew? None Information not available 01/29/2017 Commercial Sex Work No [email or web address] Information not available 01/29/2017 In The 14 [...] Do You Have Serious Difficulty Hearing? No [email or web address] Information not available 09/25/2021 What Type Of Diet Are You Following? REGULAR [email or web address] Information not available 01/29/2017 Which Illicit Or Recreational Drugs Have You Used? None [email or web address] Information not available 01/29/2017 Have You Processed Blood Or Body Fluids From An Ebola Virus Disease Patient Without Appropriate PPE? No [email or web address] Information not available 09/25/2021 Education Less Than 8th Grade [email or web address] Information not available 01/29/2017 What Is The Highest Grade Or Level Of School You Have Completed Or The Highest Degree You Have Received? [id number] [email or web address] Information not available 08/12/2025 Are There Any Guns Present In Your Home? Yes Information not available 02/26/2017 Hard Of Hearing Or Deaf In One Or Both Ears? No [email or web address] Information not available 01/29/2017 High Number Of Sexual Partners No [email or web address] Information not available 01/29/2017 History Of Inconsistent/no Condom Use No [email or web address] Information not available 01/29/2017 International Travel None Information not available 02/26/2017 Legally Blind In One Or Both Eyes? No [email or web address] Information not available 01/29/2017 In The Past 6 Months Have You Fallen No [email or web address] Information not available 01/29/2017 Medication List Reconciled Yes Information not available 04/14/2019 What Number (0-10) Best Describes How, During The Past Week, Has Interfered With Your General Activity? 0 [email or web address] Information not available 01/29/2017 What Number (0-10) Best Describes How, During The Past Week, Pain Has Interfered With Your Enjoyment In The Past Week 0 [email or web address] Information not available 01/29/2017 What Number (0-10) Best Describes Your Pain On Average In The Past Week 0 bliyilg96 Information not available 01/29/2017 Total PEG Score 0 [email or web address] Informati on not available 01/29/2017 Most Recent Dental Visit 09/02/1996 Up To Date 04/23/22 Information not available 08/08/2018 Sexual Orientation Straight Or Heterosexual Information not available 11/24/2020 Gender Identity Female Informat ion not available 11/24/2020 Eye Exam 09/02/2015 Information not available 08/08/2018 Do You Feel Safe Yes Informa tion not available 11/24/2020 Hospital Follow Up Appointment 08/12/2025 [email or web address] Information not available 08/12/2025 Hospital Discharged Patient To Home [email or web address] Information not available 08/12/2025 ER Medication List Reconciled Yes [email or web address] Information not available 07/22/2025 ER Contact Date 07/22/2025 [email or web address] Informati on not available 07/22/2025 ER Follow Up Contact Date 07/22/2025 [email or web address] Information not available 07/22/2025 ER Follow Up Patient Contact Via Unable To Contact Went To [facility] ER Transferred To [facility] Diagnosis Pneumonia [email or web address] Information not available 07/22/2025 ER Date Of Discharge 07/21/2025 [email or web address] Information not available 07/22/2025 ER Discharged Patient To Caregiver Transfer [email or web address] Information not available 07/22/2025 ER Records Recieved Yes [email or web address] Information not available 07/22/2025 ER Records Requested Yes [email or web address] Information not available 07/22/2025 Marital Status [email or web address] Informatio n not available 01/29/2017 What Was The Date Of Your Most Recent Tobacco Screening? 08/12/2025 [email or web address] Information not available 08/12/2025 Mother With HIV? No [email or web address] Informat ion not available 01/29/2017 How Many Children Do You Have? 4 Information not available 08/12/2025 What Is Your Relationship Status? Information not available 08/12/2025 Do You Use Your Seat Belt Or Car Seat Routinely? Yes Information not available 07/28/2024 Seat Belts Used Routinely Yes [email or web address] Information not available 01/29/2017 Are You Sexually Active? Yes Information not available 08/08/2018 Sexual Partner Has HIV? No Information not available 01/29/2017 Sexual Partner Uses IV Drugs? No Information not available 01/29/2017 Smoke Alarm In Home No [email or web address] Information not available 01/29/2017 At What Age Did You Start Smoking Tobacco? 15 Information not available 02/26/2017 How Much Tobacco Do You Smoke? 0.5 PPD [email or web address] Information not available 05/05/2025 General Stress Level Medium [email or web address] Information not available 01/29/2017 Do You Use Sunscreen Routinely? No Information not available 01/29/2017 How Many Years Have You Smoked Tobacco? 41 Information not available 02/26/2017 Have You Used IV Drugs? No [email or web address] Information not available 01/29/2017 Do You Have Difficulty Walking Or Climbing Stairs? Yes [email or web address] Information not available 09/25/2021 Do You Want [...] use any illicit or recreational drugs? No [email or web address] Information not available 06/14/2025 Do you or have you ever used any other forms of tobacco or nicotine? Yes Nicotine patches Information not available 12/17/2024 What is your level of alcohol consumption? None Information not available 01/29/2017 Do you or have you ever used smokeless tobacco? Never used smokeless tobacco Information not available 04/14/2019 Are you currently employed? No Information not available 08/12/2025 Do you have transportation difficulties? No [email or web address] Information not available 09/25/2021 Are you able to walk independently without assistance or assistive devices? YESWOREST [email or web address] Information not available 01/29/2017 Do you have difficulty doing errands alone? No [email or web address] Information not available 09/25/2021 Are you able to care for yourself independently? Yes [email or web address] Information not available 09/25/2021 Do you have difficulty dressing, bathing, grooming, or toileting? No [email or web address] Information not available 09/25/2021 Do you or have you ever used e-cigarettes or vape? Never used electronic cigarettes Information not available 04/14/2019 What is your exercise level? Moderate Information not available 01/29/2017 Mental Status Question Answer Note LastModified by Organizat ion Details LastModified Time Do you feel stressed (tense, restless, nervous, or anxious, or unable to sleep at night)? [id number] [email or web address] Information not available 09/25/2021 Do you have difficulty concentrating, remembering or making decisions? No Information no t available 09/25/2021 Family History Relationship Description Onset Age of this Age Resolved Age Notes LastModified by Organization Details LastModified Time Mother Diabetes mellitus Not available 2016 14:32:39 Brother Diabetes mellitus [email or web address] Not available 2016 14:32:46 Medical History Condition Response Other N Gout N Kidney Stones N Blood Diseases N Hyperthyroidism N Blood Transfusion N COPD [...] Anemia N Colon Polyps N Heart Attack ([place]) N Ovarian Cancer N Diabetes N Bedwetting [...] MDCK, quadrivalent, preservative 9 completed Not Available [facility] 09/19/2019 02:39:19 Tdap 7 completed Not Available [facility] 09/19/2019 02:39:16 Influenza, split virus, trivalent, preservative 6 completed Not Available [facility] 09/25/2023 03:27:39 Tdap 5 completed Not Available [facility] 08/12/2025 12:00:37 Influenza, MDCK, quadrivalent, PF 4 completed Juliet Gatica [facility] [address] 05/07/2024 12:22:36 Influenza, split virus, quadrivalent, PF 5 completed Rita Olivarez [facility] [address] 05/05/2025 12:58:35 Pneumococcal conjugate PCV20, polysaccharide LEY421 conjugate, adjuvant, PF 5 completed Rita Olivarez [facility] [place] [facility] 06/28/2025 15:43:32 Influenza, MDCK, quadrivalent, preservative 8 completed Not Available [facility] 09/19/2019 02:39:18 Past Encounters Encounter ID Performer Location Encounter Start Date Encounter Closed Date Diagnosis/Indication Diagnosis SNOMED-CT Code Diagnosis ICD10 Code Diagnosis IMO Codes Diagnosis Note [id number] MCKAY CUEVAS [facility] [address] [place] [phone] 06/07/2025 15:14:29 06/07/2025 17:30:00 Local infection of wound 64900969 T81.49XA 77401096 A new dressing was applied. A foam dressing will be ordered to support wound healing. Patient voiced understand ing of the treatment plan. Body mass index 40+ - severely obese 588309890 Z68.42 459384 BMI 45.6 Diet education 18531554 Z71.3 Exercises education, guidance, and counseling 924096489 Z71.82 [id number] MCKAY CUEVAS [facility] [address] [place] [address] 06/14/2025 14:58:44 06/14/2025 15:33:09 Local infection of wound 18656713 T81.49XA [id number] A new dressing was applied. Body mass index 40+ - severely obese 234873611 E66.01 Z68.42 [id number] Diet education 18173163 Z71.3 Exercises education, guidance, and counseling 618053951 Z71.82 Congestive heart failure 85998173 I50.9 Lasix was increased to 80 mg daily for three days and while taking increase in lasix take potassium. The patient was advised to monitor for worsening symptoms and to go to the emergency room. [id number] Didier Hardin DO [facility] [address] [place] [id number] 06/21/2025 14:57:19 06/22/2025 11:02:18 Local infection of wound 78640173 T81.49XA [id number] Advised to continue Levaquin as ordered. Observe for any worsening s/s of infection such as increased redness, drainage, swelling, odor or fever and RTC or seek care if symptoms occur. Otherwise follow up in one week. Questions encouraged and answered, verbalized understand ing. Diet education 82164137 Z71.3 Exercises education, guidance, and counseling 459503359 Z71.82 Body mass index 40+ - severely obese 416186029 Z68.42 9733459116 BMI is 46.2 [id number] MCKAY CUEVAS DO [facility] [address] [place] [address] 06/28/2025 14:26:03 06/28/2025 17:52:37 Body mass index 40+ - severely obese 511167825 Z68.42 750859 Diet education 92273991 Z71.3 Exercises education, guidance, and counseling 186923448 Z71.82 Insomnia 222566243 G47.0 9 70705 Will increase the trazodone to 100 mg at bedtime. Local infe ction of wound 69028830 T81.49XA [id number] Healing. Completed levaquin. Will recheck next week Requires v accination against Streptococcus pneumoniae 3924645094 Z23 [id number] [facility] [address] [place] [phone] 07/06/2025 09:50:42 07/06/2025 12:42:45 Goals Section Goal Description Progress Status Start [...] Concerns Section Related Observation LastModified by Organization Ashley ls LastModified Time General health poor Not Available Not Available Not Av ailable Concern Status LastModified by Organization Details LastModified Time Chronic obstructive pulmonary disease Active Luisa Jaimes Not Available 07/06/2025 15: 48:27 Depressive disorder Active Luisa Jaimes Not Availabl e 07/06/2025 15:49:08 Payers Encounter Date Sequence Insurance Name Policy Number Policy Sofia Covered Member ID Sofia Member ID Guarantor Name 07/06/2025 2 [place] Nadine Esquivel [id number] Nadine Esquivel 07/06/2025 1 EDUARDO FARFAN FROM [facility] (EPO) Nadine Esquivel [id number] Nadine Esquivel OBGyn Episode No OBEpisode recorded.
--- OUTSIDE RECORDS SUMMARY | 2025-08-29 09:08 | XMS_ITS | Continuity of Care Document ---
Author Organization [facility], [facility] Address [address] [place] [address] Care Team Providers Care Automotive Lot Attendant Name Role Phone LUISA JAIMES [employer] [facility] EUN BASHIR Community Health Worker [facility] Assessment No assessment recorded. Plan of Treatment Reminders Order Date Submit Date Provider Last Modified By Organization Details Last Modified Time Details Appointments None recorded. Lab None recorded. Referral None recorded. Procedures None recorded. Surgeries None recorded. Imaging None recorded. Medication Orders amoxicillin 875 mg-potassiu m clavulanate 125 mg tablet 2024 025 [facility] [place] [address] [place], [address], 5 05:02:16 Breztri Aerosphere 160 mcg-9mcg-4. 8mcg/actuat ion HFA aerosol inhaler 2024 025 [facility] [place], [address] [place], [address], 5 14:06:13 Patient TargetsNo targets recorded. Patient InstructionsNo instructions recorded. Reason for Referral None Reported. Results Created Date Observation Date Name Description Value Unit Range Abnormal Flag Note LastModifiedBy Organization Detail LastModifiedTime 05/05/2005/05/2025 CBC WBC 9.9 x10(3 )/uL 3.1 - 10.3 Not Available [facility] [address] [place], [address], 05/05/2025 17:27:13 05/05/2005/05/2025 CBC RBC 4.52 x10(6 )/uL 3.20 - 4.60 Not Available [facility] [address] [place], [address], 05/05/2025 17:27:13 05/05/2005/05/2025 CBC HGB 12.6 g/dL 9.9 - 13.6 Not Available [facility] [address] [place], [address], 05/05/2025 17:27:13 05/05/2005/05/2025 CBC HCT 42.6 % 30.2 - 42.3 high Not Available [facility] [address] [place], [address], 05/05/2025 17:27:13 05/05/2005/05/2025 CBC MCV 94.2 fL 78.6 - 102.2 Not Available [facility] [address] [place], [address], 05/05/2025 17:27:13 05/05/2005/05/2025 CBC MCH 27.9 pg 25.2 - 34.7 Not Available [facility] [address] [place], [address], 05/05/2025 17:27:13 05/05/2005/05/2025 CBC MCHC 29.6 g/dL 31.3 - 35.4 low Not Available [facility] [address] [place], [address], 05/05/2025 17:27:13 05/05/2005/05/2025 CBC platelet count 267 x10(3 )/uL 128 - 434 Not Available [facility] [address] [place], [address], 05/05/2025 17:27:13 05/05/2005/05/2025 CBC neut% 80.9 % 43.7 - 77.1 high Not Available [facility] [address] [place], [address], 05/05/2025 17:27:13 05/05/2005/05/2025 CBC lymph% 12.7 % 15.0 - 45.8 low Not Available [facility] [address] [place], [address], 05/05/2025 17:27:13 05/05/2005/05/2025 CBC mxd% 6.4 % 1.3 - 25.9 Not Available [facility] [address] [place], [place], [address], 05/05/2025 17:27:13 05/05/2005/05/2025 CBC neut# 8.0 x10(3 )/uL 1.6 - 6.9 high Not Available [facility] [address] [place], [address], 05/05/2025 17:27:13 05/05/2005/05/2025 CBC lymph# 1.3 x10(3 )/uL 0.9 - 2.8 Not Available [facility] [address], [place], [place], [address], 05/05/2025 17:27:13 05/05/2005/05/2025 CBC mxd# 0.6 x10(3 )/uL 0.1 - 1.6 Not Available [facility] [address] [place], [place], [address], 05/05/2025 17:27:13 05/05/2005/05/2025 CBC RDW-SD 54.6 fL 35.3 - 48.9 high Not Available [facility] [address] [place], [address], 05/05/2025 17:27:13 05/05/2005/05/2025 CBC RDW-CV 14.8 % 10.6 - 15.7 Not Available [facility] [address] [place], [address], 05/05/2025 17:27:13 05/05/2005/05/2025 CBC MPV 9.2 fL 8.5 - 12.4 Not Available [facility] [address] [place], [address], 05/05/2025 17:27:13 05/05/2005/05/2025 COMPR EHENS ANGY METAB OLIC PANEL (CMP) albumin 3.7 g/dL 3.5 - 5.0 Not Available [facility] [address] [place], [address], 05/05/2025 17:27:15 05/05/2005/05/2025 COMPR EHENS ANGY METAB OLIC PANEL (CMP) chloride 106 mmol/ L 98 - 107 Not Available [facility] [address] [place], [address], 05/05/2025 17:27:15 05/05/2005/05/2025 COMPR EHENS ANGY METAB OLIC PANEL (CMP) creatinine 1.18 mg/dL 0.52 - 1.04 high Not Available [facility] [address] [place], [address], 05/05/2025 17:27:15 05/05/2005/0505/05/2025 COMPR EHENS ANGY METAB OLIC PANEL (CMP) eco2 37.0 mmol/ L 22.0 - 30.0 high Not Available [facility] [address] [place], [address], 05/05/2025 17:27:15 05/05/20 25 05/05/2025 COMPR EHENS ANGY METAB OLIC PANEL (CMP) glucose 129 mg/dL 74 - 106 high Not Available [facility] [address] [place], [address], 05/05/2025 17:27:15 05/05/20 25 05/05/2025 COMPR EHENS ANGY METAB OLIC PANEL (CMP) potassium 3.90 mmol/ L 3.50 - 5.10 Not Available [facility] [address] [place], [address], 05/05/2025 17:27:15 05/05/20 25 05/05/2025 COMPR EHENS ANGY METAB OLIC PANEL (CMP) alkaline phos 130 U/L 38 - 126 high Not Available [facility] [address] [place], [address], 05/05/2025 17:27:15 05/05/20 25 05/05/2025 COMPR EHENS ANGY METAB OLIC PANEL (CMP) sodium 143 mmol/ L 137 - 145 Not Available [facility] [address] [place], [address], 05/05/2025 17:27:15 05/05/20 25 05/05/2025 COMPR EHENS ANGY METAB OLIC PANEL (CMP) total bilirubin 0.5 mg/dL 0.2 - 1.3 Not Available [facility] [address] [place], [address], 05/05/2025 17:27:15 05/05/20 25 05/05/2025 COMPR EHENS ANGY METAB OLIC PANEL (CMP) total protein 6.8 g/dL 6.3 - 8.2 Not Available [facility] [address] [place], [address], 05/05/2025 17:27:15 05/05/20 25 05/05/2025 COMPR EHENS ANGY METAB OLIC PANEL (CMP) ALT 31 U/L 0 - 35 Not Available [facility] [address] [place], [address], 05/05/2025 17:27:15 05/05/20 25 05/05/2025 COMPR EHENS ANGY METAB OLIC PANEL (CMP) BUN/urea 20 mg/dL 7 - 17 high Not Available [facility] [address] [place], [address], 05/05/2025 17:27:15 05/05/20 25 05/05/2025 COMPR EHENS ANGY METAB OLIC PANEL (CMP) eGFR 52 mL/mi n/1.7 3m2 >60 low *eGFR Refer ence Value s Maria Del Rosario l: >60 mL/mi n/1.7 3m2 Abnor mal: < 60 mL/mi n/1.7 3m2 Not Available [facility] [address] [place], [address], 05/05/2025 17:27:15 05/05/20 25 05/05/2025 COMPR EHENS ANGY METAB OLIC PANEL (CMP) A/G ratio 1.2 (calc ) 1.0 - 2.5 Not Available [facility] [address] [place], [address], 05/05/2025 17:27:15 05/05/20 25 05/05/2025 COMPR EHENS ANGY METAB OLIC PANEL (CMP) globulin 3.1 g/dL_ (calc ) 1.9 - 3.7 Not Available [facility] [address] [place], [address], 05/05/2025 17:27:15 05/05/20 25 05/05/2025 COMPR EHENS ANGY METAB OLIC PANEL (CMP) calcium 9.1 mg/dL 8.4 - 10.2 Not Available [facility] [address] [place], [address], 05/05/2025 17:27:15 05/05/20 25 05/05/2025 COMPR EHENS ANGY METAB OLIC PANEL (CMP) AST 37 U/L 14 - 36 high Not Available [facility] [address] [place], [address], 05/05/2025 17:27:15 05/05/20 25 05/05/2025 COMPR EHENS ANGY METAB OLIC PANEL (CMP) BUN/crea ratio 17 (calc ) 6 - 22 Not Available [facility] [address] [place], [address], 05/05/2025 17:27:15 05/05/20 25 05/05/2025 NT-MT OBNP II nt-probnp II 457.0 pg/mL 0.0 - 125.0 critical high RL PASCAL NOTE: Criti lilo resul fareed rae jordyn to Kay artis @ 16:23 /rl Not Available [facility] [address] [place], [address], 05/05/2025 17:27:16 05/05/20 25 05/05/2025 influ kannan virus A + B + SARS- CoV-2 (COVI D19) Ag panel , rapid IA, upper respi rator y speci men flu A n Not Available [address], [address], 05/05/2025 11:46:42 05/05/20 25 05/05/2025 influ kannan virus A + B + SARS- CoV-2 (COVI D19) Ag panel , rapid IA, upper respi rator y speci men flu B n Not Available [address], [address], 05/05/2025 11:46:42 05/05/20 25 05/05/2025 influ kannan virus A + B + SARS- CoV-2 (COVI D19) Ag panel , rapid IA, upper respi rator y speci men covid n Not Available [address], [address], 05/05/2025 11:46:42 05/05/20 25 05/05/2025 XR, chest , 2 view No observ ation record ed. [email or web address] [place] [address], [address], 05/05/2025 13:54:51 05/06/2005/05/2025 XR, chest , 2 view No observ ation record ed. [email or web address], [address], 05/13/2025 12:19:38 Result Notes None recorded. Problems Name Problem SNOMED Code Status Onset Date Resolution Date Notes Provider Name and Address Organization Details Recorded Time Acute sinusiti s 14103840 Completed 200402/26/2017 Category : DD; Medicine Descript ion: SINUSITI S ACUTE; Display in Medcin: YES; Display in ESB: YES; Confiden tiality Level: Level 1 Cordelia Mcclain LPN [place], [place] - [facility] 7 10:04:47 Dizzines s and giddines s 596649896 Completed 200402/26/2017 Category : DD; Medicine Descript ion: dizzines s; Display in Medcin: YES; Display in ESB: YES; Confiden tiality Level: Level 1 REMIGIO Lemus, [facility] 7 10:05:26 Tracheob ronchiti s 33142338 Completed 200402/26/2017 Category : DD; Medicine Descript ion: TRACHEOB RONCHITI S; Display in Medcin: YES; Display in ESB: YES; Confiden tiality Level: Level 1 REMIGIO Lemus, [facility] 7 10:04:42 Chronic obstruct angy pulmonar y disease 56815679 Active 2004 Modified By: MARIA ANTONIA DEL REAL; Category : DD; Examiner : Veronica Jensen I.; Medicine Descript ion: CHRONIC OBSTRUCT ANGY PULMONAR Y DISEASE; Display in Medcin: YES; Display in ESB: YES; Confiden tiality Level: Level 1 Not Available [facility] 4 03:27:39 Clinical finding Completed 200402/26/2017 Modified By: YAZ MARSHALL; Category : DD; Examiner : Yaz Marshall; Medicine Descript ion: LARYNGOP HARYNGEA L REFLUX; Display in Medcin: NO; Display in ESB: NO; Confiden tiality Level: Level 1 [facility] 7 10:05:08 Allergic rhinitis 74998122 Active 2004 Category : DD; Medicine Descript ion: ALLERGIC RHINITIS ; Display in Medcin: YES; Display in ESB: YES; Confiden tiality Level: Level 1 Not Available [facility] 4 03:27:39 Neves's palsy 961887490 Completed 200502/26/2017 Category : DD; Medicine Descript ion: NEVES'S PALSY; Display in Medcin: YES; Display in ESB: YES; Confiden tiality Level: Level 1 REMIGIO Lemus, [facility] 7 10:05:01 Family history of diabetes mellitus 841077549 Completed 200902/26/2017 Created By: VERONICA JENSEN ; Modified By: VERONICA JENSEN ; Category : DD; Examiner : VERONICA JENSEN I.; Medicine Descript ion: DIABETES MELLITUS ; Display in Medcin: NO; Display in ESB: YES; Confiden tiality Level: Level 1 Cordelia Mcclain REMIGIO tlelo, [facility] 7 10:04:51 Benign essentia l hyperten [place] 8228182 Completed 200902/26/2017 Created By: VERONICA JENSEN ; Modified By: GHAZAL PHAN; Category : DD; Examiner : VERONICA JENSEN I.; Medicine Descript ion: HYPERTEN [place] (SYSTEMI C); Display in Medcin: YES; Display in ESB: YES; Confiden tiality Level: Level 1 Cordelia Mcclain REMIGIO [facility] 7 10:05:46 Family history of Cardiova scular disease 896347459 Completed 200902/26/2017 Created By: VERONICA JENSEN ; Modified By: MARIA ANTONIA DEL REAL; Category : DD; Examiner : Veronica Jensen I.; Medicine Descript ion: reported family history ischemic heart disease before age 50; Display in Medcin: YES; Display in ESB: YES; Confiden tiality Level: Level 1 Cordelia Mcclain [facility] 7 10:05:23 Wheezing 94508718 Completed 200902/26/2017 Created By: VERONICA JENSEN ; Modified By: GHAZAL PHAN; Category : DD; Examiner : Veronica Jensen I.; Medicine Descript ion: wheezing [as a symptom] ; Display in Medcin: YES; Display in ESB: YES; Confiden tiality Level: Level 1 Cordelia Mcclain REMIGIO tello, [facility] 7 10:05:57 Mild intermit tent asthma 312236594 Active 2009 Created By: VERONICA JENSEN ; Modified By: GHAZAL PHAN; Category : DD; Examiner : Veronica Jensen I.; Medicine Descript ion: ASTHMA MILD INTERMIT TENT UNCOMPLI CATED; Display in Medcin: YES; Display in ESB: YES; Confiden tiality Level: Level 1 Not Available [facility] 4 03:27:39 Obesity 764441608 Active 2010 Created By: VERONICA JENSEN ; Modified By: GHAZAL PHAN; Category : DD; Examiner : VERONICA JENSEN I.; Medicine Descript ion: Obese; Display in Medcin: YES; Display in ESB: YES; Confiden tiality Level: Level 1 Not Available [facility] 4 03:27:39 Nicotine dependen ce 68453962 Active 2010 Created By: VERONICA JENSEN ; Modified By: YAZ MARSHALL; Category : DD; Examiner : Yaz Marshall; Medicine Descript ion: current smoker; Display in Medcin: NO; Display in ESB: NO; Confiden tiality Level: Level 1; Type: Diagnosi s Not Available [facility] 4 03:27:39 Hyperlip idemia 43607342 Active 2010 Created By: VERONICA JENSEN ; Modified By: VERONICA JENSEN ; Category : DD; Examiner : Veronica Jensen I.; Medicine Descript ion: DYSLIPID EMIA; Display in Medcin: YES; Display in ESB: YES; Confiden tiality Level: Level 1; Type: Diagnosi s Not Available [facility] 4 03:27:39 Long-ter m drug therapy Completed 201002/26/2017 Created By: VERONICA JENSEN ; Modified By: VERONICA JENSEN ; Category : DD; Examiner : Veronica Jensen I.; Medicine Descript ion: taking medicati on for a long time; Display in Medcin: YES; Display in ESB: YES; Confiden tiality Level: Level 1; Type: Diagnosi s REMIGIO Lemus, [place] [facility] 7 10:05:21 Verruca plantari s 66253572 Completed 201102/26/2017 Created By: VERONICA JENSEN ; Modified By: YAZ MARSHALL; Category : DD; Examiner : Yaz Marshall; Medicine Descript ion: Wartlike Lesions Feet Plantar; Display in Medcin: YES; Display in ESB: YES; Confiden tiality Level: Level 1; Type: Sonia Mcclain, [facility] null, [facility] 7 10:06:02 Plane wart 418416019 Completed 201102/26/2017 Created By: VERONICA JENSEN ; Modified By: YAZ MARSHALL; Category : DD; Examiner : Yaz Marshall; Medicine Descript ion: WARTS COMMON; Display in Medcin: YES; Display in ESB: YES; Confiden tiality Level: Level 1; Type: Sonia Mcclain, [facility] 7 10:05:14 Procedur e Completed 201102/26/2017 Created By: VERONICA JENSEN ; Modified By: YAZ MARSHALL; Category : DD; Examiner : Veronica Jensen I.; Medicine Descript ion: visit for: medicati on refill; Display in Medcin: NO; Display in ESB: NO; Confiden tiality Level: Level 1; Type: Sonia Mcclain, [facility] 7 10:05:40 Sciatica 99733267 Completed 201202/26/2017 Created By: VERONICA JENSEN ; Modified By: YAZ MARSHALL; Category : DD; Examiner : Veronica Jensen I.; Medicine Descript ion: NEURITIS SCIATIC; Display in Medcin: NO; Display in ESB: NO; Confiden tiality Level: Level 1; Type: Sonia Mcclain, [facility] null, [facility] 7 10:05:12 Screenin g procedur e Completed 201402/26/2017 Created By: YAZ MARSHALL; Modified By: YAZ MARSHALL; Category : DD; Examiner : Yaz Marshall; Medicine Descript ion: visit for: siomara ellison malignselwyn t neoplasm colon; Display in Medcin: NO; Display in ESB: NO; Confiden tiality Level: Level 1; Type: Sonia Mcclain, [facility] null, [facility] 7 10:05:37 Adult health examinat ion Completed 201402/26/2017 Created By: YAZ MARSHALL; Modified By: YAZ MARSHALL; Category : DD; Examiner : Yaz Marshall; Medicine Descript ion: ROUTINE HISTORY AND PHYSICAL ; Display in Medcin: YES; Display in ESB: YES; Confiden tiality Level: Level 1; Type: Sonia Mcclain, [facility] null, [facility] 7 10:05:29 Abnormal finding on evaluati on procedur e 869306046 Completed 201402/26/2017 Created By: YAZ MARSHALL; Modified By: YAZ MARSHALL; Category : DD; Examiner : Yaz Marshall; Medicine Descript ion: ROUTINE HISTORY AND PHYSICAL ; Display in Medcin: YES; Display in ESB: YES; Confiden tiality Level: Level 1; Type: Sonia Mcclain, [facility] null, [facility] 7 10:05:54 Palpitat ions 77214392 Completed 201402/26/2017 Created By: YAZ MARSHALL; Modified By: YAZ MARSHALL; Category : DD; Examiner : Yaz Marshall; Medicine Descript ion: palpitat ions; Display in Medcin: NO; Display in ESB: NO; Confiden tiality Level: Level 1; Type: Sonia Mcclain, [facility] null, [facility] 7 10:06:05 Microsco pic hematuri a 107364341 Completed 201402/26/2017 Created By: YAZ MARSHALL; Modified By: YAZ MARSHALL; Category : DD; Examiner : Yaz Marshall; Medicine Descript ion: MICROSCO PIC HEMATURI A; Display in Medcin: YES; Display in ESB: YES; Confiden tiality Level: Level 1; Type: Diagnosi s Cordelia Mcclain, [facility] null, [facility] 7 10:05:05 Electroc ardiogra m abnormal 273320078 Completed 201402/26/2017 Created By: YAZ MARSHALL; Modified By: YAZ MARSHALL; Category : DD; Examiner : Yaz Marshall; Medicine Descript ion: ECG NORMAL VARIANT; Display in Medcin: NO; Display in ESB: NO; Confiden tiality Level: Level 1; Type: Diagnosi s Cordelia Mcclain, [facility] null, [facility] 7 10:04:38 Evaluati on procedur e Completed 201402/26/2017 Created By: ELVIE FERNANDEZ; Modified By: KEVEN OCTOBER; Category : DD; Examiner : Keven Muhammad; Medicine Descript ion: Observat ion For Suspecte d Conditio n; Display in Medcin: YES; Display in ESB: YES; Confiden tiality Level: Level 1; Type: Diagnosi s Cordelia Mcclain, [facility] null, [facility] 7 10:05:34 Hyperten sive disorder 98780671 Active 2015 Created By: YAZ MARSHALL; Modified By: YAZ MARSHALL; Category : DD; Examiner : Yaz Marshall; Medicine Descript ion: ESSENTIA L HYPERTEN [place] BENIGN; Display in Medcin: YES; Display in ESB: YES; Confiden tiality Level: Level 1; Type: Diagnosi s Not Available [facility] 4 03:27:39 Viral screenin g Completed 201502/26/2017 Created By: YAZ MARSHALL; Modified By: YAZ MARSHALL; Category : DD; Examiner : Yaz Marshall; Medicine Descript ion: visit for: screenin g exam dengue fever; Display in Medcin: YES; Display in ESB: YES; Confiden tiality Level: Level 1; Type: Diagnosi s Cordelia Mcclain, [facility] null, [facility] 7 10:05:16 Screenin g mammogra phy Completed 201502/26/2017 Created By: YAZ MARSHALL; Modified By: YAZ MARSHALL; Category : DD; Examiner : Yaz Marshall; Medicine Descript ion: Mammogra m Screenin g; Display in Medcin: YES; Display in ESB: YES; Confiden tiality Level: Level 1; Type: [facility] Cordeliadora Mcclain, [facility], [facility] 7 10:05:19 Active immuniza tion Completed 201502/26/2017 Created By: YAZ MARSHALL; Modified By: YAZ MARSHALL; Category : DD; Examiner : Yaz Marshall; Medicine Descript ion: visit for: immuniza tion; Display in Medcin: YES; Display in ESB: YES; Confiden tiality Level: Level 1; Type: [facility] Cordelia Johny, [facility], [facility] 7 10:05:31 Pain of left shoulder joint [id number] 007947 Active 2017 Not Available [facility] 4 03:27:39 Vitamin D deficien cy 03855741 Active 2021 Not Available [facility] 4 03:27:39 Congesti ve heart failure 08915825 Active 2022 Not Available [facility] 4 03:27:39 Type 2 diabetes mellitus without complica tion 605852828 Active 2022 Not Available [facility] 4 03:27:39 Female urinary stress incontin ence 62341655 Active 2024 Adriana Poe NP [address], [address] , [facility] 5 11:50:21 Dependen ce on suppleme ntal oxygen 13714087110 7 Active 2024 Adriana Poe NP [address], [address] , [facility] 5 12:26:07 Problem Notes None recorded. Procedures Surgical History Date Name Laterality Status Provider Name and Address Organization Details Recorded Time 05/17/20 25 Suture/Staple removal completed [address], [address], [facility] 05/17/2025 15:52:31 05/05/20 25 Flu vaccine Screening completed Rita Olivarez [facility] 05/05/2025 12:16:34 08/20/20 24 Nebulizer tx duoneb completed [address], [address], [facility] 08/20/2024 16:28:20 05/06/20 24 venipuncture completed Juliet Gatica [facility] 05/06/2024 11:42:54 02/19/20 24 Splint Application completed Adriana Poe NP [address] [place] [address], [address], [facility] 02/19/2024 14:24:04 12/26/19 24 venipuncture completed Yuliya Hurd [facility] 12/26/2023 15:40:03 09/25/19 22 venipuncture completed Shauna Jordan [facility] 09/25/2021 13:07:04 11/25/19 21 venipuncture completed Jodi Mora [facility] 11/24/2020 11:10:23 12/18/19 20 venipuncture completed Yuliya Hurd [facility] 12/18/2019 16:28:31 12/18/19 20 venipuncture cancelled Tyler Mcfarlane [facility] 12/18/2019 09:21:06 04/14/20 19 venipuncture completed Cordelia Mcclain LPN [facility] 04/14/2019 09:25:36 08/08/20 18 venipuncture completed Cordelia Mcclain LPN [facility] 08/08/2018 09:13:48 09/10/19 18 venipuncture completed H[facility] 09/10/2017 10:01:27 02/27/20 17 venipuncture completed Cordelia Mcclain LPN [facility] 02/26/2017 10:26:37 08/15/20 16 venipuncture completed Homa [facility] 08/15/2016 10:27:51 Cardiac Surgery completed Cordelia waldrop LPN [facility] 02/26/2017 10:07:03 Imaging Results None recorded. Procedure Notes None recorded. Medical Equipment None Reported. Allergies Allergen ID Allergen Name Allergen Category Reaction Reaction Severity Criticality Documentation Date Start Date Code Code System Note Provider Name and Address Organization Details Recorded Time 28199 codeine medicatio n Not available Not available Not available 08/05/20162009 2670 RxNorm Comme nt: Last Edite d: 11-25 09:27 :35; Not Available [facility] 6 03:58:28 Medications Name Sig Start Date [...] sliding scale before meals TID<150- 0 -200-3 [id number] -250-6 [id number] -300- 9 -350-12 [id number] -400-15 units Not Available Not Available Not [...] active Not Available Not Available Not Avai labartur Mucinex DM 60 mg-1,200 mg tablet,ex tended [...] Available Not Available Not Avsoha lable Ozempic 0.25 mg or 0.5 mg [...] temperature Respiratory rate Heart rate Oxygen saturation Systolic And Diastolic Provider Name and Address Organization Details Last Updated DateTime 170.18 cm 45.6 kg/m2 626568. 48 g 97.7 [degF] 20 /min 84 /min 94 % 120/80 mm[Hg] Rita Olivarez [facility] 15:13:55 Social History Question Answer Notes LastModified by Organization Details LastModified Time Tobacco Smoking Status Current Every Day Smoker Ritaluis manuel [facility] 02/18/2025 15:08:04 Do You Have An Advance Directive? No [email or web address] Information not available 01/29/2017 Are You Blind Or Do You Have Difficulty Seeing? Yes [email or web address] Information not available 09/25/2021 Is Blood Transfusion Acceptable In An Emergency? Yes [email or web address] Information not available 09/25/2021 What Is Your Level Of Caffeine Consumption? Heavy [email or web address] Information not available 01/29/2017 How Much Tobacco Do You Chew? None [email or web address] Information not available 01/29/2017 Commercial Sex Work No [email or web address] Information not available 01/29/2017 In The 14 [...] Do You Have Serious Difficulty Hearing? No [email or web address] Information not available 09/25/2021 What Type Of Diet Are You Following? REGULAR [email or web address] Information not available 01/29/2017 Which Illicit Or Recreational Drugs Have You Used? None [email or web address] Information not available 01/29/2017 Have You Processed Blood Or Body Fluids From An Ebola Virus Disease Patient Without Appropriate PPE? No [email or web address] Information not available 09/25/2021 Education Less Than 8th Grade [email or web address] Information not available 01/29/2017 What Is The Highest Grade Or Level Of School You Have Completed Or The Highest Degree You Have Received? [id number] [email or web address] Information not available 08/12/2025 Are There Any Guns Present In Your Home? Yes Information not available 02/26/2017 Hard Of Hearing Or Deaf In One Or Both Ears? No [email or web address] Information not available 01/29/2017 High Number Of Sexual Partners No [email or web address] Information not available 01/29/2017 History Of Inconsistent/no Condom Use No [email or web address] Information not available 01/29/2017 International Travel None Information not available 02/26/2017 Legally Blind In One Or Both Eyes? No [email or web address] Information not available 01/29/2017 In The Past 6 Months Have You Fallen No [email or web address] Information not available 01/29/2017 Medication List Reconciled Yes Information not available 04/14/2019 What Number (0-10) Best Describes How, During The Past Week, Has Interfered With Your General Activity? 0 [email or web address] Information not available 01/29/2017 What Number (0-10) Best Describes How, During The Past Week, Pain Has Interfered With Your Enjoyment In The Past Week 0 [email or web address] Information not available 01/29/2017 What Number (0-10) Best Describes Your Pain On Average In The Past Week 0 Information not available 01/29/2017 Total PEG Score 0 [email or web address] Informati on not available 01/29/2017 Most Recent Dental Visit 09/02/1996 Up To Date 04/23/22 Information not available 08/08/2018 Sexual Orientation Straight Or Heterosexual Information not available 11/24/2020 Gender Identity Female Informat ion not available 11/24/2020 Eye Exam 09/02/2015 Information not available 08/08/2018 Do You Feel Safe Yes hailey Informa tion not available 11/24/2020 Hospital Follow Up Appointment 08/12/2025 [email or web address] Information not available 08/12/2025 Hospital Discharged Patient To Home [email or web address] Information not available 08/12/2025 ER Medication List Reconciled Yes [email or web address] Information not available 07/22/2025 ER Contact Date 07/22/2025 [email or web address] Informati on not available 07/22/2025 ER Follow Up Contact Date 07/22/2025 [email or web address] Information not available 07/22/2025 ER Follow Up Patient Contact Via Unable To Contact Went To [facility] ER Transferred To [facility] Diagnosis Pneumonia Information not available 07/22/2025 ER Date Of Discharge 07/21/2025 [email or web address] Information not available 07/22/2025 ER Discharged Patient To Caregiver Transfer [email or web address] Information not available 07/22/2025 ER Records Recieved Yes [email or web address] Information not available 07/22/2025 ER Records Requested Yes [email or web address] Information not available 07/22/2025 Marital Status [email or web address] Informatio n not available 01/29/2017 What Was The Date Of Your Most Recent Tobacco Screening? 08/12/2025 [email or web address] Information not available 08/12/2025 Mother With HIV? No [email or web address] Informat ion not available 01/29/2017 How Many Children Do You Have? 4 [email or web address] Information not available 08/12/2025 What Is Your Relationship Status? [email or web address] Information not available 08/12/2025 Do You Use Your Seat Belt Or Car Seat Routinely? Yes Information not available 07/28/2024 Seat Belts Used Routinely Yes [email or web address] Information not available 01/29/2017 Are You Sexually Active? Yes Information not available 08/08/2018 Sexual Partner Has HIV? No [email or web address] Information not available 01/29/2017 Sexual Partner Uses IV Drugs? No Information not available 01/29/2017 Smoke Alarm In Home No [email or web address] Information not available 01/29/2017 At What Age Did You Start Smoking Tobacco? 15 Information not available 02/26/2017 How Much Tobacco Do You Smoke? 0.5 PPD [email or web address] Information not available 05/05/2025 General Stress Level Medium [email or web address] Information not available 01/29/2017 Do You Use Sunscreen Routinely? No [email or web address] Information not available 01/29/2017 How Many Years Have You Smoked Tobacco? 41 Information not available 02/26/2017 Have You Used IV Drugs? No [email or web address] Information not available 01/29/2017 Do You Have Difficulty Walking Or Climbing Stairs? Yes [email or web address] Information not available 09/25/2021 Do You Want [...] use any illicit or recreational drugs? No [email or web address] Information not available 06/14/2025 Do you or have you ever used any other forms of tobacco or nicotine? Yes Nicotine patches Information not available 12/17/2024 What is your level of alcohol consumption? None [email or web address] Information not available 01/29/2017 Do you or have you ever used smokeless tobacco? Never used smokeless tobacco Information not available 04/14/2019 Are you currently employed? No [email or web address] Information not available 08/12/2025 Do you have transportation difficulties? No [email or web address] Information not available 09/25/2021 Are you able to walk independently without assistance or assistive devices? YESWOREST [email or web address] Information not available 01/29/2017 Do you have difficulty doing errands alone? No [email or web address] Information not available 09/25/2021 Are you able to care for yourself independently? Yes [email or web address] Information not available 09/25/2021 Do you have difficulty dressing, bathing, grooming, or toileting? No Information not available 09/25/2021 Do you or have you ever used e-cigarettes or vape? Never used electronic cigarettes Information not available 04/14/2019 What is your exercise level? Moderate [email or web address] Information not available 01/29/2017 Mental Status Question Answer Note LastModified by Organizat ion Details LastModified Time Do you feel stressed (tense, restless, nervous, or anxious, or unable to sleep at night)? [id number] [email or web address] Information not available 09/25/2021 Do you have difficulty concentrating, remembering or making decisions? No [email or web address] Information no t available 09/25/2021 Family History Relationship Description Onset Age of this Age Resolved Age Notes LastModified by Organization Details LastModified Time Mother Diabetes mellitus [email or web address] Not available 2016 14:32:39 Brother Diabetes mellitus [email or web address] Not available 2016 14:32:46 Medical History Condition [...] Anemia N Colon Polyps N Heart Attack (NH) N Ovarian Cancer N Diabetes N Bedwetting [...] preservative 9 completed Not Available [facility] 09/19/2019 02:39:19 Tdap 7 completed Not Available [facility] 09/19/2019 02:39:16 Influenza, split virus, trivalent, preservative 6 completed Not Available [facility] 09/25/2023 03:27:39 Tdap 5 completed Not Available [facility] 08/12/2025 12:00:37 Influenza, MDCK, quadrivalent, PF 4 completed Juliet Gatica [facility] 05/07/2024 12:22:36 Influenza, split virus, quadrivalent, PF 5 completed Rita Olivarez [facility] 05/05/2025 12:58:35 Pneumococcal conjugate PCV20, polysaccharide EOB667 conjugate, adjuvant, 5 completed Rita Olivarez [facility] 06/28/2025 15:43:32 Influenza, MDCK, quadrivalent, preservative 8 completed Not Available [facility] 09/19/2019 02:39:18 Past Encounters Encounter ID Performer Location Encounter Start Date Encounter Closed Date Diagnosis/Indication Diagnosis SNOMED-CT Code Diagnosis ICD10 Code Diagnosis IMO Codes Diagnosis Note [id number] MCKAY CUEVAS DO [facility] [place] [address] [place] [address] 05/05/2025 11:31:04 05/06/2025 09:54:30 Congestive heart failure 41306915 I50.9 CBC, CMP, and BNP were ordered for further evaluation . A chest X-ray was obtained and sent to the radiologis t for review. Based on clinical assessment , the patient appears to be in fluid overload. Lasix was increased to 80 mg daily for three days. The patient was advised to monitor for worsening symptoms and to go to the emergency room. Candidiasis of mouth [id number] 61318 B37.0 40293 Chronic ob structive pulmonary disease 15380161 J44.9 Oxygen level was 82% on room air when arriving at clinic. Patient was placed on 3L oxygen while in the clinic. Oxygen level increased to 93%. She has recently moved back to [place] and is currently living with a friend. Will follow up with Lyudmila to arrange home oxygen delivery. She has a concentrat or but no oxygen bottles when she needs to leave home . Laceration of left lower leg [id number] S81.812S [id number] She had sutures placed on May 02, 2025 at [facility], for a laceration . At today's visit, there is noted redness at the laceration site. A course of antibiotic s will be provided to address possible localized infection. Dyspnea [id number] R06.02 22726 CXR obtained; Will send to radiologis to review.Als o will arrange for echo cardiogram and cardiologi st referral;D iscussed with patient if shortness of breath worsen or develops chest pain go to the ER; Pt voiced understand ing, Influenza vaccination given [id number] 9109 Z23 [id number] MCKAY CUEVAS DO [facility] [address] [place] [address] 05/17/2025 14:56:52 05/18/2025 08:22:12 Chronic obstructive pulmonary disease 71189803 J44.9 [id number] Laceration of left lower leg [id number] S81.812A L08.9 [id number] Patient has been prescribed a course of oral antibiotic s.Advised to seek immediate medical attention in the Emergency Room if symptoms worsen, including increased pain, redness, or developmen t of fever.Sche duled for follow-up on Saturday to assess healing and response to treatment. Body mass index 40+ - severely obese 134931841 E66.01 41321638 BMI 45.6 Diet education 66324847 Z71.3 Exercises education, guidance, and counseling 387560097 Z71.82 Removal of sutures done [id number] 93728 Z48.02 [id number] Five sutures were removed from left leg. [id number] MCKAY CUEVAS [facility] [address] [place] [address] 05/24/2025 15:14:12 05/24/2025 16:47:46 Laceration of left lower leg [id number] 6630670 S81.812S [id number] Erythema to the left leg is resolving. Will continue the doxycyline for another 7 days. Wound redressedS cheduled for follow-up next week to assess healing and response to treatment. Body mass index 40+ - severely obese 727296810 E66.01 Z68.42 [id number] BMI 45.6 Diet education 47334755 Z71.3 Exercises education, guidance, and counseling 555162861 Z71.82 [id number] MCKAY CUEVAS [facility] [address] [place] [address] 05/31/2025 14:56:17 05/31/2025 15:42:35 Local infection of wound 23973199 T81.49XA [id number] post laceration leg wound with infection. An additional suture that remained was removed today. Wound improving. Bandaid applied. Return to clinic in one week for further evaluation Mild inter mittent asthma [id number] J45.20 Goals Section Goal Description Progress Status Start [...] Member ID Sofia Member ID Guarantor Name 05/31/2025 2 [place] Nadine Esquivel [id number] Nadine Esquivel 05/31/2025 1 [facility]ATL PLAN (EPO) Nadine Esquivel [id number] Nadine Esquivel Notes Date Note Type Note Provider Name and Address Organization Details Recorded Time 05/31/2025 text/html Presents for follow-up today after a laceration was repaired at ER and became infected. Sutures were removed 05/05/2025. She has been on antibiotics since that time. Wound slowly improving. No drainage noted today. Another suture was removed today that was not previously noted due to swelling. Adriana Poe NP [address], [address], [facility] 05/31/2025 15:35:28 OBGyn Episode No OBEpisode recorded.
--- OUTSIDE RECORDS SUMMARY | 2025-08-29 09:08 | XMS_ITS | Continuity of Care Document ---
Author Organization [facility], Care Managers Address [address] [place] [id number] Care Team Providers Care Ferry Terminal Agent Name Role Phone LUISA JAIMES Grinder Set Up Operator Centerless EUN [facility] Worker SHAWNA [facility] Assessment Encounter Date Assessment Date Assessment LastModified by Organization Details LastModified Time 07/07/2025 07/07/2025 Care Plan for Nadine Esquivel (Briseida) 64 Enrolled [facility] 07/27 Diagnosis: Depression, CHF, COPD, Tobacco, [...] -Report any hospital or ER visits to dog day care attendant or clinic staff. Interventions ([facility] Nurse Steps) -RN will provide educational [...] phone, by mail, through Primary Care Physician, TAX AUDITOR, or others physicians at our office. Evaluations 07/07/25-Met with pt FTF in clinic. Explained [...] this month. Case sent to Kajal Manzano [facility] asking her to contact pt. Pt said she has to be texted then she will call back, that her phone will not accept calls. Demario 07/06/25-New Enrollment into [facility] program. Dx: Depression, CHF, COPD, Tobacco, BMI, asthma Pt does not have Health Detention. Pt has active Medicaid Pt has had ER visits in the last year. Will develop a Care Plan to assist with the patients Chronic Illness. Will introduce myself, explain program and give pt care plan at next FTF visit. Pt has appt tomorrow Demario florian Not available 07/07/2025 15:52:34 Plan of Treatment Reminders Order Date Submit [...] m acnes DETECT ED abnormal Not Available [facility] [address] [place] [address], [address], 06/17/2025 09:59:12 06/14/2006/14/2025 DERM- ID pseudomonas aeruginosa DETECT ED abnormal Not Available [facility] [address] [place] [address], [address], 06/17/2025 09:59:12 06/14/2006/14/2025 DERM- ID corynebacter ium minutissimum , striatum, jeikeium DETECT ED abnormal Not Available [facility] [address] [place] [address], [address], 06/17/2025 09:59:12 06/14/2006/14/2025 DERM- ID malassezia (spp., globosa, restricta) DETECT ED abnormal Not Available [facility] [address] [place] [address], [address], 06/17/2025 09:59:12 06/14/2006/14/2025 DERM- ID finegoldia magna NOT DETECT ED Not Available [facility] [address] [place] [address], [address], 06/17/2025 09:59:12 06/14/2006/14/2025 DERM- ID staph haemolyticus , lugdunensis, saprophyticu s NOT DETECT ED Not Available [facility] [address] [place] [address], 7[address], 06/17/2025 09:59:12 06/14/2006/14/2025 DERM- ID fusobacteriu m nucleatum, necrophorum NOT DETECT ED Not Available [facility] [address] [place] [address], 6[address], 06/17/2025 09:59:12 06/14/2006/14/2025 DERM- ID escherichia coli NOT DETECT ED Not Available [facility] [address] [place] [address], 47[address], 06/17/2025 09:59:12 06/14/2006/14/2025 DERM- ID staphylococc us epidermidis NOT DETECT ED Not Available [facility] [address] [place] [address], 74828, 06/17/2025 09:59:12 06/14/2006/14/2025 DERM- ID microsporum spp. NOT DETECT ED Not Available [facility] [address] [place] [address], [address], 06/17/2025 09:59:12 06/14/2006/14/2025 DERM- ID aspergillus spp. (fumigatus, niger, terreus, versicolor) NOT DETECT ED Not Available [facility] [address] [place] [address], [address], 06/17/2025 09:59:12 06/14/2006/14/2025 DERM- ID peptostrepto coccus prevotii, anaerobius, asaccharolyt icus NOT DETECT ED Not Available [facility] [address] [place] [address], 40521, 06/17/2025 09:59:12 06/14/2006/14/2025 DERM- ID streptococcu s agalactiae NOT DETECT ED Not Available [facility] [address] [place] [address], 77932, 06/17/2025 09:59:12 06/14/2006/14/2025 DERM- ID neisseria gonorrhoeae NOT DETECT ED Not Available [facility] [address] [place] [address], 09749, 06/17/2025 09:59:12 06/14/2006/14/2025 DERM- ID klebsiella oxytoca, pneumoniae NOT DETECT ED Not Available [facility] [address] [place] [address], 78120, 06/17/2025 09:59:12 06/14/2006/14/2025 DERM- ID peptoniphilu s harei, ivorii NOT DETECT ED Not Available [facility] [address] [place] [address], [address]11, 06/17/2025 09:59:12 06/14/2006/14/2025 DERM- ID edwin auris NOT DETECT ED Not Available [facility] [address] [place] [address], 40020, 06/17/2025 09:59:12 06/14/2006/14/2025 DERM- ID morganella morganii NOT DETECT ED Not Available [facility] [address] [place] [address], 94171, 06/17/2025 09:59:12 06/14/2006/14/2025 DERM- ID trichophyton (soudanense, violaceum, tonsurans, interdigital e, mentagrophyt es) NOT DETECT ED Not Available [facility] [address] [place] [address], 62854, 06/17/2025 09:59:12 06/14/2006/14/2025 DERM- ID edwin glabrata NOT DETECT ED Not Available [facility] [address] [place] [address], 45197, 06/17/2025 09:59:12 06/14/2006/14/2025 DERM- ID edwin krusei NOT DETECT ED Not Available [facility] [address] [place] [address], 42614, 06/17/2025 09:59:12 06/14/2006/14/2025 DERM- ID mycoplasma gentalium, hominis NOT DETECT ED Not Available [facility] [address] [place] [address], 84785, 06/17/2025 09:59:12 06/14/2006/14/2025 DERM- ID hsv2 NOT DETECT ED Not Available [facility] [address], [address], 06/17/2025 09:59:12 06/14/2006/14/2025 DERM- ID acinetobacte r baumannii NOT DETECT ED Not Available [facility] [address] [place] [address], 07671, 06/17/2025 09:59:12 06/14/2006/14/2025 DERM- ID clostridium perfringens NOT DETECT ED Not Available [facility] [address] [place] [address], 02881, 06/17/2025 09:59:12 06/14/2006/14/2025 DERM- ID vibrio cholerae, parahaemolyt icus, vulnificus NOT DETECT ED Not Available [facility] [address] [place] [address], 27726, 06/17/2025 09:59:12 06/14/2006/14/2025 DERM- ID haemophilus influenzae NOT DETECT ED Not Available [facility] [address] [place] [address], 15819, 06/17/2025 09:59:12 06/14/2006/14/2025 DERM- ID enterobacter cloacae complex NOT DETECT ED Not Available [facility] [address] [place] [address], 16589, 06/17/2025 09:59:12 06/14/2006/14/2025 DERM- ID ralstonia spp. (pickettii) NOT DETECT ED Not Available [facility] [address] [place] [address], 50674, 06/17/2025 09:59:12 06/14/2006/14/2025 DERM- ID serratia marcescens NOT DETECT ED Not Available [facility] [address] [place] [address], 68586, 06/17/2025 09:59:12 06/14/2006/14/2025 DERM- ID streptococcu s pyogenes (group A) NOT DETECT ED Not Available [facility] [address] [place] [address], 81350, 06/17/2025 09:59:12 06/14/2006/14/2025 DERM- ID mycobacteriu m abcessus, chelonae, fortuitum NOT DETECT ED Not Available [facility] [address] [place] [address], 02609, 06/17/2025 09:59:12 06/14/2006/14/2025 DERM- ID cutibacteriu m avidum/granu losum NOT DETECT ED Not Available [facility] [address] [place] [address], 35107, 06/17/2025 09:59:12 06/14/2006/14/2025 DERM- ID proteus mirabilis NOT DETECT ED Not Available [facility] [address] [place] [address], 80952, 06/17/2025 09:59:12 06/14/2006/14/2025 DERM- ID staphylococc us aureus NOT DETECT ED Not Available [facility] [address] [place] [address], 27312, 06/17/2025 09:59:12 06/14/2006/14/2025 DERM- ID enterococcus faecalis NOT DETECT ED Not Available [facility] [address] [place] [address], 98837, 06/17/2025 09:59:12 06/14/2006/14/2025 DERM- ID prevotella (bivia, intermedia, nigrescens) NOT DETECT ED Not Available [facility] [address] [place] [address], 00438, 06/17/2025 09:59:12 06/14/2006/14/2025 DERM- ID edwin tropicalis, parapsilosis NOT DETECT ED Not Available [facility] [address] [place] [address], 84295, 06/17/2025 09:59:12 06/14/2006/14/2025 DERM- ID klebsiella aerogenes NOT DETECT ED Not Available [facility] [address] [place] [address], 44389, 06/17/2025 09:59:12 06/14/2006/14/2025 DERM- ID bacteroides fragilis NOT DETECT ED Not Available [facility] [address] [place] [address], 69266, 06/17/2025 09:59:12 06/14/2006/14/2025 DERM- ID anaerococcus prevotii, vaginalis NOT DETECT ED Not Available [facility] [address] [place] [address], 00115, 06/17/2025 09:59:12 06/14/2006/14/2025 DERM- ID proteus vulgaris NOT DETECT ED Not Available [facility] [address] [place] [address], 75128, 06/17/2025 09:59:12 06/14/2006/14/2025 DERM- ID hsv1 NOT DETECT ED Not Available [facility] [address] [place] [address], 86410, 06/17/2025 09:59:12 06/14/2006/14/2025 DERM- ID fusarium solani, oxysporum NOT DETECT ED Not Available [facility] [address], [address], 06/17/2025 09:59:12 06/14/2006/14/2025 DERM- ID enterococcus faecium NOT DETECT ED Not Available [facility] [address], 52770, 06/17/2025 09:59:12 06/14/2006/14/2025 DERM- ID varicella zoster virus (vzv) (hhv3) NOT DETECT ED Not Available [facility] [address], 05874, 06/17/2025 09:59:12 06/14/2006/14/2025 DERM- ID HPV 16 NOT DETECT ED Not Available [facility] [address], 90281, 06/17/2025 09:59:12 06/14/2006/14/2025 DERM- ID edwin albicans NOT DETECT ED Not Available [facility] [address], 61660, 06/17/2025 09:59:12 06/14/2006/14/2025 DERM- ID trichophyton rubrum NOT DETECT ED Not Available [facility] [address], 944[address], 06/17/2025 09:59:12 06/14/2006/14/2025 DERM- ID streptococcu s pneumoniae NOT DETECT ED Not Available [facility] [address], 19272, 06/17/2025 09:59:12 06/14/2006/14/2025 DERM- ID citrobacter freundii NOT DETECT ED Not Available [facility] [address] [place] [address], 35555, 06/17/2025 09:59:12 06/14/2006/14/2025 DERM- ID salmonella enterica NOT DETECT ED Not Available [facility] [address] [place] [address], 82088, 06/17/2025 09:59:12 06/14/2006/14/2025 DERM- ID HPV 18 NOT DETECT ED Not Available [facility] [address] [place] [address], 29493, 06/17/2025 09:59:12 06/14/2006/14/2025 DERM- ID mycobacteriu m tuberculosis NOT DETECT ED Not Available [facility] [address] [place] [address], 15171, 06/17/2025 09:59:12 06/14/2006/14/2025 DERM- ID sporothrix schenckii NOT DETECT ED Not Available [facility] [address] [place] [address], 41122, 06/17/2025 09:59:12 Result Notes None recorded. Problems Name Problem SNOMED Code Status Onset Date Resolution Date Notes Provider Name and Address Organization Details Recorded Time Acute sinusiti s 77121619 Completed 200402/26/2017 Category : DD; Medicine Descript ion: SINUSITI S ACUTE; Display in Medcin: YES; Display in ESB: YES; Confiden tiality Level: Level 1 Cordelia Mcclain LPN [facility] 7 10:04:47 Dizzines s and giddines s 883558658 Completed 200402/26/2017 Category : DD; Medicine Descript ion: dizzines s; Display in Medcin: YES; Display in ESB: YES; Confiden tiality Level: Level 1 Cordelia Mcclain LPN [facility] 7 10:05:26 Tracheob ronchiti s 63269895 Completed 200402/26/2017 Category : DD; Medicine Descript ion: TRACHEOB RONCHITI S; Display in Medcin: YES; Display in ESB: YES; Confiden tiality Level: Level 1 Cordelia Mcclain REMIGIO elisha, [facility] 7 10:04:42 Chronic obstruct angy pulmonar y disease 30074655 Active 2004 Modified By: MARIA ANTONIA DEL REAL; Category : DD; Examiner : Veronica Jensen I.; Medicine Descript ion: CHRONIC OBSTRUCT ANGY PULMONAR Y DISEASE; Display in Medcin: YES; Display in ESB: YES; Confiden tiality Level: Level 1 Not Available Pending sale to [facility] 4 03:27:39 Clinical finding Completed 200402/26/2017 Modified By: YAZ MARSHALL; Category : DD; Examiner : Yaz Marshall; Medicine Descript ion: LARYNGOP HARYNGEA L REFLUX; Display in Medcin: NO; Display in ESB: NO; Confiden tiality Level: Level 1 [facility] 7 10:05:08 Allergic rhinitis 83686663 Active 2004 Category : DD; Medicine Descript ion: ALLERGIC RHINITIS ; Display in Medcin: YES; Display in ESB: YES; Confiden tiality Level: Level 1 Not Available Pending sale to [facility] 4 03:27:39 Neves's palsy 381983182 Completed 200502/26/2017 Category : DD; Medicine Descript ion: NEVES'S PALSY; Display in Medcin: YES; Display in ESB: YES; Confiden tiality Level: Level 1 Cordelia Mcclain REMIGIO elisha, [facility] 7 10:05:01 Family history of diabetes mellitus 948650283 Completed 200902/26/2017 Created By: VERONICA JENSEN ; Modified By: VERONICA JENSEN ; Category : DD; Examiner : VERNOICA JENSEN I.; Medicine Descript ion: DIABETES MELLITUS ; Display in Medcin: NO; Display in ESB: YES; Confiden tiality Level: Level 1 Cordelia Mcclain REMGIIO elisha, [facility] 7 10:04:51 Benign essentia l hyperten [place] 8439647 Completed 200902/26/2017 Created By: VERONICA JENSEN ; Modified By: GHAZAL PHAN; Category : DD; Examiner : VERONICA JENSEN I.; Medicine Descript ion: HYPERTEN [place] (SYSTEMI C); Display in Medcin: YES; Display in ESB: YES; Confiden tiality Level: Level 1 REMIGIO Lemus, [facility] 7 10:05:46 Family history of Cardiova scular disease 963727698 Completed 200902/26/2017 Created By: VERONICA JENSEN ; Modified By: MARIA ANTONIA DEL REAL; Category : DD; Examiner : Veronica Jensen I.; Medicine Descript ion: reported family history ischemic heart disease before age 50; Display in Medcin: YES; Display in ESB: YES; Confiden tiality Level: Level 1 REMIGIO Lemus, [facility] 7 10:05:23 Wheezing 16704800 Completed 200902/26/2017 Created By: VERONICA JENSEN ; Modified By: GHAZAL PHAN; Category : DD; Examiner : Veronica Jensen I.; Medicine Descript ion: wheezing [as a symptom] ; Display in Medcin: YES; Display in ESB: YES; Confiden tiality Level: Level 1 REMIGIO Lemus, [facility] 7 10:05:57 Mild intermit tent asthma 580588459 Active 2009 Created By: VERONICA JENSEN ; Modified By: GHAZAL PHAN; Category : DD; Examiner : Veronica Jensen I.; Medicine Descript ion: ASTHMA MILD INTERMIT TENT UNCOMPLI CATED; Display in Medcin: YES; Display in ESB: YES; Confiden tiality Level: Level 1 Not Available [facility] 4 03:27:39 Obesity 030789648 Active 2010 Created By: VERONICA JENSEN ; Modified By: GHAZAL PHAN; Category : DD; Examiner : VERONICA JENSEN I.; Medicine Descript ion: Obese; Display in Medcin: YES; Display in ESB: YES; Confiden tiality Level: Level 1 Not Available Pending sale to [facility] 4 03:27:39 Nicotine dependen ce 88241892 Active 2010 Created By: VERONICA JENSEN ; Modified By: YAZ MARSHALL; Category : DD; Examiner : Yaz Marshall; Medicine Descript ion: current smoker; Display in Medcin: NO; Display in ESB: NO; Confiden tiality Level: Level 1; Type: Diagnosi s Not Available Pending sale to [facility] 4 03:27:39 Hyperlip idemia 68408471 Active 2010 Created By: VERONICA JENSEN ; Modified By: VERONICA JENSEN ; Category : DD; Examiner : Veronica Jensen I.; Medicine Descript ion: DYSLIPID EMIA; Display in Medcin: YES; Display in ESB: YES; Confiden tiality Level: Level 1; Type: Diagnosi s Not Available Pending sale to [facility] 4 03:27:39 Long-ter m drug therapy Completed 201002/26/2017 Created By: VERONICA JENSEN ; Modified By: VERONICA JENSEN ; Category : DD; Examiner : Veronica Jensen I.; Medicine Descript ion: taking medicati on for a long time; Display in Medcin: YES; Display in ESB: YES; Confiden tiality Level: Level 1; Type: Diagnosi s REMIGIO Lemus [facility] 7 10:05:21 Verruca plantari s 65987211 Completed 201102/26/2017 Created By: VERONICA JENSEN ; Modified By: YAZ MARSHALL; Category : DD; Examiner : Yaz Marshall; Medicine Descript ion: Wartlike Lesions Feet Plantar; Display in Medcin: YES; Display in ESB: YES; Confiden tiality Level: Level 1; Type: Diagnosi s REMIGIO Lemus [facility] 7 10:06:02 Plane wart 537547179 Completed 201102/26/2017 Created By: VERONICA JENSEN ; Modified By: YAZ MARSHALL; Category : DD; Examiner : Yaz Marshall; Medicine Descript ion: WARTS COMMON; Display in Medcin: YES; Display in ESB: YES; Confiden tiality Level: Level 1; Type: Diagnosi s Cordelia Johny, RN DIABETES null, [facility] 7 10:05:14 Procedur e Completed 201102/26/2017 Created By: VERONICA JENSEN ; Modified By: YAZ MARSHALL; Category : DD; Examiner : Veronica Jensen I.; Medicine Descript ion: visit for: medicati on refill; Display in Medcin: NO; Display in ESB: NO; Confiden tiality Level: Level 1; Type: Diagnosi s Cordelia Johny, RN DIABETES null, [facility] 7 10:05:40 Sciatica 19329660 Completed 201202/26/2017 Created By: VERONICA JENSEN ; Modified By: YAZ MARSHALL; Category : DD; Examiner : Veronica Jensen I.; Medicine Descript ion: NEURITIS SCIATIC; Display in Medcin: NO; Display in ESB: NO; Confiden tiality Level: Level 1; Type: Diagnosi s Cordelia Johny, RN DIABETES null, [facility] 7 10:05:12 Screenin g procedur e Completed 201402/26/2017 Created By: YAZ MARSHALL; Modified By: YAZ MARSHALL; Category : DD; Examiner : Yaz Marshall; Medicine Descript ion: visit for: screenin g malignan t neoplasm colon; Display in Medcin: NO; Display in ESB: NO; Confiden tiality Level: Level 1; Type: Diagnosi s Cordelia Johny, RN DIABETES null, [facility] 7 10:05:37 Adult health examinat ion Completed 201402/26/2017 Created By: YAZ MARSHALL; Modified By: YAZ MARSHALL; Category : DD; Examiner : Yaz Marshall; Medicine Descript ion: ROUTINE HISTORY AND PHYSICAL ; Display in Medcin: YES; Display in ESB: YES; Confiden tiality Level: Level 1; Type: Sonia Mcclain, RN DIABETES [facility] 7 10:05:29 Abnormal finding on evaluati on procedur e 307611341 Completed 201402/26/2017 Created By: YAZ MARSHALL; Modified By: YAZ MARSHALL; Category : DD; Examiner : Yaz Marshall; Medicine Descript ion: ROUTINE HISTORY AND PHYSICAL ; Display in Medcin: YES; Display in ESB: YES; Confiden tiality Level: Level 1; Type: Sonia Mcclain, RN DIABETES [facility] 7 10:05:54 Palpitat ions 70382768 Completed 201402/26/2017 Created By: YAZ MARSHALL; Modified By: YAZ MARSHALL; Category : DD; Examiner : Yaz Marshall; Medicine Descript ion: palpitat ions; Display in Medcin: NO; Display in ESB: NO; Confiden tiality Level: Level 1; Type: Sonia Mcclain, RN DIABETES [facility] 7 10:06:05 Microsco pic hematuri a 912563379 Completed 201402/26/2017 Created By: YAZ MARSHALL; Modified By: YAZ MARSHALL; Category : DD; Examiner : Yaz Marshall; Medicine Descript ion: MICROSCO PIC HEMATURI A; Display in Medcin: YES; Display in ESB: YES; Confiden tiality Level: Level 1; Type: Sonia Mcclain, RN DIABETES [facility] 7 10:05:05 Electroc ardiogra m abnormal 739020231 Completed 201402/26/2017 Created By: YAZ MARSHALL; Modified By: YAZ MARSHALL; Category : DD; Examiner : Yaz Marshall; Medicine Descript ion: ECG NORMAL VARIANT; Display in Medcin: NO; Display in ESB: NO; Confiden tiality Level: Level 1; Type: Diagnosi s Cordelia Mcclain, RN DIABETES null, [facility] 7 10:04:38 Evaluati on procedur e Completed 201402/26/2017 Created By: ELVIE FERNANDEZ; Modified By: KEVEN OCTOBER; Category : DD; Examiner : Keven Muhammad; Medicine Descript ion: Observat ion For Suspecte d Conditio n; Display in Medcin: YES; Display in ESB: YES; Confiden tiality Level: Level 1; Type: Diagnosi s Cordelia Mcclain, RN DIABETES null, [facility] 7 10:05:34 Hyperten sive disorder 25641361 Active 2015 Created By: YAZ MARSHALL; Modified By: YAZ MARSHALL; Category : DD; Examiner : Yaz Marshall; Medicine Descript ion: ESSENTIA L HYPERTEN [place] BENIGN; Display in Medcin: YES; Display in ESB: YES; Confiden tiality Level: Level 1; Type: Diagnosi s Not Available [facility] 4 03:27:39 Viral screenin g Completed 201502/26/2017 Created By: YAZ MARSHALL; Modified By: YAZ MARSHALL; Category : DD; Examiner : Yaz Marshall; Medicine Descript ion: visit for: screenin g exam dengue fever; Display in Medcin: YES; Display in ESB: YES; Confiden tiality Level: Level 1; Type: Diagnosi s Cordelia Mcclain, RN DIABETES null, [facility] 7 10:05:16 Screenin g mammogra phy Completed 201502/26/2017 Created By: YAZ MARSHALL; Modified By: YAZ MARSHALL; Category : DD; Examiner : Yaz Marshall; Medicine Descript ion: Mammogra m Screenin g; Display in Medcin: YES; Display in ESB: YES; Confiden tiality Level: Level 1; Type: Diagnosi s Cordelia Johny, RN DIABETES null, [facility] 7 10:05:19 Active immuniza tion Completed 201502/26/2017 Created By: YAZ MARSHALL; Modified By: YAZ MARSHALL; Category : DD; Examiner : Yaz Marshall; Medicine Descript ion: visit for: immuniza tion; Display in Medcin: YES; Display in ESB: YES; Confiden tiality Level: Level 1; Type: Diagnosi s Cordelia Mcclain LPN [facility] 7 10:05:31 Pain of left shoulder joint [id number] 471377 Active 2017 Not Available [facility] 4 03:27:39 Vitamin D deficien cy 25292777 Active 2021 Not Available [facility] 4 03:27:39 Congesti ve heart failure 96503296 Active 2022 Not Available [facility] 4 03:27:39 Type 2 diabetes mellitus without complica tion 472354147 Active 2022 Not Available [facility] 4 03:27:39 Female urinary stress incontin ence 62509831 Active 2024 Adriana Poe NP [address] [place] [address], [phone] , [facility] 5 11:50:21 Dependen ce on suppleme ntal oxygen 66678865536 7 Active 2024 Adriana Poe NP [address] [place] [address], [phone] , [facility] 5 12:26:07 Problem Notes None recorded. Procedures Surgical History Date Name Laterality Status Provider Name and Address Organization Details Recorded Time 05/17/20 25 Suture/Staple removal completed Emily Quintero [address] [place] [address], [phone], [facility] 05/17/2025 15:52:31 05/05/20 25 Flu vaccine Screening completed Rita Olivarez [facility] 05/05/2025 12:16:34 08/20/20 24 Nebulizer tx duoneb completed Emily Quintero [address], [phone], [facility] 08/20/2024 16:28:20 05/06/20 24 venipuncture completed Juliet Gatica [facility] 05/06/2024 11:42:54 02/19/20 24 Splint Application completed Adriana Poe NP [address], [phone], [facility] 02/19/2024 14:24:04 12/26/19 24 venipuncture completed Yuliya Hurd [facility] 12/26/2023 15:40:03 09/25/19 22 venipuncture completed Shauna Jordan [facility] 09/25/2021 13:07:04 11/25/19 21 venipuncture completed Jodi Mora [facility] 11/24/2020 11:10:23 12/18/19 20 venipuncture completed Yuliya Hurd [facility] 12/18/2019 16:28:31 12/18/19 20 venipuncture cancelled Tyler Mcfarlane [facility] 12/18/2019 09:21:06 04/14/20 19 venipuncture completed Cordelia Mcclain LPN [facility] 04/14/2019 09:25:36 08/08/20 18 venipuncture completed Cordelia Mcclain LPN [facility] 08/08/2018 09:13:48 09/10/19 18 venipuncture completed Homa Zarate [facility] 09/10/2017 10:01:27 02/27/20 17 venipuncture completed Cordelia Mcclain LPN [facility] 02/26/2017 10:26:37 08/15/20 16 venipuncture completed Homa Zarate [facility] 08/15/2016 10:27:51 Cardiac Surgery completed Cordelia waldrop LPN [place] [facility] 02/26/2017 10:07:03 Imaging Results None recorded. Procedure Notes None recorded. Medical Equipment None Reported. Allergies Allergen ID Allergen Name Allergen Category Reaction Reaction Severity Criticality Documentation Date Start Date Code Code System Note Provider Name and Address Organization Details Recorded Time 51010 codeine medicatio n Not available Not available Not available 08/05/20162009 2560 RxNorm Comme nt: Last Edite d: 11-25 09:27 :35; [facility] Available [facility] 03:[facility]28 Medications Name Sig Start [...] per sliding scale before meals TID<150- 0 ymbgs540 -200-3 -250-6 eluge922 -300- 9 -350-12 spqre762 -400-15 units Not Available Not Available Not [...] Details Last Updated DateTime 5 170.18 cm 749545. 18 g 47.7 kg/m2 20 /min 98.7 [degF] 90 /min 97 % 3 L/min 138/88 mm[Hg] Rita Olivarez [facility] 15:03:10 Social History Question Answer Notes LastModified by Organization Details LastModified Time Tobacco Smoking Status Current Every Day Smoker Rita Olivarez [facility] 02/18/2025 15:08:04 Do You Have An Advance Directive? No [email or web address] Information not available 01/29/2017 Are You Blind Or Do You Have Difficulty Seeing? Yes [email or web address] Information not available 09/25/2021 Is Blood Transfusion Acceptable In An Emergency? Yes Information not available 09/25/2021 What Is Your Level Of Caffeine Consumption? Heavy [email or web address] Information not available 01/29/2017 How Much Tobacco Do You Chew? None [email or web address] Information not available 01/29/2017 Commercial Sex Work No Information not available 01/29/2017 In The 14 [...] Do You Have Serious Difficulty Hearing? No [email or web address] Information not available 09/25/2021 What Type Of Diet Are You Following? REGULAR [email or web address] Information not available 01/29/2017 Which Illicit Or Recreational Drugs Have You Used? None [email or web address] Information not available 01/29/2017 Have You Processed Blood Or Body Fluids From An Ebola Virus Disease Patient Without Appropriate PPE? No Information not available 09/25/2021 Education Less Than 8th Grade Information not available 01/29/2017 What Is The Highest Grade Or Level Of School You Have Completed Or The Highest Degree You Have Received? NI40216-8 [email or web address] Information not available 08/12/2025 Are There Any Guns Present In Your Home? Yes Information not available 02/26/2017 Hard Of Hearing Or Deaf In One Or Both Ears? No [email or web address] Information not available 01/29/2017 High Number Of Sexual Partners No [email or web address] Information not available 01/29/2017 History Of Inconsistent/no Condom Use No Information not available 01/29/2017 International Travel None Information not available 02/26/2017 Legally Blind In One Or Both Eyes? No [email or web address] Information not available 01/29/2017 In The Past 6 Months Have You Fallen No [email or web address] Information not available 01/29/2017 Medication List Reconciled Yes Information not available 04/14/2019 What Number (0-10) Best Describes How, During The Past Week, Has Interfered With Your General Activity? 0 [email or web address] Information not available 01/29/2017 What Number (0-10) Best Describes How, During The Past Week, Pain Has Interfered With Your Enjoyment In The Past Week 0 [email or web address] Information not available 01/29/2017 What Number (0-10) Best Describes Your Pain On Average In The Past Week 0 Information not available 01/29/2017 Total PEG Score 0 umnftle51 Informati on not available 01/29/2017 Most Recent Dental Visit 09/02/1996 Up To Date 04/23/22 Information not available 08/08/2018 Sexual Orientation Straight Or Heterosexual Information not available 11/24/2020 Gender Identity Female Informat ion not available 11/24/2020 Eye Exam 09/02/2015 Information not available 08/08/2018 Do You Feel Safe Yes Informa tion not available 11/24/2020 Hospital Follow Up Appointment 08/12/2025 Information not available 08/12/2025 Hospital Discharged Patient To Home [email or web address] Information not available 08/12/2025 ER Medication List Reconciled Yes [email or web address] Information not available 07/22/2025 ER Contact Date 07/22/2025 [email or web address] Informati on not available 07/22/2025 ER Follow Up Contact Date 07/22/2025 [email or web address] Information not available 07/22/2025 ER Follow Up Patient Contact Via Unable To Contact Went To [facility] ER Transferred To [facility] Diagnosis Pneumonia [email or web address] Information not available 07/22/2025 ER Date Of Discharge 07/21/2025 [email or web address] Information not available 07/22/2025 ER Discharged Patient To Caregiver Transfer [email or web address] Information not available 07/22/2025 ER Records Recieved Yes [email or web address] Information not available 07/22/2025 ER Records Requested Yes [email or web address] Information not available 07/22/2025 Marital Status orvemhd10 Informatio n not available 01/29/2017 What Was The Date Of Your Most Recent Tobacco Screening? 08/12/2025 [email or web address] Information not available 08/12/2025 Mother With HIV? No [email or web address] Informat ion not available 01/29/2017 How Many Children Do You Have? 4 [email or web address] Information not available 08/12/2025 What Is Your Relationship Status? [email or web address] Information not available 08/12/2025 Do You Use Your Seat Belt Or Car Seat Routinely? Yes Information not available 07/28/2024 Seat Belts Used Routinely Yes [email or web address] Information not available 01/29/2017 Are You Sexually Active? Yes Information not available 08/08/2018 Sexual Partner Has HIV? No hbbvfzi77 Information not available 01/29/2017 Sexual Partner Uses IV Drugs? No [email or web address] Information not available 01/29/2017 Smoke Alarm In Home No [email or web address] Information not available 01/29/2017 At What Age Did You Start Smoking Tobacco? 15 Information not available 02/26/2017 How Much Tobacco Do You Smoke? 0.5 PPD [email or web address] Information not available 05/05/2025 General Stress Level Medium [email or web address] Information not available 01/29/2017 Do You Use Sunscreen Routinely? No [email or web address] Information not available 01/29/2017 How Many Years Have You Smoked Tobacco? 41 Information not available 02/26/2017 Have You Used IV Drugs? No [email or web address] Information not available 01/29/2017 Do You Have [...] use any illicit or recreational drugs? No [email or web address] Information not available 06/14/2025 Do you or have you ever used any other forms of tobacco or nicotine? Yes Nicotine patches Information not available 12/17/2024 What is your level of alcohol consumption? None [email or web address] Information not available 01/29/2017 Do you or have you ever used smokeless tobacco? Never used smokeless tobacco Information not available 04/14/2019 Are you currently employed? No [email or web address] Information not available 08/12/2025 Do you have transportation difficulties? No uebhaxmu37 Information not available 09/25/2021 Are you able to walk independently without assistance or assistive devices? YESWOREST [email or web address] Information not available 01/29/2017 Do you have difficulty doing errands alone? No Information not available 09/25/2021 Are you able to care for yourself independently? Yes [email or web address] Information not available 09/25/2021 Do you have difficulty dressing, bathing, grooming, or toileting? No [email or web address] Information not available 09/25/2021 Do you or have you ever used e-cigarettes or vape? Never used electronic cigarettes Information not available 04/14/2019 What is your exercise level? Moderate nibcfwr55 Information not available 01/29/2017 Mental Status Question Answer Note LastModified by Organizat ion Details LastModified Time Do you feel stressed (tense, restless, nervous, or anxious, or unable to sleep at night)? [id number] [email or web address] Information not available 09/25/2021 Do you have difficulty concentrating, remembering or making decisions? No [email or web address] Information no t available 09/25/2021 Family History Relationship Description Onset Age of this Age Resolved Age Notes LastModified by Organization Details LastModified Time Mother Diabetes mellitus [email or web address] Not available 2016 14:32:39 Brother Diabetes mellitus [email or web address] Not available 2016 14:32:46 Medical History Condition [...] Anemia N Colon Polyps N Heart Attack (NE) N Ovarian Cancer N Diabetes N Bedwetting [...] MDCK, quadrivalent, preservative 9 completed Not Available Pending sale to [facility] 09/19/2019 02:39:19 Tdap 7 completed Not Available Pending sale to [facility] 09/19/2019 02:39:16 Influenza, split virus, trivalent, preservative 6 completed Not Available Pending sale to [facility] 09/25/2023 03:27:39 Tdap 5 completed Not Available Pending sale to [facility] 08/12/2025 12:00:37 Influenza, MDCK, quadrivalent, PF 4 completed Juliet Gatica [facility] 05/07/2024 12:22:36 Influenza, split virus, quadrivalent, PF 5 completed Rita Olivarez [facility] 05/05/2025 12:58:35 Pneumococcal conjugate PCV20, polysaccharide DAD403 conjugate, adjuvant, 5 completed Rita Olivarez [facility] 06/28/2025 15:43:32 Influenza, MDCK, quadrivalent, preservative 8 completed Not Available Pending sale to [facility] 09/19/2019 02:39:18 Past Encounters Encounter ID Performer Location Encounter Start Date Encounter Closed Date Diagnosis/Indication Diagnosis SNOMED-CT Code Diagnosis ICD10 Code Diagnosis IMO Codes Diagnosis Note [id number] MCKAY CUEVAS DO [address] [address] 06/07/2025 15:14:29 06/07/2025 17:30:00 Local infection of wound 99583455 T81.49XA [id number] A new dressing was applied. A foam dressing will be ordered to support wound healing. Patient voiced understand ing of the treatment plan. Body mass index 40+ - severely obese 783257557 Z68.42 425261 BMI 45.6 Diet education 46220829 Z71.3 Exercises education, guidance, and counseling 521735729 Z71.82 [id number] MCKAY CUEVAS DO [address] [address] 06/14/2025 14:58:44 06/14/2025 15:33:09 Local infection of wound 02616680 T81.49XA [id number] A new dressing was applied. Body mass index 40+ - severely obese 491249880 E66.01 Z68.42 25487642 Diet education 38388295 Z71.3 Exercises education, guidance, and counseling 413421802 Z71.82 Congestive heart failure 05680908 I50.9 Lasix was increased to 80 mg daily for three days and while taking increase in lasix take potassium. The patient was advised to monitor for worsening symptoms and to go to the emergency room. [id number] Didier Hardin [address] [address] 06/21/2025 14:57:19 06/22/2025 11:02:18 Local infection of wound 55113225 T81.49XA [id number] Advised to continue Levaquin as ordered. Observe for any worsening s/s of infection such as increased redness, drainage, swelling, odor or fever and RTC or seek care if symptoms occur. Otherwise follow up in one week. Questions encouraged and answered, verbalized understand ing. Diet education 65184246 Z71.3 Exercises education, guidance, and counseling 521674902 Z71.82 Body mass index 40+ - severely obese 732637072 Z68.42 2841627452 BMI is 46.2 [id number] MCKAY CUEVAS DO [address] [address] 06/28/2025 14:26:03 06/28/2025 17:52:37 Body mass index 40+ - severely obese 004376607 Z68.42 557472 Diet education 07807556 Z71.3 Exercises education, guidance, and counseling 037401142 Z71.82 Insomnia 005866833 G47.0 9 28245 Will increase the trazodone to 100 mg at bedtime. Local infe ction of wound 64147904 T81.49XA [id number] Healing. Completed levaquin. Will recheck next week Requires v accination against Streptococcus pneumoniae 2430083978 Z23 932596 [id number] [facility] [address] [place] [address] 07/06/2025 09:50:42 07/06/2025 12:42:45 [id number] MCKAY CUEVAS DO [facility] [place] [address] [place] [address] 07/07/2025 14:54:32 07/07/2025 15:29:25 Local infection of wound 27323276 T81.49XA [id number] Healing. If noticing any increased redness or pain; Let us know. Patient voiced understand ing Body mass index 40+ - severely obese 914268536 E66.01 98772576 Diet education 26802554 Z71.3 Exercises education, guidance, and counseling 725829627 Z71.82 Cigarette smoker 7456244 7 F17.210 894168 [id number] [facility] [address] [place] [address] 07/07/2025 15:43:10 07/07/2025 16:42:44 Goals Section [...] Name 07/07/2025 2 [place] Nadine Esquivel [id number] Nadine Esquivel 07/07/2025 1 [facility] Nadine Esquivel [id number] 01 Nadine Esquivel Notes Date Note Type Note Provider Name and Address Organization Details Recorded Time 07/07/2025 text/html Patient is here to follow up on skin infection. It is healing. Adriana Poe NP [address], [address], [facility] 07/07/2025 15:24:28 OBGyn Episode No OBEpisode recorded.
--- OUTSIDE RECORDS SUMMARY | 2025-08-29 09:08 | XMS_ITS | Continuity of Care Document ---
Author Organization [facility], Community Health Workers Address [address] [place] [address] Care Team Providers Care Steel Melter Name Role Phone LUISA JAIMES Credit Support Specialist EUN Biggs Community Health Worker SHAWNA [facility] Assessment Encounter Date Assessment Date Assessment LastModified by Organization Details LastModified Time 08/05/2025 08/05/2025 Care Plan for Nadine Esquivel (Briseida) 64 Enrolled [facility] 07/27 Diagnosis: Depression, CHF, COPD, Tobacco, [...] -Report any hospital or ER visits to home care rn or clinic staff. Interventions ([facility] Nurse Steps) -RN will provide educational [...] phone, by mail, through Primary Care Physician, SHEET METAL WORKER SUPERVISOR, or others physicians at our office. Evaluations 08/05/25- attempted to call pt to follow-up on pt case for SDOH needs. The pt case says to text before calling but I am not set up for secure texting at this time and unable to text. Pt did no answer the phone call and I left a voicemail with my contact information. TONI Schultz 07/26/2025- Pt was discharged from [facility] on 07/25/25. Discharge diagnosis CHF exacerbation, COPD. She was discharged on 2 oral antibiotics and oral steroids. Pt was also instructed to start Lantus insulin 25u daily and sliding scale TID. Attempted to call pt, no answer, left message asking her to call me back. Contacted PSRs and asked they attempt to contact pt today and make FU appt with PCP. Demario 07/23/2025-Per [facility] EMR pt remains hospitalized with R lower lobe pneumonia and CHF. She is being treated with IV rocephin and doxycycline. CT and echocardiogram done yesterday, report not in chart yet. Demario 07/22/2025-Pt called yesterday to clinic complaining of weakness and shortness of breath. She was advised to go to ER. I tried to call pt back, no answer. Called [facility] adn she was there being treated. Records received today. CXR showed R lower lobe pneumonia. bNP 456, WBcs 11.6. On admit her O2 sat was 70%, place on 4L then eventually was able to go down to 2L. Pt was treated with Dexamethasone, Zithromax, Rocephin, Lasix, and neb treatments. She was transferred to [facility], diagnosis L lower lobe pneumonia, CHF. Called [facility] pt is there in room 5014, med [...] this month. Case sent to Kajal Manzano W asking her to contact pt. Pt said she has to be texted then she will call back, that her phone will not accept calls. Demario 07/06/25-New Enrollment into [facility] program. Dx: Depression, CHF, COPD, Tobacco, BMI, asthma Pt does not have [facility]. Pt has active Medicaid Pt has had ER visits in the last year. Will develop a Care Plan to assist with the patients Chronic Illness. Will introduce myself, explain program and give pt care plan at next FTF visit. Pt has appt tomorrow Demario [email or web address] Not available 08/05/2025 15:59:49 Plan of Treatment Reminders Order Date Submit [...] Organization Details Recorded Time Acute sinusiti s [id number] Completed 200402/26/2017 Category : DD; Medicine Descript ion: SINUSITI S ACUTE; Display in Medcin: YES; Display in ESB: YES; Confiden tiality Level: Level 1 [facility] 7 10:04:47 Dizzines s and giddines s [id number] Completed 200402/26/2017 Category : DD; Medicine Descript ion: dizzines s; Display in Medcin: YES; Display in ESB: YES; Confiden tiality Level: Level 1 REMIGIO Lemus, [facility] 7 10:05:26 Tracheob ronchiti s [id number] Completed 200402/26/2017 Category : DD; Medicine Descript ion: TRACHEOB RONCHITI S; Display in Medcin: YES; Display in ESB: YES; Confiden tiality Level: Level 1 [facility] 7 10:04:42 Chronic obstruct angy pulmonar y disease 69380015 Active 2004 Modified By: MARIA ANTONIA DEL REAL; Category : DD; Examiner : Veronica Jensen I.; Medicine Descript ion: CHRONIC OBSTRUCT ANGY PULMONAR Y DISEASE; Display in Medcin: YES; Display in ESB: YES; Confiden tiality Level: Level [address] [facility] 4 03:27:39 Clinical finding Completed 200402/26/2017 Modified By: YAZ MARSHALL; Category : DD; Examiner : Yaz Marshall; Medicine Descript ion: LARYNGOP HARYNGEA L REFLUX; Display in Medcin: NO; Display in ESB: NO; Confiden tiality Level: Level 1 [facility] 7 10:05:08 Allergic rhinitis 69752405 Active 2004 Category : DD; Medicine Descript ion: ALLERGIC RHINITIS ; Display in Medcin: YES; Display in ESB: YES; Confiden tiality Level: Level [address] [facility] 4 03:27:39 Neves's palsy 558973330 Completed 200502/26/2017 Category : DD; Medicine Descript ion: NEVES'S PALSY; Display in Medcin: YES; Display in ESB: YES; Confiden tiality Level: Level 1 REMIGIO Lemus, [facility] 7 10:05:01 Family history of diabetes mellitus 806268031 Completed 200902/26/2017 Created By: VERONICA JENSEN ; Modified By: VERONICA JENSEN ; Category : DD; Examiner : VERONICA JENSEN I.; Medicine Descript ion: DIABETES MELLITUS ; Display in Medcin: NO; Display in ESB: YES; Confiden tiality Level: Level 1 REMIGIO Lemus, [facility] 7 10:04:51 Benign essentia l hyperten [place] 6380526 Completed 200902/26/2017 Created By: VERONICA JENSEN ; Modified By: GHAZAL PHAN; Category : DD; Examiner : VERONICA JENSEN I.; Medicine Descript ion: HYPERTEN [place] (SYSTEMI C); Display in Medcin: YES; Display in ESB: YES; Confiden tiality Level: Level 1 [facility] 7 10:05:46 Family history of Cardiova scular disease 217696407 Completed 200902/26/2017 Created By: VERONICA JENSEN ; Modified By: MARIA ANTONIA DEL REAL; Category : DD; Examiner : Veronica Jensen I.; Medicine Descript ion: reported family history ischemic heart disease before age 50; Display in Medcin: YES; Display in ESB: YES; Confiden tiality Level: Level 1 REMIGIO Lemus, [facility] 7 10:05:23 Wheezing [id number] Completed 200902/26/2017 Created By: VERONICA JENSNE ; Modified By: GHAZAL PHAN; Category : DD; Examiner : Veronica Jensen I.; Medicine Descript ion: wheezing [as a symptom] ; Display in Medcin: YES; Display in ESB: YES; Confiden tiality Level: Level 1 Cordelia Mcclain LPN [facility], [facility] 7 10:05:57 Mild intermit tent asthma 537162554 Active 2009 Created By: VERONICA JENSEN ; Modified By: GHAZAL PHAN; Category : DD; Examiner : Veronica Jensen I.; Medicine Descript ion: ASTHMA MILD INTERMIT TENT UNCOMPLI CATED; Display in Medcin: YES; Display in ESB: YES; Confiden tiality Level: Level [address] [facility] 4 03:27:39 Obesity 805069126 Active 2010 Created By: VERONICA JENSEN ; Modified By: GHAZAL PHAN; Category : DD; Examiner : VERONICA JENSEN I.; Medicine Descript ion: Obese; Display in Medcin: YES; Display in ESB: YES; Confiden tiality Level: Level [address] [facility] 4 03:27:39 Nicotine dependen ce 85065457 Active 2010 Created By: VERONICA JENSEN ; Modified By: YAZ MARSHALL; Category : DD; Examiner : Yaz Marshall; Medicine Descript ion: current smoker; Display in Medcin: NO; Display in ESB: NO; Confiden tiality Level: Level 1; Type: Diagnosi s Not Available [facility] 4 03:27:39 Hyperlip idemia 84515621 Active 2010 Created By: VERONICA JENSEN ; Modified By: VERONICA JENSEN ; Category : DD; Examiner : Veronica Jensen I.; Medicine Descript ion: DYSLIPID EMIA; Display in Medcin: YES; Display in ESB: YES; Confiden tiality Level: Level 1; Type: Diagnosi s Not Available [facility] 4 03:27:39 Long-ter m drug therapy Completed 201002/26/2017 Created By: VERONICA JENSEN ; Modified By: VERONICA JENSEN ; Category : DD; Examiner : Veronica Jensen I.; Medicine Descript ion: taking medicati on for a long time; Display in Medcin: YES; Display in ESB: YES; Confiden tiality Level: Level 1; Type: Sonia Coronana Johny, CERTIFIED HYPERBARIC TECHNICIAN null, [facility] 7 10:05:21 Lexi santizo s [id number] Completed 201102/26/2017 Created By: VERONICA JENSEN ; Modified By: YAZ MARSHALL; Category : DD; Examiner : Yaz Marshall; Medicine Descript ion: Wartlike Lesions Feet Plantar; Display in Medcin: YES; Display in ESB: YES; Confiden tiality Level: Level 1; Type: Sonia Coronana Johny, CERTIFIED HYPERBARIC TECHNICIAN null, [facility] 7 10:06:02 Plane wart 208303848 Completed 201102/26/2017 Created By: VERONICA JENSEN ; Modified By: YAZ MARSHALL; Category : DD; Examiner : Yaz Marshall; Medicine Descript ion: WARTS COMMON; Display in Medcin: YES; Display in ESB: YES; Confiden tiality Level: Level 1; Type: Sonia Coronana Johny, CERTIFIED HYPERBARIC TECHNICIAN null, [facility] 7 10:05:14 Procedur e Completed 201102/26/2017 Created By: VERONICA JENSEN ; Modified By: YAZ MARSHALL; Category : DD; Examiner : Veronica Jensen I.; Medicine Descript ion: visit for: medicati on refill; Display in Medcin: NO; Display in ESB: NO; Confiden tiality Level: Level 1; Type: Sonia s Cordelia Johny, CERTIFIED HYPERBARIC TECHNICIAN null, [facility] 7 10:05:40 Sciatica 95743797 Completed 201202/26/2017 Created By: VERONICA JENSEN ; Modified By: AYZ MARSHALL; Category : DD; Examiner : Veronica Jensen I.; Medicine Descript ion: NEURITIS SCIATIC; Display in Medcin: NO; Display in ESB: NO; Confiden tiality Level: Level 1; Type: Diagnosi s Cordelia Johny, CERTIFIED HYPERBARIC TECHNICIAN null, [facility] 7 10:05:12 Screenin g procedur e Completed 201402/26/2017 Created By: YAZ MARSHALL; Modified By: YAZ MARSHALL; Category : DD; Examiner : Yaz Marshall; Medicine Descript ion: visit for: screenin g malignan t neoplasm colon; Display in Medcin: NO; Display in ESB: NO; Confiden tiality Level: Level 1; Type: Sonia Mcclain, CERTIFIED HYPERBARIC TECHNICIAN null, [facility] 7 10:05:37 Adult health examinat ion Completed 201402/26/2017 Created By: YAZ MARSHALL; Modified By: YAZ MARSHALL; Category : DD; Examiner : Yaz Marshall; Medicine Descript ion: ROUTINE HISTORY AND PHYSICAL ; Display in Medcin: YES; Display in ESB: YES; Confiden tiality Level: Level 1; Type: Sonia Mcclain, CERTIFIED HYPERBARIC TECHNICIAN null, [facility] 7 10:05:29 Abnormal finding on evaluati on procedur e [id number] Completed 201402/26/2017 Created By: YAZ MARSHALL; Modified By: YAZ MARSHALL; Category : DD; Examiner : Yaz Marshall; Medicine Descript ion: ROUTINE HISTORY AND PHYSICAL ; Display in Medcin: YES; Display in ESB: YES; Confiden tiality Level: Level 1; Type: Sonia Mcclain, CERTIFIED HYPERBARIC TECHNICIAN null, [facility] 7 10:05:54 Palpitat ions [id number] Completed 201402/26/2017 Created By: YAZ MARSHALL; Modified By: YAZ MARSHALL; Category : DD; Examiner : Yaz Marshall; Medicine Descript ion: palpitat ions; Display in Medcin: NO; Display in ESB: NO; Confiden tiality Level: Level 1; Type: Sonia Mcclain, CERTIFIED HYPERBARIC TECHNICIAN null, [facility] 7 10:06:05 Microsco pic hematuri a [id number] Completed 201402/26/2017 Created By: YAZ MARSHALL; Modified By: YAZ MARSHALL; Category : DD; Examiner : Yaz Marshall; Medicine Descript ion: MICROSCO PIC HEMATURI A; Display in Medcin: YES; Display in ESB: YES; Confiden tiality Level: Level 1; Type: Diagnosi s Cordelia Johny, CERTIFIED HYPERBARIC TECHNICIAN null, [facility] 7 10:05:05 Electroc ardiogra m abnormal [id number] Completed 201402/26/2017 Created By: YAZ MARSHALL; Modified By: YAZ MARSHALL; Category : DD; Examiner : Yaz Marshall; Medicine Descript ion: ECG NORMAL VARIANT; Display in Medcin: NO; Display in ESB: NO; Confiden tiality Level: Level 1; Type: Diagnosi s Cordelia Johny, CERTIFIED HYPERBARIC TECHNICIAN null, [facility] 7 10:04:38 Evaluati on procedur e Completed 201402/26/2017 Created By: ELVIE FERNANDEZ; Modified By: KEVEN OCTOBER; Category : DD; Examiner : Keven Muhammad; Medicine Descript ion: Observat ion For Suspecte d Conditio n; Display in Medcin: YES; Display in ESB: YES; Confiden tiality Level: Level 1; Type: Diagnosi s Cordeliadora Mcclain, CERTIFIED HYPERBARIC TECHNICIAN null, [facility] 7 10:05:34 Hyperten sive disorder 06947133 Active 2015 Created By: YAZ MARSHALL; Modified By: YAZ MARSHALL; Category : DD; Examiner : Yaz Marshall; Medicine Descript ion: ESSENTIA L HYPERTEN [place] BENIGN; Display in Medcin: YES; Display in ESB: YES; Confiden tiality Level: Level 1; Type: Diagnosi s Not Available [facility] 4 03:27:39 Viral screenin g Completed 201502/26/2017 Created By: YAZ MARSHALL; Modified By: YAZ MARSHALL; Category : DD; Examiner : Yaz Marshall; Medicine Descript ion: visit for: screenin g exam dengue fever; Display in Medcin: YES; Display in ESB: YES; Confiden tiality Level: Level 1; Type: Sonia Mcclain, CERTIFIED HYPERBARIC TECHNICIAN null, [facility] 7 10:05:16 Screenin g mammogra phy Completed 201502/26/2017 Created By: YAZ MARSHALL; Modified By: YAZ MARSHALL; Category : DD; Examiner : Yaz Marshall; Medicine Descript ion: Mammogra m Screenin g; Display in Medcin: YES; Display in ESB: YES; Confiden tiality Level: Level 1; Type: Diagnosmaddi Mcclain, CERTIFIED HYPERBARIC TECHNICIAN null, [facility] 7 10:05:19 Active immuniza tion Completed 201502/26/2017 Created By: YAZ MARSHALL; Modified By: YAZ MARSHALL; Category : DD; Examiner : Yaz Marshall; Medicine Descript ion: visit for: immuniza tion; Display in Medcin: YES; Display in ESB: YES; Confiden tiality Level: Level 1; Type: Diagnosmaddi Mcclain, CERTIFIED HYPERBARIC TECHNICIAN null, [facility] 7 10:05:31 Pain of left shoulder joint [id number] 420481 Active 2017 Not Available [facility] 4 03:27:39 Vitamin D deficien cy 07311678 Active 2021 Not Available [facility] 4 03:27:39 Congesti ve heart failure 16155126 Active 2022 Not Available [facility] 4 03:27:39 Type 2 diabetes mellitus without complica tion 657741438 Active 2022 Not Available [facility] 4 03:27:39 Female urinary stress incontin ence 64163998 Active 2024 Adriana Poe NP [address], [address] , [facility] 5 11:50:21 Dependen ce on suppleme ntal oxygen 16637963218 7 Active 2024 Adriana Poe NP [address] [place] [address], [phone] , [facility] 12:26:07 Problem Notes None recorded. Procedures Surgical History Date Name Laterality Status Provider Name and Address Organization Details Recorded Time 05/17/20 25 Suture/Staple removal completed [address], [address] 05/17/2025 15:52:31 05/05/20 25 Flu vaccine Screening completed Rita Olivarez [facility] 05/05/2025 12:16:34 08/20/20 24 Nebulizer tx duoneb completed [address], [address] 08/20/2024 16:28:20 05/06/20 24 venipuncture completed Juliet Gatica [facility] 05/06/2024 11:42:54 02/19/20 24 Splint Application completed Adriana Poe NP [address] [place] [address], [phone], [facility] 02/19/2024 14:24:04 12/26/19 24 venipuncture completed Yuliya Hurd [facility] 12/26/2023 15:40:03 09/25/19 22 venipuncture completed Shauna Jordan [facility] 09/25/2021 13:07:04 11/25/19 21 venipuncture completed Jodi Mora [facility] 11/24/2020 11:10:23 12/18/19 20 venipuncture completed Yuliya Hurd [facility] 12/18/2019 16:28:31 12/18/19 20 venipuncture cancelled Tyler Mcfarlane [facility] 12/18/2019 09:21:06 04/14/20 19 venipuncture completed Cordelia Mcclain LPN [facility] 04/14/2019 09:25:36 08/08/20 18 venipuncture completed Cordelia Mcclain LPN [facility] 08/08/2018 09:13:48 09/10/19 18 venipuncture completed Homa Tessa [facility] 09/10/2017 10:01:27 02/27/20 17 venipuncture completed Cordelia Mcclain LPN [facility] 02/26/2017 10:26:37 08/15/20 16 venipuncture completed Homa Zarate [facility] 08/15/2016 10:27:51 Cardiac Surgery completed Cordelia waldrop LPN [facility] 02/26/2017 10:07:03 Imaging Results None recorded. Procedure Notes None recorded. Medical Equipment None Reported. Allergies Allergen ID Allergen Name Allergen Category Reaction Reaction Severity Criticality Documentation Date Start Date Code Code System Note Provider Name and Address Organization Details Recorded Time 21911 codeine medicatio n Not available Not available Not available 08/05/20162009 2670 RxNorm Comme nt: Last Edite d: 11-25 09:27 :35; Not Available [facility] 03:58:28 Medications Name Sig Start Date [...] sliding scale before meals TID<150- 0 -200-3 oaqfp250 -250-6 cnauz945 -300- 9 gqotw569 -350-12 ugmyg848 -400-15 units Not Available Not Available Not [...] Status Current Every Day Smoker Rita Olivarez [facility] [place] [facility] 02/18/2025 15:08:04 Do You Have An Advance Directive? No [email or web address] Information not available 01/29/2017 Are You Blind Or Do You Have Difficulty Seeing? Yes [email or web address] Information not available 09/25/2021 Is Blood Transfusion Acceptable In An Emergency? Yes [email or web address] Information not available 09/25/2021 What Is Your Level Of Caffeine Consumption? Heavy [email or web address] Information not available 01/29/2017 How Much Tobacco Do You Chew? None [email or web address] Information not available 01/29/2017 Commercial Sex Work No [email or web address] Information not available 01/29/2017 In The 14 [...] Do You Have Serious Difficulty Hearing? No [email or web address] Information not available 09/25/2021 What Type Of Diet Are You Following? REGULAR [email or web address] Information not available 01/29/2017 Which Illicit Or Recreational Drugs Have You Used? None [email or web address] Information not available 01/29/2017 Have You Processed Blood Or Body Fluids From An Ebola Virus Disease Patient Without Appropriate PPE? No [email or web address] Information not available 09/25/2021 Education Less Than 8th Grade [email or web address] Information not available 01/29/2017 What Is The Highest Grade Or Level Of School You Have Completed Or The Highest Degree You Have Received? [id number] [email or web address] Information not available 08/12/2025 Are There Any Guns Present In Your Home? Yes Information not available 02/26/2017 Hard Of Hearing Or Deaf In One Or Both Ears? No [email or web address] Information not available 01/29/2017 High Number Of Sexual Partners No [email or web address] Information not available 01/29/2017 History Of Inconsistent/no Condom Use No [email or web address] Information not available 01/29/2017 International Travel None Information not available 02/26/2017 Legally Blind In One Or Both Eyes? No [email or web address] Information not available 01/29/2017 In The Past 6 Months Have You Fallen No [email or web address] Information not available 01/29/2017 Medication List Reconciled Yes Information not available 04/14/2019 What Number (0-10) Best Describes How, During The Past Week, Has Interfered With Your General Activity? 0 [email or web address] Information not available 01/29/2017 What Number (0-10) Best Describes How, During The Past Week, Pain Has Interfered With Your Enjoyment In The Past Week 0 Information not available 01/29/2017 What Number (0-10) Best Describes Your Pain On Average In The Past Week 0 [email or web address] Information not available 01/29/2017 Total PEG Score 0 [email or web address] Informati on not available 01/29/2017 Most Recent Dental Visit 09/02/1996 Up To Date 04/23/22 Information not available 08/08/2018 Sexual Orientation Straight Or Heterosexual Information not available 11/24/2020 Gender Identity Female Informat ion not available 11/24/2020 Eye Exam 09/02/2015 Information not available 08/08/2018 Do You Feel Safe Yes [email or web address] Informa tion not available 11/24/2020 Hospital Follow Up Appointment 08/12/2025 [email or web address] Information not available 08/12/2025 Hospital Discharged Patient To Home [email or web address] Information not available 08/12/2025 ER Medication List Reconciled Yes [email or web address] Information not available 07/22/2025 ER Contact Date 07/22/2025 [email or web address] Informati on not available 07/22/2025 ER Follow Up Contact Date 07/22/2025 [email or web address] Information not available 07/22/2025 ER Follow Up Patient Contact Via Unable To Contact Went To [facility] ER Transferred To [facility] Diagnosis Pneumonia [email or web address] Information not available 07/22/2025 ER Date Of Discharge 07/21/2025 [email or web address] Information not available 07/22/2025 ER Discharged Patient To Caregiver Transfer [email or web address] Information not available 07/22/2025 ER Records Recieved Yes Information not available 07/22/2025 ER Records Requested Yes [email or web address] Information not available 07/22/2025 Marital Status [email or web address] Informatio n not available 01/29/2017 What Was The Date Of Your Most Recent Tobacco Screening? 08/12/2025 [email or web address] Information not available 08/12/2025 Mother With HIV? No [email or web address] Informat ion not available 01/29/2017 How Many Children Do You Have? 4 [email or web address] Information not available 08/12/2025 What Is Your Relationship Status? [email or web address] Information not available 08/12/2025 Do You Use Your Seat Belt Or Car Seat Routinely? Yes Information not available 07/28/2024 Seat Belts Used Routinely Yes [email or web address] Information not available 01/29/2017 Are You Sexually Active? Yes Information not available 08/08/2018 Sexual Partner Has HIV? No [email or web address] Information not available 01/29/2017 Sexual Partner Uses IV Drugs? No [email or web address] Information not available 01/29/2017 Smoke Alarm In Home No [email or web address] Information not available 01/29/2017 At What Age Did You Start Smoking Tobacco? 15 Information not available 02/26/2017 How Much Tobacco Do You Smoke? 0.5 PPD [email or web address] Information not available 05/05/2025 General Stress Level Medium [email or web address] Information not available 01/29/2017 Do You Use Sunscreen Routinely? No [email or web address] Information not available 01/29/2017 How Many Years Have You Smoked Tobacco? 41 Information not available 02/26/2017 Have You Used IV Drugs? No [email or web address] Information not available 01/29/2017 Do You Have Difficulty Walking Or Climbing Stairs? Yes [email or web address] Information not available 09/25/2021 Do You Want [...] use any illicit or recreational drugs? No [email or web address] Information not available 06/14/2025 Do you or have you ever used any other forms of tobacco or nicotine? Yes Nicotine patches Information not available 12/17/2024 What is your level of alcohol consumption? None [email or web address] Information not available 01/29/2017 Do you or have you ever used smokeless tobacco? Never used smokeless tobacco Information not available 04/14/2019 Are you currently employed? No [email or web address] Information not available 08/12/2025 Do you have transportation difficulties? No [email or web address] Information not available 09/25/2021 Are you able to walk independently without assistance or assistive devices? YESWOREST oxbdtjd88 Information not available 01/29/2017 Do you have difficulty doing errands alone? No [email or web address] Information not available 09/25/2021 Are you able to care for yourself independently? Yes [email or web address] Information not available 09/25/2021 Do you have difficulty dressing, bathing, grooming, or toileting? No [email or web address] Information not available 09/25/2021 Do you or have you ever used e-cigarettes or vape? Never used electronic cigarettes Information not available 04/14/2019 What is your exercise level? Moderate [email or web address] Information not available 01/29/2017 Mental Status Question Answer Note LastModified by Organizat ion Details LastModified Time Do you feel stressed (tense, restless, nervous, or anxious, or unable to sleep at night)? [id number] Information not available 09/25/2021 Do you have difficulty concentrating, remembering or making decisions? No [email or web address] Information no t available 09/25/2021 Family History Relationship Description Onset Age of this Age Resolved Age Notes LastModified by Organization Details LastModified Time Mother Diabetes mellitus [email or web address] Not available 2016 14:32:39 Brother Diabetes mellitus [email or web address] Not available 2016 14:32:46 Medical History Condition [...] Colon Polyps N Heart Attack ([place]) N Ovarian Cancer N Diabetes N Bedwetting [...] MDCK, quadrivalent, preservative [address] [facility] 09/19/2019 02:39:19 Tdap [address] [facility] 09/19/2019 02:39:16 Influenza, split virus, trivalent, preservative [address] [facility] 09/25/2023 03:27:39 Tdap [address] [facility] 08/12/2025 12:00:37 Influenza, MDCK, quadrivalent, PF 4 completed Juliet Gatica [facility] 05/07/2024 12:22:36 Influenza, split virus, quadrivalent, PF 5 completed Rita Olivarez [facility] 05/05/2025 12:58:35 Pneumococcal conjugate PCV20, polysaccharide [id number] conjugate, adjuvant, 5 completed Rita Olivarez [facility] 06/28/2025 15:43:32 Influenza, MDCK, quadrivalent, preservative [address] [facility] 09/19/2019 02:39:18 Past Encounters Encounter ID Performer Location Encounter Start Date Encounter Closed Date Diagnosis/Indication Diagnosis SNOMED-CT Code Diagnosis ICD10 Code Diagnosis IMO Codes Diagnosis Note [id number] [facility] [address] [place] [phone] 07/06/2025 09:50:42 07/06/2025 12:42:45 [id number] MCKAY CUEVAS DO [facility] [place] [address] [place] [address] 07/07/2025 14:54:32 07/07/2025 15:29:25 Local infection of wound 16417420 T81.49XA [id number] Healing. If noticing any increased redness or pain; Let us know. Patient voiced understand ing Body mass index 40+ - severely obese 822472103 E66.01 [id number] Diet education 99623686 Z71.3 Exercises education, guidance, and counseling 132178433 Z71.82 Cigarette smoker 2504196 7 F17.210 [id number] [facility] [address] [place] [phone] 07/07/2025 15:43:10 07/07/2025 16:42:44 [id number] [facility] [address] [address] 07/22/2025 15:07:34 07/22/2025 17:21:39 [id number] [facility] [address] [address] 07/23/2025 07:58:37 07/26/2025 08:44:39 [id number] [facility] [address] [address] 07/26/2025 09:20:12 07/26/2025 11:14:46 [id number] [facility] [address] [facility],[address] [place] [address] 08/05/2025 15:56:46 08/05/2025 15:59:56 Goals Section Goal Description Progress Status Start [...] Member ID Sofia Member ID Guarantor Name 08/05/2025 2 [place] Nadine Esquivel [id number] Nadine Esquivel 08/05/2025 1 [facility] (EPO[facility] Nadine Esquivel [id number] Nadine Esquivel OBGyn Episode No OBEpisode recorded.
--- OUTSIDE RECORDS SUMMARY | 2025-08-29 09:08 | XMS_ITS | Clinical Summary ---
Author Organization [facility] Facility Address [address] [place] [id number] Care Team Providers Care Golf Sales Associate Name Role Phone Adriana Poe Primary Care Provider [phone] Social History Tobacco Use Types Packs/Day Years Used Date Smoking Tobacco: Never Assessed Comments Unknown Sex and Gender Information Value Date Recorded Sex Assigned at Not on file Legal Sex Female 2:11 PM EDT Gender Identity Not on file Sexual Orientation Not on file Plan of Treatment Health Maintenance Due Date Last Done Comments Breast Cancer Screening 1962 Colorectal Cancer Screening: Annual FOBT 2011 Colorectal Cancer Screening: Colonoscopy 2011 Colorectal Cancer Screening: Sigmoidoscopy 2011 Pneumococcal Vaccine: 50+ Ye ars (1 of 1 - PCV) 2012 Influenza Vaccine (#1) 2025 Hepatitis B Vaccine Aged Out No longe r eligible based on patient's age to complete this topic Insurance [facility] Medicaid Care Teams Golf Sales Associate Relationship Specialty Start Date End Date Adriana Poe FNP [address] [place] [address] PCP - General Family Medicine 06/05/23
--- OUTSIDE RECORDS SUMMARY | 2025-08-29 09:08 | XMS_ITS | Continuity of Care Document ---
Author Organization [facility], Community Health Workers Address [address] [place] [address] Care Team Providers Care Wash Oil Pump Operator Helper Name Role Phone LUISA JAIMES Bean Roaster EUN Biggs Community Health Worker SHAWNA [facility] Assessment Encounter Date Assessment Date Assessment LastModified by Organization Details LastModified Time 08/12/2025 08/12/2025 Care Plan for Nadine Esquivel (Briseida) [address] [facility] 07/27 Diagnosis: Depression, CHF, COPD, Tobacco, [...] -Report any hospital or ER visits to career development associate or clinic staff. Interventions ([facility] Nurse Steps) -RN will provide educational [...] phone, by mail, through Primary Care Physician, CASTING ROOM HELPER, or others physicians at our office. Evaluations 08/12/25- I met with pt during her appt in clinic today to follow-up on pt case for resources needed. Pt states that she is living with her grandson but will continue to live with him because he is going to be her child care centre manager. She states that she would like a list of food pantries in [place] and [place] because she was approved for SNAP benefits but they wont be in effect for 2 more weeks. I explained to the pt that I could not text. She stated understanding. I took the pt's email for communication. email: [email or web address] Method No other needs at this time. TONI Schultz 08/12/2025-[facility] - [place] Description CUSTOMER PRICING MANAGER REFERRAL - PLEASE CALL LUISA AT [phone] FOR NEEDS, QUESTIONS OR SCHEDULING Diagnosis Chronic obstructive pulmonary disease ICD-10 J44.9 Chronic obstructive pulmonary disease, unspecified Decline Send to [facility] Pul[facility] Clinic: [address] [address], , Ordering ProviderTU POE NP sent by [place]. Pt was seen FTF in clinic. She was advised upon hospital discharge to FU with pulmonology in on week. Pt said she did not know this and had not made appt. She does not want to go to for pulm she is requesting to go to [place]. Referral sent. Demario 08/05/25- attempted to call [...] Schultz 07/26/2025- Pt was discharged from [facility] on 07/25/25. Discharge diagnosis CHF exacerbation, COPD. [...] FU appt with PCP. Demario 07/23/2025-Per [facility] EMR pt remains hospitalized with R lower lobe pneumonia and CHF. She is being treated with IV rocephin and doxycycline. CT and echocardiogram done yesterday, report not in chart yet. Demario 07/22/2025-Pt called yesterday to clinic complaining of weakness and shortness of breath. She was advised to go to ER. I tried to call pt back, no answer. Called [facility] ER adn she was there being treated. Records received today. CXR showed R lower lobe pneumonia. bNP 456, WBcs 11.6. On admit her O2 sat was 70%, place on 4L then eventually was able to go down to 2L. Pt was treated with Dexamethasone, Zithromax, Rocephin, Lasix, and neb treatments. She was transferred to [facility], diagnosis L lower lobe pneumonia, CHF. Called [facility] pt is there in room 5014, med [...] that her phone will not accept calls. JohanQASIM 07/06/25-New Enrollment into [facility] program. Dx: Depression, CHF, COPD, Tobacco, BMI, asthma Pt does not have Health Alf. Pt has active Medicaid Pt has had ER visits in the last year. Will develop a Care Plan to assist with the patients Chronic Illness. Will introduce myself, explain program and give pt care plan at next FTF visit. Pt has appt tomorrow JohanQASIM [email or web address] Not available 08/12/2025 14:37:11 Plan of Treatment Reminders Order Date Submit [...] Abnormal Flag Note LastModifiedBy Organization Detail LastModifiedTime 08/12/20 25 08/12/2025 CBC WBC 12.58 x10(3 )/uL 3.98 - 10.40 high Not Available [facility] [address] [place], [address], 08/12/2025 17:25:39 08/12/20 25 08/12/2025 CBC RBC 5.41 x10(6 )/uL 3.93 - 5.22 high Not Available [facility] [address] [place], [address], 08/12/2025 17:25:39 08/12/20 25 08/12/2025 CBC HGB 14.8 g/dL 11.2 - 15.7 Not Available [facility] [address] [place], [address], 08/12/2025 17:25:39 08/12/20 25 08/12/2025 CBC HCT 49.9 % 34.1 - 44.9 high Not Available [facility] [address] [place], [address], 08/12/2025 17:25:39 08/12/20 25 08/12/2025 CBC MCV 92.2 fL 79.4 - 94.8 Not Available [facility] [address] [place], [address], 08/12/2025 17:25:39 08/12/20 25 08/12/2025 CBC MCH 27.4 pg 25.6 - 32.2 Not Available [facility] [address] [place], [address], 08/12/2025 17:25:39 08/12/20 25 08/12/2025 CBC MCHC 29.7 g/dL 32.2 - 35.5 low Not Available [facility] [address] [place], [address], 08/12/2025 17:25:39 08/12/20 25 08/12/2025 CBC platelet count 214 x10(3 )/uL 182 - 369 Not Available [facility] [address] [place], [address], 08/12/2025 17:25:39 08/12/20 25 08/12/2025 CBC neut% 78.9 % 34.0 - 71.1 high Not Available [facility] [address] [place], [address], 08/12/2025 17:25:39 08/12/20 25 08/12/2025 CBC lymph% 14.5 % 19.3 - 51.7 low Not Available [facility] [address], [place], [place], [address], 08/12/2025 17:25:39 08/12/20 25 08/12/2025 CBC mono% 4.6 % 4.7 - 12.5 low Not Available [facility] [address], [place], [place], [address], 08/12/2025 17:25:39 08/12/20 25 08/12/2025 CBC baso% 0.4 % 0.1 - 1.2 Not Available [facility] [address], [place], [place], [address], 08/12/2025 17:25:39 08/12/20 25 08/12/2025 CBC eo% 1.3 % 0.7 - 5.8 Not Available [facility] [address], [place], [place], [address], 08/12/2025 17:25:39 08/12/20 25 08/12/2025 CBC Ig% 0.3 % 0.0 - 0.4 Not Available [facility] [address], [place], [place], [address], 08/12/2025 17:25:39 08/12/20 25 08/12/2025 CBC neut# 9.93 x10(3 )/uL 1.56 - 6.13 high Not Available [facility] [address], [place], [place], [address], 08/12/2025 17:25:39 08/12/20 25 08/12/2025 CBC lymph# 1.82 x10(3 )/uL 1.18 - 3.74 Not Available [facility] [address], [place], [address], 08/12/2025 17:25:39 08/12/20 25 08/12/2025 CBC mono# 0.58 x10(3 )/uL 0.24 - 0.86 Not Available [facility] [address] [place], [address], 08/12/2025 17:25:39 08/12/20 25 08/12/2025 CBC baso# 0.05 x10(3 )/uL 0.01 - 0.08 Not Available [facility] [address] [place], [address], 08/12/2025 17:25:39 08/12/20 25 08/12/2025 CBC eo# 0.16 x10(3 )/uL 0.04 - 0.36 Not Available [facility] [address] [place], [address], 08/12/2025 17:25:39 08/12/20 25 08/12/2025 CBC Ig# 0.04 x10(3 )/uL 0.00 - 0.03 high Not Available [facility] [address] [place], [address], 08/12/2025 17:25:39 08/12/20 25 08/12/2025 CBC RDW-CV 15.3 % 11.7 - 14.4 high Not Available [facility] [address] [place], [address], 08/12/2025 17:25:39 08/12/20 25 08/12/2025 CBC RDW-SD 52.4 fL 36.4 - 46.3 high Not Available [facility] [address] [place], [address], 08/12/2025 17:25:39 08/12/20 25 08/12/2025 CBC MPV 10.5 fL 9.4 - 12.3 Not Available [facility] [address] [place], [address], 08/12/2025 17:25:39 08/12/20 25 08/12/2025 CBC NRBC# 0.00 x10(3 )/uL 0.00 - 0.01 Not Available [facility] [address] [place], [address], 08/12/2025 17:25:39 08/12/20 25 08/12/2025 CBC NRBC% 0.0 % 0.0 - 0.2 Not Available [facility] [address] [place], [address], 08/12/2025 17:25:39 08/12/20 25 08/12/2025 COMPR EHENS ANGY METAB OLIC PANEL (CMP) albumin 4.1 g/dL 3.5 - 5.0 Not Available [facility] [address] [place], [address], 08/12/2025 17:25:39 08/12/20 25 08/12/2025 COMPR EHENS ANGY METAB OLIC PANEL (CMP) chloride 99 mmol/ L 98 - 107 Not Available [facility] [address] [place], [address], 08/12/2025 17:25:39 08/12/20 25 08/12/2025 COMPR EHENS ANGY METAB OLIC PANEL (CMP) creatinine 1.17 mg/dL 0.52 - 1.04 high Not Available [facility] [address] [place], [address], 08/12/2025 17:25:39 08/12/20 25 08/12/2025 COMPR EHENS ANGY METAB OLIC PANEL (CMP) eco2 37.0 mmol/ L 22.0 - 30.0 high Not Available [facility] [address] [place], [address], 08/12/2025 17:25:39 08/12/20 25 08/12/2025 COMPR EHENS ANGY METAB OLIC PANEL (CMP) glucose 198 mg/dL 74 - 106 high Not Available [facility] [address] [place], [address], 08/12/2025 17:25:39 08/12/20 25 08/12/2025 COMPR EHENS ANGY METAB OLIC PANEL (CMP) potassium 4.60 mmol/ L 3.50 - 5.10 Not Available [facility] [address] [place], [address], 08/12/2025 17:25:39 08/12/20 25 08/12/2025 COMPR EHENS ANGY METAB OLIC PANEL (CMP) alkaline phos 114 U/L 38 - 126 Not Available [facility] [address] [place], [address], 08/12/2025 17:25:39 08/12/20 25 08/12/2025 COMPR EHENS ANGY METAB OLIC PANEL (CMP) sodium 141 mmol/ L 137 - 145 Not Available [facility] [address] [place], [address], 08/12/2025 17:25:39 08/12/20 25 08/12/2025 COMPR EHENS ANGY METAB OLIC PANEL (CMP) total bilirubin 0.6 mg/dL 0.2 - 1.3 Not Available [facility] [address] [place], [address], 08/12/2025 17:25:39 08/12/20 25 08/12/2025 COMPR EHENS ANGY METAB OLIC PANEL (CMP) total protein 7.3 g/dL 6.3 - 8.2 Not Available [facility] [address] [place], [address], 08/12/2025 17:25:39 08/12/20 25 08/12/2025 COMPR EHENS ANGY METAB OLIC PANEL (CMP) ALT 16 U/L 0 - 35 Not Available [facility] [address] [place], [address], 08/12/2025 17:25:39 08/12/20 25 08/12/2025 COMPR EHENS ANGY METAB OLIC PANEL (CMP) BUN/urea 27 mg/dL 7 - 17 high Not Available [facility] [address] [place], [address], 08/12/2025 17:25:39 08/12/20 25 08/12/2025 COMPR EHENS ANGY METAB OLIC PANEL (CMP) eGFR 52 mL/mi n/1.7 3m2 >60 low *eGFR Refer ence Value s Maria Del Rosario l: >60 mL/mi n/1.7 3m2 Abnor mal: < 60 mL/mi n/1.7 3m2 Not Available [facility] [address] [place], [address], 08/12/2025 17:25:39 08/12/20 25 08/12/2025 COMPR EHENS ANGY METAB OLIC PANEL (CMP) A/G ratio 1.3 (calc ) 1.0 - 2.5 Not Available [facility] [address] [place], [address], 08/12/2025 17:25:39 08/12/20 25 08/12/2025 COMPR EHENS ANGY METAB OLIC PANEL (CMP) globulin 3.2 g/dL_ (calc ) 1.9 - 3.7 Not Available [facility] [address] [place], [address], 08/12/2025 17:25:39 08/12/20 25 08/12/2025 COMPR EHENS ANGY METAB OLIC PANEL (CMP) calcium 9.4 mg/dL 8.4 - 10.2 Not Available [facility] [address] [place], [address], 08/12/2025 17:25:39 08/12/20 25 08/12/2025 COMPR EHENS ANGY METAB OLIC PANEL (CMP) AST 22 U/L 14 - 36 Not Available [facility] [address] [place], [address], 08/12/2025 17:25:39 08/12/20 25 08/12/2025 COMPR EHENS ANGY METAB OLIC PANEL (CMP) BUN/crea ratio 23 (calc ) 6 - 22 high Not Available [facility] [address] [place], [address], 08/12/2025 17:25:39 08/12/20 25 08/12/2025 LIPID PANEL VLDL (calculated) 30 mg/dL (calc ) 0 - 30 Not Available [facility] [address] [place], [address], 08/12/2025 17:25:40 08/12/20 25 08/12/2025 LIPID PANEL direct HDL 33 mg/dL 40 - 60 low Not Available [facility] [address] [place], [address], 08/12/2025 17:25:40 08/12/20 25 08/12/2025 LIPID PANEL triglyceride s 149 mg/dL 0 - 199 Not Available [facility] [address] [place], [address], 08/12/2025 17:25:40 08/12/20 25 08/12/2025 LIPID PANEL cholesterol 144 mg/dL <200 Not Available [facility] [address] [place], [address], 08/12/2025 17:25:40 08/12/20 25 08/12/2025 LIPID PANEL chol/DHDL ratio 4 %_(ca lc) 0 - 5 Not Available [facility] [address] [place], [address], 08/12/2025 17:25:40 08/12/20 25 08/12/2025 LIPID PANEL LDL (calculated) 81 mg/dL 0 - 100 Not Available [facility] [address] [place], [address], 08/12/2025 17:25:40 08/12/20 25 08/13/2025 HEMOG LOBIN A1C hemoglobin A1C 10.2 % <5.7 high The follo wing HbA1c range s recom srinivasan d by the [facility] can Diabe lorena Assoc iatio n (ADA) may be used as an aid in the diagn osis of diabe lorena melli tus. HbA1c Sugge sted Diagn osis >=6.5 % Diabe tic 5.7% - 6.4% Pre-D iabet ic <5.7% Non-D iabet ic Not Available [facility] [address] [place], [address], 08/13/2025 18:43:42 08/12/20 25 08/13/2025 MICRO ALBUM IN/CR EATIN INE, RANDO M URINE SAMPL E albumin/crea tinine ratio, urine 29 ug/mg 0-30 Not Available [facility] [address] [place], [address], 08/13/2025 18:43:42 08/12/20 25 08/13/2025 MICRO ALBUM IN/CR EATIN INE, RANDO M URINE SAMPL E microalbumin , urine, random 2.8 mg/dL Not Available [facility] [address] [place], [address], 08/13/2025 18:43:42 08/12/20 25 08/13/2025 MICRO ALBUM IN/CR EATIN INE, CORTES M URINE SAMPL E creatinine, urine 97.5 mg/dL Not Available [facility] [address] [place], [address], 08/13/2025 18:43:42 08/12/20 25 08/13/2025 ESTIM ATED AVERA GE GLUCO SE estimated average glucose (EAG) 246 mg/dL Estim ated [place] ge Gluco se (eAG) is calcu lated [...] d not be evalu ated. Not Available [facility] [address] [place], [address], 08/13/2025 18:43:43 Result Notes None recorded. Problems Name Problem SNOMED Code Status Onset Date Resolution Date Notes Provider Name and Address Organization Details Recorded Time Acute sinusiti s 49219794 Completed 200402/26/2017 Category : DD; Medicine Descript ion: SINUSITI S ACUTE; Display in Medcin: YES; Display in ESB: YES; Confiden tiality Level: Level 1 Cordelia Mcclain LPN [place], [place] - [facility] 7 10:04:47 Dizzines s and giddines s [id number] Completed 200402/26/2017 Category : DD; Medicine Descript ion: dizzines s; Display in Medcin: YES; Display in ESB: YES; Confiden tiality Level: Level 1 REMIGIO Lemus, [facility] 7 10:05:26 Tracheob ronchiti s [id number] Completed 200402/26/2017 Category : DD; Medicine Descript ion: TRACHEOB RONCHITI S; Display in Medcin: YES; Display in ESB: YES; Confiden tiality Level: Level 1 REMIGIO Lemus, [facility] 7 10:04:42 Chronic obstruct angy pulmonar y disease 57564093 Active 2004 Modified By: MARIA ANTONIA DEL REAL; Category : DD; Examiner : Veronica Jensen I.; Medicine Descript ion: CHRONIC OBSTRUCT ANGY PULMONAR Y DISEASE; Display in Medcin: YES; Display in ESB: YES; Confiden tiality Level: Level 1 Not Available [facility] 4 03:27:39 Clinical finding Completed 200402/26/2017 Modified By: YAZ MARSHALL; Category : DD; Examiner : Yaz Marshall; Medicine Descript ion: LARYNGOP HARYNGEA L REFLUX; Display in Medcin: NO; Display in ESB: NO; Confiden tiality Level: Level 1 [facility] 7 10:05:08 Allergic rhinitis 63465862 Active 2004 Category : DD; Medicine Descript ion: ALLERGIC RHINITIS ; Display in Medcin: YES; Display in ESB: YES; Confiden tiality Level: Level 1 Not Available [facility] 4 03:27:39 Neves's palsy 217503240 Completed 200502/26/2017 Category : DD; Medicine Descript ion: NEVES'S PALSY; Display in Medcin: YES; Display in ESB: YES; Confiden tiality Level: Level 1 REMIGIO Lemus, [facility] 7 10:05:01 Family history of diabetes mellitus 871829828 Completed 200902/26/2017 Created By: VERONICA JENSEN ; Modified By: VERONICA JENSEN ; Category : DD; Examiner : VERONICA JENSEN I.; Medicine Descript ion: DIABETES MELLITUS ; Display in Medcin: NO; Display in ESB: YES; Confiden tiality Level: Level 1 Cordelia REMIGIO Mcclain, [facility] 7 10:04:51 Benign essentia l hyperten [place] 7390979 Completed 200902/26/2017 Created By: VERONICA JENSEN ; Modified By: GHAZAL PHAN; Category : DD; Examiner : VERONICA JENSEN I.; Medicine Descript ion: HYPERTEN [place] (SYSTEMI C); Display in Medcin: YES; Display in ESB: YES; Confiden tiality Level: Level 1 CordeliaREMIGIO Loja, [facility] 7 10:05:46 Family history of Cardiova scular disease 498815848 Completed 200902/26/2017 Created By: VERONICA JENSEN ; Modified By: MARIA ANTONIA DEL REAL; Category : DD; Examiner : Veronica Jensen I.; Medicine Descript ion: reported family history ischemic heart disease before age 50; Display in Medcin: YES; Display in ESB: YES; Confiden tiality Level: Level 1 Cordelia REMIGIO Mcclain, [facility] 7 10:05:23 Wheezing 38083511 Completed 200902/26/2017 Created By: VERONICA JENSEN ; Modified By: GHAZAL PHAN; Category : DD; Examiner : Veronica Jensen I.; Medicine Descript ion: wheezing [as a symptom] ; Display in Medcin: YES; Display in ESB: YES; Confiden tiality Level: Level 1 REMIGIO Lemus, [facility] 7 10:05:57 Mild intermit tent asthma 958270135 Active 2009 Created By: VERONICA JENSEN ; Modified By: GHAZAL PHAN; Category : DD; Examiner : Veronica Jensen I.; Medicine Descript ion: ASTHMA MILD INTERMIT TENT UNCOMPLI CATED; Display in Medcin: YES; Display in ESB: YES; Confiden tiality Level: Level 1 Not Available [facility] 4 03:27:39 Obesity 522972378 Active 2010 Created By: VERONICA JENSEN ; Modified By: GHAZAL PHAN; Category : DD; Examiner : VERONICA JENSEN I.; Medicine Descript ion: Obese; Display in Medcin: YES; Display in ESB: YES; Confiden tiality Level: Level 1 Not Available [facility] 4 03:27:39 Nicotine dependen ce 12069172 Active 2010 Created By: VERONICA JENSEN ; Modified By: YAZ MARSHALL; Category : DD; Examiner : Yaz Marshall; Medicine Descript ion: current smoker; Display in Medcin: NO; Display in ESB: NO; Confiden tiality Level: Level 1; Type: Diagnosi s Not Available [facility] 4 03:27:39 Hyperlip idemia 45628877 Active 2010 Created By: VERONICA JENSEN ; Modified By: VERONICA JENSEN ; Category : DD; Examiner : Veronica Jensen I.; Medicine Descript ion: DYSLIPID EMIA; Display in Medcin: YES; Display in ESB: YES; Confiden tiality Level: Level 1; Type: Diagnosi s Not Available [facility] 4 03:27:39 Long-ter m drug therapy Completed 201002/26/2017 Created By: VERONICA JENSEN ; Modified By: VERONICA JENSEN ; Category : DD; Examiner : Veronica Jensen I.; Medicine Descript ion: taking medicati on for a long time; Display in Medcin: YES; Display in ESB: YES; Confiden tiality Level: Level 1; Type: Diagnosi s Cordelia Mcclain LPN [facility] 7 10:05:21 Verruca plantari s 34833573 Completed 201102/26/2017 Created By: VERONICA JENSEN ; Modified By: YAZ MARSHALL; Category : DD; Examiner : Yaz Marshall; Medicine Descript ion: Wartlike Lesions Feet Plantar; Display in Medcin: YES; Display in ESB: YES; Confiden tiality Level: Level 1; Type: Sonia Mcclain, RIB CLOTH KNITTER null, [facility] 7 10:06:02 Plane wart 042546521 Completed 201102/26/2017 Created By: VERONICA JENSEN ; Modified By: YAZ MARSHALL; Category : DD; Examiner : Yaz Marshall; Medicine Descript ion: WARTS COMMON; Display in Medcin: YES; Display in ESB: YES; Confiden tiality Level: Level 1; Type: Sonia Mcclain, RIB CLOTH KNITTER null, [facility] 7 10:05:14 Procedur e Completed 201102/26/2017 Created By: VERONICA JENSEN ; Modified By: YAZ MARSHALL; Category : DD; Examiner : Veronica Jensen I.; Medicine Descript ion: visit for: medicati on refill; Display in Medcin: NO; Display in ESB: NO; Confiden tiality Level: Level 1; Type: Sonia Mcclain, RIB CLOTH KNITTER null, [facility] 7 10:05:40 Sciatica 13108836 Completed 201202/26/2017 Created By: VERONICA JENSEN ; Modified By: YAZ MARSHALL; Category : DD; Examiner : Veronica Jensen I.; Medicine Descript ion: NEURITIS SCIATIC; Display in Medcin: NO; Display in ESB: NO; Confiden tiality Level: Level 1; Type: Sonia Mcclain, RIB CLOTH KNITTER null, [facility] 7 10:05:12 Screenin g procedur e Completed 201402/26/2017 Created By: YAZ MARSHALL; Modified By: YAZ MARSHALL; Category : DD; Examiner : Yaz Marshall; Medicine Descript ion: visit for: screenin g malignan t neoplasm colon; Display in Medcin: NO; Display in ESB: NO; Confiden tiality Level: Level 1; Type: Sonia Mcclain, RIB CLOTH KNITTER null, [facility] 7 10:05:37 Adult health examinat ion Completed 201402/26/2017 Created By: YAZ MARSHALL; Modified By: YAZ MARSHALL; Category : DD; Examiner : Yaz Marshall; Medicine Descript ion: ROUTINE HISTORY AND PHYSICAL ; Display in Medcin: YES; Display in ESB: YES; Confiden tiality Level: Level 1; Type: Sonia Mcclain, RIB CLOTH KNITTER null, [facility] 7 10:05:29 Abnormal finding on evaluati on procedur e [id number] Completed 201402/26/2017 Created By: YAZ MARSHALL; Modified By: YAZ MARSHALL; Category : DD; Examiner : Yaz Marshall; Medicine Descript ion: ROUTINE HISTORY AND PHYSICAL ; Display in Medcin: YES; Display in ESB: YES; Confiden tiality Level: Level 1; Type: Sonia Mcclain, RIB CLOTH KNITTER null, [facility] 7 10:05:54 Palpitat ions [id number] Completed 201402/26/2017 Created By: YAZ MARSHALL; Modified By: YAZ MARSHALL; Category : DD; Examiner : Yaz Marshall; Medicine Descript ion: palpitat ions; Display in Medcin: NO; Display in ESB: NO; Confiden tiality Level: Level 1; Type: Sonia Mcclain, RIB CLOTH KNITTER null, [facility] 7 10:06:05 Microsco pic hematuri a [id number] Completed 201402/26/2017 Created By: YAZ MARSHALL; Modified By: YAZ MARSHALL; Category : DD; Examiner : Yaz Marshall; Medicine Descript ion: MICROSCO PIC HEMATURI A; Display in Medcin: YES; Display in ESB: YES; Confiden tiality Level: Level 1; Type: Sonia s Cordelia Johny, RIB CLOTH KNITTER null, [facility] 7 10:05:05 Electroc ardiogra m abnormal [id number] Completed 201402/26/2017 Created By: YAZ MARSHALL; Modified By: YAZ MARSHALL; Category : DD; Examiner : Yaz Marshall; Medicine Descript ion: ECG NORMAL VARIANT; Display in Medcin: NO; Display in ESB: NO; Confiden tiality Level: Level 1; Type: Diagnosi s Cordelia SHAKIR McclainN [facility] 7 10:04:38 Evaluati on procedur e Completed 201402/26/2017 Created By: ELVIE FERANNDEZ; Modified By: KEVEN OCTOBER; Category : DD; Examiner : Keven Muhammad; Medicine Descript ion: Observat ion For Suspecte d Conditio n; Display in Medcin: YES; Display in ESB: YES; Confiden tiality Level: Level 1; Type: Diagnosi asha Storey REMIGIO Mcclain [facility] 7 10:05:34 Hyperten sive disorder 10173197 Active 2015 Created By: YAZ MARSHALL; Modified By: YAZ MARSHALL; Category : DD; Examiner : Yaz Marshall; Medicine Descript ion: ESSENTIA L HYPERTEN [place] BENIGN; Display in Medcin: YES; Display in ESB: YES; Confiden tiality Level: Level 1; Type: Diagnosi s Not Available [facility] 4 03:27:39 Viral screenin g Completed 201502/26/2017 Created By: YAZ MARSHALL; Modified By: YAZ MARSHALL; Category : DD; Examiner : Yaz Marshall; Medicine Descript ion: visit for: screenin g exam dengue fever; Display in Medcin: YES; Display in ESB: YES; Confiden tiality Level: Level 1; Type: Diagnosi s Cordelia JohnySHAKIRN null, [facility] 7 10:05:16 Screenin g mammogra phy Completed 201502/26/2017 Created By: YAZ MARSHALL; Modified By: YAZ MARSHALL; Category : DD; Examiner : Yaz Marshall; Medicine Descript ion: Mammogra m Screenin g; Display in Medcin: YES; Display in ESB: YES; Confiden tiality Level: Level 1; Type: Sonia Mcclain [facility] 7 10:05:19 Active immuniza tion Completed 201502/26/2017 Created By: YAZ MARSHALL; Modified By: YAZ MARSHALL; Category : DD; Examiner : Yaz Marshall; Medicine Descript ion: visit for: immuniza tion; Display in Medcin: YES; Display in ESB: YES; Confiden tiality Level: Level 1; Type: Sonia Mcclain, [facility] 7 10:05:31 Pain of left shoulder joint [id number] 033466 Active 2017 Not Available [facility] 4 03:27:39 Vitamin D deficien cy 12972179 Active 2021 Not Available [facility] 4 03:27:39 Congesti ve heart failure 23688430 Active 2022 Not Available [facility] 4 03:27:39 Type 2 diabetes mellitus without complica tion 517398080 Active 2022 Not Available [facility] 4 03:27:39 Female urinary stress incontin ence 99367314 Active 2024 Tu Poe NP [address] [place] [address], [phone] , [facility] 5 11:50:21 Dependen ce on suppleme ntal oxygen 24213639688 7 Active 2024 Tu Poe NP [address] [place] [address], [phone] , [facility] 5 12:26:07 Problem Notes None recorded. Procedures Surgical History Date Name Laterality Status Provider Name and Address Organization Details Recorded Time 05/17/20 25 Suture/Staple removal completed [address], [address], [facility] 05/17/2025 15:52:31 05/05/20 25 Flu vaccine Screening completed Rita Olivarez [facility] 05/05/2025 12:16:34 08/20/20 24 Nebulizer tx duoneb completed [address], [address], [facility] 08/20/2024 16:28:20 05/06/20 24 venipuncture completed Juliet Gatica [facility] 05/06/2024 11:42:54 02/19/20 24 Splint Application completed Tu Poe NP [address] [place] [address], [phone], [facility] 02/19/2024 14:24:04 12/26/19 24 venipuncture completed Yuliya Hurd [facility] 12/26/2023 15:40:03 09/25/19 22 venipuncture completed Shauna Jordan [facility] 09/25/2021 13:07:04 11/25/19 21 venipuncture completed Jodi Mora [facility] 11/24/2020 11:10:23 12/18/19 20 venipuncture completed Yuliya Hurd [facility] 12/18/2019 16:28:31 12/18/19 20 venipuncture cancelled Tyler Mcfarlane [facility] 12/18/2019 09:21:06 04/14/20 19 venipuncture completed Cordelia Mcclain LPN [facility] 04/14/2019 09:25:36 08/08/20 18 venipuncture completed Cordelia Mcclain LPN [facility] 08/08/2018 09:13:48 09/10/19 18 venipuncture completed Homa Zarate [facility] 09/10/2017 10:01:02/27/20 17 venipuncture completed Cordelia Mcclain LPN [facility] 02/26/2017 10:26:37 08/15/20 16 venipuncture completed Homa Zarate [facility] 08/15/2016 10:27:51 Cardiac Surgery completed Cordelia waldrop LPN [facility] 02/26/2017 10:07:03 Imaging Results None recorded. Procedure Notes None recorded. Medical Equipment None Reported. Allergies Allergen ID Allergen Name Allergen Category Reaction Reaction Severity Criticality Documentation Date Start Date Code Code System Note Provider Name and Address Organization Details Recorded Time 97318 codeine medicatio n Not available Not available Not available 08/05/20162009 2670 RxNorm Comme nt: Last Edite d: 11-25 09:27 :35; Not Available [facility] 6 03:58:28 Medications Name Sig Start Date [...] Not Available Not Available Not Available levofloxa ahrdeep 500 mg tablet TAKE 1 TABLET BY [...] per sliding scale before meals TID<150- 0 miboa570 -200-3 -250-6 bpqos401 -300- 9 xnvgy375 -350-12 -400-15 units Not Available Not Available [...] Updated DateTime 5 170.18 cm 45.5 kg/m2 271262. 24 g 97.3 [degF] 20 /min 75 /min 90 % Migdalia Metz [facility] 5 12:05:19 Social History Question Answer Notes LastModified by Organization Details LastModified Time Tobacco Smoking Status Current Every Day Smoker Rita Olivarez [facility] 02/18/2025 15:08:04 Do You Have An Advance Directive? No Information not available 01/29/2017 Are You Blind Or Do You Have Difficulty Seeing? Yes [email or web address] Information not available 09/25/2021 Is Blood Transfusion Acceptable In An Emergency? Yes [email or web address] Information not available 09/25/2021 What Is Your Level Of Caffeine Consumption? Heavy [email or web address] Information not available 01/29/2017 How Much Tobacco Do You Chew? None [email or web address] Information not available 01/29/2017 Commercial Sex Work No [email or web address] Information not available 01/29/2017 In The 14 [...] Do You Have Serious Difficulty Hearing? No [email or web address] Information not available 09/25/2021 What Type Of Diet Are You Following? REGULAR [email or web address] Information not available 01/29/2017 Which Illicit Or Recreational Drugs Have You Used? None [email or web address] Information not available 01/29/2017 Have You Processed Blood Or Body Fluids From An Ebola Virus Disease Patient Without Appropriate PPE? No Information not available 09/25/2021 Education Less Than 8th Grade [email or web address] Information not available 01/29/2017 What Is The Highest Grade Or Level Of School You Have Completed Or The Highest Degree You Have Received? UV11188-6 [email or web address] Information not available 08/12/2025 Are There Any Guns Present In Your Home? Yes Information not available 02/26/2017 Hard Of Hearing Or Deaf In One Or Both Ears? No [email or web address] Information not available 01/29/2017 High Number Of Sexual Partners No [email or web address] Information not available 01/29/2017 History Of Inconsistent/no Condom Use No [email or web address] Information not available 01/29/2017 International Travel None Information not available 02/26/2017 Legally Blind In One Or Both Eyes? No Information not available 01/29/2017 In The Past 6 Months Have You Fallen No [email or web address] Information not available 01/29/2017 Medication List Reconciled Yes Information not available 04/14/2019 What Number (0-10) Best Describes How, During The Past Week, Has Interfered With Your General Activity? 0 [email or web address] Information not available 01/29/2017 What Number (0-10) Best Describes How, During The Past Week, Pain Has Interfered With Your Enjoyment In The Past Week 0 [email or web address] Information not available 01/29/2017 What Number (0-10) Best Describes Your Pain On Average In The Past Week 0 [email or web address] Information not available 01/29/2017 Total PEG Score 0 [email or web address] Informati on not available 01/29/2017 Most Recent Dental Visit 09/02/1996 Up To Date 04/23/22 Information not available 08/08/2018 Sexual Orientation Straight Or Heterosexual Information not available 11/24/2020 Gender Identity Female Informat ion not available 11/24/2020 Eye Exam 09/02/2015 Information not available 08/08/2018 Do You Feel Safe Yes Informa tion not available 11/24/2020 Hospital Follow Up Appointment 08/12/2025 [email or web address] Information not available 08/12/2025 Hospital Discharged Patient To Home [email or web address] Information not available 08/12/2025 ER Medication List Reconciled Yes [email or web address] Information not available 07/22/2025 ER Contact Date 07/22/2025 [email or web address] Informati on not available 07/22/2025 ER Follow Up Contact Date 07/22/2025 [email or web address] Information not available 07/22/2025 ER Follow Up Patient Contact Via Unable To Contact Went To [facility] ER Transferred To [facility] Diagnosis Pneumonia [email or web address] Information not available 07/22/2025 ER Date Of Discharge 07/21/2025 [email or web address] Information not available 07/22/2025 ER Discharged Patient To Caregiver Transfer Information not available 07/22/2025 ER Records Recieved Yes [email or web address] Information not available 07/22/2025 ER Records Requested Yes [email or web address] Information not available 07/22/2025 Marital Status [email or web address] Informatio n not available 01/29/2017 What Was The Date Of Your Most Recent Tobacco Screening? 08/12/2025 [email or web address] Information not available 08/12/2025 Mother With HIV? No [email or web address] Informat ion not available 01/29/2017 How Many Children Do You Have? 4 Information not available 08/12/2025 What Is Your Relationship Status? Information not available 08/12/2025 Do You Use Your Seat Belt Or Car Seat Routinely? Yes Information not available 07/28/2024 Seat Belts Used Routinely Yes [email or web address] Information not available 01/29/2017 Are You Sexually Active? Yes Information not available 08/08/2018 Sexual Partner Has HIV? No [email or web address] Information not available 01/29/2017 Sexual Partner Uses IV Drugs? No [email or web address] Information not available 01/29/2017 Smoke Alarm In Home No [email or web address] Information not available 01/29/2017 At What Age Did You Start Smoking Tobacco? 15 Information not available 02/26/2017 How Much Tobacco Do You Smoke? 0.5 PPD [email or web address] Information not available 05/05/2025 General Stress Level Medium [email or web address] Information not available 01/29/2017 Do You Use Sunscreen Routinely? No [email or web address] Information not available 01/29/2017 How Many Years Have You Smoked Tobacco? 41 Information not available 02/26/2017 Have You Used IV Drugs? No [email or web address] Information not available 01/29/2017 Do You Have Difficulty Walking Or Climbing Stairs? Yes [email or web address] Information not available 09/25/2021 Do You Want [...] use any illicit or recreational drugs? No [email or web address] Information not available 06/14/2025 Do you or have you ever used any other forms of tobacco or nicotine? Yes Nicotine patches Information not available 12/17/2024 What is your level of alcohol consumption? None [email or web address] Information not available 01/29/2017 Do you or have you ever used smokeless tobacco? Never used smokeless tobacco Information not available 04/14/2019 Are you currently employed? No [email or web address] Information not available 08/12/2025 Do you have transportation difficulties? No [email or web address] Information not available 09/25/2021 Are you able to walk independently without assistance or assistive devices? YESWOREST [email or web address] Information not available 01/29/2017 Do you have difficulty doing errands alone? No [email or web address] Information not available 09/25/2021 Are you able to care for yourself independently? Yes [email or web address] Information not available 09/25/2021 Do you have difficulty dressing, bathing, grooming, or toileting? No Information not available 09/25/2021 Do you or have you ever used e-cigarettes or vape? Never used electronic cigarettes Information not available 04/14/2019 What is your exercise level? Moderate [email or web address] Information not available 01/29/2017 Mental Status Question Answer Note LastModified by Organizat ion Details LastModified Time Do you feel stressed (tense, restless, nervous, or anxious, or unable to sleep at night)? [id number] [email or web address] Information not available 09/25/2021 Do you have difficulty concentrating, remembering or making decisions? No [email or web address] Information no t available 09/25/2021 Family History Relationship Description Onset Age of this Age Resolved Age Notes LastModified by Organization Details LastModified Time Mother Diabetes mellitus [email or web address] Not available 2016 14:32:39 Brother Diabetes mellitus [email or web address] Not available 2016 14:32:46 Medical History Condition [...] Anemia N Colon Polyps N Heart Attack ([place]) N Ovarian Cancer N Diabetes N Bedwetting [...] MDCK, quadrivalent, preservative 9 completed Not Available [facility] 09/19/2019 02:39:19 Tdap 7 completed Not Available [facility] 09/19/2019 02:39:16 Influenza, split virus, trivalent, preservative 6 completed Not Available [facility] 09/25/2023 03:27:39 Tdap 5 completed Not Available [facility] 08/12/2025 12:00:37 Influenza, MDCK, quadrivalent, PF 4 completed Juliet Gatica [facility] 05/07/2024 12:22:36 Influenza, split virus, quadrivalent, PF 5 completed Rita Olivarez [facility] 05/05/2025 12:58:35 Pneumococcal conjugate PCV20, polysaccharide HFX884 conjugate, adjuvant, 5 completed Rita Olivarez [facility] 06/28/2025 15:43:32 Influenza, MDCK, quadrivalent, preservative 8 completed Not Available [facility] 09/19/2019 02:39:18 Past Encounters Encounter ID Performer Location Encounter Start Date Encounter Closed Date Diagnosis/Indication Diagnosis SNOMED-CT Code Diagnosis ICD10 Code Diagnosis IMO Codes Diagnosis Note [id number] [facility] [address] [place] [address] 07/22/2025 15:07:34 07/22/2025 17:21:39 [id number] [facility] [address] [place] [address] 07/23/2025 07:58:37 07/26/2025 08:44:39 [id number] [facility] [address] [address] 07/26/2025 09:20:12 07/26/2025 11:14:46 [id number] [facility] [address] [facility] [address] [place] [address] 08/05/2025 15:56:46 08/05/2025 15:59:56 [id number] MCKAY CUEVAS DO [facility] [place] [address] [place] [address] 08/12/2025 11:57:16 08/12/2025 18:24:40 Post-discharge follow-up [id number] Z51.89 [id number] admitted 07/21/2025 ; Transferre d from [facility] to [facility]; discharged 07/25/2025 Chronic ob structive pulmonary disease 81151005 J44.9 Pneumonia 024724308 J18. 9 [id number] Type 2 deepak betes mellitus without complication 249590065 E11.9 Will increase ozempic to 1 mg Dependence on supplemental oxygen 1905342425 07 Z99.81 [id number] on 3 L/[place] [id number] [facility] [address] [address] 08/12/2025 14:02:33 08/12/2025 16:10:51 [id number] [facility] [address] [place] [address] [place] [phone] 08/12/2025 14:17:02 08/12/2025 14:37:17 [id number] [facility] [address] [place] [address] [place] [address] 08/12/2025 14:37:49 08/12/2025 14:46:05 Goals Section [...] Name 08/12/2025 2 [place] Nadine Esquivel [id number] Nadine Esquivel 08/12/2025 1 [facility]) Nadine Esquivel [id number] Nadine Esquivel Notes Date Note Type [...] within one week. She prefers referral to [place] rather than [place] due to distance. She lives in [place] with her girlfriend who provides caregiving assistance. [...] Home and Environment Living situation: Lives in [place] with girlfriend who serves as caregiver and provides transportation Other Oxygen use: 3 liters supplemental oxygen at home Tests - Echocardiogram during recent hospitalization: Ejection fraction 55% Tu Poe NP [address], [address], [facility] 08/12/2025 14:28:56 OBGyn Episode No OBEpisode recorded.
--- OUTSIDE RECORDS SUMMARY | 2025-08-29 09:08 | XMS_ITS | Continuity of Care Document ---
Author Organization [facility], Care Managers Address [address] [place] [id number] Care Team Providers Care Relay Motorman Name Role Phone LUISA JAIMES Clip Coater EUN [facility] SHAWNA Rivera [facility] [phone] Assessment Encounter Date Assessment Date Assessment LastModified by Organization Details LastModified Time 07/22/2025 07/22/2025 Care Plan for Nadine Esquivel (Briseida) 64 Enrolled [facility] 07/27 Diagnosis: Depression, CHF, COPD, [...] -Report any hospital or ER visits to intensive care ambulance paramedic or clinic staff. Interventions ([facility] Nurse Steps) -RN will provide [...] phone, by mail, through Primary Care Physician, WARDROBE SUPERVISOR, or others physicians at our office. Evaluations 07/22/2025-Pt called yesterday to clinic complaining of weakness and shortness of breath. She was advised to go to ER. I tried to call pt back, no answer. Called [facility] ER adn she was there being treated. Records received today. CXR showed R lower lobe pneumonia. bNP 456, WBcs 11.6. On admit her O2 sat was 70%, place on 4L then eventually was able to go down to 2L. Pt was treated with Dexamethasone, Zithromax, Rocephin, Lasix, and neb treatments. She was transferred to [facility], diagnosis L lower lobe pneumonia, CHF. Called [facility] pt is there in room 5014, med [...] that her phone will not accept calls. BandarstanfordjericaQASIM 07/06/25-New Enrollment into [facility] program. Dx: Depression, CHF, COPD, Tobacco, BMI, asthma Pt does not have [facility]. Pt has active Medicaid Pt has had ER visits in the last year. Will develop a Care Plan to assist with the patients Chronic Illness. Will introduce myself, explain program and give pt care plan at next [facility] visit. Pt has appt tomorrow Demario [email or web address] Not available 07/22/2025 15:15:06 Plan of Treatment Reminders Order Date Submit [...] Organization Details Recorded Time Acute sinusiti s [id number] Completed 200402/26/2017 Category : DD; Medicine Descript ion: SINUSITI S ACUTE; Display in Medcin: YES; Display in ESB: YES; Confiden tiality Level: Level 1 Cordelia Mcclain LPN [facility] 7 10:04:47 Dizzines s and giddines s [id number] Completed 200402/26/2017 Category : DD; Medicine Descript ion: dizzines s; Display in Medcin: YES; Display in ESB: YES; Confiden tiality Level: Level 1 Cordelia Mcclain LPN [facility], [facility] 7 10:05:26 Tracheob ronchiti s [id number] Completed 200402/26/2017 Category : DD; Medicine Descript ion: TRACHEOB RONCHITI S; Display in Medcin: YES; Display in ESB: YES; Confiden tiality Level: Level 1 Cordelia Mcclain LPN [facility] 7 10:04:42 Chronic obstruct angy pulmonar y disease 55949100 Active 2004 Modified By: MARIA ANTONIA DEL REAL; Category : DD; Examiner : Veronica Jensen I.; Medicine Descript ion: CHRONIC OBSTRUCT ANGY PULMONAR Y DISEASE; Display in Medcin: YES; Display in ESB: YES; Confiden tiality Level: Level 1 Not Available [facility] 4 03:27:39 Clinical finding Completed 200402/26/2017 Modified By: YAZ MARSHALL; Category : DD; Examiner : Yaz Marshall; Medicine Descript ion: LARYNGOP HARYNGEA L REFLUX; Display in Medcin: NO; Display in ESB: NO; Confiden tiality Level: Level 1 [facility] 7 10:05:08 Allergic rhinitis 88012148 Active 2004 Category : DD; Medicine Descript ion: ALLERGIC RHINITIS ; Display in Medcin: YES; Display in ESB: YES; Confiden tiality Level: Level 1 Not Available [facility] 4 03:27:39 Neves's palsy 536167952 Completed 200502/26/2017 Category : DD; Medicine Descript ion: NEVES'S PALSY; Display in Medcin: YES; Display in ESB: YES; Confiden tiality Level: Level 1 Cordelia [facility] 7 10:05:01 Family history of diabetes mellitus 953965479 Completed 200902/26/2017 Created By: VERONICA JENSEN ; Modified By: VERONICA JENSEN ; Category : DD; Examiner : VERONICA JENSEN I.; Medicine Descript ion: DIABETES MELLITUS ; Display in Medcin: NO; Display in ESB: YES; Confiden tiality Level: Level 1 [facility] 7 10:04:51 Benign essentia l hyperten [place] 6787730 Completed 200902/26/2017 Created By: VERONICA JENSEN ; Modified By: GHAZAL PHAN; Category : DD; Examiner : VERONICA JENSEN I.; Medicine Descript ion: HYPERTEN [place] (SYSTEMI C); Display in Medcin: YES; Display in ESB: YES; Confiden tiality Level: Level 1 REMIGIO Lemus, [facility] 7 10:05:46 Family history of Cardiova scular disease 334790244 Completed 200902/26/2017 Created By: VERONICA JENSEN ; Modified By: MARIA ANTONIA DEL REAL; Category : DD; Examiner : Veronica Jensen I.; Medicine Descript ion: reported family history ischemic heart disease before age 50; Display in Medcin: YES; Display in ESB: YES; Confiden tiality Level: Level 1 REMIGIO Lemus, [facility] 7 10:05:23 Wheezing 08260510 Completed 200902/26/2017 Created By: VERONICA JENSEN ; Modified By: GHAZAL PHAN; Category : DD; Examiner : Veronica Jensen I.; Medicine Descript ion: wheezing [as a symptom] ; Display in Medcin: YES; Display in ESB: YES; Confiden tiality Level: Level 1 REMIGIO Lemus, [facility] 7 10:05:57 Mild intermit tent asthma 088459053 Active 2009 Created By: VERONICA JENSEN ; Modified By: GHAZAL PHAN; Category : DD; Examiner : Veronica Jensen I.; Medicine Descript ion: ASTHMA MILD INTERMIT TENT UNCOMPLI CATED; Display in Medcin: YES; Display in ESB: YES; Confiden tiality Level: Level 1 Not Available [facility] 4 03:27:39 Obesity 825951971 Active 2010 Created By: VERONICA JENSEN ; Modified By: GHAZAL PHAN; Category : DD; Examiner : VERONICA JENSEN I.; Medicine Descript ion: Obese; Display in Medcin: YES; Display in ESB: YES; Confiden tiality Level: Level 1 Not Available [facility] 4 03:27:39 Nicotine dependen ce 89587823 Active 2010 Created By: VERONICA JENSEN ; Modified By: YAZ MARSHALL; Category : DD; Examiner : Yaz Marshall; Medicine Descript ion: current smoker; Display in Medcin: NO; Display in ESB: NO; Confiden tiality Level: Level 1; Type: Diagnosi s Not Available [facility] 4 03:27:39 Hyperlip idemia 91473955 Active 2010 Created By: VERONICA JENSEN ; Modified By: VERONICA JENSEN ; Category : DD; Examiner : Veronica Jensen I.; Medicine Descript ion: DYSLIPID EMIA; Display in Medcin: YES; Display in ESB: YES; Confiden tiality Level: Level 1; Type: Diagnosi s Not Available [facility] 4 03:27:39 Long-ter m drug therapy Completed 201002/26/2017 Created By: VERONICA JENSEN ; Modified By: VERONICA JENSEN ; Category : DD; Examiner : Veronica Jensen I.; Medicine Descript ion: taking medicati on for a long time; Display in Medcin: YES; Display in ESB: YES; Confiden tiality Level: Level 1; Type: Diagnosi s Cordelia Mcclain LPN [facility] 7 10:05:21 Verruca plantari s 34139802 Completed 201102/26/2017 Created By: VERONICA JENSEN ; Modified By: YAZ MARSHALL; Category : DD; Examiner : Yaz Marshall; Medicine Descript ion: Wartlike Lesions Feet Plantar; Display in Medcin: YES; Display in ESB: YES; Confiden tiality Level: Level 1; Type: Diagnosi s Cordelia Mcclain LPN [facility] 7 10:06:02 Plane wart 381490002 Completed 201102/26/2017 Created By: VERONICA JENSEN ; Modified By: YAZ MARSHALL; Category : DD; Examiner : Yaz Marshall; Medicine Descript ion: WARTS COMMON; Display in Medcin: YES; Display in ESB: YES; Confiden tiality Level: Level 1; Type: Diagnosi s Cordelia Johny, STRINGS TEACHER null, [facility] 7 10:05:14 Procedur e Completed 201102/26/2017 Created By: VERONICA JENSEN ; Modified By: YAZ MARSHALL; Category : DD; Examiner : Veronica Jensen I.; Medicine Descript ion: visit for: medicati on refill; Display in Medcin: NO; Display in ESB: NO; Confiden tiality Level: Level 1; Type: Diagnosi s Cordelia Johny, STRINGS TEACHER null, [facility] 7 10:05:40 Sciatica 81584792 Completed 201202/26/2017 Created By: VERONICA JENSEN ; Modified By: YAZ MARSHALL; Category : DD; Examiner : Veronica Jensen I.; Medicine Descript ion: NEURITIS SCIATIC; Display in Medcin: NO; Display in ESB: NO; Confiden tiality Level: Level 1; Type: Diagnosi s Cordelia Johny, STRINGS TEACHER null, [facility] 7 10:05:12 Screensarah g procedur e Completed 201402/26/2017 Created By: YAZ MARSHALL; Modified By: YAZ MARSHALL; Category : DD; Examiner : Yaz Marshall; Medicine Descript ion: visit for: screenin g malignan t neoplasm colon; Display in Medcin: NO; Display in ESB: NO; Confiden tiality Level: Level 1; Type: Diagnosi s Cordelia Johny, STRINGS TEACHER null, [facility] 7 10:05:37 Adult health examinat ion Completed 201402/26/2017 Created By: YAZ MARSHALL; Modified By: YAZ MARSHALL; Category : DD; Examiner : Yaz Marshall; Medicine Descript ion: ROUTINE HISTORY AND PHYSICAL ; Display in Medcin: YES; Display in ESB: YES; Confiden tiality Level: Level 1; Type: Diagnosi s Cordelia Johny, STRINGS TEACHER null, [facility] 7 10:05:29 Abnormal finding on evaluati on procedur e [id number] Completed 201402/26/2017 Created By: YAZ MARSHALL; Modified By: YAZ MARSHALL; Category : DD; Examiner : Yaz Marshall; Medicine Descript ion: ROUTINE HISTORY AND PHYSICAL ; Display in Medcin: YES; Display in ESB: YES; Confiden tiality Level: Level 1; Type: Sonia Mcclain, STRINGS TEACHER null, [facility] 7 10:05:54 Palpitat ions [id number] Completed 201402/26/2017 Created By: YAZ MARSHALL; Modified By: YAZ MARSHALL; Category : DD; Examiner : Yaz Marshall; Medicine Descript ion: palpitat ions; Display in Medcin: NO; Display in ESB: NO; Confiden tiality Level: Level 1; Type: Sonia Mcclain, STRINGS TEACHER null, [facility] 7 10:06:05 Microsco pic hematuri a [id number] Completed 201402/26/2017 Created By: YAZ MARSHALL; Modified By: YAZ MARSHALL; Category : DD; Examiner : Yaz Marshall; Medicine Descript ion: MICROSCO PIC HEMATURI A; Display in Medcin: YES; Display in ESB: YES; Confiden tiality Level: Level 1; Type: Sonia Mcclain STRINGS TEACHER null, [facility] 7 10:05:05 Electroc ardiogra m abnormal [id number] Completed 201402/26/2017 Created By: YAZ MARSHALL; Modified By: YAZ MARSHALL; Category : DD; Examiner : Yaz Marshall; Medicine Descript ion: ECG NORMAL VARIANT; Display in Medcin: NO; Display in ESB: NO; Confiden tiality Level: Level 1; Type: Sonia Mcclain, STRINGS TEACHER null, [facility] 7 10:04:38 Evaluati on procedur e Completed 201402/26/2017 Created By: ELVIE FERNANDEZ; Modified By: KEVEN OCTOBER; Category : DD; Examiner : Keven Muhammad; Medicine Descript ion: Observat ion For Suspecte d Conditio n; Display in Medcin: YES; Display in ESB: YES; Confiden tiality Level: Level 1; Type: Diagnosi s Cordelia Johny, STRINGS TEACHER null, [facility] 7 10:05:34 Hyperten sive disorder 38336423 Active 2015 Created By: YAZ MARSHALL; Modified By: YAZ MARSHALL; Category : DD; Examiner : Yaz Marshall; Medicine Descript ion: ESSENTIA L HYPERTEN [place] BENIGN; Display in Medcin: YES; Display in ESB: YES; Confiden tiality Level: Level 1; Type: Diagnosi s Not Available [facility] 4 03:27:39 Viral screenin g Completed 201502/26/2017 Created By: YAZ MARSHALL; Modified By: YAZ MARSHALL; Category : DD; Examiner : Yaz Marshall; Medicine Descript ion: visit for: screenin g exam dengue fever; Display in Medcin: YES; Display in ESB: YES; Confiden tiality Level: Level 1; Type: Diagnosi s Cordelia Johny, STRINGS TEACHER [facility] 7 10:05:16 Screenin g mammogra phy Completed 201502/26/2017 Created By: YAZ MARSHALL; Modified By: YAZ MARSHALL; Category : DD; Examiner : Yaz Marshall; Medicine Descript ion: Mammogra m Screenin g; Display in Medcin: YES; Display in ESB: YES; Confiden tiality Level: Level 1; Type: Diagnosi s Cordelia Johny, STRINGS TEACHER null, [facility] 7 10:05:19 Active immuniza tion Completed 201502/26/2017 Created By: YAZ MARSHALL; Modified By: YAZ MARSHALL; Category : DD; Examiner : Yaz Marshall; Medicine Descript ion: visit for: immuniza tion; Display in Medcin: YES; Display in ESB: YES; Confiden tiality Level: Level 1; Type: Sonia Mcclain LPN [facility] 7 10:05:31 Pain of left shoulder joint [id number] 024137 Active 2017 Not Available [facility] 4 03:27:39 Vitamin D deficien cy 40370292 Active 2021 Not Available [facility] 4 03:27:39 Congesti ve heart failure 99610415 Active 2022 Not Available [facility] 4 03:27:39 Type 2 diabetes mellitus without complica tion 104539193 Active 2022 Not Available [facility] 4 03:27:39 Female urinary stress incontin ence 99148393 Active 2024 Adriana Poe NP [address] [place] [address] 5 11:50:21 Dependen ce on suppleme ntal oxygen 76075806928 7 Active 2024 Adriana Poe NP [address] [place] [address] 5 12:26:07 Problem Notes None recorded. Procedures Surgical History Date Name Laterality Status Provider Name and Address Organization Details Recorded Time 05/17/20 25 Suture/Staple removal completed [address], [address] [place] [address] 05/17/2025 15:52:31 05/05/20 25 Flu vaccine Screening completed Rita Olivarez [facility] 05/05/2025 12:16:34 08/20/20 24 Nebulizer tx duoneb completed [address], [id number] [place] [address] 08/20/2024 16:28:20 05/06/20 24 venipuncture completed Juliet Gatica [facility] 05/06/2024 11:42:54 02/19/20 24 Splint Application completed Adriana Poe NP [address], [phone], [facility] 02/19/2024 14:24:04 12/26/19 24 venipuncture completed Yuliya Vickey [facility] 12/26/2023 15:40:03 09/25/19 22 venipuncture completed Shauna Jordan [facility] 09/25/2021 13:07:04 11/25/19 21 venipuncture completed Jodi Mora [facility] 11/24/2020 11:10:23 12/18/19 20 venipuncture completed Yuliya Vickey [facility] 12/18/2019 16:28:31 12/18/19 20 venipuncture cancelled Tyler Mcfarlane [facility] 12/18/2019 09:21:06 04/14/20 19 venipuncture completed Cordelia Mcclain LPN [facility] 04/14/2019 09:25:36 08/08/20 18 venipuncture completed Cordelia Mcclain LPN [facility] 08/08/2018 09:13:48 09/10/19 18 venipuncture completed Homa Zarate [facility] 09/10/2017 10:01:27 02/27/20 17 venipuncture completed Cordelia Mcclain LPN [facility] 02/26/2017 10:26:37 08/15/20 16 venipuncture completed Homa Zarate [facility] 08/15/2016 10:27:51 Cardiac Surgery completed Cordelia waldrop LPN [facility] 02/26/2017 10:07:03 Imaging Results None recorded. Procedure Notes None recorded. Medical Equipment None Reported. Allergies Allergen ID Allergen Name Allergen Category Reaction Reaction Severity Criticality Documentation Date Start Date Code Code System Note Provider Name and Address Organization Details Recorded Time 40118 codeine medicatio n Not available Not available Not available 08/05/20162009 2670 RxNorm Comme nt: Last Edite d: 11-25 09:27 :35; Not Available [facility] 6 03:58:28 Medications Name Sig [...] sliding scale before meals TID<150- 0 -200-3 -250-6 rntke597 -300- 9 anfem247 -350-12 laopq087 -400-15 units Not Available Not Available Not [...] Current Every Day Smoker VONDA Diaz - [facility] 02/18/2025 15:08:04 Do You Have An Advance Directive? No Information not available 01/29/2017 Are You Blind Or Do You Have Difficulty Seeing? Yes [email or web address] Information not available 09/25/2021 Is Blood Transfusion Acceptable In An Emergency? Yes [email or web address] Information not available 09/25/2021 What Is Your Level Of Caffeine Consumption? Heavy [email or web address] Information not available 01/29/2017 How Much Tobacco Do You Chew? None [email or web address] Information not available 01/29/2017 Commercial Sex Work No [email or web address] Information not available 01/29/2017 In The 14 [...] Do You Have Serious Difficulty Hearing? No [email or web address] Information not available 09/25/2021 What Type Of Diet Are You Following? REGULAR [email or web address] Information not available 01/29/2017 Which Illicit Or Recreational Drugs Have You Used? None Information not available 01/29/2017 Have You Processed Blood Or Body Fluids From An Ebola Virus Disease Patient Without Appropriate PPE? No [email or web address] Information not available 09/25/2021 Education Less Than 8th Grade [email or web address] Information not available 01/29/2017 What Is The Highest Grade Or Level Of School You Have Completed Or The Highest Degree You Have Received? [id number] [email or web address] Information not available 08/12/2025 Are There Any Guns Present In Your Home? Yes Information not available 02/26/2017 Hard Of Hearing Or Deaf In One Or Both Ears? No [email or web address] Information not available 01/29/2017 High Number Of Sexual Partners No [email or web address] Information not available 01/29/2017 History Of Inconsistent/no Condom Use No [email or web address] Information not available 01/29/2017 International Travel None Information not available 02/26/2017 Legally Blind In One Or Both Eyes? No [email or web address] Information not available 01/29/2017 In The Past 6 Months Have You Fallen No Information not available 01/29/2017 Medication List Reconciled Yes Information not available 04/14/2019 What Number (0-10) Best Describes How, During The Past Week, Has Interfered With Your General Activity? 0 [email or web address] Information not available 01/29/2017 What Number (0-10) Best Describes How, During The Past Week, Pain Has Interfered With Your Enjoyment In The Past Week 0 [email or web address] Information not available 01/29/2017 What Number (0-10) Best Describes Your Pain On Average In The Past Week 0 [email or web address] Information not available 01/29/2017 Total PEG Score [...] available 08/12/2025 Hospital Discharged Patient To Home [email or web address] Information not available 08/12/2025 ER Medication List Reconciled Yes [email or web address] Information not available 07/22/2025 ER Contact Date 07/22/2025 [email or web address] Informati on not available 07/22/2025 ER Follow Up Contact Date 07/22/2025 [email or web address] Information not available 07/22/2025 ER Follow Up Patient Contact Via Unable To Contact Went To [facility] ER Transferred To [facility] Diagnosis Pneumonia [email or web address] Information not available 07/22/2025 ER Date Of Discharge 07/21/2025 [email or web address] Information not available 07/22/2025 ER Discharged Patient To Caregiver Transfer Information not available 07/22/2025 ER Records Recieved Yes [email or web address] Information not available 07/22/2025 ER Records Requested Yes [email or web address] Information not available 07/22/2025 Marital Status [email or web address] Informatio n not available 01/29/2017 What Was The Date Of Your Most Recent Tobacco Screening? 08/12/2025 [email or web address] Information not available 08/12/2025 Mother With HIV? No [email or web address] Informat ion not available 01/29/2017 How Many Children Do You Have? 4 [email or web address] Information not available 08/12/2025 What Is Your Relationship Status? [email or web address] Information not available 08/12/2025 Do You Use Your Seat Belt Or Car Seat Routinely? Yes Information not available 07/28/2024 Seat Belts Used Routinely Yes [email or web address] Information not available 01/29/2017 Are You Sexually Active? Yes Information not available 08/08/2018 Sexual Partner Has HIV? No [email or web address] Information not available 01/29/2017 Sexual Partner Uses IV Drugs? No [email or web address] Information not available 01/29/2017 Smoke Alarm In Home No [email or web address] Information not available 01/29/2017 At What Age Did You Start Smoking Tobacco? 15 Information not available 02/26/2017 How Much Tobacco Do You Smoke? 0.5 PPD [email or web address] Information not available 05/05/2025 General Stress Level Medium Information not available 01/29/2017 Do You Use Sunscreen Routinely? No [email or web address] Information not available 01/29/2017 How Many Years [...] use any illicit or recreational drugs? No [email or web address] Information not available 06/14/2025 Do you or have you ever used any other forms of tobacco or nicotine? Yes Nicotine patches Information not available 12/17/2024 What is your level of alcohol consumption? None [email or web address] Information not available 01/29/2017 Do you or have you ever used smokeless tobacco? Never used smokeless tobacco Information not available 04/14/2019 Are you currently employed? No [email or web address] Information not available 08/12/2025 Do you have transportation difficulties? No [email or web address] Information not available 09/25/2021 Are you able to walk independently without assistance or assistive devices? [email or web address] Information not available 01/29/2017 Do you have difficulty doing errands alone? No Information not available 09/25/2021 Are you able to care for yourself independently? Yes [email or web address] Information not available 09/25/2021 Do you have difficulty dressing, bathing, grooming, or toileting? No [email or web address] Information not available 09/25/2021 Do you or have you ever used e-cigarettes or vape? Never used electronic cigarettes Information not available 04/14/2019 What is your exercise level? Moderate [email or web address] Information not available 01/29/2017 Mental Status Question Answer Note LastModified by Organizat ion Details LastModified Time Do you feel stressed (tense, restless, nervous, or anxious, or unable to sleep at night)? [id number] Information not available 09/25/2021 Do you have difficulty concentrating, remembering or making decisions? No [email or web address] Information no t available 09/25/2021 Family History Relationship Description Onset Age of this Age Resolved Age Notes LastModified by Organization Details LastModified Time Mother Diabetes mellitus [email or web address] Not available 2016 14:32:39 Brother Diabetes mellitus [email or web address] Not available 2016 14:32:46 Medical History Condition [...] Anemia N Colon Polyps N Heart Attack ([place]) N Ovarian Cancer N Diabetes N Bedwetting [...] quadrivalent, preservative 9 completed Not Available [facility] 09/19/2019 02:39:19 Tdap 7 completed Not Available [facility] 09/19/2019 02:39:16 Influenza, split virus, trivalent, preservative 6 completed Not Available [facility] 09/25/2023 03:27:39 Tdap 5 completed Not Available [facility] 08/12/2025 12:00:37 Influenza, MDCK, quadrivalent, PF 4 completed Juliet [facility] 05/07/2024 12:22:36 Influenza, split virus, quadrivalent, PF 5 completed Rita tello, [facility] 05/05/2025 12:58:35 Pneumococcal conjugate PCV20, polysaccharide EFX502 conjugate, adjuvant, PF 5 completed Rita tello, [facility] 06/28/2025 15:43:32 Influenza, MDCK, quadrivalent, preservative 8 completed Not Available [facility] 09/19/2019 02:39:18 Past Encounters Encounter ID Performer Location Encounter Start Date Encounter Closed Date Diagnosis/Indication Diagnosis SNOMED-CT Code Diagnosis ICD10 Code Diagnosis IMO Codes Diagnosis Note [id number] Didier Hardin [facility] [address] [place] [phone] 06/21/2025 14:57:19 06/22/2025 11:02:18 Local infection of wound [id number] T81.49XA [id number] Advised to continue Levaquin as ordered. Observe for any worsening s/s of infection such as increased redness, drainage, swelling, odor or fever and RTC or seek care if symptoms occur. Otherwise follow up in one week. Questions encouraged and answered, verbalized understand ing. Diet education 75035340 Z71.3 Exercises education, guidance, and counseling [id number] Z71.82 Body mass index 40+ - severely obese [id number] Z68.42 [id number] BMI is 46.2 [id number] MCKAY CUEVAS [facility] [id number] [place] [phone] 0 06/28/2025 14:26:03 06/28/2025 17:52:37 Body mass index 40+ - severely obese [id number] Z68.42 309162 Diet education 00456073 Z71.3 Exercises education, guidance, and counseling 758393176 Z71.82 Insomnia 891691443 G47.0 9 [id number] Will increase the trazodone to 100 mg at bedtime. Local infe ction of wound 02187490 T81.49XA [id number] Healing. Completed levaquin. Will recheck next week Requires v accination against Streptococcus pneumoniae [id number] Z23 [id number] [facility] [address] [place] [phone] 07/06/2025 09:50:42 07/06/2025 12:42:45 [id number] MCKAY CUEVAS DO [facility] [place] [address] [place] [phone] 07/07/2025 14:54:32 07/07/2025 15:29:25 Local infection of wound 85099359 T81.49XA [id number] Healing. If noticing any increased redness or pain; Let us know. Patient voiced understand ing Body mass index 40+ - severely obese 753830249 E66.01 13499334 Diet education 65361677 Z71.3 Exercises education, guidance, and counseling 803251157 Z71.82 Cigarette smoker 9807927 7 F17.210 875284 [id number] [facility] [address] [place] [phone] 07/07/2025 15:43:10 07/07/2025 16:42:44 [id number] [facility] [address] [place] [phone] 07/22/2025 15:07:34 07/22/2025 17:21:39 Goals Section Goal Description Progress Status Start [...] Member ID Sofia Member ID Guarantor Name 07/22/2025 2 [place] Nadine Esquivel [id number] Nadine Esquivel 07/22/2025 1 EDUARDO FARFAN FROM [facility] (EPO) Nadine Esquivel [id number] Nadine Esquivel OBGyn Episode No OBEpisode recorded.
--- OUTSIDE RECORDS SUMMARY | 2025-08-29 09:09 | XMS_ITS | Continuity of Care Document ---
Author Organization [facility], Care Managers Address [address] [place] [id number] Care Team Providers Care Neurosurgeon Name Role Phone LUISA JAIMES Rn Employee Health EUN [facility] SHAWNA Rivera [facility] Assessment Encounter Date Assessment Date Assessment LastModified by Organization Details LastModified Time 07/23/2025 07/23/2025 Care Plan for Nadine Esquivel (Briseida) 64 Enrolled [facility] 07/27 Diagnosis: Depression, CHF, COPD, Tobacco, [...] any hospital or ER visits to care transitions manager or clinic staff. Interventions ([facility] Nurse Steps) -RN will provide educational [...] phone, by mail, through Primary Care Physician, SWEET POTATO DISINTEGRATOR, or others physicians at our office. Evaluations 07/23/2025-Per [facility] EMR pt remains hospitalized with R lower lobe pneumonia and CHF. She is being treated with IV rocephin and doxycycline. CT and echocardiogram done yesterday, report not in chart yet. Demario 07/22/2025-Pt called yesterday to clinic complaining of weakness and shortness of breath. She was advised to go to ER. I tried to call pt back, no answer. Called [facility] ER adn she was there being treated. Records received today. CXR showed R lower lobe pneumonia. bNP 456, WBcs 11.6. On admit her O2 sat was 70%, place on 4L then eventually was able to go down to 2L. Pt was treated with Dexamethasone, Zithromax, Rocephin, Lasix, and neb treatments. She was transferred to [facility], diagnosis L lower lobe pneumonia, CHF. Called [facility] pt is there in room 5014, med [...] not accept calls. Demario 07/06/25-New Enrollment into [facility] program. Dx: Depression, CHF, COPD, Tobacco, BMI, asthma Pt does not have Health Jail. Pt has active Medicaid Pt has had ER visits in the last year. Will develop a Care Plan to assist with the patients Chronic Illness. Will introduce myself, explain program and give pt care plan at next FTF visit. Pt has appt tomorrow Demario florian Not available 07/23/2025 08:01:34 Plan of Treatment Reminders Order Date Submit [...] Organization Details Recorded Time Acute sinusiti s [id number] Completed 200402/26/2017 Category : DD; Medicine Descript ion: SINUSITI S ACUTE; Display in Medcin: YES; Display in ESB: YES; Confiden tiality Level: Level 1 Cordelia Mcclain LPN [facility] 7 10:04:47 Dizzines s and giddines s [id number] Completed 200402/26/2017 Category : DD; Medicine Descript ion: dizzines s; Display in Medcin: YES; Display in ESB: YES; Confiden tiality Level: Level 1 Cordelia Mcclain LPN [facility] 7 10:05:26 Tracheob ronchiti s [id number] Completed 200402/26/2017 Category : DD; Medicine Descript ion: TRACHEOB RONCHITI S; Display in Medcin: YES; Display in ESB: YES; Confiden tiality Level: Level 1 Cordelia Mcclain REMIGIO elisha, [facility] 7 10:04:42 Chronic obstruct angy pulmonar y disease 86934889 Active 2004 Modified By: MARIA ANTONIA DEL REAL; Category : DD; Examiner : Veronica Jensen I.; Medicine Descript ion: CHRONIC OBSTRUCT ANGY PULMONAR Y DISEASE; Display in Medcin: YES; Display in ESB: YES; Confiden tiality Level: Level 1 Not Available [facility] 4 03:27:39 Clinical finding Completed 200402/26/2017 Modified By: YAZ MARSHALL; Category : DD; Examiner : Yaz Marshall; Medicine Descript ion: LARYNGOP HARYNGEA L REFLUX; Display in Medcin: NO; Display in ESB: NO; Confiden tiality Level: Level 1 Cordelia Mcclain LPN elisha, [facility] 7 10:05:08 Allergic rhinitis 33920821 Active 2004 Category : DD; Medicine Descript ion: ALLERGIC RHINITIS ; Display in Medcin: YES; Display in ESB: YES; Confiden tiality Level: Level 1 Not Available [facility] 4 03:27:39 Neves's palsy [id number] Completed 200502/26/2017 Category : DD; Medicine Descript ion: NEVES'S PALSY; Display in Medcin: YES; Display in ESB: YES; Confiden tiality Level: Level 1 Cordelia Mcclain REMIGIO elisha, [facility] 7 10:05:01 Family history of diabetes mellitus [id number] Completed 200902/26/2017 Created By: VEROINCA JENSEN ; Modified By: VERONICA JENSEN ; Category : DD; Examiner : VERONICA JENSEN I.; Medicine Descript ion: DIABETES MELLITUS ; Display in Medcin: NO; Display in ESB: YES; Confiden tiality Level: Level 1 Cordelia Mcclain REMIGIO elisha, [facility] 7 10:04:51 Benign essentia l hyperten [place] 1070914 Completed 200902/26/2017 Created By: VERONICA JENSEN ; Modified By: GHAZAL PHAN; Category : DD; Examiner : VERONICA JENSEN I.; Medicine Descript ion: HYPERTEN [place] (SYSTEMI C); Display in Medcin: YES; Display in ESB: YES; Confiden tiality Level: Level 1 Cordelia Mcclain REMIGIO tello, [facility] 7 10:05:46 Family history of Cardiova scular disease 433477311 Completed 200902/26/2017 Created By: VERONICA JENSEN ; Modified By: MARIA ANTONIA DEL REAL; Category : DD; Examiner : Veronica Jensen I.; Medicine Descript ion: reported family history ischemic heart disease before age 50; Display in Medcin: YES; Display in ESB: YES; Confiden tiality Level: Level 1 Cordelia Mcclain REMIGIO tello, [facility] 7 10:05:23 Wheezing 14583221 Completed 200902/26/2017 Created By: VERONICA JENSEN ; Modified By: GHAZAL PHAN; Category : DD; Examiner : Veronica Jensen I.; Medicine Descript ion: wheezing [as a symptom] ; Display in Medcin: YES; Display in ESB: YES; Confiden tiality Level: Level 1 Cordelia Mcclain REMIGIO tello, [facility] 7 10:05:57 Mild intermit tent asthma 990800803 Active 2009 Created By: VERONICA JENSEN ; Modified By: GHAZAL PHAN; Category : DD; Examiner : Veronica Jensen I.; Medicine Descript ion: ASTHMA MILD INTERMIT TENT UNCOMPLI CATED; Display in Medcin: YES; Display in ESB: YES; Confiden tiality Level: Level 1 Not Available [facility] 4 03:27:39 Obesity 134062492 Active 2010 Created By: VERONICA JENSEN ; Modified By: GHAZAL PHAN; Category : DD; Examiner : VERONICA JENSEN I.; Medicine Descript ion: Obese; Display in Medcin: YES; Display in ESB: YES; Confiden tiality Level: Level 1 Not Available [facility] 4 03:27:39 Nicotine dependen ce 68108091 Active 2010 Created By: VERONICA JENSEN ; Modified By: YAZ MARSHALL; Category : DD; Examiner : Yaz Marshall; Medicine Descript ion: current smoker; Display in Medcin: NO; Display in ESB: NO; Confiden tiality Level: Level 1; Type: Diagnosi s Not Available [facility] 4 03:27:39 Hyperlip idemia 24485648 Active 2010 Created By: VERONICA JENSEN ; Modified By: VERONICA JENSEN ; Category : DD; Examiner : Veronica Jensen I.; Medicine Descript ion: DYSLIPID EMIA; Display in Medcin: YES; Display in ESB: YES; Confiden tiality Level: Level 1; Type: Diagnosi s Not Available [facility] 4 03:27:39 Long-ter m drug therapy Completed 201002/26/2017 Created By: VERONICA JENSEN ; Modified By: VERONICA JENSEN ; Category : DD; Examiner : Veronica Jensen I.; Medicine Descript ion: taking medicati on for a long time; Display in Medcin: YES; Display in ESB: YES; Confiden tiality Level: Level 1; Type: Diagnosi s Cordelia Mcclain LPN [facility] 7 10:05:21 Verruca plantari s [id number] Completed 201102/26/2017 Created By: VERONICA JENSEN ; Modified By: YAZ MARSHALL; Category : DD; Examiner : Yaz Marshall; Medicine Descript ion: Wartlike Lesions Feet Plantar; Display in Medcin: YES; Display in ESB: YES; Confiden tiality Level: Level 1; Type: Diagnosi s Cordelia Mcclain LPN [facility] 7 10:06:02 Plane wart [id number] Completed 201102/26/2017 Created By: VERONICA JENSEN ; Modified By: YAZ MARSHALL; Category : DD; Examiner : Yaz Marshall; Medicine Descript ion: WARTS COMMON; Display in Medcin: YES; Display in ESB: YES; Confiden tiality Level: Level 1; Type: [facility] Cordelia Johny, FIELD SUPPORT TECHNICIAN null, [facility] 7 10:05:14 Procedur e Completed 201102/26/2017 Created By: VERONICA JENSEN ; Modified By: YAZ MARSHALL; Category : DD; Examiner : Veronica Jensen I.; Medicine Descript ion: visit for: medicati on refill; Display in Medcin: NO; Display in ESB: NO; Confiden tiality Level: Level 1; Type: [facility] Cordelia Maloneal, FIELD SUPPORT TECHNICIAN [facility] 7 10:05:40 Sciatica [id number] Completed 201202/26/2017 Created By: VERONICA JENSEN ; Modified By: YAZ MARSHALL; Category : DD; Examiner : Veronica Jensen I.; Medicine Descript ion: NEURITIS SCIATIC; Display in Medcin: NO; Display in ESB: NO; Confiden tiality Level: Level 1; Type: [facility] asha Mcclain, FIELD SUPPORT TECHN[facility] 7 10:05:12 Screenin g procedur e Completed 201402/26/2017 Created By: YAZ MARSHALL; Modified By: YAZ MARSHALL; Category : DD; Examiner : Yaz Marshall; Medicine Descript ion: visit for: screenin g malignan t neoplasm colon; Display in Medcin: NO; Display in ESB: NO; Confiden tiality Level: Level 1; Type: Diagnosi s Cordelia Johny, FIELD SUPPORT TECHNICIAN null, [facility] 7 10:05:37 Adult health examinat ion Completed 201402/26/2017 Created By: YAZ MARSHALL; Modified By: YAZ MARSHALL; Category : DD; Examiner : Yaz Marshall; Medicine Descript ion: ROUTINE HISTORY AND PHYSICAL ; Display in Medcin: YES; Display in ESB: YES; Confiden tiality Level: Level 1; Type: Sonia Mcclain, FIELD SUPPORT TECHNICIAN null, [facility] 7 10:05:29 Abnormal finding on evaluati on procedur e [id number] Completed 201402/26/2017 Created By: YAZ MARSHALL; Modified By: YAZ MARSHALL; Category : DD; Examiner : Yaz Marshall; Medicine Descript ion: ROUTINE HISTORY AND PHYSICAL ; Display in Medcin: YES; Display in ESB: YES; Confiden tiality Level: Level 1; Type: Sonia Mcclain, FIELD SUPPORT TECHNIC[facility] 7 10:05:54 Palpitat ions 38187227 Completed 201402/26/2017 Created By: YAZ MARSHALL; Modified By: YAZ MARSHALL; Category : DD; Examiner : Yaz Marshall; Medicine Descript ion: palpitat ions; Display in Medcin: NO; Display in ESB: NO; Confiden tiality Level: Level 1; Type: Sonia Mcclain, FIELD SUPPORT TECHNICIAN null, [facility] 7 10:06:05 Microsco pic hematuri a [id number] Completed 201402/26/2017 Created By: AYZ MARSHALL; Modified By: YAZ MARSHALL; Category : DD; Examiner : Yaz Marshall; Medicine Descript ion: MICROSCO PIC HEMATURI A; Display in Medcin: YES; Display in ESB: YES; Confiden tiality Level: Level 1; Type: Sonia Mcclain, FIELD SUPPORT TECHNICIAN null, [facility] 7 10:05:05 Electroc ardiogra m abnormal [id number] Completed 201402/26/2017 Created By: YAZ MARSHALL; Modified By: YAZ MARSHALL; Category : DD; Examiner : Yaz Marshall; Medicine Descript ion: ECG NORMAL VARIANT; Display in Medcin: NO; Display in ESB: NO; Confiden tiality Level: Level 1; Type: Diagnosi s Cordelia Maloneal, FIELD SUPPORT TECHNICIAN null, [facility] 7 10:04:38 Evaluati on procedur e Completed 201402/26/2017 Created By: ELVIE FERNANDEZ; Modified By: KEVEN OCTOBER; Category : DD; Examiner : Keven Muhammad; Medicine Descript ion: Observat ion For Suspecte d Conditio n; Display in Medcin: YES; Display in ESB: YES; Confiden tiality Level: Level 1; Type: Diagnosi s Cordelia Johny, FIELD SUPPORT TECHNICIAN null, [facility] 7 10:05:34 Hyperten sive disorder 61720821 Active 2015 Created By: YAZ MARSHALL; Modified By: YAZ MARSHALL; Category : DD; Examiner : Yaz Marshall; Medicine Descript ion: ESSENTIA L HYPERTEN [place] BENIGN; Display in Medcin: YES; Display in ESB: YES; Confiden tiality Level: Level 1; Type: Diagnosi s Not Available [facility] 4 03:27:39 Viral screenin g Completed 201502/26/2017 Created By: YAZ MARSHALL; Modified By: YAZ MARSHALL; Category : DD; Examiner : Yaz Marshall; Medicine Descript ion: visit for: screenin g exam dengue fever; Display in Medcin: YES; Display in ESB: YES; Confiden tiality Level: Level 1; Type: Diagnosi s Cordelia Mcclain, FIELD SUPPORT TECHNICIAN null, [facility] 7 10:05:16 Screenin g mammogra phy Completed 201502/26/2017 Created By: YAZ MARSHALL; Modified By: YAZ MARSHALL; Category : DD; Examiner : Yaz Marshall; Medicine Descript ion: Mammogra m Screenin g; Display in Medcin: YES; Display in ESB: YES; Confiden tiality Level: Level 1; Type: Diagnosi s Cordelia Johny, FIELD SUPPORT TECHNICIAN null, [facility] 7 10:05:19 Active immuniza tion Completed 201502/26/2017 Created By: YAZ MARSHALL; Modified By: YAZ MARSHALL; Category : DD; Examiner : Yaz Marshall; Medicine Descript ion: visit for: immuniza tion; Display in Medcin: YES; Display in ESB: YES; Confiden tiality Level: Level 1; Type: Diagnosi s Cordelia Mcclain LPN [facility] 7 10:05:31 Pain of left shoulder joint [id number] 239602 Active 2017 Not Available [facility] 4 03:27:39 Vitamin D deficien cy 36080751 Active 2021 Not Available [facility] 4 03:27:39 Congesti ve heart failure 27907970 Active 2022 Not Available [facility] 4 03:27:39 Type 2 diabetes mellitus without complica tion 974070560 Active 2022 Not Available [facility] 4 03:27:39 Female urinary stress incontin ence 39533513 Active 2024 Adriana Poe NP [address] [place] [address], [address] [place] [address] 5 11:50:21 Dependen ce on suppleme ntal oxygen 35937914066 7 Active 2024 Adriana Poe NP [address], [address] [place] [address] 5 12:26:07 Problem Notes None recorded. Procedures Surgical History Date Name Laterality Status Provider Name and Address Organization Details Recorded Time 05/17/20 25 Suture/Staple removal completed [address], [address] [place] [address] 05/17/2025 15:52:31 05/05/20 25 Flu vaccine Screening completed Rita Olivarez [facility] 05/05/2025 12:16:34 08/20/20 24 Nebulizer tx duoneb completed [facility] [address], [phone], [facility] 08/20/2024 16:28:20 05/06/20 24 venipuncture completed Juliet En [facility] 05/06/2024 11:42:54 02/19/20 24 Splint Application completed Adriana Poe NP [address], [phone], [facility] 02/19/2024 14:24:04 12/26/19 24 [...] 10:26:37 08/15/20 16 venipuncture completed Homa Zarate [facility] 08/15/2016 10:27:51 Cardiac Surgery completed Cordelia waldrop LPN [facility] 02/26/2017 10:07:03 Imaging Results None recorded. Procedure Notes None recorded. Medical Equipment None Reported. Allergies Allergen ID Allergen Name Allergen Category Reaction Reaction Severity Criticality Documentation Date Start Date Code Code System Note Provider Name and Address Organization Details Recorded Time 33452 codeine medicatio n Not available Not available Not available 08/05/20162009 7210 RxNorm Comme nt: Last Edite d: 11-25 09:27 :35; Not Available [facility] 6 03:58:28 Medications Name Sig Start [...] per sliding scale before meals TID<150- 0 zilcm120 -200-3 rorvc281 -250-6 -300- 9 dycfs660 -350-12 fywvq741 -400-15 units Not Available Not Available Not [...] Current Every Day Smoker VONDA Diaz - [facility] 02/18/2025 15:08:04 Do You Have An Advance Directive? No [email or web address] Information not available 01/29/2017 Are You Blind Or Do You Have Difficulty Seeing? Yes Information not available 09/25/2021 Is Blood Transfusion Acceptable In An Emergency? Yes [email or web address] Information not available 09/25/2021 What Is Your Level Of Caffeine Consumption? Heavy [email or web address] Information not available 01/29/2017 How Much Tobacco Do You Chew? None [email or web address] Information not available 01/29/2017 Commercial Sex Work No [email or web address] Information not available 01/29/2017 In The 14 [...] Do You Have Serious Difficulty Hearing? No [email or web address] Information not available 09/25/2021 What Type Of Diet Are You Following? REGULAR [email or web address] Information not available 01/29/2017 Which Illicit Or Recreational Drugs Have You Used? None [email or web address] Information not available 01/29/2017 Have You Processed Blood Or Body Fluids From An Ebola Virus Disease Patient Without Appropriate PPE? No Information not available 09/25/2021 Education Less Than 8th Grade [email or web address] Information not available 01/29/2017 What Is The Highest Grade Or Level Of School You Have Completed Or The Highest Degree You Have Received? DL69963-6 [email or web address] Information not available 08/12/2025 Are There Any Guns Present In Your Home? Yes Information not available 02/26/2017 Hard Of Hearing Or Deaf In One Or Both Ears? No [email or web address] Information not available 01/29/2017 High Number Of Sexual Partners No [email or web address] Information not available 01/29/2017 History Of Inconsistent/no Condom Use No [email or web address] Information not available 01/29/2017 International Travel None Information not available 02/26/2017 Legally Blind In One Or Both Eyes? No [email or web address] Information not available 01/29/2017 In The Past 6 Months Have You Fallen No [email or web address] Information not available 01/29/2017 Medication List Reconciled Yes Information not available 04/14/2019 What Number (0-10) Best Describes How, During The Past Week, Has Interfered With Your General Activity? 0 [email or web address] Information not available 01/29/2017 What Number (0-10) Best Describes How, During The Past Week, Pain Has Interfered With Your Enjoyment In The Past Week 0 [email or web address] Information not available 01/29/2017 What Number (0-10) Best Describes Your Pain On Average In The Past Week 0 [email or web address] Information not available 01/29/2017 Total PEG Score 0 [email or web address] Informati on not available 01/29/2017 Most Recent Dental Visit 09/02/1996 Up To Date 04/23/22 Information not available 08/08/2018 Sexual Orientation Straight Or Heterosexual Information not available 11/24/2020 Gender Identity Female Informat ion not available 11/24/2020 Eye Exam 09/02/2015 Information not available 08/08/2018 Do You Feel Safe Yes Informa tion not available 11/24/2020 Hospital Follow Up Appointment 08/12/2025 [email or web address] Information not available 08/12/2025 Hospital Discharged Patient To Home [email or web address] Information not available 08/12/2025 ER Medication List Reconciled Yes Information not available 07/22/2025 ER Contact Date 07/22/2025 Informati on not available 07/22/2025 ER Follow Up Contact Date 07/22/2025 Information not available 07/22/2025 ER Follow Up Patient Contact Via Unable To Contact Went To [facility] ER Transferred To [facility] Diagnosis Pneumonia Information not available 07/22/2025 ER Date Of Discharge 07/21/2025 [email or web address] Information not available 07/22/2025 ER Discharged Patient To Caregiver Transfer [email or web address] Information not available 07/22/2025 ER Records Recieved Yes [email or web address] Information not available 07/22/2025 ER Records Requested Yes [email or web address] Information not available 07/22/2025 Marital Status [email or web address] Informatio n not available 01/29/2017 What Was The Date Of Your Most Recent Tobacco Screening? 08/12/2025 [email or web address] Information not available 08/12/2025 Mother With HIV? No [email or web address] Informat ion not available 01/29/2017 How Many Children Do You Have? 4 Information not available 08/12/2025 What Is Your Relationship Status? [email or web address] Information not available 08/12/2025 Do You Use Your Seat Belt Or Car Seat Routinely? Yes Information not available 07/28/2024 Seat Belts Used Routinely Yes [email or web address] Information not available 01/29/2017 Are You Sexually Active? Yes Information not available 08/08/2018 Sexual Partner Has HIV? No [email or web address] Information not available 01/29/2017 Sexual Partner Uses IV Drugs? No [email or web address] Information not available 01/29/2017 Smoke Alarm In Home No [email or web address] Information not available 01/29/2017 At What Age Did You Start Smoking Tobacco? 15 Information not available 02/26/2017 How Much Tobacco Do You Smoke? 0.5 PPD [email or web address] Information not available 05/05/2025 General Stress Level Medium Information not available 01/29/2017 Do You Use Sunscreen Routinely? No [email or web address] Information not available 01/29/2017 How Many Years Have You Smoked Tobacco? 41 Information not available 02/26/2017 Have You Used IV Drugs? No [email or web address] Information not available 01/29/2017 Do You Have Difficulty Walking Or Climbing Stairs? Yes [email or web address] Information not available 09/25/2021 Do You Want To Talk About Contraception Or Prevention During Your Visit Today? No - This Question Does Not Apply To Me/I Prefer Not To Answer Information not available 12/17/2024 Do You Have Any Future Plans To Get ? No, I Don't Want To Become Information not available 12/17/2024 Sex: Female Functional Status Question Answer Note LastModified by [employer] Details LastModified Time Do you use any illicit or recreational drugs? No Information not available 06/14/2025 Do you or have you ever used any other forms of tobacco or nicotine? Yes Nicotine patches Information not available 12/17/2024 What is your level of alcohol consumption? None [email or web address] Information not available 01/29/2017 Do you or have you ever used smokeless tobacco? Never used smokeless tobacco Information not available 04/14/2019 Are you currently employed? No [email or web address] Information not available 08/12/2025 Do you have transportation difficulties? No [email or web address] Information not available 09/25/2021 Are you able to walk independently without assistance or assistive devices? YESWOREST [email or web address] Information not available 01/29/2017 Do you have difficulty doing errands alone? No [email or web address] Information not available 09/25/2021 Are you able to care for yourself independently? Yes [email or web address] Information not available 09/25/2021 Do you have difficulty dressing, bathing, grooming, or toileting? No [email or web address] Information not available 09/25/2021 Do you or have you ever used e-cigarettes or vape? Never used electronic cigarettes Information not available 04/14/2019 What is your exercise level? Moderate [email or web address] Information not available 01/29/2017 Mental Status Question Answer Note LastModified by [employer] Details LastModified Time Do you feel stressed (tense, restless, nervous, or anxious, or unable to sleep at night)? [id number] [email or web address] Information not available 09/25/2021 Do you have difficulty concentrating, remembering or making decisions? No [email or web address] Information no t available 09/25/2021 Family History Relationship Description Onset Age of this Age Resolved Age Notes LastModified by Organization Details LastModified Time Mother Diabetes mellitus [email or web address] Not available 2016 14:32:39 Brother Diabetes mellitus [email or web address] Not available 2016 14:32:46 Medical History Condition [...] Anemia N Colon Polyps N Heart Attack ([place]) N Ovarian Cancer N Diabetes N Bedwetting [...] MDCK, quadrivalent, preservative 9 completed Not Available [facility] 09/19/2019 02:39:19 Tdap 7 completed Not Available [facility] 09/19/2019 02:39:16 Influenza, split virus, trivalent, preservative 6 completed Not Available [facility] 09/25/2023 03:27:39 Tdap 5 completed Not Available [facility] 08/12/2025 12:00:37 Influenza, MDCK, quadrivalent, PF 4 completed Juliet Gatica [facility], [facility] 05/07/2024 12:22:36 Influenza, split virus, quadrivalent, PF 5 completed Rita Olivarez [facility] 05/05/2025 12:58:35 Pneumococcal conjugate PCV20, polysaccharide OLU234 conjugate, adjuvant, PF 5 completed Rita Olivarez [facility] 06/28/2025 15:43:32 Influenza, MDCK, quadrivalent, preservative 8 completed Not Available [facility] 09/19/2019 02:39:18 Past Encounters Encounter ID Performer Location Encounter Start Date Encounter Closed Date Diagnosis/Indication Diagnosis SNOMED-CT Code Diagnosis ICD10 Code Diagnosis IMO Codes Diagnosis Note [id number] MCKAY CUEVAS DO [facility] [address] [place] [address] 06/28/2025 14:26:03 06/28/2025 17:52:37 Body mass index 40+ - severely obese 733373421 Z68.42 [id number] Diet education 28372633 Z71.3 Exercises education, guidance, and counseling [id number] Z71.82 [facility] [id number] G47.0 9 [id number] Will increase the trazodone to 100 mg at bedtime. Local infe ction of wound 85672368 T81.49XA [id number] Healing. Completed levaquin. Will recheck next week Requires v accination against Streptococcus pneumoniae [id number] Z23 [id number] [facility] [address] [place] [address] 07/06/2025 09:50:42 07/06/2025 12:42:45 [id number] MCKAY CUEVAS DO [facility] [address] [place] [address] 07/07/2025 14:54:32 07/07/2025 15:29:25 Local infection of wound [id number] T81.49XA [id number] Healing. If noticing any increased redness or pain; Let us know. Patient voiced understand ing Body mass index 40+ - severely obese 544211956 E66.01 [id number] Diet education 14132313 Z71.3 Exercises education, guidance, and counseling 830919254 Z71.82 Cigarette smoker 3639295 7 F17.210 [id number] [facility] [address] [place] [phone] 07/07/2025 15:43:10 07/07/2025 16:42:44 [id number] [facility] [address] [address] 07/22/2025 15:07:34 07/22/2025 17:21:39 [id number] [facility] [address] [place] [phone] 07/23/2025 07:58:37 07/26/2025 08:44:39 Goals Section Goal Description Progress Status Start [...] Member ID Sofia Member ID Guarantor Name 07/23/2025 2 [place] Nadine Esquivel [id number] Nadine Esquivel 07/23/2025 1 EDUARDO FARFAN FROM [facility] PLAN ([facility]) Nadine Esquivel [id number] Nadnie Esquivel OBGyn Episode No OBEpisode recorded.
--- OUTSIDE RECORDS SUMMARY | 2025-08-29 09:09 | XMS_ITS | Clinical Summary ---
Author Organization [facility] Address [address] [place] [address] Care Team Providers Care Assistant Basketball Coach Name Role Phone Yaz Santos COLLECTION TEAM LEAD Primary Care Provider [phone] Allergies Active Allergy Reactions Criticality Noted Date Comments Codeine Nausea and Vomiting Low 05/07/2014 Medications acetaminophen (TYLENOL) 500 mg tablet Take 2,000 mg by mouth every 6 hours as needed. Active cephALEXin (KEFLEX) 500 mg capsule Take 1 Cap by mouth 4 times daily. 30 Cap None 4 Active atenoloL (TENORMIN) 25 mg tablet Take 1 Tablet (25 mg) by mouth daily. For migraine prevention 30 Tablet 2 0 Active butalbital-acet aminophen-caffe ine (FIORICET) 50-325-40 mg tablet Take 1 Tablet by mouth every 6 hours as needed for Migraine. Take at first sign of headache. 24 Tablet 2 0 Active Family History Medical History Relation Name Comments Breast Cancer Neg Hx Ovarian Cancer Neg Hx Relation Name Status Comments Daughter 1 Alive Daughter 2 Alive Daughter 3 Alive Daughter 4 Alive Maternal Grandmother Mother Sister 1 Alive Sister 2 Alive Sister 3 Alive Sister 4 Alive Social History Tobacco Use Types Packs/Day Years Used Date Smoking Tobacco: Every Day Cigarettes Smokeless Tobacco: Never Alcohol Use Standard Drinks/Week Comments No 0 (1 standard drink = 0.6 oz pur e alcohol) Comments No Sex and Gender Information Value Date Recorded Sex Assigned at Not on file Legal Sex Female 6:12 AM PARAOPTOMETRIC Gender Identity Not on file Sexual Orientation Not on file Last Filed Vital Signs Vital Sign Reading Time Taken Comments Blood Pressure 121/86 07/10/2020 3:15 PM PARAOPTOMETRIC Pulse 82 07/10/2020 2:11 PM PARAOPTOMETRIC Temperature 36.1 C (96.9 F) 07/10/2020 3:15 PM PARAOPTOMETRIC Respiratory Rate 16 07/10/2020 3:15 PM PARAOPTOMETRIC Oxygen Saturation 97% 07/10/2020 3:15 PM PARAOPTOMETRIC Inhaled Oxygen Concentration - - Weight 88.2 kg (194 lb 8 oz) 07/10/2020 1:13 PM PARAOPTOMETRIC Height 170.2 cm (5' 7 ) 07/10/2020 1:13 PM PARAOPTOMETRIC Body Mass Index 30.46 07/10/2020 1:13 PM PARAOPTOMETRIC Plan of Treatment Health Maintenance Due Date Last Done Comments DTAP/TDAP/TD VACCINES (1 - Tdap) 1981 HPV/Cotest (21-29) 1983 CERVICAL CANCER SCREENING 1992 HPV/Cotest (30-65) 1992 PAP SMEAR 1992 COLORECTAL SCREENING 2007 Colorectal Cancer Screening 2007 FIT-DNA Q 3 years 2007 FIT/FOBT Q 1 year 2007 Flex Sig/CT Colonography Q 5 years 2007 ZOSTER VACCINE (1 of 2) 2012 BREAST CANCER SCREENING 05/29/2017 05/29/2016 INFLUENZA VACCINE (#1) 2025 RSV VACCINE (60+ or ) (1 - 1-dose 75+ series) 2037 Procedures Procedure Name Priority Date/Time Associated Diagnosis Comments MAMMO SCREEN BILAT W OR WO CAD Routine 05/29/2016 12:39 PM CDT Encounter for screening mammogram for malignant neoplasm of breast from Last 3 Months or Most Recently Relevant to Health Maintenance Results * MAMMO DIGITAL SCREEN BILAT (05/29/2016 12:39 PM CDT) Anatomical Region Laterality Modality Breast Bilateral Mammography 05/29/2016 12:4 6 PM CDT Impressions 05/30/2016 10:31 AM CDT IMPRESSION: The 2 suspected nodular areas on the right will require additional evaluation. I recommend straight mediolateral image with compressed magnified CC and ML images, with ultrasound as necessary. [id number] Narrative 05/30/2016 10:31 AM CDT Bilateral Digital [...] by the Computer Aided Detection System (CAD), [employer] ImageChecker, Version 8.3. Yaz BIRD MAMMO ORDERABLES Final Result from Last 3 Months or Most Recently Relevant to Health Maintenance Insurance [employer] PATHWAY(X) EXCHANGE Care Teams Assistant Basketball Coach Relationship Specialty Start Date End Date Yaz Santos FNP PCP - General NURSE PRACTITIONER 02/09/15
--- OUTSIDE RECORDS SUMMARY | 2025-08-29 09:09 | XMS_ITS | Encounter Summary ---
Author Organization [facility] Address [address] [place] [address] Care Team Providers Care Transportation Mechanic Name Role Phone Yaz Santos Primary Care Provider [phone] Encounter Details Date Type Department Care Team (Latest Contact Info) Description 05/31/2016 Ancillary Orders [facility] [address] [facility] [address] [place] [address] Yaz Santos FNP [address] [place], [place] [id number] Inconclusive mammography (Primary Dx) Social History Tobacco Use Types Packs/Day Years Used Date Smoking Tobacco: Every Day Cigarettes Alcohol Use Standard Drinks/Week Comments No 0 (1 standard drink = 0.6 oz pur e alcohol) Comments No Sex and Gender Information Value Date Recorded Sex Assigned at Not on file Legal Sex Female 6:12 AM MEDICAL IMAGING DIRECTOR Gender Identity Not on file Sexual Orientation Not on file documented as of this encounter Plan of Treatment Not on file documented as of this encounter Visit Diagnoses Diagnosis Inconclusive mammography- Primary Inconclusive mammogram documented in this encounter Additional Health Concerns Infection Onset Date Last Indicated Resolved Time R/O COVID-19 07/10/2020 07/10/2020 07/12/2020 12:4 5 AM MEDICAL IMAGING DIRECTOR documented as of this encounter Care Teams Transportation Mechanic Relationship Specialty Start Date End Date Yaz Santos FNP PCP - General NURSE PRACTITIONER 02/09/15 documented as of this encounter
--- OUTSIDE RECORDS SUMMARY | 2025-08-29 09:09 | XMS_ITS | Continuity of Care Document ---
Author Organization [facility], Care Managers Address [address] [place] [id number] Care Team Providers Care Client Relations Representative Name Role Phone LUISA JAIMES Review Specialist YESI Biggs [facility] Worker SHAWNA Rivera [facility] Assessment Encounter Date Assessment Date Assessment LastModified by Organization Details LastModified Time 08/12/2025 08/12/2025 Care Plan for Nadine Esquivel (Briseida) 64 Enrolled [facility] 07/27 Diagnosis: Depression, CHF, COPD, Tobacco, BMI, [...] -Report any hospital or ER visits to hospice patient care secretary or clinic staff. Interventions ([facility] Nurse Steps) -RN will provide educational material [...] phone, by mail, through Primary Care Physician, HEALTH TECHNICIAN HEARING, or others physicians at our office. Evaluations 08/12/2025-[facility] - [place] Description ONLINE CONTENT EDITOR REFERRAL - PLEASE CALL LUISA AT [phone] FOR NEEDS, QUESTIONS OR SCHEDULING Diagnosis Chronic obstructive pulmonary disease ICD-10 J44.9 Chronic obstructive pulmonary disease, unspecified Decline Send to [facility] Pulmonology Clinic: [address] [facility] [id number], , Ordering Verna POE NP sent by [facility]. Pt was seen FTF in clinic. She was advised upon hospital discharge to FU with pulmonology in on week. Pt said she did not know this and had not made appt. She does not want to go to for pulm she is requesting to go to [place]. Referral sent. Demario 08/05/25- attempted to call pt to follow-up on pt case for SDOH needs. The pt case says to text before calling but I am not set up for secure texting at this time and unable to text. Pt did no answer the phone call and I left a voicemail with my contact information. TONI Schultz 07/26/2025- Pt was discharged from [facility] on 07/25/25. Discharge diagnosis CHF exacerbation, COPD. She was discharged on 2 oral antibiotics and oral steroids. Pt was also instructed to start Lantus insulin 25u daily and sliding scale TID. Attempted to call pt, no answer, left message asking her to call me back. Contacted PSRs and asked they attempt to contact pt today and make FU appt with PCP. Demario 07/23/2025-Per [facility] EMR pt remains hospitalized with R lower [...] and neb treatments. She was transferred to [facility], diagnosis L lower lobe pneumonia, CHF. Called [facility] pt is there in room 5014, [...] not accept calls. Demario 07/06/25-New Enrollment into [facility] program. Dx: Depression, CHF, COPD, Tobacco, BMI, asthma Pt does not have Health Jail. Pt has active Medicaid Pt has had ER visits in the last year. Will develop a Care Plan to assist with the patients Chronic Illness. Will introduce myself, explain program and give pt care plan at next FTF visit. Pt has appt tomorrow Demario florian Not available 08/12/2025 14:07:28 Plan of Treatment Reminders Order Date Submit [...] )/uL 3.98 - 10.40 high Not Available [facility] [address] [place], [address], 08/12/2025 17:25:39 08/12/20 25 08/12/2025 CBC RBC 5.41 x10(6 )/uL 3.93 - 5.22 high Not Available [facility] [address] [place], [address], 08/12/2025 17:25:39 08/12/20 25 08/12/2025 CBC HGB 14.8 g/dL 11.2 - 15.7 Not Available [facility] [address] [place], [address], 08/12/2025 17:25:39 08/12/20 25 08/12/2025 CBC HCT 49.9 % 34.1 - 44.9 high Not Available [facility] [address] [place], [address], 08/12/2025 17:25:39 08/12/20 25 08/12/2025 CBC MCV 92.2 fL 79.4 - 94.8 Not Available [facility] [address] [place], [address], 08/12/2025 17:25:39 08/12/20 25 08/12/2025 CBC MCH 27.4 pg 25.6 - 32.2 Not Available [facility] [address] [place], [address], 08/12/2025 17:25:39 08/12/20 25 08/12/2025 CBC MCHC 29.7 g/dL 32.2 - 35.5 low Not Available [facility] [address] [place], [address], 08/12/2025 17:25:39 08/12/20 25 08/12/2025 CBC platelet count 214 x10(3 )/uL 182 - 369 Not Available [facility] [address] [place], [address], 08/12/2025 17:25:39 08/12/20 25 08/12/2025 CBC neut% 78.9 % 34.0 - 71.1 high Not Available [facility] [address] [place], [address], 08/12/2025 17:25:39 08/12/20 25 08/12/2025 CBC lymph% 14.5 % 19.3 - 51.7 low Not Available [facility] [address] [place], [address], 08/12/2025 17:25:39 08/12/20 25 08/12/2025 CBC mono% 4.6 % 4.7 - 12.5 low Not Available [facility] [address] [place], [address], 08/12/2025 17:25:39 08/12/20 25 08/12/2025 CBC baso% 0.4 % 0.1 - 1.2 Not Available [facility] [address] [place], [place], [address], 08/12/2025 17:25:39 08/12/20 25 08/12/2025 CBC eo% 1.3 % 0.7 - 5.8 Not Available [facility] [address] [place], [place], [address], 08/12/2025 17:25:39 08/12/20 25 08/12/2025 CBC Ig% 0.3 % 0.0 - 0.4 Not Available [facility] [address] [place], [place], [address], 08/12/2025 17:25:39 08/12/20 25 08/12/2025 CBC neut# 9.93 x10(3 )/uL 1.56 - 6.13 high Not Available [facility] [address] [place], [place], [address], 08/12/2025 17:25:39 08/12/20 25 08/12/2025 CBC lymph# 1.82 x10(3 )/uL 1.18 - 3.74 Not Available [facility] [address] [place], [place], [address], 08/12/2025 17:25:39 08/12/20 25 08/12/2025 CBC mono# 0.58 x10(3 )/uL 0.24 - 0.86 Not Available [facility] [address], [place], [place], [address], 08/12/2025 17:25:39 08/12/20 25 08/12/2025 CBC baso# 0.05 x10(3 )/uL 0.01 - 0.08 Not Available [facility] [address], [place], [address], 08/12/2025 17:25:39 08/12/20 25 08/12/2025 CBC eo# 0.16 x10(3 )/uL 0.04 - 0.36 Not Available [facility] [address] [place], [address], 08/12/2025 17:25:39 08/12/20 25 08/12/2025 CBC Ig# 0.04 x10(3 )/uL 0.00 - 0.03 high Not Available [facility] [address] [place], [address], 08/12/2025 17:25:39 08/12/20 25 08/12/2025 CBC RDW-CV 15.3 % 11.7 - 14.4 high Not Available [facility] [address] [place], [address], 08/12/2025 17:25:39 08/12/20 25 08/12/2025 CBC RDW-SD 52.4 fL 36.4 - 46.3 high Not Available [facility] [address] [place], [address], 08/12/2025 17:25:39 08/12/20 25 08/12/2025 CBC MPV 10.5 fL 9.4 - 12.3 Not Available [facility] [address] [place], [address], 08/12/2025 17:25:39 08/12/20 25 08/12/2025 CBC NRBC# 0.00 x10(3 )/uL 0.00 - 0.01 Not Available [facility] [address] [place], [address], 08/12/2025 17:25:39 08/12/20 25 08/12/2025 CBC NRBC% 0.0 % 0.0 - 0.2 Not Available [facility] [address] [place], [address], 08/12/2025 17:25:39 08/12/20 25 08/12/2025 COMPR EHENS ANGY METAB OLIC PANEL (CMP) albumin 4.1 g/dL 3.5 - 5.0 Not Available [facility] [address] [place], [address], 08/12/2025 17:25:39 08/12/20 25 08/12/2025 COMPR EHENS ANGY METAB OLIC PANEL (CMP) chloride 99 mmol/ L 98 - 107 Not Available [facility] [address] [place], [address], 08/12/2025 17:25:39 08/12/20 25 08/12/2025 COMPR EHENS ANGY METAB OLIC PANEL (CMP) creatinine 1.17 mg/dL 0.52 - 1.04 high Not Available [facility] [address] [place], [address], 08/12/2025 17:25:39 08/12/20 25 08/12/2025 COMPR EHENS ANGY METAB OLIC PANEL (CMP) eco2 37.0 mmol/ L 22.0 - 30.0 high Not Available [facility] [address] [place], [address], 08/12/2025 17:25:39 08/12/20 25 08/12/2025 COMPR EHENS ANGY METAB OLIC PANEL (CMP) glucose 198 mg/dL 74 - 106 high Not Available [facility] [address] [place], [address], 08/12/2025 17:25:39 08/12/20 25 08/12/2025 COMPR EHENS ANGY METAB OLIC PANEL (CMP) potassium 4.60 mmol/ L 3.50 - 5.10 Not Available [facility] [address] [place], [address], 08/12/2025 17:25:39 08/12/20 25 08/12/2025 COMPR EHENS ANGY METAB OLIC PANEL (CMP) alkaline phos 114 U/L 38 - 126 Not Available [facility] [address] [place], [address], 08/12/2025 17:25:39 08/12/20 25 08/12/2025 COMPR EHENS ANGY METAB OLIC PANEL (CMP) sodium 141 mmol/ L 137 - 145 Not Available [facility] [address] [place], [address], 08/12/2025 17:25:39 08/12/20 25 08/12/2025 COMPR EHENS ANGY METAB OLIC PANEL (CMP) total bilirubin 0.6 mg/dL 0.2 - 1.3 Not Available [facility] [address] [place], [address], 08/12/2025 17:25:39 08/12/20 25 08/12/2025 COMPR EHENS ANGY METAB OLIC PANEL (CMP) total protein 7.3 g/dL 6.3 - 8.2 Not Available [facility] [address] [place], [address], 08/12/2025 17:25:39 08/12/20 25 08/12/2025 COMPR EHENS ANGY METAB OLIC PANEL (CMP) ALT 16 U/L 0 - 35 Not Available [facility] [address] [place], [address], 08/12/2025 17:25:39 08/12/20 25 08/12/2025 COMPR EHENS ANGY METAB OLIC PANEL (CMP) BUN/urea 27 mg/dL 7 - 17 high Not Available [facility] [address] [place], [address], 08/12/2025 17:25:39 08/12/20 25 08/12/2025 COMPR EHENS ANGY METAB OLIC PANEL (CMP) eGFR 52 mL/mi n/1.7 3m2 >60 low *eGFR Refer ence Value s Maria Del Rosario l: >60 mL/mi n/1.7 3m2 Abnor mal: < 60 mL/mi n/1.7 3m2 Not Available [facility] [address] [place], [address], 08/12/2025 17:25:39 08/12/20 25 08/12/2025 COMPR EHENS ANGY METAB OLIC PANEL (CMP) A/G ratio 1.3 (calc ) 1.0 - 2.5 Not Available [facility] [address] [place], [address], 08/12/2025 17:25:39 08/12/20 25 08/12/2025 COMPR EHENS ANGY METAB OLIC PANEL (CMP) globulin 3.2 g/dL_ (calc ) 1.9 - 3.7 Not Available [facility] [address] [place], [address], 08/12/2025 17:25:39 08/12/20 25 08/12/2025 COMPR EHENS ANGY METAB OLIC PANEL (CMP) calcium 9.4 mg/dL 8.4 - 10.2 Not Available [facility] [address] [place], [address], 08/12/2025 17:25:39 08/12/20 25 08/12/2025 COMPR EHENS ANGY METAB OLIC PANEL (CMP) AST 22 U/L 14 - 36 Not Available [facility] [address] [place], [address], 08/12/2025 17:25:39 08/12/20 25 08/12/2025 COMPR EHENS ANGY METAB OLIC PANEL (CMP) BUN/crea ratio 23 (calc ) 6 - 22 high Not Available [facility] [address] [place], [address], 08/12/2025 17:25:39 08/12/20 25 08/12/2025 LIPID PANEL VLDL (calculated) 30 mg/dL (calc ) 0 - 30 Not Available [facility] [address] [place], [address], 08/12/2025 17:25:40 08/12/20 25 08/12/2025 LIPID PANEL direct HDL 33 mg/dL 40 - 60 low Not Available [facility] [address] [place], [address], 08/12/2025 17:25:40 08/12/20 25 08/12/2025 LIPID PANEL triglyceride s 149 mg/dL 0 - 199 Not Available [facility] [address] [place], [address], 08/12/2025 17:25:40 08/12/20 25 08/12/2025 LIPID PANEL cholesterol 144 mg/dL <200 Not Available [facility] [address] [place], [address], 08/12/2025 17:25:40 08/12/20 25 08/12/2025 LIPID PANEL chol/DHDL ratio 4 %_(ca lc) 0 - 5 Not Available [facility] [address] [place], [address], 08/12/2025 17:25:40 08/12/20 25 08/12/2025 LIPID PANEL LDL (calculated) 81 mg/dL 0 - 100 Not Available [facility] [address] [place], [address], 08/12/2025 17:25:40 08/12/20 25 08/13/2025 HEMOG LOBIN A1C hemoglobin A1C 10.2 % <5.7 high The follo wing HbA1c range s recom srinivasan d by the Ameri can Diabe lorena Assoc iatio n (ADA) may be used as an aid in the diagn osis of diabe lorena melli tus. HbA1c Sugge sted Diagn osis >=6.5 % Diabe tic 5.7% - 6.4% Pre-D iabet ic <5.7% Non-D iabet ic Not Available [facility] [address] [place], [address], 08/13/2025 18:43:42 08/12/20 25 08/13/2025 MICRO ALBUM IN/CR EATIN INE, RANDO M URINE SAMPL E albumin/crea tinine ratio, urine 29 ug/mg 0-30 Not Available [facility] [address] [place], [address], 08/13/2025 18:43:42 08/12/20 25 08/13/2025 MICRO ALBUM IN/CR EATIN INE, RANDO M URINE SAMPL E microalbumin , urine, random 2.8 mg/dL Not Available [facility] [address] [place], [address], 08/13/2025 18:43:42 08/12/20 25 08/13/2025 MICRO ALBUM IN/CR EATIN INE, RANDO M URINE SAMPL E creatinine, urine 97.5 mg/dL Not Available [facility] [address] [place], [address], 08/13/2025 18:43:42 08/12/20 25 08/13/2025 ESTIM ATED [facility] GE GLUCO SE estimated average glucose (EAG) 246 mg/dL Estim ated [place] ge Gluco se (eAG) is calcu lated [...] d not be evalu ated. Not Available [facility] [address] [facility], [place], [address], 08/13/2025 18:43:43 Result Notes None recorded. Problems Name Problem SNOMED Code Status Onset Date Resolution Date Notes Provider Name and Address Organization Details Recorded Time Acute sinusiti s 35651911 Completed 200402/26/2017 Category : DD; Medicine Descript ion: SINUSITI S ACUTE; Display in Medcin: YES; Display in ESB: YES; Confiden tiality Level: Level 1 Cordelia Mcclain LPN [facility] 7 10:04:47 Dizzines s and giddines s [id number] Completed 200402/26/2017 Category : DD; Medicine Descript ion: dizzines s; Display in Medcin: YES; Display in ESB: YES; Confiden tiality Level: Level 1 Cordelia Mcclain LPN [facility] 7 10:05:26 Tracheob ronchiti s [id number] Completed 200402/26/2017 Category : DD; Medicine Descript ion: TRACHEOB RONCHITI S; Display in Medcin: YES; Display in ESB: YES; Confiden tiality Level: Level 1 Cordelia Mcclain LPN [facility] 7 10:04:42 Chronic obstruct angy pulmonar y disease [id number] Active 2004 Modified By: MARIA ANTONIA DEL REAL; Category : DD; Examiner : Veronica Jensen I.; Medicine Descript ion: CHRONIC OBSTRUCT ANGY PULMONAR Y DISEASE; Display in Medcin: YES; Display in ESB: YES; Confiden tiality Level: Level 1 Not Available [facility] 4 03:27:39 Clinical finding Completed 200402/26/2017 Modified By: YAZ MARSHALL; Category : DD; Examiner : Yaz Marshall; Medicine Descript ion: LARYNGOP HARYNGEA L REFLUX; Display in Medcin: NO; Display in ESB: NO; Confiden tiality Level: Level 1 [facility] 7 10:05:08 Allergic rhinitis 13887935 Active 2004 Category : DD; Medicine Descript ion: ALLERGIC RHINITIS ; Display in Medcin: YES; Display in ESB: YES; Confiden tiality Level: Level 1 Not Available [facility] 4 03:27:39 Neves's palsy [id number] Completed 200502/26/2017 Category : DD; Medicine Descript ion: NEVES'S PALSY; Display in Medcin: YES; Display in ESB: YES; Confiden tiality Level: Level 1 Cordelia [facility] 7 10:05:01 Family history of diabetes mellitus 621703643 Completed 200902/26/2017 Created By: VERONICA JENSEN ; Modified By: VERONICA JENSEN ; Category : DD; Examiner : VERONICA JENSEN I.; Medicine Descript ion: DIABETES MELLITUS ; Display in Medcin: NO; Display in ESB: YES; Confiden tiality Level: Level 1 [facility] 7 10:04:51 Benign essentia l hyperten [place] 6939026 Completed 200902/26/2017 Created By: VERONICA JENSEN ; Modified By: GHAZAL PHAN; Category : DD; Examiner : VERONICA JENSEN I.; Medicine Descript ion: HYPERTEN [place] (SYSTEMI C); Display in Medcin: YES; Display in ESB: YES; Confiden tiality Level: Level 1 REMIGIO Lemus, [facility] 7 10:05:46 Family history of Cardiova scular disease 900806360 Completed 200902/26/2017 Created By: VERONICA JENSEN ; Modified By: MARIA ANTONIA DEL REAL; Category : DD; Examiner : Veronica Jensen I.; Medicine Descript ion: reported family history ischemic heart disease before age 50; Display in Medcin: YES; Display in ESB: YES; Confiden tiality Level: Level 1 REMIGIO Lemus, [facility] 7 10:05:23 Wheezing [id number] Completed 200902/26/2017 Created By: VERONICA JENSEN ; Modified By: GHAZAL PHAN; Category : DD; Examiner : Veronica Jensen I.; Medicine Descript ion: wheezing [as a symptom] ; Display in Medcin: YES; Display in ESB: YES; Confiden tiality Level: Level 1 REMIGIO Lemus, [facility] 7 10:05:57 Mild intermit tent asthma 154288354 Active 2009 Created By: VERONICA JENSEN ; Modified By: GHAZAL PHAN; Category : DD; Examiner : Veronica Jensen I.; Medicine Descript ion: ASTHMA MILD INTERMIT TENT UNCOMPLI CATED; Display in Medcin: YES; Display in ESB: YES; Confiden tiality Level: Level 1 Not Available [facility] 4 03:27:39 Obesity 513922447 Active 2010 Created By: VERONICA JENSEN ; Modified By: GHAZAL PHAN; Category : DD; Examiner : VERONICA JENSEN I.; Medicine Descript ion: Obese; Display in Medcin: YES; Display in ESB: YES; Confiden tiality Level: Level 1 Not Available [facility] 4 03:27:39 Nicotine dependen ce 98093618 Active 2010 Created By: VERONICA JENSEN ; Modified By: YAZ MARSHALL; Category : DD; Examiner : Yaz Marshall; Medicine Descript ion: current smoker; Display in Medcin: NO; Display in ESB: NO; Confiden tiality Level: Level 1; Type: Diagnosi s Not Available [facility] 4 03:27:39 Hyperlip idemia 79646705 Active 2010 Created By: VERONICA JENSEN ; Modified By: VERONICA JENSEN ; Category : DD; Examiner : Veronica Jensen I.; Medicine Descript ion: DYSLIPID EMIA; Display in Medcin: YES; Display in ESB: YES; Confiden tiality Level: Level 1; Type: Diagnosi s Not Available [facility] 4 03:27:39 Long-ter m drug therapy Completed 201002/26/2017 Created By: VERONICA JENSEN ; Modified By: VERONICA JENSEN ; Category : DD; Examiner : Veronica Jensen I.; Medicine Descript ion: taking medicati on for a long time; Display in Medcin: YES; Display in ESB: YES; Confiden tiality Level: Level 1; Type: Diagnosi s Cordelia Mcclain LPN [facility] 7 10:05:21 Verruca plantari s 46143195 Completed 201102/26/2017 Created By: VERONICA JENSEN ; Modified By: YAZ MARSHALL; Category : DD; Examiner : Yaz Marshall; Medicine Descript ion: Wartlike Lesions Feet Plantar; Display in Medcin: YES; Display in ESB: YES; Confiden tiality Level: Level 1; Type: Diagnosi s Cordelia Mcclain LPN [facility] 7 10:06:02 Plane wart 780173107 Completed 201102/26/2017 Created By: VERONICA JENSEN ; Modified By: YAZ MARSHALL; Category : DD; Examiner : Yaz Marshall; Medicine Descript ion: WARTS COMMON; Display in Medcin: YES; Display in ESB: YES; Confiden tiality Level: Level 1; Type: Diagnosmaddi s Cordelia Johny, FIELD PROFESSIONAL null, [facility] 7 10:05:14 Procedur e Completed 201102/26/2017 Created By: VERONICA JENSEN ; Modified By: YAZ MARSHALL; Category : DD; Examiner : Veronica Jensen I.; Medicine Descript ion: visit for: medicati on refill; Display in Medcin: NO; Display in ESB: NO; Confiden tiality Level: Level 1; Type: Diagnosmaddi s Cordelia Johny, FIELD PROFESSIONAL null, [facility] 7 10:05:40 Sciatica [id number] Completed 201202/26/2017 Created By: VERONICA JENSEN ; Modified By: YAZ MARSHALL; Category : DD; Examiner : Veronica Jensen I.; Medicine Descript ion: NEURITIS SCIATIC; Display in Medcin: NO; Display in ESB: NO; Confiden tiality Level: Level 1; Type: Diagnosmaddi s Cordelia Johny, FIELD PROFESSIONAL null, [facility] 7 10:05:12 Screenin g procedur e Completed 201402/26/2017 Created By: YAZ MARSHALL; Modified By: YAZ MARSHALL; Category : DD; Examiner : Yaz Marshall; Medicine Descript ion: visit for: screenin g malignan t neoplasm colon; Display in Medcin: NO; Display in ESB: NO; Confiden tiality Level: Level 1; Type: Diagnosmaddi s Cordelia Johny, FIELD PROFESSIONAL null, [facility] 7 10:05:37 Adult health examinat ion Completed 201402/26/2017 Created By: YAZ MARSHALL; Modified By: YAZ MARSHALL; Category : DD; Examiner : Yaz Marshall; Medicine Descript ion: ROUTINE HISTORY AND PHYSICAL ; Display in Medcin: YES; Display in ESB: YES; Confiden tiality Level: Level 1; Type: Diagnosi s Cordelia Johny, FIELD PROFESSIONAL null, [facility] 7 10:05:29 Abnormal finding on evaluati on procedur e [id number] Completed 201402/26/2017 Created By: YAZ MARSHALL; Modified By: YAZ MARSHALL; Category : DD; Examiner : Yaz Marshall; Medicine Descript ion: ROUTINE HISTORY AND PHYSICAL ; Display in Medcin: YES; Display in ESB: YES; Confiden tiality Level: Level 1; Type: Sonia Mcclain, FIELD PROFESSIONAL null, [facility] 7 10:05:54 Palpitat ions [id number] Completed 201402/26/2017 Created By: YAZ MARSHALL; Modified By: YAZ MARSHALL; Category : DD; Examiner : Yaz Marshall; Medicine Descript ion: palpitat ions; Display in Medcin: NO; Display in ESB: NO; Confiden tiality Level: Level 1; Type: Sonia Mcclain, FIELD PROFESSIONAL null, [facility] 7 10:06:05 Microsco pic hematuri a [id number] Completed 201402/26/2017 Created By: YAZ MARSHALL; Modified By: YAZ MARSHALL; Category : DD; Examiner : Yaz Marshall; Medicine Descript ion: MICROSCO PIC HEMATURI A; Display in Medcin: YES; Display in ESB: YES; Confiden tiality Level: Level 1; Type: Sonia Mcclain, FIELD PROFESSIONAL null, [facility] 7 10:05:05 Electroc ardiogra m abnormal [id number] Completed 201402/26/2017 Created By: YAZ MARSHALL; Modified By: YAZ MRASHALL; Category : DD; Examiner : Yaz Marshall; Medicine Descript ion: ECG NORMAL VARIANT; Display in Medcin: NO; Display in ESB: NO; Confiden tiality Level: Level 1; Type: Sonia Mcclain, FIELD PROFESSIONAL null, [facility] 7 10:04:38 Evaluati on procedur e Completed 201402/26/2017 Created By: ELVIE FERNANDEZ; Modified By: KEVEN OCTOBER; Category : DD; Examiner : eKven Muhammad; Medicine Descript ion: Observat ion For Suspecte d Conditio n; Display in Medcin: YES; Display in ESB: YES; Confiden tiality Level: Level 1; Type: Diagnosi s Cordelia Johny, FIELD PROFESSIONAL null, [facility] 7 10:05:34 Hyperten sive disorder [id number] Active 2015 Created By: YAZ MARSHALL; Modified By: YAZ MARSHALL; Category : DD; Examiner : Yaz Marshall; Medicine Descript ion: ESSENTIA L HYPERTEN [place] BENIGN; Display in Medcin: YES; Display in ESB: YES; Confiden tiality Level: Level 1; Type: Diagnosi s Not Available [facility] 4 03:27:39 Viral screenin g Completed 201502/26/2017 Created By: YAZ MARSHALL; Modified By: YAZ MARSHALL; Category : DD; Examiner : Yaz Marshall; Medicine Descript ion: visit for: screenin g exam dengue fever; Display in Medcin: YES; Display in ESB: YES; Confiden tiality Level: Level 1; Type: Diagnosi s Cordelia Johny, FIELD PROFESSIONAL null, [facility] 7 10:05:16 Screenin g mammogra phy Completed 201502/26/2017 Created By: YAZ MARSHALL; Modified By: YAZ MARSHALL; Category : DD; Examiner : Yaz Marshall; Medicine Descript ion: Mammogra m Screenin g; Display in Medcin: YES; Display in ESB: YES; Confiden tiality Level: Level 1; Type: Diagnosi s Cordelia Johny, FIELD PROFESSIONAL null, [facility] 7 10:05:19 Active immuniza tion Completed 201502/26/2017 Created By: YAZ MARSHALL; Modified By: YAZ MARSHALL; Category : DD; Examiner : Yaz Marshall; Medicine Descript ion: visit for: immuniza tion; Display in Medcin: YES; Display in ESB: YES; Confiden tiality Level: Level 1; Type: Diagnosi s Cordelia Mcclain LPN [facility], [facility] 7 10:05:31 Pain of left shoulder joint [id number] 725660 Active 2017 Not Available [facility] 4 03:27:39 Vitamin D deficien cy 97333142 Active 2021 Not Available [facility] 4 03:27:39 Congesti ve heart failure 85726699 Active 2022 Not Available [facility] 4 03:27:39 Type 2 diabetes mellitus without complica tion 149076774 Active 2022 Not Available [facility] 4 03:27:39 Female urinary stress incontin ence 97418852 Active 2024 Adriana Poe NP [address] [place] [address], [phone] 5 11:50:21 Dependen ce on suppleme ntal oxygen 26177653656 7 Active 2024 Adriana Poe NP [address] [place] [address], [phone] 5 12:26:07 Problem Notes None recorded. Procedures Surgical History Date Name Laterality Status Provider Name and Address Organization Details Recorded Time 05/17/20 25 Suture/Staple removal completed [address], [phone] [place] [address] 05/17/2025 15:52:31 05/05/20 25 Flu vaccine Screening completed Rita Olivarez [facility] 05/05/2025 12:16:34 08/20/20 24 Nebulizer tx duoneb completed [address], [phone] [place] [address] 08/20/2024 16:28:20 05/06/20 24 venipuncture completed Juliet Gatica [facility] 05/06/2024 11:42:54 02/19/20 24 Splint Application completed Adriana Poe NP [address], [address], [facility] 02/19/2024 14:24:04 12/26/19 24 venipuncture completed Yuliya Hurd [facility] 12/26/2023 15:40:03 09/25/19 22 venipuncture completed Shauna Jordan [facility] 09/25/2021 13:07:04 11/25/19 21 venipuncture completed Jodi Mora [facility] 11/24/2020 11:10:23 12/18/19 20 venipuncture completed Yuliya Hurd [facility] 12/18/2019 16:28:31 12/18/19 20 venipuncture cancelled Tyler Mcfarlane [facility] 12/18/2019 09:21:06 04/14/20 19 venipuncture completed Cordelia Mcclain LPN [facility] 04/14/2019 09:25:36 08/08/20 18 venipuncture completed Cordelia Mcclain LPN [facility] 08/08/2018 09:13:48 09/10/19 18 venipuncture completed Homa Zarate [facility] 09/10/2017 10:01:27 02/27/20 17 venipuncture completed Cordelia Mcclain LPN [facility] 02/26/2017 10:26:37 08/15/20 16 venipuncture completed Homa Zarate [facility] 08/15/2016 10:27:51 Cardiac Surgery completed Cordelia waldrop LPN [facility] 02/26/2017 10:07:03 Imaging Results None recorded. Procedure Notes None recorded. Medical Equipment None Reported. Allergies Allergen ID Allergen Name Allergen Category Reaction Reaction Severity Criticality Documentation Date Start Date Code Code System Note Provider Name and Address Organization Details Recorded Time 88643 codeine medicatio n Not available Not available Not available 08/05/20162009 2670 RxNorm Comme nt: Last Edite d: 11-25 09:27 :35; Not Available [facility] 6 03:58:28 Medications Name Sig Start Date [...] per sliding scale before meals TID<150- 0 qteuj650 -200-3 -250-6 fumxl557 -300- 9 moqvi823 -350-12 lpgae782 -400-15 units Not Available Not Available Not [...] 2024 active Not Available Not Available Not Marianela lable Ozempic 1 mg/dose (4 mg/3 mL) [...] Last Updated DateTime 170.18 cm 45.5 kg/m2 914064. 24 g 97.3 [degF] 20 /min 75 /min 90 % Migdalia Metz [facility] 12:05:19 Social History Question Answer Notes LastModified by Organization Details LastModified Time Tobacco Smoking Status Current Every Day Smoker Rita tello [facility] 02/18/2025 15:08:04 Do You Have An Advance Directive? No [email or web address] Information not available 01/29/2017 Are You Blind Or Do You Have Difficulty Seeing? Yes [email or web address] Information not available 09/25/2021 Is Blood Transfusion Acceptable In An Emergency? Yes [email or web address] Information not available 09/25/2021 What Is Your Level Of Caffeine Consumption? Heavy [email or web address] Information not available 01/29/2017 How Much Tobacco Do You Chew? None [email or web address] Information not available 01/29/2017 Commercial Sex Work No [email or web address] Information not available 01/29/2017 In The 14 [...] Do You Have Serious Difficulty Hearing? No [email or web address] Information not available 09/25/2021 What Type Of Diet Are You Following? REGULAR [email or web address] Information not available 01/29/2017 Which Illicit Or Recreational Drugs Have You Used? None [email or web address] Information not available 01/29/2017 Have You Processed Blood Or Body Fluids From An Ebola Virus Disease Patient Without Appropriate PPE? No Information not available 09/25/2021 Education Less Than 8th Grade [email or web address] Information not available 01/29/2017 What Is The Highest Grade Or Level Of School You Have Completed Or The Highest Degree You Have Received? BC51717-3 Information not available 08/12/2025 Are There Any Guns Present In Your Home? Yes Information not available 02/26/2017 Hard Of Hearing Or Deaf In One Or Both Ears? No [email or web address] Information not available 01/29/2017 High Number Of Sexual Partners No [email or web address] Information not available 01/29/2017 History Of Inconsistent/no Condom Use No [email or web address] Information not available 01/29/2017 International Travel None Information not available 02/26/2017 Legally Blind In One Or Both Eyes? No [email or web address] Information not available 01/29/2017 In The Past 6 Months Have You Fallen No Information not available 01/29/2017 Medication List Reconciled Yes Information not available 04/14/2019 What Number (0-10) Best Describes How, During The Past Week, Has Interfered With Your General Activity? 0 [email or web address] Information not available 01/29/2017 What Number (0-10) Best Describes How, During The Past Week, Pain Has Interfered With Your Enjoyment In The Past Week 0 Information not available 01/29/2017 What Number (0-10) Best Describes Your Pain On Average In The Past Week 0 Information not available 01/29/2017 Total PEG Score 0 [email or web address] Informati on not available 01/29/2017 Most Recent Dental Visit 09/02/1996 Up To Date 04/23/22 Information not available 08/08/2018 Sexual Orientation Straight Or Heterosexual Information not available 11/24/2020 Gender Identity Female Informat ion not available 11/24/2020 Eye Exam 09/02/2015 Information not available 08/08/2018 Do You Feel Safe Yes Informa tion not available 11/24/2020 Hospital Follow Up Appointment 08/12/2025 [email or web address] Information not available 08/12/2025 Hospital Discharged Patient To Home [email or web address] Information not available 08/12/2025 ER Medication List Reconciled Yes Information not available 07/22/2025 ER Contact Date 07/22/2025 Informati on not available 07/22/2025 ER Follow Up Contact Date 07/22/2025 Information not available 07/22/2025 ER Follow Up Patient Contact Via Unable To Contact [facility] Diagnosis Pneumonia [email or web address] Information not available 07/22/2025 ER Date Of Discharge 07/21/2025 [email or web address] Information not available 07/22/2025 ER Discharged Patient To Caregiver Transfer [email or web address] Information not available 07/22/2025 ER Records Recieved Yes [email or web address] Information not available 07/22/2025 ER Records Requested Yes [email or web address] Information not available 07/22/2025 Marital Status [email or web address] Informatio n not available 01/29/2017 What Was The Date Of Your Most Recent Tobacco Screening? 08/12/2025 [email or web address] Information not available 08/12/2025 Mother With HIV? No [email or web address] Informat ion not available 01/29/2017 How Many Children Do You Have? 4 [email or web address] Information not available 08/12/2025 What Is Your Relationship Status? [email or web address] Information not available 08/12/2025 Do You Use Your Seat Belt Or Car Seat Routinely? Yes Information not available 07/28/2024 Seat Belts Used Routinely Yes [email or web address] Information not available 01/29/2017 Are You Sexually Active? Yes Information not available 08/08/2018 Sexual Partner Has HIV? No [email or web address] Information not available 01/29/2017 Sexual Partner Uses IV Drugs? No [email or web address] Information not available 01/29/2017 Smoke Alarm In Home No [email or web address] Information not available 01/29/2017 At What Age Did You Start Smoking Tobacco? 15 Information not available 02/26/2017 How Much Tobacco Do You Smoke? 0.5 PPD alcnznvj99 Information not available 05/05/2025 General Stress Level Medium [email or web address] Information not available 01/29/2017 Do You Use Sunscreen Routinely? No [email or web address] Information not available 01/29/2017 How Many Years Have You Smoked Tobacco? 41 Information not available 02/26/2017 Have You Used IV Drugs? No [email or web address] Information not available 01/29/2017 Do You Have Difficulty Walking Or Climbing Stairs? Yes [email or web address] Information not available 09/25/2021 Do You Want To Talk About Contraception Or Prevention During Your Visit Today? No - This Question Does Not Apply To Me/I Prefer Not To Answer Information not available 12/17/2024 Do You Have Any Future Plans To Get ? No, I Don't Want To Become Information not available 12/17/2024 Sex: Female Functional Status Question Answer Note LastModified by Organizat [employer] Details LastModified Time Do you use any illicit or recreational drugs? No [email or web address] Information not available 06/14/2025 Do you or have you ever used any other forms of tobacco or nicotine? Yes Nicotine patches Information not available 12/17/2024 What is your level of alcohol consumption? None [email or web address] Information not available 01/29/2017 Do you or have you ever used smokeless tobacco? Never used smokeless tobacco Information not available 04/14/2019 Are you currently employed? No [email or web address] Information not available 08/12/2025 Do you have transportation difficulties? No [email or web address] Information not available 09/25/2021 Are you able to walk independently without assistance or assistive devices? YESWOREST [email or web address] Information not available 01/29/2017 Do you have difficulty doing errands alone? No [email or web address] Information not available 09/25/2021 Are you able to care for yourself independently? Yes [email or web address] Information not available 09/25/2021 Do you have difficulty dressing, bathing, grooming, or toileting? No [email or web address] Information not available 09/25/2021 Do you or have you ever used e-cigarettes or vape? Never used electronic cigarettes Information not available 04/14/2019 What is your exercise level? Moderate [email or web address] Information not available 01/29/2017 Mental Status Question Answer Note LastModified by Organizat ion Details LastModified Time Do you feel stressed (tense, restless, nervous, or anxious, or unable to sleep at night)? [id number] [email or web address] Information not available 09/25/2021 Do you have difficulty concentrating, remembering or making decisions? No [email or web address] Information no t available 09/25/2021 Family History Relationship Description Onset Age of this Age Resolved Age Notes LastModified by Organization Details LastModified Time Mother Diabetes mellitus [email or web address] Not available 2016 14:32:39 Brother Diabetes mellitus [email or web address] Not available 2016 14:32:46 Medical History Condition Response Other N Gout N Kidney Stones N Blood Diseases N Hyperthyroidism N Blood Transfusion N COPD N Depression N Incontinence N Edema N Endocrine Disorders N Anxiety Disorder N Muscle, Joint, or Bone Problems N Obesity Y Vision or Eye Problems N Arthritis N Auditory Hallucinations N Infertility N Cancer N Stroke N Varicosities N Fibromyalgia N Headaches N Kidney Disease [...] Anemia N Colon Polyps N Heart Attack ([place]) N Ovarian Cancer N Diabetes N Bedwetting [...] MDCK, quadrivalent, preservative 9 completed Not Available [facility] 09/19/2019 02:39:19 Tdap 7 completed Not Available [facility] 09/19/2019 02:39:16 Influenza, split virus, trivalent, preservative 6 completed Not Available [facility] 09/25/2023 03:27:39 Tdap 5 completed Not Available [facility] 08/12/2025 12:00:37 Influenza, MDCK, quadrivalent, PF 4 completed Juliet Gatica [facility], [facility] 05/07/2024 12:22:36 Influenza, split virus, quadrivalent, PF 5 completed Rita Olivarez [facility] 05/05/2025 12:58:35 Pneumococcal conjugate PCV20, polysaccharide RCC666 conjugate, adjuvant, PF 5 completed Rita Olivarez [facility] 06/28/2025 15:43:32 Influenza, MDCK, quadrivalent, preservative 8 completed Not Available [facility] 09/19/2019 02:39:18 Past Encounters Encounter ID Performer Location Encounter Start Date Encounter Closed Date Diagnosis/Indication Diagnosis SNOMED-CT Code Diagnosis ICD10 Code Diagnosis IMO Codes Diagnosis Note [id number] [facility] [address] [place] [phone] 07/22/2025 15:07:34 07/22/2025 17:21:39 [id number] [facility] [address] [address] 07/23/2025 07:58:37 07/26/2025 08:44:39 [id number] [facility] [address] [place] [id number] 07/26/2025 09:20:12 07/26/2025 11:14:[id number] [address] [facility],[address] [place] [address] 08/05/2025 15:56:46 08/05/2025 15:59:56 [id number] MCKAY CUEVAS DO [facility] [place] [address] [place] [address] 08/12/2025 11:57:16 08/12/2025 18:24:40 Post-discharge follow-up [id number] Z51.89 [id number] admitted 07/21/2025 ; Transferre d from [facility] to [facility]; discharged 07/25/2025 Chronic ob structive pulmonary disease 07271814 J44.9 Pneumonia 909208149 J18. 9 [id number] Type 2 deepak betes mellitus without complication 704284848 E11.9 Will increase ozempic to 1 mg Dependence on supplemental oxygen 3159140751 07 Z99.81 [id number] on 3 L/[place] [id number] [facility] [address] [phone] 08/12/2025 14:02:33 08/12/2025 16:10:51 [id number] Yesi [facility] [address] [facility], [address] [place] [address] 08/12/2025 14:17:02 08/12/2025 14:37:17 [id number] [facility] Workers [address] [place] [address] [address] [place] [address] 08/12/2025 14:37:49 08/12/2025 14:46:05 Goals Section [...] Section Related Observation LastModified by Organization Ashley terrazas LastModified Time General health poor Not Available [...] Name 08/12/2025 2 [place] Nadine Esquivel [id number] Nadine Esquivel 08/12/2025 1 [facility] Nadine Esquivel [id number] Nadine L Alvin Notes Date Note Type Note Provider [...] within one week. She prefers referral to [place] rather than [place] due to distance. She lives in [place] with her girlfriend who provides caregiving assistance. [...] Home and Environment Living situation: Lives in [place] with girlfriend who serves as caregiver and provides transportation Other Oxygen use: 3 liters supplemental oxygen at home Tests - Echocardiogram during recent hospitalization: Ejection fraction 55% Adriana Poe NP [address], [place], [address], [facility] 08/12/2025 14:28:56 OBGyn Episode No OBEpisode recorded.
--- OUTSIDE RECORDS SUMMARY | 2025-08-29 09:09 | XMS_ITS | Data Portability ---
Author Organization [facility], [facility] Address [address] [place] [address] Care Team Providers Care Director Internal Communications Name Role Phone LUISA JAIMES Curb Attendant EUN [facility] Worker [facility] Assessment Encounter Date Assessment Date Assessment LastModified by Organization Details LastModified Time 08/05/2025 08/05/2025 Care Plan for Nadine Esquivel (Briseida) 64 Enrolled [facility] 07/27 Diagnosis: Depression, CHF, COPD, Tobacco, [...] -Report any hospital or ER visits to housekeeper child care or clinic staff. Interventions ([facility] Nurse Steps) -RN will provide educational [...] phone, by mail, through Primary Care Physician, NATURAL SCIENCES PROFESSOR, or others physicians at our office. Evaluations [...] TONI Schultz 07/26/2025- Pt was discharged from [facility] on 07/25/25. Discharge diagnosis CHF exacerbation, COPD. She was discharged on 2 oral antibiotics and oral steroids. Pt was also instructed to start Lantus insulin 25u daily and sliding scale TID. Attempted to call pt, no answer, left message asking her to call me back. Contacted PSRs and asked they attempt to contact pt today and make FU appt with PCP. Demario 07/23/2025-Per [facility] EMR pt remains hospitalized with R lower lobe pneumonia and CHF. She is being treated with IV rocephin and doxycycline. CT and echocardiogram done yesterday, report not in chart yet. Demario 07/22/2025-Pt called yesterday to clinic complaining of weakness and shortness of breath. She was advised to go to ER. I tried to call pt back, no answer. Called [facility] ER adn she was there being treated. Records received today. CXR showed R lower lobe pneumonia. bNP 456, WBcs 11.6. On admit her O2 sat was 70%, place on 4L then eventually was able to go down to 2L. Pt was treated with Dexamethasone, Zithromax, Rocephin, Lasix, and neb treatments. She was transferred to [facility], diagnosis L lower lobe pneumonia, CHF. Called [facility] pt is there in room [...] not accept calls. Demario 07/06/25-New Enrollment into [facility] program. Dx: Depression, CHF, COPD, Tobacco, BMI, asthma Pt does not have [employer]. Pt has active Medicaid Pt has had ER visits in the last year. Will develop a Care Plan to assist with the patients Chronic Illness. Will introduce myself, explain program and give pt care plan at next FTF visit. Pt has appt tomorrow Demario [email or web address] Not available 08/05/2025 15:59:49 08/12/2025 08/12/2025 Care Plan for Nadine Esquivel Feliberto) 64 Enrolled [facility] 07/27 Diagnosis: Depression, CHF, COPD, Tobacco, [...] -Report any hospital or ER visits to housekeeper child care or clinic staff. Interventions ([facility] Nurse Steps) -RN will provide educational [...] phone, by mail, through Primary Care Physician, NATURAL SCIENCES PROFESSOR, or others physicians at our office. Evaluations 08/12/25- completed PRAPARE verbally to reflect SDOH needs. Researched [facility] copygram. Emailed pt with the following information: [facility] [employer] Address: [address] [place] [address], [place] Hours: Saturday after the Saturday each month; 9am-11:30am and 2pm-5pm for 60+ residents [place] [employer] Address: [address] [facility], [place] Hours: Saturday after the Saturday each month; 9am-11am [facility] Address: [address] [place] [address] Hours: 4th Saturday each month; 12:30pm-2pm No other needs addressed. TONI Schultz 08/12/25- I met with pt during her appt in clinic today to follow-up on pt case for resources needed. Pt states that she is living with her grandson but will continue to live with him because he is going to be her childcare aide. She states that she would like a list of food pantries in [place] and [place] because she was approved for SNAP benefits but they wont be in effect for 2 more weeks. I explained to the pt that I could not text. She stated understanding. I took the pt's email for communication. email: [email or web address] No other needs at this time. TONI Schultz 08/12/2025-[facility] - [place] Description E[employer] FABRICATION SUPERVISOR REFERRAL - PLEASE CALL LUISA AT [phone] FOR NEEDS, QUESTIONS OR SCHEDULING Diagnosis Chronic obstructive pulmonary disease ICD-10 J44.9 Chronic obstructive pulmonary disease, unspecified Decline Send to [facility]: [address] [facility] [address], , Ordering ProviderTU POE NP sent by [employer]. Pt was seen FTF in clinic. She was advised upon hospital discharge to FU with pulmonology in on week. Pt said she did not know this and had not made appt. She does not want to go to for pulm she is requesting to go to [place]. Referral sent. Demario 08/05/25- attempted to call pt to follow-up on pt case for SDOH needs. The pt case says to text before calling but I am not set up for secure texting at this time and unable to text. Pt did no answer the phone call and I left a voicemail with my contact information. TONI Schultz 07/26/2025- Pt was discharged from [facility] on 07/25/25. Discharge diagnosis CHF exacerbation, COPD. She was discharged on 2 oral antibiotics and oral steroids. Pt was also instructed to start Lantus insulin 25u daily and sliding scale TID. Attempted to call pt, no answer, left message asking her to call me back. Contacted PSRs and asked they attempt to contact pt today and make FU appt with PCP. Demario 07/23/2025-Per [facility] EMR pt remains hospitalized with [...] and neb treatments. She was transferred to [facility], diagnosis L lower lobe pneumonia, CHF. Called [facility] pt is there in room [...] this month. Case sent to Kajal Manzano Paola asking her to contact pt. Pt said she has to be texted then she will call back, that her phone will not accept calls. Demario 07/06/25-New Enrollment into [facility] program. Dx: Depression, CHF, COPD, Tobacco, BMI, asthma Pt does not have [employer]. Pt has active Medicaid Pt has had ER visits in the last year. Will develop a Care Plan to assist with the patients Chronic Illness. Will introduce myself, explain program and give pt care plan at next FTF visit. Pt has appt tomorrow Demario [email or web address] Not available 08/12/2025 14:46:00 08/12/2025 08/12/2025 Care Plan for Nadine Dao) 64 Enrolled [facility] 07/27 Diagnosis: Depression, CHF, COPD, Tobacco, [...] -Report any hospital or ER visits to housekeeper child care or clinic staff. Interventions ([facility] Nurse Steps) -RN will provide educational [...] phone, by mail, through Primary Care Physician, NATURAL SCIENCES PROFESSOR, or others physicians at our office. Evaluations 08/12/25- I met with pt during her appt in clinic today to follow-up on pt case for resources needed. Pt states that she is living with her grandson but will continue to live with him because he is going to be her childcare aide. She states that she would like a list of food pantries in [place] and [place] because she was approved for SNAP benefits but they wont be in effect for 2 more weeks. I explained to the pt that I could not text. She stated understanding. I took the pt's email for communication. email: [email or web address] No other needs at this time. TONI Schultz 08/12/2025-[facility] - [place] Description EPOXY FABRICATION SUPERVISOR REFERRAL - PLEASE CALL LUISA AT [phone] FOR NEEDS, QUESTIONS OR SCHEDULING Diagnosis Chronic obstructive pulmonary disease ICD-10 J44.9 Chronic obstructive pulmonary disease, unspecified Decline Send to [facility]: [address] [facility] [address], , Ordering ProviderTU POE NP sent by [employer]. Pt was seen FTF in clinic. She was advised upon hospital discharge to FU with pulmonology in on week. Pt said she did not know this and had not made appt. She does not want to go to for pulm she is requesting to go to [place]. Referral sent. Demario 08/05/25- attempted to call pt to follow-up on pt case for SDOH needs. The pt case says to text before calling but I am not set up for secure texting at this time and unable to text. Pt did no answer the phone call and I left a voicemail with my contact information. TONI Schultz 07/26/2025- Pt was discharged from [facility] on 07/25/25. Discharge diagnosis CHF exacerbation, COPD. She was discharged on 2 oral antibiotics and oral steroids. Pt was also instructed to start Lantus insulin 25u daily and sliding scale TID. Attempted to call pt, no answer, left message asking her to call me back. Contacted PSRs and asked they attempt to contact pt today and make FU appt with PCP. Demario 07/23/2025-Per [facility] EMR pt remains hospitalized with R lower lobe pneumonia and CHF. She is being treated with IV rocephin and doxycycline. CT and echocardiogram done yesterday, report not in chart yet. Demario 07/22/2025-Pt called yesterday to clinic complaining of weakness and shortness of breath. She was advised to go to ER. I tried to call pt back, no answer. Called [facility] ER adn she was there being treated. Records received today. CXR showed R lower lobe pneumonia. bNP 456, WBcs 11.6. On admit her O2 sat was 70%, place on 4L then eventually was able to go down to 2L. Pt was treated with Dexamethasone, Zithromax, Rocephin, Lasix, and neb treatments. She was transferred to [facility], diagnosis L lower lobe pneumonia, CHF. Called [facility] pt is there in room [...] not accept calls. Demario 07/06/25-New Enrollment into [facility] program. Dx: Depression, CHF, COPD, Tobacco, BMI, asthma Pt does not have [employer]. Pt has active Medicaid Pt has had ER visits in the last year. Will develop a Care Plan to assist with the patients Chronic Illness. Will introduce myself, explain program and give pt care plan at next FTF visit. Pt has appt tomorrow Demario Not available 08/12/2025 14:37:11 08/12/2025 08/12/2025 Care Plan for Nadine Dao) 64 Enrolled [facility] 07/27 Diagnosis: Depression, CHF, COPD, Tobacco, [...] -Report any hospital or ER visits to housekeeper child care or clinic staff. Interventions ([facility] Nurse Steps) -RN will provide educational [...] phone, by mail, through Primary Care Physician, NATURAL SCIENCES PROFESSOR, or others physicians at our office. Evaluations 08/12/2025-[facility] - [place] Description EPOXY FABRICATION SUPERVISOR REFERRAL - PLEASE CALL LUISA AT [phone] FOR NEEDS, QUESTIONS OR SCHEDULING Diagnosis Chronic obstructive pulmonary disease ICD-10 J44.9 Chronic obstructive pulmonary disease, unspecified Decline Send to [facility]: [address] [facility] [address], , Ordering ProviderUT POE NP sent by [employer]. Pt was seen FTF in clinic. She was advised upon hospital discharge to FU with pulmonology in on week. Pt said she did not know this and had not made appt. She does not want to go to for pulm she is requesting to go to [place]. Referral sent. Demario 08/05/25- attempted to call pt to follow-up on pt case for SDOH needs. The pt case says to text before calling but I am not set up for secure texting at this time and unable to text. Pt did no answer the phone call and I left a voicemail with my contact information. TONI Schultz 07/26/2025- Pt was discharged from [facility] on 07/25/25. Discharge diagnosis CHF exacerbation, COPD. She was discharged on 2 oral antibiotics and oral steroids. Pt was also instructed to start Lantus insulin 25u daily and sliding scale TID. Attempted to call pt, no answer, left message asking her to call me back. Contacted PSRs and asked they attempt to contact pt today and make FU appt with PCP. Demario 07/23/2025-Per [facility] EMR pt remains hospitalized with R lower lobe pneumonia and CHF. She is being treated with IV rocephin and doxycycline. CT and echocardiogram done yesterday, report not in chart yet. Demario 07/22/2025-Pt called yesterday to clinic complaining of weakness and shortness of breath. She was advised to go to ER. I tried to call pt back, no answer. Called [facility] ER adn she was there being treated. Records received today. CXR showed R lower lobe pneumonia. bNP 456, WBcs 11.6. On admit her O2 sat was 70%, place on 4L then eventually was able to go down to 2L. Pt was treated with Dexamethasone, Zithromax, Rocephin, Lasix, and neb treatments. She was transferred to [facility], diagnosis L lower lobe pneumonia, CHF. Called [facility] pt is there in room [...] not accept calls. Demario 07/06/25-New Enrollment into [facility] program. Dx: Depression, CHF, COPD, Tobacco, [...] tomorrow Demario [email or web address] Not available 08/12/2025 14:07:28 08/12/2025 08/12/2025 J18.1: Lobar pneumonia, unspecified organism [...] fraction of 55%. - Pulmonology referral to [place] for post-pneumonia follow-up as recommended in discharge [...] recorded. Lab HbA1c (hemoglobin A1c), blood 2024 025 [facility], [address] [place], [address], 18:43:42 lipid panel, serum 2024 025 [facility], [address] [place], [address], 5 17:25:40 microalbumi n/creatinin e, mass ratio, urine [email or web address] [place] [address] Clinical Lab, [address] [place], [address], 5 08:00:50 CBC w/ diff 2024 025 [facility], [address], [place], [address], 5 17:25:39 CMP, serum or plasma 2024 025 [facility], [address] [place], [address], 17:25:[address] referral - Please call Luisa at for needs, questions or scheduling 2024 025 [email or web address] [facility], [address] [place], [address], 14:01:40 Procedures None recorded. Surgeries None recorded. Imaging None recorded. Medication Orders Ozempic 0.25 mg or 0.5 mg (2 mg/3 mL) subcutaneou s pen injector 2024 025 [facility], [address], [address], 12:25:23 Patient TargetsNo targets recorded. Patient InstructionsNo instructions recorded. Reason for Referral Emergency Nurse Referral for C hronic obstructive pulmonary disease Please call Luisa at [phone] for needs, questions or scheduling Referring Physician: Tu Poe, Family Medicine, Encounter Date: 08/12/2025 Results Created Date Observation Date Name Description Value Unit Range Abnormal Flag Note LastModifiedBy Organization Detail LastModifiedTime 08/12/2008/12/2025 CBC WBC 12.58 x10(3 )/uL 3.98 - 10.40 high Not Available [facility] [address] [place], [address], 08/12/2025 17:25:39 08/12/20 25 08/12/2025 CBC RBC 5.41 x10(6 )/uL 3.93 - 5.22 high Not Available [facility] [address] [place], [address], 08/12/2025 17:25:39 08/12/20 25 08/12/2025 CBC HGB 14.8 g/dL 11.2 - 15.7 Not Available [facility] [address] [place], [address], 08/12/2025 17:25:39 08/12/20 25 08/12/2025 CBC HCT 49.9 % 34.1 - 44.9 high Not Available [facility] [address] [place], [address], 08/12/2025 17:25:39 08/12/20 25 08/12/2025 CBC MCV 92.2 fL 79.4 - 94.8 Not Available [facility] [address] [place], [address], 08/12/2025 17:25:39 08/12/20 25 08/12/2025 CBC MCH 27.4 pg 25.6 - 32.2 Not Available [facility] [address] [place], [address], 08/12/2025 17:25:39 08/12/20 25 08/12/2025 CBC MCHC 29.7 g/dL 32.2 - 35.5 low Not Available [facility] [address] [place], [place], [address], 08/12/2025 17:25:39 08/12/20 25 08/12/2025 CBC platelet count 214 x10(3 )/uL 182 - 369 Not Available [facility] [address] [place], [address], 08/12/2025 17:25:39 08/12/20 25 08/12/2025 CBC neut% 78.9 % 34.0 - 71.1 high Not Available [facility] [address] [place], [place], [address], 08/12/2025 17:25:39 08/12/20 25 08/12/2025 CBC lymph% 14.5 % 19.3 - 51.7 low Not Available [facility] [address] [place], [address], 08/12/2025 17:25:39 08/12/20 25 08/12/2025 CBC mono% 4.6 % 4.7 - 12.5 low Not Available [facility] [address], [place], [place], [address], 08/12/2025 17:25:39 08/12/20 25 08/12/2025 CBC baso% 0.4 % 0.1 - 1.2 Not Available [facility] [address], [place], [place], [address], 08/12/2025 17:25:39 08/12/20 25 08/12/2025 CBC eo% 1.3 % 0.7 - 5.8 Not Available [facility] [address], [place], [place], [address], 08/12/2025 17:25:39 08/12/20 25 08/12/2025 CBC Ig% 0.3 % 0.0 - 0.4 Not Available [facility] [address], [place], [place], [address], 08/12/2025 17:25:39 08/12/20 25 08/12/2025 CBC neut# 9.93 x10(3 )/uL 1.56 - 6.13 high Not Available [facility] [address], [place], [place], [address], 08/12/2025 17:25:39 08/12/20 25 08/12/2025 CBC lymph# 1.82 x10(3 )/uL 1.18 - 3.74 Not Available [facility] [address], [place], [place], [address], 08/12/2025 17:25:39 08/12/20 25 08/12/2025 CBC mono# 0.58 x10(3 )/uL 0.24 - 0.86 Not Available [facility] [address], [place], [address], 08/12/2025 17:25:39 08/12/20 25 08/12/2025 CBC baso# 0.05 x10(3 )/uL 0.01 - 0.08 Not Available [facility] [address] [place], [address], 08/12/2025 17:25:39 08/12/20 25 08/12/2025 CBC eo# 0.16 x10(3 )/uL 0.04 - 0.36 Not Available [facility] [address] [place], [address], 08/12/2025 17:25:39 08/12/20 25 08/12/2025 CBC Ig# 0.04 x10(3 )/uL 0.00 - 0.03 high Not Available [facility] [address] [place], [place], [address], 08/12/2025 17:25:39 08/12/20 25 08/12/2025 CBC RDW-CV 15.3 % 11.7 - 14.4 high Not Available [facility] [address] [place], [place], [address], 08/12/2025 17:25:39 08/12/20 25 08/12/2025 CBC RDW-SD 52.4 fL 36.4 - 46.3 high Not Available [facility] [address], [place], [place], [address], 08/12/2025 17:25:39 08/12/20 25 08/12/2025 CBC MPV 10.5 fL 9.4 - 12.3 Not Available [facility] [address], [place], [place], [address], 08/12/2025 17:25:39 08/12/20 25 08/12/2025 CBC NRBC# 0.00 x10(3 )/uL 0.00 - 0.01 Not Available [facility] [address] [place], [address], 08/12/2025 17:25:39 08/12/20 25 08/12/2025 CBC NRBC% 0.0 % 0.0 - 0.2 Not Available [facility] [address] [place], [address], 08/12/2025 17:25:39 08/12/20 25 08/12/2025 COMPR EHENS ANGY METAB OLIC PANEL (CMP) albumin 4.1 g/dL 3.5 - 5.0 Not Available [facility] [address] [place], [address], 08/12/2025 17:25:39 08/12/20 25 08/12/2025 COMPR EHENS ANGY METAB OLIC PANEL (CMP) chloride 99 mmol/ L 98 - 107 Not Available [facility] [address] [place], [address], 08/12/2025 17:25:39 08/12/20 25 08/12/2025 COMPR EHENS ANGY METAB OLIC PANEL (CMP) creatinine 1.17 mg/dL 0.52 - 1.04 high Not Available [facility] [address] [place], [address], 08/12/2025 17:25:39 08/12/20 25 08/12/2025 COMPR EHENS ANGY METAB OLIC PANEL (CMP) eco2 37.0 mmol/ L 22.0 - 30.0 high Not Available [facility] [address] [place], [address], 08/12/2025 17:25:39 08/12/20 25 08/12/2025 COMPR EHENS ANGY METAB OLIC PANEL (CMP) glucose 198 mg/dL 74 - 106 high Not Available [facility] [address] [place], [address], 08/12/2025 17:25:39 08/12/20 25 08/12/2025 COMPR EHENS ANGY METAB OLIC PANEL (CMP) potassium 4.60 mmol/ L 3.50 - 5.10 Not Available [facility] [address] [place], [address], 08/12/2025 17:25:39 08/12/20 25 08/12/2025 COMPR EHENS ANGY METAB OLIC PANEL (CMP) alkaline phos 114 U/L 38 - 126 Not Available [facility] [address] [place], [address], 08/12/2025 17:25:39 08/12/20 25 08/12/2025 COMPR EHENS ANGY METAB OLIC PANEL (CMP) sodium 141 mmol/ L 137 - 145 Not Available [facility] [address] [place], [address], 08/12/2025 17:25:39 08/12/20 25 08/12/2025 COMPR EHENS ANGY METAB OLIC PANEL (CMP) total bilirubin 0.6 mg/dL 0.2 - 1.3 Not Available [facility] [address] [place], [address], 08/12/2025 17:25:39 08/12/20 25 08/12/2025 COMPR EHENS ANGY METAB OLIC PANEL (CMP) total protein 7.3 g/dL 6.3 - 8.2 Not Available [facility] [address] [place], [address], 08/12/2025 17:25:39 08/12/20 25 08/12/2025 COMPR EHENS ANGY METAB OLIC PANEL (CMP) ALT 16 U/L 0 - 35 Not Available [facility] [address] [place], [address], 08/12/2025 17:25:39 08/12/20 25 08/12/2025 COMPR EHENS ANGY METAB OLIC PANEL (CMP) BUN/urea 27 mg/dL 7 - 17 high Not Available [facility] [address] [place], [address], 08/12/2025 17:25:39 08/12/20 25 08/12/2025 COMPR EHENS ANGY METAB OLIC PANEL (CMP) eGFR 52 mL/mi n/1.7 3m2 >60 low *eGFR Refer ence Value s Maria Del Rosario l: >60 mL/mi n/1.7 3m2 Abnor mal: < 60 mL/mi n/1.7 3m2 Not Available [facility] [address] [place], [address], 08/12/2025 17:25:39 08/12/20 25 08/12/2025 COMPR EHENS ANGY METAB OLIC PANEL (CMP) A/G ratio 1.3 (calc ) 1.0 - 2.5 Not Available [facility] [address] [place], [address], 08/12/2025 17:25:39 08/12/20 25 08/12/2025 COMPR EHENS ANGY METAB OLIC PANEL (CMP) globulin 3.2 g/dL_ (calc ) 1.9 - 3.7 Not Available [facility] [address] [place], [address], 08/12/2025 17:25:39 08/12/20 25 08/12/2025 COMPR EHENS ANGY METAB OLIC PANEL (CMP) calcium 9.4 mg/dL 8.4 - 10.2 Not Available [facility] [address] [place], [address], 08/12/2025 17:25:39 08/12/20 25 08/12/2025 COMPR EHENS ANGY METAB OLIC PANEL (CMP) AST 22 U/L 14 - 36 Not Available [facility] [address] [place], [address], 08/12/2025 17:25:39 08/12/20 25 08/12/2025 COMPR EHENS ANGY METAB OLIC PANEL (CMP) BUN/crea ratio 23 (calc ) 6 - 22 high Not Available [facility] [address] [place], [address], 08/12/2025 17:25:39 08/12/20 25 08/12/2025 LIPID PANEL VLDL (calculated) 30 mg/dL (calc ) 0 - 30 Not Available [facility] [address] [place], [address], 08/12/2025 17:25:40 08/12/20 25 08/12/2025 LIPID PANEL direct HDL 33 mg/dL 40 - 60 low Not Available [facility] [address] [place], [address], 08/12/2025 17:25:40 08/12/20 25 08/12/2025 LIPID PANEL triglyceride s 149 mg/dL 0 - 199 Not Available [facility] [address] [place], [address], 08/12/2025 17:25:40 08/12/20 25 08/12/2025 LIPID PANEL cholesterol 144 mg/dL <200 Not Available [facility] [address] [place], [address], 08/12/2025 17:25:40 08/12/20 25 08/12/2025 LIPID PANEL chol/DHDL ratio 4 %_(ca lc) 0 - 5 Not Available [facility] Lab [address] [place], [address], 08/12/2025 17:25:40 08/12/20 25 08/12/2025 LIPID PANEL LDL (calculated) 81 mg/dL 0 - 100 Not Available [facility] Lab [address] [place], [address], 08/12/2025 17:25:40 08/12/20 25 08/13/2025 HEMOG LOBIN [...] ic <5.7% Non-D iabet ic Not Available [facility] [address] [place], [address], 08/13/2025 18:43:42 08/12/20 25 08/13/2025 MICRO ALBUM IN/CR EATIN INE, RANDO M URINE SAMPL E albumin/crea tinine ratio, urine 29 ug/mg 0-30 Not Available [facility] Lab [address] [place], [address], 08/13/2025 18:43:42 08/12/20 25 08/13/2025 MICRO ALBUM IN/CR EATIN INE, RANDO M URINE SAMPL E microalbumin , urine, random 2.8 mg/dL Not Available [facility] Clinical Lab [address] [place], [address], 08/13/2025 18:43:42 08/12/20 25 08/13/2025 MICRO ALBUM IN/CR KATYASIERRA MACE, MICHAELCooper M URINE SAMPL E creatinine, urine 97.5 mg/dL Not Available [facility] Clinical Lab [address] [place], [address], 08/13/2025 18:43:42 08/12/20 25 08/13/2025 ESTIM ATED [facility] GE GLUCO SE estimated average glucose (EAG) 246 mg/dL Estim ated [place] ge Gluco se (eAG) is calcu lated [...] d not be evalu ated. Not Available [facility] Lab [address] [place], [address], 08/13/2025 18:43:43 Result Notes None recorded. Problems Name Problem SNOMED Code Status Onset Date Resolution Date Notes Provider Name and Address Organization Details Recorded Time Acute sinusiti s 28981678 Completed 200402/26/2017 Category : DD; Medicine Descript ion: SINUSITI S ACUTE; Display in Medcin: YES; Display in ESB: YES; Confiden tiality Level: Level 1 REMIGIO Lemus, [facility] 7 10:04:47 Dizzines s and giddines s 305632885 Completed 200402/26/2017 Category : DD; Medicine Descript ion: dizzines s; Display in Medcin: YES; Display in ESB: YES; Confiden tiality Level: Level 1 REMIGIO Lemus, [facility] 7 10:05:26 Tracheob ronchiti s 79629095 Completed 200402/26/2017 Category : DD; Medicine Descript ion: TRACHEOB RONCHITI S; Display in Medcin: YES; Display in ESB: YES; Confiden tiality Level: Level 1 [facility] 7 10:04:42 Chronic obstruct angy pulmonar y disease 79925321 Active 2004 Modified By: MARIA ANTONIA DEL REAL; Category : DD; Examiner : Veronica Jensen I.; Medicine Descript ion: CHRONIC OBSTRUCT ANGY PULMONAR Y DISEASE; Display in Medcin: YES; Display in ESB: YES; Confiden tiality Level: Level 1 Not Available [facility] 4 03:27:39 Clinical finding Completed 200402/26/2017 Modified By: ARIANA MARSHALL; Category : DD; Examiner : Ariana Marshall; Medicine Descript ion: LARYNGOP HARYNGEA L REFLUX; Display in Medcin: NO; Display in ESB: NO; Confiden tiality Level: Level 1 Cordelia Mcclain [facility] 7 10:05:08 Allergic rhinitis 50360804 Active 2004 Category : DD; Medicine Descript ion: ALLERGIC RHINITIS ; Display in Medcin: YES; Display in ESB: YES; Confiden tiality Level: Level 1 Not Available [facility] 4 03:27:39 Neves's palsy 759725058 Completed 200502/26/2017 Category : DD; Medicine Descript ion: NEVES'S PALSY; Display in Medcin: YES; Display in ESB: YES; Confiden tiality Level: Level 1 Cordelia Mcclain [facility] 7 10:05:01 Family history of diabetes mellitus 355655643 Completed 200902/26/2017 Created By: VERONICA JENSEN ; Modified By: VERONICA JENSEN ; Category : DD; Examiner : VERONICA JENSEN I.; Medicine Descript ion: DIABETES MELLITUS ; Display in Medcin: NO; Display in ESB: YES; Confiden tiality Level: Level 1 REMIGIO Lemus, [facility] 7 10:04:51 Benign essentia l hypertollie avitiaon 6945820 Completed 200902/26/2017 Created By: VERONICA JENSEN ; Modified By: GHAZAL PHAN; Category : DD; Examiner : VERONICA JENSEN I.; Medicine Descript ion: HYPERTEN MIRA (SYSTEMI C); Display in Medcin: YES; Display in ESB: YES; Confiden tiality Level: Level 1 REMIGIO Lemus, [facility] 7 10:05:46 Family history of Cardiova scular disease 141696611 Completed 200902/26/2017 Created By: VERONICA JENSEN ; Modified By: MARIA ANTONIA DEL REAL; Category : DD; Examiner : Veronica Jensen I.; Medicine Descript ion: reported family history ischemic heart disease before age 50; Display in Medcin: YES; Display in ESB: YES; Confiden tiality Level: Level 1 [facility] 7 10:05:23 Wheezing 99327382 Completed 200902/26/2017 Created By: VERONICA JENSEN ; Modified By: GHAZAL PHAN; Category : DD; Examiner : Veronica Jensen I.; Medicine Descript ion: wheezing [as a symptom] ; Display in Medcin: YES; Display in ESB: YES; Confiden tiality Level: Level 1 REMIGIO Lemus, [facility] 7 10:05:57 Mild intermit tent asthma 739163310 Active 2009 Created By: VERONICA JENSEN ; Modified By: GHAZAL PHAN; Category : DD; Examiner : Veronica Jensen I.; Medicine Descript ion: ASTHMA MILD INTERMIT TENT UNCOMPLI CATED; Display in Medcin: YES; Display in ESB: YES; Confiden tiality Level: Level 1 Not Available [facility] 4 03:27:39 Obesity 405131997 Active 2010 Created By: VERONICA JENSEN ; Modified By: GHAZAL PHAN; Category : DD; Examiner : VERONICA JENSEN I.; Medicine Descript ion: Obese; Display in Medcin: YES; Display in ESB: YES; Confiden tiality Level: Level 1 Not Available [facility] 4 03:27:39 Nicotine dependen ce 30262693 Active 2010 Created By: VERONICA JENSEN ; Modified By: ARIANA MARSHALL; Category : DD; Examiner : Ariana Marshall; Medicine Descript ion: current smoker; Display in Medcin: NO; Display in ESB: NO; Confiden tiality Level: Level 1; Type: Diagnosi s Not Available [facility] 4 03:27:39 Hyperlip idemia 05493280 Active 2010 Created By: VERONICA JENSEN ; Modified By: VERONICA JENSEN ; Category : DD; Examiner : Veronica Jensen I.; Medicine Descript ion: DYSLIPID EMIA; Display in Medcin: YES; Display in ESB: YES; Confiden tiality Level: Level 1; Type: Diagnosi s Not Available [facility] 4 03:27:39 Long-ter m drug therapy Completed 201002/26/2017 Created By: VERONICA JENSEN ; Modified By: VERONICA JENSEN ; Category : DD; Examiner : Veronica Jensen I.; Medicine Descript ion: taking medicati on for a long time; Display in Medcin: YES; Display in ESB: YES; Confiden tiality Level: Level 1; Type: Diagnosi s Cordelia Mcclain LPN [facility] 7 10:05:21 Verruca plantari s 74092744 Completed 201102/26/2017 Created By: VERONICA JENSEN ; Modified By: ARIANA MARSHALL; Category : DD; Examiner : Ariana Marshall; Medicine Descript ion: Wartlike Lesions Feet Plantar; Display in Medcin: YES; Display in ESB: YES; Confiden tiality Level: Level 1; Type: Diagnosmaddi s Cordelia Johny, [employer] null, [facility] 7 10:06:02 Pl[address] juniort [id number] Completed 201102/26/2017 Created By: VERONICA JENSEN ; Modified By: ARIANA MARSHALL; Category : DD; Examiner : Ariana Marshall; Medicine Descript ion: WARTS COMMON; Display in Medcin: YES; Display in ESB: YES; Confiden tiality Level: Level 1; Type: Diagnosi s Cordelia Johny, [employer] null, [facility] 7 10:05:14 Procedur e Completed 201102/26/2017 Created By: VERONICA JENSEN ; Modified By: ARIANA MARSHALL; Category : DD; Examiner : Veronica Jensen I.; Medicine Descript ion: visit for: medicati on refill; Display in Medcin: NO; Display in ESB: NO; Confiden tiality Level: Level 1; Type: Diagnosmaddi s Cordelia Johny, [employer] null, [facility] 7 10:05:40 Sciatica 06045132 Completed 201202/26/2017 Created By: VERONICA JENSEN ; Modified By: ARIANA MARSHALL; Category : DD; Examiner : Veronica eJnsen I.; Medicine Descript ion: NEURITIS SCIATIC; Display in Medcin: NO; Display in ESB: NO; Confiden tiality Level: Level 1; Type: Diagnosi s Cordelia Johny, [employer] null, [facility] 7 10:05:12 Screenin g procedur e Completed 201402/26/2017 Created By: ARIANA MARSHALL; Modified By: ARIANA MARSHALL; Category : DD; Examiner : Ariana Marshall; Medicine Descript ion: visit for: screenin g malignan t neoplasm colon; Display in Medcin: NO; Display in ESB: NO; Confiden tiality Level: Level 1; Type: Diagnosi s Cordelia Johny, [employer] null, [facility] 7 10:05:37 Adult health examinat ion Completed 201402/26/2017 Created By: ARIANA MARSHALL; Modified By: ARIANA MARSHALL; Category : DD; Examiner : Ariana Marshall; Medicine Descript ion: ROUTINE HISTORY AND PHYSICAL ; Display in Medcin: YES; Display in ESB: YES; Confiden tiality Level: Level 1; Type: Sonia Mcclain, [employer] null, [facility] 7 10:05:29 Abnormal finding on evaluati on procedur e [id number] Completed 201402/26/2017 Created By: ARIANA MARSHALL; Modified By: ARIANA MARSHALL; Category : DD; Examiner : Ariana Marshall; Medicine Descript ion: ROUTINE HISTORY AND PHYSICAL ; Display in Medcin: YES; Display in ESB: YES; Confiden tiality Level: Level 1; Type: Sonia Mcclain, [employer] null, [facility] 7 10:05:54 Palpitat ions 19629630 Completed 201402/26/2017 Created By: ARIANA MARSHALL; Modified By: ARIANA MARSHALL; Category : DD; Examiner : Ariana Marshall; Medicine Descript ion: palpitat ions; Display in Medcin: NO; Display in ESB: NO; Confiden tiality Level: Level 1; Type: Sonia Mcclain LPN null, [facility] 7 10:06:05 Microsco pic hematuri a 242007618 Completed 201402/26/2017 Created By: ARIANA MARSHALL; Modified By: ARIANA MASRHALL; Category : DD; Examiner : Ariana Marshall; Medicine Descript ion: MICROSCO PIC HEMATURI A; Display in Medcin: YES; Display in ESB: YES; Confiden tiality Level: Level 1; Type: Sonia Mcclain, [employer] null, [facility] 7 10:05:05 Electroc ardiogra m abnormal 559239459 Completed 201402/26/2017 Created By: ARIANA MARSHALL; Modified By: ARIANA MARSHALL; Category : DD; Examiner : Ariana Marshall; Medicine Descript ion: ECG NORMAL VARIANT; Display in Medcin: NO; Display in ESB: NO; Confiden tiality Level: Level 1; Type: Diagnosi s Cordelia Mcclain, [employer] null, [facility] 7 10:04:38 Evaluati on procedur e Completed 201402/26/2017 Created By: ELVIE FERNANDEZ; Modified By: KEVEN OCTOBER; Category : DD; Examiner : Keven Muhammad; Medicine Descript ion: Observat ion For Suspecte d Conditio n; Display in Medcin: YES; Display in ESB: YES; Confiden tiality Level: Level 1; Type: Diagnosi s Cordelia Mcclain, [employer] [facility] 7 10:05:34 Hyperten sive disorder 75297439 Active 2015 Created By: ARIANA MARSHALL; Modified By: ARIANA MARSHALL; Category : DD; Examiner : Ariana Marshall; Medicine Descript ion: ESSENTIA L HYPERTEN MIRA BENIGN; Display in Medcin: YES; Display in ESB: YES; Confiden tiality Level: Level 1; Type: Diagnosi s Not Available [facility] 4 03:27:39 Viral screenin g Completed 201502/26/2017 Created By: ARIANA MARSHALL; Modified By: ARIANA MARSHALL; Category : DD; Examiner : Ariana Marshall; Medicine Descript ion: visit for: screenin g exam dengue fever; Display in Medcin: YES; Display in ESB: YES; Confiden tiality Level: Level 1; Type: Diagnosi s Cordelia Mcclain, [employer] null, [facility] 7 10:05:16 Screenin g mammogra phy Completed 201502/26/2017 Created By: ARIANA MARSHALL; Modified By: ARIANA MARSHALL; Category : DD; Examiner : Ariana Marshall; Medicine Descript ion: Mammogra m Screenin g; Display in Medcin: YES; Display in ESB: YES; Confiden tiality Level: Level 1; Type: Sonia Mcclain LPN [facility], [facility] 7 10:05:19 Active immuniza tion Completed 201502/26/2017 Created By: ARIANA MARSHALL; Modified By: ARIANA MARSHALL; Category : DD; Examiner : Ariana Marshall; Medicine Descript ion: visit for: immuniza tion; Display in Medcin: YES; Display in ESB: YES; Confiden tiality Level: Level 1; Type: Sonia Mcclain, [employer] null, [facility] 7 10:05:31 Pain of left shoulder joint [id number] 554049 Active 2017 Not Available [facility] 4 03:27:39 Vitamin D deficien cy 59913819 Active 2021 Not Available [facility] 4 03:27:39 Congesti ve heart failure 21766642 Active 2022 Not Available [facility] 4 03:27:39 Type 2 diabetes mellitus without complica tion 273916879 Active 2022 Not Available [facility] 4 03:27:39 Female urinary stress incontin ence 37700899 Active 2024 Tu Poe NP [address], [address] , [facility] 5 11:50:21 Dependen ce on suppleme ntal oxygen 10428531111 7 Active 2024 Tu Poe NP [address], [address] , [facility] 5 12:26:07 Problem Notes None recorded. Procedures Surgical History Date Name Laterality Status Provider Name and Address Organization Details Recorded Time 05/17/20 25 Suture/Staple removal completed [facility] [address], [address], [facility] 05/17/2025 15:52:31 05/05/20 25 Flu vaccine Screening completed Rita Olivarez [facility] 05/05/2025 12:16:34 08/20/20 24 Nebulizer tx duoneb completed Emily Quintero [address], [address], [facility] 08/20/2024 16:28:20 05/06/20 24 venipuncture completed Juliet Gatica [facility] 05/06/2024 11:42:54 02/19/20 24 Splint Application completed Tu Poe NP [address], [address], [facility] 02/19/2024 14:24:04 12/26/19 24 venipuncture completed Yuliya Hurd [facility] 12/26/2023 15:40:03 09/25/19 22 venipuncture completed Shauna Jordan [facility] 09/25/2021 13:07:04 11/25/19 21 venipuncture completed Jodi Mora [facility] 11/24/2020 11:10:23 12/18/19 20 venipuncture completed Yuliya Hurd [facility] 12/18/2019 16:28:31 12/18/19 20 venipuncture cancelled Tyler Mcfarlane [facility] 12/18/2019 09:21:06 04/14/20 19 venipuncture completed Cordelia Mcclain LPN [facility] 04/14/2019 09:25:36 08/08/20 18 venipuncture completed Cordelia Mcclain LPN [facility] 08/08/2018 09:13:48 09/10/19 18 venipuncture completed Homa Zarate [facility] 09/10/2017 10:01:27 02/27/20 17 venipuncture completed Cordelia Mcclain LPN [facility] 02/26/2017 10:26:37 08/15/20 16 venipuncture completed Homa Zarate [facility] 08/15/2016 10:27:51 Cardiac Surgery completed Cordelia waldrop LPN [facility] 02/26/2017 10:07:03 Imaging Results None recorded. Procedure Notes None recorded. Medical Equipment None Reported. Allergies Allergen ID Allergen Name Allergen Category Reaction Reaction Severity Criticality Documentation Date Start Date Code Code System Note Provider Name and Address Organization Details Recorded Time 01036 codeine medicatio n Not available Not available Not available 08/05/20162009 2670 RxNorm Comme nt: Last Edite d: 11-25 09:27 :35; Not Available [facility] 03:58:28 Medications Name Sig Start Date [...] scale before meals TID<150- 0 -200-3 -250-6 ujplg027 -300- 9 qlpoj836 -350-12 ppdag926 -400-15 units Not Available Not Available Not [...] active Not Available Not Available Not Marianela labartur Vitals Date Recorded Body height Body mass index (BMI) Body weight Body temperature Respiratory rate Heart rate Oxygen saturation Provider Name and Address Organization Details Last Updated DateTime 5 170.18 cm 45.5 kg/m2 747113. 24 g 97.3 [degF] 20 /min 75 /min 90 % Migdalia Metz [facility] 5 12:05:19 Social History Question Answer Notes LastModified by Organization Details LastModified Time Tobacco Smoking Status Current Every Day Smoker Rita tello [facility] 02/18/2025 15:08:04 Do You Have An Advance Directive? No Information not available 01/29/2017 Are You Blind Or Do You Have Difficulty Seeing? Yes [email or web address] Information not available 09/25/2021 Is Blood Transfusion Acceptable In An Emergency? Yes [email or web address] Information not available 09/25/2021 What Is Your Level Of Caffeine Consumption? Heavy [email or web address] Information not available 01/29/2017 How Much Tobacco Do You Chew? None [email or web address] Information not available 01/29/2017 Commercial Sex Work No [email or web address] Information not available 01/29/2017 In The 14 [...] Do You Have Serious Difficulty Hearing? No [email or web address] Information not available 09/25/2021 What Type Of Diet Are You Following? REGULAR [email or web address] Information not available 01/29/2017 Which Illicit Or Recreational Drugs Have You Used? None [email or web address] Information not available 01/29/2017 Have You Processed Blood Or Body Fluids From An Ebola Virus Disease Patient Without Appropriate PPE? No [email or web address] Information not available 09/25/2021 Education Less Than 8th Grade [email or web address] Information not available 01/29/2017 What Is The Highest Grade Or Level Of School You Have Completed Or The Highest Degree You Have Received? [id number] [email or web address] Information not available 08/12/2025 Are There Any Guns Present In Your Home? Yes Information not available 02/26/2017 Hard Of Hearing Or Deaf In One Or Both Ears? No [email or web address] Information not available 01/29/2017 High Number Of Sexual Partners No [email or web address] Information not available 01/29/2017 History Of Inconsistent/no Condom Use No [email or web address] Information not available 01/29/2017 International Travel None Information not available 02/26/2017 Legally Blind In One Or Both Eyes? No [email or web address] Information not available 01/29/2017 In The Past 6 Months Have You Fallen No [email or web address] Information not available 01/29/2017 Medication List Reconciled Yes Information not available 04/14/2019 What Number (0-10) Best Describes How, During The Past Week, Has Interfered With Your General Activity? 0 [email or web address] Information not available 01/29/2017 What Number (0-10) Best Describes How, During The Past Week, Pain Has Interfered With Your Enjoyment In The Past Week 0 [email or web address] Information not available 01/29/2017 What Number (0-10) Best Describes Your Pain On Average In The Past Week 0 [email or web address] Information not available 01/29/2017 Total PEG Score 0 [email or web address] Informati on not available 01/29/2017 Most Recent Dental Visit 09/02/1996 Up To Date 04/23/22 Information not available 08/08/2018 Sexual Orientation Straight Or Heterosexual Information not available 11/24/2020 Gender Identity Female Informat ion not available 11/24/2020 Eye Exam 09/02/2015 Information not available 08/08/2018 Do You Feel Safe Yes Informa tion not available 11/24/2020 Hospital Follow Up Appointment 08/12/2025 [email or web address] Information not available 08/12/2025 Hospital Discharged Patient To Home [email or web address] Information not available 08/12/2025 ER Medication List Reconciled Yes [email or web address] Information not available 07/22/2025 ER Contact Date 07/22/2025 [email or web address] Informati on not available 07/22/2025 ER Follow Up Contact Date 07/22/2025 [email or web address] Information not available 07/22/2025 ER Follow Up Patient Contact Via Unable To Contact Went To [facility] ER Transferred To [facility] Diagnosis Pneumonia [email or web address] Information not available 07/22/2025 ER Date Of Discharge 07/21/2025 [email or web address] Information not available 07/22/2025 ER Discharged Patient To Caregiver Transfer [email or web address] Information not available 07/22/2025 ER Records Recieved Yes [email or web address] Information not available 07/22/2025 ER Records Requested Yes [email or web address] Information not available 07/22/2025 Marital Status [email or web address] Informatio n not available 01/29/2017 What Was The Date Of Your Most Recent Tobacco Screening? 08/12/2025 [email or web address] Information not available 08/12/2025 Mother With HIV? No [email or web address] Informat ion not available 01/29/2017 How Many Children Do You Have? 4 [email or web address] Information not available 08/12/2025 What Is Your Relationship Status? [email or web address] Information not available 08/12/2025 Do You Use Your Seat Belt Or Car Seat Routinely? Yes Information not available 07/28/2024 Seat Belts Used Routinely Yes [email or web address] Information not available 01/29/2017 Are You Sexually Active? Yes Information not available 08/08/2018 Sexual Partner Has HIV? No [email or web address] Information not available 01/29/2017 Sexual Partner Uses IV Drugs? No [email or web address] Information not available 01/29/2017 Smoke Alarm In Home No Information not available 01/29/2017 At What Age Did You Start Smoking Tobacco? 15 Information not available 02/26/2017 How Much Tobacco Do You Smoke? 0.5 PPD [email or web address] Information not available 05/05/2025 General Stress Level Medium [email or web address] Information not available 01/29/2017 Do You Use Sunscreen Routinely? No [email or web address] Information not available 01/29/2017 How Many Years Have You Smoked Tobacco? 41 Information not available 02/26/2017 Have You Used IV Drugs? No Information not available 01/29/2017 Do You Have Difficulty Walking Or Climbing Stairs? Yes [email or web address] Information not available 09/25/2021 Do You Want To Talk About Contraception Or Prevention During Your Visit Today? No - This Question Does Not Apply To Me/I Prefer Not To Answer Information not available 12/17/2024 Do You Have Any Future Plans To Get ? No, I Don't Want To Become Information not available 12/17/2024 Sex: Female Functional Status Question Answer Note LastModified by [employer] Details LastModified Time Do you use any illicit or recreational drugs? No [email or web address] Information not available 06/14/2025 Do you or have you ever used any other forms of tobacco or nicotine? Yes Nicotine patches Information not available 12/17/2024 What is your level of alcohol consumption? None [email or web address] Information not available 01/29/2017 Do you or have you ever used smokeless tobacco? Never used smokeless tobacco Information not available 04/14/2019 Are you currently employed? No Information not available 08/12/2025 Do you have transportation difficulties? No [email or web address] Information not available 09/25/2021 Are you able to walk independently without assistance or assistive devices? YESWOREST [email or web address] Information not available 01/29/2017 Do you have difficulty doing errands alone? No [email or web address] Information not available 09/25/2021 Are you able to care for yourself independently? Yes [email or web address] Information not available 09/25/2021 Do you have difficulty dressing, bathing, grooming, or toileting? No [email or web address] Information not available 09/25/2021 Do you or have you ever used e-cigarettes or vape? Never used electronic cigarettes Information not available 04/14/2019 What is your exercise level? Moderate [email or web address] Information not available 01/29/2017 Mental Status Question Answer Note LastModified by [employer] Details LastModified Time Do you feel stressed (tense, restless, nervous, or anxious, or unable to sleep at night)? [id number] [email or web address] Information not available 09/25/2021 Do you have difficulty concentrating, remembering or making decisions? No [email or web address] Information no t available 09/25/2021 Family History [...] N Thyroid Disease N Breast Cancer N Hypothyroidism N Lung Disease N Developmental or Behavioral Disorders N Defects [...] Anemia N Colon Polyps N Heart Attack (GA) N Diabetes N Ovarian Cancer N Bedwetting N Seizures/Epilepsy N Amnesia N Congestive Heart Failure (CHF) N Eczema N Dementia N Diverticulitis N Abuse/Domestic Violence N Cardiovascular Y Tourette Syndrome N Pre-Eclampsia [...] preservative 9 completed Not Available [facility] 09/19/2019 02:39:19 Tdap 7 [facility] Available [facility] [facility] 09/19/2019 02:39:16 Influenza, split virus, trivalent, preservative 6 completed Not Available [facility] 09/25/2023 03:27:39 Tdap 5 completed Not Available [facility] 08/12/2025 12:00:37 Influenza, MDCK, quadrivalent, PF 4 completed Juliet Gatica [facility] 05/07/2024 12:22:36 Influenza, split virus, quadrivalent, 5 completed Rita Olivarez [facility] 05/05/2025 12:58:35 Pneumococcal conjugate PCV20, polysaccharide [id number] conjugate, adjuvant, 5 completed Rita Olivarez [facility] 06/28/2025 15:43:32 Influenza, MDCK, quadrivalent, preservative 8 completed Not Available [facility] 09/19/2019 02:39:18 Past Encounters Encounter ID Performer Location Encounter Start Date Encounter Closed Date Diagnosis/Indication Diagnosis SNOMED-CT Code Diagnosis ICD10 Code Diagnosis IMO Codes Diagnosis Note [id number] Gabriela Hall MD [facility] [address] [place] [address] 08/15/2016 10:09:14 08/16/2016 18:28:44 Benign essential hypertension 1382419 I10 Chronic ob structive pulmonary disease 27258078 J44.9 Hypertensive disorder 38 495250 I10 Hyperlipidemia 42016069 E78.5 [id number] Gabriela Hall MD [facility] [address] [place] [address] 01/29/2017 14:24:14 01/29/2017 15:19:56 Infestation by Sarcoptes scabiei janis hominis 098411078 B86 Hypertensive disorder 38 671148 I10 Hyperlipidemia 70967995 E78.5 Tobacco user 098589776 Z 72.0 [id number] [address] MD [facility] [address] [place] [address] 02/26/2017 09:18:58 02/26/2017 14:03:43 Tobacco user 592444596 Z72.0 Hyperlipidemia 96008265 E78.5 Hypertensive disorder 38 955456 I10 Diet education 61055180 Z71.3 Exercises education, guidance, and counseling 599910270 Z71.89 Adult heal th examination 146153351 Z00.00 Hyperlipid emia screening 548589212 Z13.220 Medication monitoring 39 7976332 Z51.81 Active or passive immunization 962976764 Z23 Chronic ob structive pulmonary disease 27124034 J44.9 [id number] Estevan Marr [address] [address] 09/10/2017 09:39:37 09/10/2017 11:26:18 Hypertensive disorder 07393079 I10 Obesity 253753376 E66.9 Hyperlipidemia 47281593 E78.5 Nicotine dependence 5629 4008 F17.200 Acute maxi llary sinusitis 01445109 J01.00 Medication monitoring 39 9427396 Z51.81 Viral screening 98853580 4 Z11.59 tattoos, baby boomer Chronic ob structive pulmonary disease 35326237 J44.9 [id number] Estevan Marr [facility] [address] [place] [address] 06/20/2018 14:54:40 06/20/2018 15:14:54 Administration of influenza vaccine 43760389 Z23 [id number] Estevan Marr [address] [address] 08/08/2018 09:05:51 08/08/2018 10:42:58 Hypertensive disorder 56638154 I10 Hyperlipidemia 95507260 E78.5 Long-term drug therapy 272397466 Z79.899 Nicotine dependence 5629 4008 F17.200 Chronic ob structive pulmonary disease 27021791 J44.9 Mild inter mittent asthma 929350942 J45.20 Pain of le ft shoulder joint 2865842577 1093070 M25.512 Body mass index 30+ - obesity 890547355 Z68.35 [id number] Estevan Marr [facility] [address] [place] [address] 04/14/2019 09:17:49 04/14/2019 10:13:23 Hypertensive disorder 28589030 I10 Hyperlipidemia 01210034 E78.5 Long-term drug therapy 337232822 Z79.899 Fatigue 10342060 R53.83 Nicotine dependence 5629 4008 F17.200 Adult heal th examination 836458587 Z00.01 Chronic ob structive pulmonary disease 24430847 J44.9 [id number] Estevan Marr [facility] [address] [place] [address] 05/18/2019 11:52:15 05/18/2019 12:52:13 Nicotine dependence 33162188 F17.200 Pain in right foot 29041 83321 33527 M79.671 Administra tion of influenza vaccine 11952492 Z23 [id number] Estevan Marr [facility] [address] [place] [address] 12/18/2019 15:26:21 12/18/2019 16:28:08 Nausea and vomiting 13591039 R11.2 Constipation 55926752 K5 9.00 Right uppe r quadrant pain 230839628 R10.11 Helicobact er pylori-associated gastritis 461335582 B96.81 [id number] [address] [facility] [address] [place] [address] 07/13/2020 18:23:52 07/14/2020 09:07:46 Dehydration 18281510 E86.0 Nausea and vomiting 1692 1999 R11.2 [id number] [address] Lopez MD [facility] [address] [place] [address] 10/06/2020 15:31:28 10/06/2020 16:55:02 Nausea and vomiting 12257838 R11.2 [id number] [address] Lopez MD [facility] [address] [place] [address] 11/24/2020 10:27:47 11/24/2020 11:24:06 Dyspnea at rest 391062811 R06.00 CXR is negative for infiltrate , lesion, pleural fluid. Heart shadow is normal. Some constipate d stool suggested. Nausea and vomiting 1692 1999 R11.2 UA is concentrat ed but no evidence infection. Chronic ob structive pulmonary disease 13845182 J44.9 [id number] Estevan Hardin DO [facility] [address] [place] [address] 09/25/2021 10:53:45 09/25/2021 13:09:28 Pain of right shoulder joint 5959390821 5070625 M25.511 Nicotine dependence 5629 4008 F17.210 Adhesive c apsulitis of right shoulder 2164018765 19931 M75.01 Hemoglobin above reference range 094011983 R71.8 Long-term drug therapy 623344091 Z79.899 Hyperlipidemia 48240759 E78.5 Fatigue 58122656 R53.83 Daytime hypersomnia 3177 355996 2534 G47.19 [id number] [address] [facility] [address] [place] [address] 04/23/2022 10:41:53 04/23/2022 11:47:55 Hyperlipidemia 01817194 E78.5 Hypertensive disorder 38 867103 I10 Her blood pressure elevated today; She didn't take her morning medication (Hctz 12.5 and lisinopril 40 mg) Long-term drug therapy 251707761 Z79.899 Venous sta sis edema of bilateral lower limbs 1844031653 7527589 I87.2 Will increase hctz to 25 mg daily;Deepa miller lots of water; Elevate, Compressio n stockings recommende d.Discusse d side effects of HCTZ of electrolyt e imbalance, advised if start feeling weak or fatigue let us know and will recheck her metabolic panel. Cellulitis of lower limb 762306133 L03.119 Will start course of oral antibotics ;If redness, or pain increased or worsens RTC or seek immediate care.Quest ions encouraged and answered, verbalized understand ing. Trigger fi nger of left hand 0259545762 5993957 M65.30 discussed referral to ortho; Pt refused at this time. [id number] MCKAY CUEVAS [facility] [address] [place] [address] 08/28/2022 16:10:40 08/28/2022 16:51:07 Body mass index 40+ - severely obese 444999361 Z68.41 Diet education 79231096 Z71.3 Exercises education, guidance, and counseling 232671602 Z71.89 Edema of l ower extremity 698328581 R60.0 BNP is pending; Start on lasix 40 mg for the next three days and she will follow up on Saturday. Hypertensive disorder 38 207095 I10 Dyspnea 694752266 R06.00 CXR obtained; Will send to radiologis t to review.Als o will arrange for echo cardiogram and cardiologi st referral;D iscussed with patient if shortness of breath worsen or develops chest pain go to the ER; Pt voiced understand ing, Hyperlipidemia 00090896 E78.5 Venous sta sis edema of bilateral lower limbs 7974641230 7149103 I87.2 [id number] MCKAY CUEVAS [facility] [address] [place] [address] 08/31/2022 14:57:17 08/31/2022 16:00:24 Congestive heart failure 23356353 I50.9 Her previous BNP elevated 1690.0She has echo cardiogram scheduled Sep 10, 2022; Check in at 11:45; Pt notified.C ardiology appointmen t scheduled for October 15, 2022 at 9:45 AM; Pt notifiedSh e will reduce the lasix to 20 mg and also start on potassium 10 Meq daily.CMP reviewed;F ollow up x2 weeks Cigarette smoker 7675849 7 F17.210 Patient would like to quit smoking; Prescripti on provided for nicotine patches start on 21 mg 1 patch daily for two weeks then 14 mg patch for two weeks. Pain of ri ght hip joint 4182982683 98417 M25.551 Continue the ibuprofen; X-ray of right hip obtained; Sent to radiologis t to review. [id number] MCKAY CUEVAS [facility] [address] [place] [address] 12/24/2022 09:41:23 12/24/2022 10:45:45 Hyperlipidemia 03506737 E78.5 Congestive heart failure 70015524 I50.9 Reviewed echo cardiogram trace of mitral regurgitat ion and mild tricuspid. Mild diastolic dysfunctio n. Recommende d to continue follow up with cardiologmaddi saavedra. She has not heard about an appointmen t will contact her office to check on status. Chronic ob structive pulmonary disease 79591029 J44.9 Start on advair inhaler daily. If not improving let provider know. Body mass index 40+ - severely obese 777712931 Z68.41 BMI 41.6 Type 2 deepak betes mellitus without complication 839432287 E11.9 Her A1C is 6.7% which is up from 5.8%Start on metformin daily 500 mg daily.Disc ussed importance of limiting carbohydra lorena and eating a diabetic diet.Quest ions encouraged and answered, verbalized understand ing.Follow up in 3 months to check A1C. Mild inter mittent asthma 249827651 J45.[id number] [facility] [address] [place] [address] 04/22/2023 12:31:44 04/22/2023 16:54:39 Chronic obstructive pulmonary disease 82623966 J44.9 If wheezing continues let provider know and will start on oral steroids. Pt voiced understand ing and will call to let us know how she is feeling. Congestive heart failure 55155568 I50.9 Will increase her lasix to 1 1/2 tablet for the next three days. Pt voiced understand ing. Scheduled her a follow up with cardiologmaddi saavedra on May 31, 2023 at 10:15 AM. Pt notified while at clinic. Type 2 deepak betes mellitus without complication 852029224 E11.9 Her A1C is 6.7%. Today it is 7.1. Discussed started on ozempic weekly to help with sugar and weight loss. Will check with insurance in regards to covering prescripti on and let her know. Body mass index 40+ - severely obese 346543540 Z68.41 BMI 41.6 [id number] Estevan Hardin, [facility] [address] [place] [address] 04/30/2023 14:02:40 05/01/2023 11:12:18 Congestive heart failure 23290334 I50.9 Lost 4 lbs since her last visit.EKG reviewed inverted T waves in lateral leads. No st depression elevation or reciprocal changes.CX R obtained and sent to radiologis Khoa has cardiologi st appointmen t next month on May 31, 2023 and copy EKG faxed to cardio.Dmitry waldrop reach out to cardiologi st office in regards to her symptoms and EKG to see if we can get her a sooner appointmen t.She had an Echo on 09/20/22 which showed normal LV function. EF 50-55% (LV EF 2C AL 46.2%)RA pressure 3.0 PA Systolic Pressure 30.2She has diastolic dysfunctio n, grade 1Trace mitral regurg; mild tricuspid regurg. Read by Dr Gamal waldrop continue Farxiga and Lasix.If shortness of breath worsens or chest pain occurs go to ER. Pt voiced understand ing. Walk test was abnormal. Pt O2 dropped while ambulating . Will order home oxygen and portable oxygen Pt may need a exercise stress test, cardiology is pending. Will try to contact cardiology . Alkaline p hosphatase above reference range 865694867 R74.8 Her previous alkaline phos 135; Will recheck CMP today and hepatitis panel is pending. Mild inter mittent asthma 629524719 J45.20 ACT score 9Currently on Advair twice per day; Will discontinu e.Will start on breztri(sa mples provided) and provide rescue inhaler. Type 2 deepak betes mellitus without complication 144707496 E11.9 Her previous A1C 7.1 on 04/22/2023W ill check with her insurance in regards to the denial on ozempic to see if other injectable s are covered such as trulicity. Cigarette smoker 3317310 7 F17.210 Currently smokes 1 pack per day Smoking cessation discussed with options for assistance ; She would like to continue with patches. Quit line # and informatio n given to patient. Questions encouraged and answered, verbalized understand ing. Dizziness 743271403 R42 Stop HCTZ due to dizziness; Recommende d to follow up next week to evaluate her weight and kidneys and electroyle s. Depressive disorder 1719 4465 F32.A Briseida's PHQ = 20 with a number 1 for question 9. Patient denies current suicidal thoughts, plan or intent. SAFE-T Protocol No on first two questions. She denies to speak with counselor. Will start lexapro 10 mg daily.Disc ussed SSRI treatment, action, and side effects. May take 4-6 weeks before symptoms improve. Do not abruptly stop medication Discussed increased risk of suicidalit y in some individual s and importance of monitoring . Chronic ob structive pulmonary disease 66192333 J44.9 Also has daytime fatigue; Will arrange for an overnight pulse ox for further review. Lower resp iratory tract infection 08964398 J22 Discussed going to the ER due to her shortness of breath. Pt declined. Nicotine dependence 5629 4008 F17.210 Pt agreed to restart nicotine patches. Declined counseling . Quit line handout given to pt. [id number] MCKAY CUEVAS, DO [facility] [place] [address] [place] [address] 05/10/2023 15:30:01 05/13/2023 16:39:23 Congestive heart failure 41155281 I50.9 I contacted scheduling at [facility], Cardiology has been trying to reach her to schedule stress test. I scheduled over phone and informed her that appointmen t is May at 10:30 AM. Outpatient surgery entrance NPO for 24 hours. Her cardiology appointmen t May 31, 2023Her labs indicated that she is dehydrated . Will reduce lasix to 20 mg daily.Enco uraged to watch her blood pressure at home.Celinao w up x1 week to recheck her CMP. [id number] Emory Ballard [employer] [address] [facility],[address] [place] [address] 05/13/2023 12:16:13 05/30/2023 15:19:11 [id number] Estevan Hardin, DO [facility] [place] [address] [place] [address] 06/27/2023 12:08:51 06/27/2023 17:25:44 Congestive heart failure 10893333 I50.9 Scheduled for follow up with cardiologi on 08/13/2023 at 9:30 AM She had an Echo on 09/20/22 which showed normal LV function. EF 50-55% (LV EF 2C AL 46.2%)RA pressure 3.0PA Systolic Pressure 30.2She has diastolic dysfunctio n, grade 1Trace mitral regurg; mild tricuspid regurg.Str ess test 05/24/2023 reviewed Patient had reported she was given a prescripti on by cardiology and dropped it off at pharmacy but never received. Office note did not show which medication she is referring to.Consult ed with cardiology provider Vanessa Fowler NP in regards to medication and she mentioned starting on spironolac tone if needed at follow up but did not give any additional Rx. Discussed with patient to review her medication s when she gets home, and call so we can update her chart. Chronic ob structive pulmonary disease 57248917 J44.9 Recommende d to use nebulizer as directed with albuterol. Course of steroids and recommende d to take mucinex BID.Follow up x1 week with Tu Poe NP Depressive disorder 4875 2816 F32.A NELY 18 PHQ 25. Currently only escitalopr am 10 mg daily. Will increase her lexapro from 10 mg to 20 mg. She states her mood is down due to her not feeling well. Type 2 deepak betes mellitus without complication 564711752 E11.9 Her previous A1C 7.1 on 04/22/2023. She never got the glipizide from pharmacy.D iscussed importance of limiting carbohydra lorena and eating a diabetic diet.Quest ions encouraged and answered, verbalized understand ing. Cigarette smoker 6115603 7 F17.210 History of smoking 1 pack per day. Quit smoking 4 days ago.Will arrange for LDCT chest for lung cancer screening. Abnormal r enal function 09086666 R94.4 Her creat 2.2 today and previous creat was 1.9. Recommende d to drink for water. Was referred to nephrologi ; Will contact facility to get her scheduled. Come in tomorrow to recheck her kidney as nurse visit.Disc ussed stopping sodas and drinking water. [id number] Estevan Hardin, DO [facility] [address] [place] [address] 06/28/2023 12:50:17 07/05/2023 14:57:16 Chronic kidney disease stage 3 984095151 N18.30 [id number] MCKAY CUEVAS DO [facility] [address] [place] [address] 07/09/2023 15:34:11 07/10/2023 15:52:32 Chronic kidney disease stage 3 540438269 N18.30 Patient getting labs drawn, will check CMP and advise patient of results after review Chronic ob structive pulmonary disease 06053465 J44.9 Will start levoquin and discontinu e cefdinir. Patient is still having symptoms. Cigarette smoker 4749706 7 F17.210 Patient quit smoking June 2023. Type 2 deepak betes mellitus without complication 101046670 E11.9 Hba1c has improved from 7.1 to 6.9 [id number] [facility] [address] [place] [address] 08/29/2023 13:59:50 08/30/2023 08:40:44 Chronic kidney disease stage 3A 283452874 N18.31 Diabetes mellitus 498269 09 E11.9 Proteinuria 60692286 R80 .9 Type 2 deepak betes mellitus without complication 008183164 E11.9 Hba1c has improved from 7.1 to 6.9 [id number] [facility] [address] [place] [address] 12/26/2023 15:22:08 12/27/2023 13:18:18 Type 2 diabetes mellitus without complication 335025264 E11.9 Her A1C 8.4% and other labs are pending and will contact patient with results Hyperlipidemia 36063884 E78.5 Congestive heart failure 01786685 I50.9 BNP pending; Discussed to increased her lasix to 40 mg daily.Dillon mmended to monitor her weight at home. If noticing 2-3 lb weight gain; Notify provider.Say neal up on Saturday if symptoms worsening or not improving go to ER. [id number] MCKAY MASON, [facility] [address] [place] [address] 01/20/2024 10:57:19 01/30/2024 12:33:08 Chronic kidney disease stage 5 557330725 N18.5 [id number] MCKAYJenny CUEVAS [facility] [address] [place] [address] 02/19/2024 11:47:58 02/20/2024 10:57:37 Pain of right wrist 5603674907 20141 M25.531 Fracture noted right radius; splint applied Type 2 deepak betes mellitus without complication 057184353 E11.9 Her A1C 8.4%. Will start ozempic. Sample provided. [id number] MCKAYJenny CUEVAS [facility] [address] [place] [address] 04/29/2024 11:59:25 04/30/2024 16:35:28 Uncontrolled type 2 diabetes mellitus 955276443 E11.65 Her previous A1C 8.6%; Her glucose in clinic 262.Will increase glipizide to 5 mg.Start on ozempic to see if insurance approves.P rovided patient with a savings card for [facility] Congestive heart failure 26008512 I50.9 Hypertensive disorder 38 407002 I10 Body mass index 40+ - severely obese 328777484 Z68.41 BMI 45.6 Diet education 18382968 Z71.3 Exercises education, guidance, and counseling 138681171 Z71.82 Adult [facility] th examination 762129453 Z00.00 Patient presented to office today for their Annual Wellness Visit. Screening mammography 24 243687 Z12.31 Cervical c ancer Papanicolaou smear screening declined 9814498742 03160 Z53.20 Screening for malignant neoplasm of colon 087731094 Z12.11 Tremor 77908861 R25.1 Mild inter mittent asthma 770078925 J45.20 Depressive disorder 3548 9007 F32.A Patient denies current suicidal thoughts, plan or intent. [id number] MCKAY CUEVAS [facility] [address] [place] [address] 05/06/2024 11:00:17 05/07/2024 08:57:19 Administration of influenza vaccine 78342442 Z23 Hyperkalemia 83603618 E8 7.5 Chronic ki dney disease stage 3 454952530 N18.31 [id number] Zac Conde [employer] [address] [facility],[address] [place] [address] 07/13/2024 11:26:13 07/20/2024 14:30:47 [id number] [facility] [address] [place] [address] 07/28/2024 14:56:06 07/28/2024 17:43:37 Cigarette smoker 33805467 F17.210 Chronic ob structive pulmonary disease 47137245 J44.9 Pain of [facility] 29307681 M25.519 Will prescribe the lidocaine patches and start on meloxicam 7.5 mg daily; If pain not improving or worsening discussed ortho referral. Chronic ki dney disease stage 3 177293428 N18.31 Labs completed for nephrologi st Body mass index 40+ - severely obese 073871281 Z68.41 BMI 45.6 Diet education 74061638 Z71.3 Exercises education, guidance, and counseling 774487685 Z71.82 Type 2 deepak betes mellitus without complication 443019930 E11.9 Will increase ozempic to 1 mg Insomnia 063932448 G47.0 0 Will start on trazodone 50 mg at bedtime for sleep. [id number] MCKAY CUEVAS DO [facility] [address] [place] [address] 08/20/2024 16:17:34 08/24/2024 07:55:49 Hypoxemia 436223149 R09.02 Her 02 saturation on arrival is 88% and went down to 86%; Increase 02 to 3LEMS contacted 3:11 PM and coming from [facility] oneb treatment given 3:15 PM3:30 PM 02 saturation went up to 90% after breathing treatment. EMS left at 3:45 PM Exposure t o streptococcal pharyngitis 0034936830 105 Z20.818 Streptococ lilo sore throat 84690868 J02.0 Strep swab is postive Acute exac erbation of chronic obstructive pulmonary disease 845519632 J44.1 [id number] [facility] [address] [facility] [address] [place] [address] 08/27/2024 14:14:53 10/09/2024 10:34:00 [id number] [facility] [address] [facility] [address] [place] [address] 09/21/2024 10:30:38 10/20/2024 11:56:14 [id number] MCKAY CUEVAS, DO [facility] [address] [place] [address] 12/17/2024 10:24:24 12/21/2024 08:54:56 Hyperlipidemia 81097748 E78.5 Labs obtained and will contact patient once results are reviewed. Type 2 deepak betes mellitus 94869898 E11.9 17891001 Her previous A1C 7.5 %. Continue ozempic 1 mg daily. Congestive heart failure 99711119 I50.9 Insomnia 177980631 G47.0 0 Body mass index 40+ - severely obese 830194221 Z68.42 494369 BMI 45.6 Diet education 41119245 Z71.3 Exercises education, guidance, and counseling 270297350 Z71.82 Chronic ob structive pulmonary disease 76011691 J44.9 She continues her home oxygen at 2 liters and is benefiting from usage. Screening mammography 24 725339 Z12.31 8407195245 Financial problem 500531 005 Z59.9 299655 [id number] Freya Ann [facility] [address] [facility] [address] [place] [address] 12/17/2024 11:39:45 12/17/2024 11:57:21 [id number] Didier Hardin, DO [facility] [place] [address] [place] [address] 02/18/2025 14:52:37 02/22/2025 13:34:31 Acute constipation 690814171 K59.00 050279 Discussed due to recent bowel habit change and blood in stool warrants a need for colonoscop y. Patient verbalized understand ing and agrees to plan of care. Script sent for Miralax. Advised increasing oral fluid intake and get 30 minutes of physical activity daily. Questions encouraged and answered, verbalized understand ing. Diet education 83533079 Z71.3 Exercises education, guidance, and counseling 607280916 Z71.82 Body mass index 40+ - severely obese 869628894 Z68.42 2886185747 BMI is 45.3 Depressive disorder 3548 9007 F32.A PHQ score 7. Denies any suicidal thoughts, plan or intent. Will increase Lexapro to 30mg daily. Discussed possibly adding on Rexulti if no improvemen t with lexapro increase. Patient is agreeable to plan. Advised to seek immediate care or RTC if symptoms worsen. Blood-tinged feces 57560 04712 05145 K92.1 7670 Will send referral for a colonoscop y. [id number] MCKAY CUEVAS DO [facility] [address] [place] [address] 05/05/2025 11:31:04 05/06/2025 09:54:30 Congestive heart failure 36510848 I50.9 CBC, CMP, and BNP were ordered [...] the emergency room. Candidiasis of mouth 797 90944 B37.0 61225 Chronic ob structive pulmonary disease 97733223 J44.9 Oxygen level was 82% on room air when arriving at clinic. Patient was placed on 3L oxygen while in the clinic. Oxygen level increased to 93%. She has recently moved back to [place] and is currently living with a friend. Will follow up with Lyudmila to arrange home oxygen delivery. She has a concentrat or but no oxygen bottles when she needs to leave home . Laceration of left lower leg 4616226393 0541271 S81.812S 7809497 She had sutures placed on May 02, 2025 at [facility], for a laceration . At today's visit, there is noted redness at the laceration site. A course of antibiotic s will be provided to address possible localized infection. Dyspnea 623067289 R06.02 18940 CXR obtained; Will send to radiologis t to review.Als o will arrange for echo cardiogram and cardiologi st referral;D iscussed with patient if shortness of breath worsen or develops chest pain go to the ER; Pt voiced understand ing, Influenza vaccination given [id number] 9109 Z23 [id number] MCKAY CUEVAS [facility] [address] [place] [address] 05/17/2025 14:56:52 05/18/2025 08:22:12 Chronic obstructive pulmonary disease 83266704 J44.9 [id number] Laceration of left lower leg [id number] 1658569 S81.812A L08.9 [id number] Patient has been prescribed a course of oral antibiotic s.Advised to seek immediate medical attention in the Emergency Room if symptoms worsen, including increased pain, redness, or developmen t of fever.Sche duled for follow-up on Saturday to assess healing and response to treatment. Body mass index 40+ - severely obese 816963822 E66.01 21806567 BMI 45.6 Diet education 06633110 Z71.3 Exercises education, guidance, and counseling 973075328 Z71.82 Removal of sutures done 8816720314 86182 Z48.02 7117284 Five sutures were removed from left leg. [id number] MCKAY CUEVAS [facility] [address] [place] [address] 05/24/2025 15:14:12 05/24/2025 16:47:46 Laceration of left lower leg [id number] 8302970 S81.812S [id number] Erythema to the left leg is resolving. Will continue the doxycyline for another 7 days. Wound redressedS cheduled for follow-up next week to assess healing and response to treatment. Body mass index 40+ - severely obese 632831267 E66.01 Z68.42 31534399 BMI 45.6 Diet education 45867611 Z71.3 Exercises education, guidance, and counseling 559206735 Z71.82 [id number] MCKAY CUEVAS [facility] [address] [place] [address] 05/31/2025 14:56:17 05/31/2025 15:42:35 Local infection of wound 40356831 T81.49XA [id number] post laceration leg wound with infection. An additional suture that remained was removed today. Wound improving. Bandaid applied. Return to clinic in one week for further evaluation Mild inter mittent asthma 924167471 J45.20 [id number] MCKAY CUEVAS [address] [address] 06/07/2025 15:14:29 06/07/2025 17:30:00 Local infection of wound 84886875 T81.49XA [id number] A new dressing was applied. A foam dressing will be ordered to support wound healing. Patient voiced understand ing of the treatment plan. Body mass index 40+ - severely obese 642299646 Z68.42 874924 BMI 45.6 Diet education 96468999 Z71.3 Exercises education, guidance, and counseling 901097955 Z71.82 [id number] MCKAY CUEVAS [facility] [address] [place] [address] 06/14/2025 14:58:44 06/14/2025 15:33:09 Local infection of wound 37684314 T81.49XA [id number] A new dressing was applied. Body mass index 40+ - severely obese 443674892 E66.01 Z68.42 78627421 Diet education 05400971 Z71.3 Exercises education, guidance, and counseling 265192705 Z71.82 Congestive heart failure 10304964 I50.9 Lasix was increased to 80 mg daily for three days and while taking increase in lasix take potassium. The patient was advised to monitor for worsening symptoms and to go to the emergency room. [id number] Didier Hardin DO [address] [address] 06/21/2025 14:57:19 06/22/2025 11:02:18 Local infection of wound 41835814 T81.49XA [id number] Advised to continue Levaquin as ordered. Observe for any worsening s/s of infection such as increased redness, drainage, swelling, odor or fever and RTC or seek care if symptoms occur. Otherwise follow up in one week. Questions encouraged and answered, verbalized understand ing. Diet education 16231243 Z71.3 Exercises education, guidance, and counseling 961354460 Z71.82 Body mass index 40+ - severely obese 105333463 Z68.42 9581131600 BMI is 46.2 [id number] MCKAY CUEVAS [facility] [address] [place] [address] 06/28/2025 14:26:03 06/28/2025 17:52:37 Body mass index 40+ - severely obese 988995935 Z68.42 965942 Diet education 71816186 Z71.3 Exercises education, guidance, and counseling 811783260 Z71.82 Insomnia 618950257 G47.0 9 39466 Will increase the trazodone to 100 mg at bedtime. Local infe ction of wound 86161285 T81.49XA 68931219 Healing. Completed levaquin. Will recheck next week Requires v accination against Streptococcus pneumoniae 6185955173 Z23 152930 [id number] [facility] [address] [place] [address] 07/06/2025 09:50:42 07/06/2025 12:42:45 [id number] MCKAY CUEVAS [address] [address] 07/07/2025 14:54:32 07/07/2025 15:29:25 Local infection of wound 29724796 T81.49XA [id number] Healing. If noticing any increased redness or pain; Let us know. Patient voiced understand ing Body mass index 40+ - severely obese 034432198 E66.01 00645998 Diet education 67720584 Z71.3 Exercises education, guidance, and counseling 752342100 Z71.82 Cigarette smoker 9146162 7 F17.210 255027 [id number] [facility] [address] [place] [address] 07/07/2025 15:43:10 07/07/2025 16:42:44 [id number] Padmini [facility] [address] [address] 07/22/2025 15:07:34 07/22/2025 17:21:39 [id number] Padmini [facility] [address] [address] 07/23/2025 07:58:37 07/26/2025 08:44:39 [id number] Ruby kellie [facility] [address] [address] 07/26/2025 09:20:12 07/26/2025 11:14:46 [id number] [facility] [address] [place] [address] [place] [address] 08/05/2025 15:56:46 08/05/2025 15:59:[id number] DO [facility] [address] [place] [address] 08/12/2025 11:57:16 08/12/2025 18:24:40 Post-discharge follow-up 387965851 Z51.89 [id number] admitted 07/21/2025 ; Transferre d [facility]; discharged 07/25/2025 Chronic ob structive pulmonary disease 43829536 J44.9 Pneumonia 762255449 J18. 9 [id number] Type 2 deepak betes mellitus without complication 006141397 E11.9 Will increase ozempic to 1 mg Dependence on supplemental oxygen 6817447462 07 Z99.81 [id number] on 3 L/[place] [id number] Padmini hopkins [facility] [address] [address] 08/12/2025 14:02:33 08/12/2025 16:10:51 [id number] [facility] [address] [place] [address] [place] [address] 08/12/2025 14:17:02 08/12/2025 14:37:17 [id number] [facility] [address] [place] [address] [place] [address] 08/12/2025 14:37:49 08/12/2025 14:46:05 Goals Section Goal Description Progress Status Start Date LastModified by Organization Details LastModified Time Patient will have no hospitalizat ions from COPD in the next year None Recorded None active 2024 Luisa Jaimes Information not available 07/06/2025 15:48:27 Patient demonstrates improvement in emotional and physical state None Recorded None active 2024 Liusa Jaimes Information not available 07/06/2025 15:49:08 Smoking [...] Luisa Jaimes Not Availabl e 07/06/2025 15:49:08 Advance Directives Directive N: Payers Insurance Date Sequence Insurance Name Policy Number Policy Sofia Covered Member ID Sofia Member ID Guarantor Name 08/12/2025 1 [facility] (MEDICAID REPLACEMENT - HMO) [facility] [place] Esqu[place] [id number] Nadine Esquivel 08/12/2025 1 [id number] Nadine Esquivel [id number] Nadine Esquivel 08/12/2025 1 [place] [employer] (EPO) Nadine Esquivel [id number] Nadine Esquivel 08/12/2025 1 [place] [employer] (EPO) Nadine Esquivel [id number] Nadine Esquivel 08/12/2025 2 [place] Nadine Esquivel [id number] Nadine Esquivel 08/19/2025 1 [place] [employer] (EPO) Nadine Esquivel [id number] Nadine Garcianes 08/12/2025 2 [place] [employer] (EPO) Nadine Waldrop Esquivel [id number] Nadine Waldrop Alvin 08/12/2025 2 [place] Nadine Waldrop Esquivel [id number] Nadine Waldrop Esquivel 08/12/2025 2 [facility] [place] [id number] Nadine Waldrop Alvin [id number] Nadine L Alvin Notes Date Note Type [...] within one week. She prefers referral to [place] rather than [place] due to distance. She lives in [place] with her girlfriend who provides caregiving assistance. [...] Home and Environment Living situation: Lives in [place] with girlfriend who serves as caregiver and provides transportation Other Oxygen use: 3 liters supplemental oxygen at home Tests - Echocardiogram during recent hospitalization: Ejection fraction 55% Tu Poe NP [address], [address], [place] [facility] 08/12/2025 14:28:56 OBGyn Episode No OBEpisode recorded.
--- OUTSIDE RECORDS SUMMARY | 2025-08-29 09:09 | XMS_ITS | Encounter Summary ---
Author Organization [facility] Address [address] [place] [address] Care Team Providers Care [employer] Maintenance Laborer Name Role Phone Yaz Santos Primary Care Provider [phone] Encounter Details Date Type Department Care Team (Latest Contact Info) Description 12/22/2019 Ancillary Orders [facility] Centralized Scheduling [address] [place] [id number] Yaz Santos FNP [address] [place] [address] Nausea and vomiting Social History Tobacco Use Types Packs/Day Years Used Date Smoking Tobacco: Every Day Cigarettes Alcohol Use Standard Drinks/Week Comments No 0 (1 standard drink = 0.6 oz pur e alcohol) Comments No Sex and Gender Information Value Date Recorded Sex Assigned at Not on file Legal Sex Female 6:12 AM FIREPERSON Gender Identity Not on file Sexual Orientation Not on file COVID-19 Exposure Response Date Recorded In the last month, have you been in contact with someone who was confirmed or suspected to have Coronavirus / COVID-19? No / Unsure 12/23/2019 9:59 AM CDT documented as of this encounter Plan of Treatment Not on file documented as of this encounter Visit Diagnoses Diagnosis Nausea and vomiting Nausea with vomiting documented in this encounter Additional Health Concerns Infection Onset Date Last Indicated Resolved Time R/O COVID-19 07/10/2020 07/10/2020 07/12/2020 12:4 5 AM FIREPERSON documented as of this encounter Care Teams [employer] Relationship Specialty Start Date End Date Yaz Santos FNP PCP - General NURSE PRACTITIONER 02/09/15 documented as of this encounter
--- OUTSIDE RECORDS SUMMARY | 2025-08-29 09:09 | XMS_ITS | Clinical Summary ---
Author Organization [employer] Address [address] [facility] Attn: Epic Prelude ADT VONDA BREEN [address] Care Team Providers Care Property Maintenance Supervisor Name Role Phone SantosNan camejoselwyn Robbins [facility] Primary Care Provider [phone] Allergies Active Allergy Reactions Criticality Noted Date Comments Codeine Nausea and Vomiting Low 05/07/2014 Medications albuterol (PROVENTIL,VENTOL IN) 2.5 mg /3 mL (0.083 %) Solution for Nebulization Take 2.5 mg by inhalation one time only. Active atorvastatin (LIPITOR) 40 mg tablet Take 40 mg by mouth daily. Active Breztri Aerosphere 160 mcg-9mcg-4.8mcg/a ctuation HFA aerosol inhaler Take by inhalation 2 times daily. Active escitalopram oxalate (LEXAPRO) 20 mg tablet Take 20 mg by mouth daily. Active dapagliflozin propanediol (Farxiga) 10 mg Tablet Take by mouth daily. Active furosemide (LASIX) 40 mg tablet Take 40 mg by mouth daily. Active glipiZIDE (GLUCOTROL) 5 mg tablet Take 5 mg by mouth daily with breakfast. Active hydroCHLOROthiazi de 25 mg tablet Take 25 mg by mouth daily. Active lidocaine (LIDODERM) 5 % Adhesive Patch, Medicated Apply 1 Patch to affected area every 24 hours. Active lisinopriL (PRINIVIL) 40 mg tablet Take 40 mg by mouth daily. Active meloxicam (MOBIC) 7.5 mg tablet Take 7.5 mg by mouth daily. Active metFORMIN (GLUCOPHAGE XR) 500 mg Extended Release 24 hour tablet Take 500 mg by mouth daily. Active nicotine (NICODERM CQ) 21 mg/24 hr patch Apply 1 Patch to skin as directed every 24 hours. Active Active Problems Problem Noted Date Diagnosed Date Pneumonia of right lower lobe due to infectious organism 07/21/2025 Acute on chronic congestive heart failure 2024 Streptococcal pharyngitis 08/20/2024 COPD with exacerbation 08/20/2024 Encounters Date Type Department Care Team Description 08/11/2025 Orders Only [facility] Admitting [address] [facility] [address] [place] [address] Adriana Poe FNP Encounter for screening mammogram for malignant neoplasm of breast (Primary Dx) 07/27/2025 External Device Data [facility] Provider, Abstract 07/27/2025 External Device Data [facility] Provider, Abstract 07/27/2025 External Device Data [facility] Provider, Abstract 07/21/2025 12:35 PM ENGINE DYNAMOMETER TESTER - 07/21/2025 3:40 PM ENGINE DYNAMOMETER TESTER Emergency [facility] Emergency Medicine [address] [facility] [address] [place] [address] Vitaly Gallegos MD Pneumonia of right lower lobe due to infectious organism (Primary Dx); Acute on chronic congestive heart failure, unspecified heart failure type ([facility]) Discharge Disposition: Acute Care Hospital 07/21/2025 4:45 AM ENGINE DYNAMOMETER TESTER - 07/21/2025 11:59 PM ENGINE DYNAMOMETER TESTER Hospital Encounter [facility] Emergency Medical Services [address] [address] Vitaly Gallegos MD Ambulance, [facility] Discharge Disposition: Short [facility] 07/21/2025 Travel 07/20/2025 External Device Data [facility] Provider, Abstract 06/30/2025 External Device Data [facility] Provider, Abstract 06/29/2025 External Device Data [facility] Provider, Abstract 06/08/2025 External Device Data [facility] Provider, Abstract 06/01/2025 External Device Data [facility] Provider, Abstract 06/01/2025 External Device Data [facility] Provider, Abstract 06/01/2025 External Device Data [facility] Provider, Abstract from Last 3 Months Immunizations Immunization Administration Dates Next Due (ADACEL/BOOSTRIX)(10 YR UP) TDAP VACCINE, 0.5ML, IM 05/02/2025 Family History Medical History Relation Name Comments Breast Cancer Neg Hx Ovarian Cancer Neg Hx Relation Name Status Comments Daughter 1 Alive Daughter 2 Alive Daughter 3 Alive Daughter 4 Alive Maternal Grandmother Mother Sister 1 Alive Sister 2 Alive Sister 3 Alive Sister 4 Alive Social History Tobacco Use Types Packs/Day Years Used Date Smoking Tobacco: Every Day Cigarettes Smokeless Tobacco: Never Tobacco Cessation:Ready to Q uit: Not Asked; Counseling Given: Not Answered Alcohol Use Standard Drinks/Week Comments No 0 (1 standard drink = 0.6 oz pur e alcohol) Food Insecurity Answer Date Recorded Do you find you are eating l ess than you should because you can t pay for food? No 07/21/2025 Transportation Needs Answer Date Record ed Have you gone without health care because you didn t have a way to get there? Or worry about transportation for future doctor visits, apple picking supervisor medication, etc.? No 2024 Housing Stability Answer Date Recorded Do you worry you won t have a steady place to sleep or struggle to pay rent or mortgage? No 07/21/2025 Utility Needs Answer Date Recorded Do you have difficulty payin g for utility costs (electric, water or gas bills)? No 07/21/2025 Medication Needs Answer Date Recorded Have you skipped taking medi cation due to cost or worry you can t afford new medications? No 07/21/2025 Feeling Safe Answer Date Recorded Are you in a relationship wi th someone who hurts you emotionally and/or physically? No 07/21/2025 Comments No Sex and Gender Information Value Date Recorded Sex Assigned at Not on file Legal Sex Female 5:29 AM ENGINE DYNAMOMETER TESTER Gender Identity Not on file Sexual Orientation Not on file Last Filed Vital Signs Vital Sign Reading Time Taken Comments Blood Pressure 135/83 07/21/2025 2:00 PM ENGINE DYNAMOMETER TESTER Pulse 68 07/21/2025 2:00 PM ENGINE DYNAMOMETER TESTER Temperature 36 C (96.8 F) 07/21/2025 12:35 PM ENGINE DYNAMOMETER TESTER Respiratory Rate 17 07/21/2025 2:00 PM ENGINE DYNAMOMETER TESTER Oxygen Saturation 98% 07/21/2025 2:00 PM ENGINE DYNAMOMETER TESTER Inhaled Oxygen Concentration - - Weight 134.3 kg (296 lb) 07/21/2025 12:35 PM ENGINE DYNAMOMETER TESTER Height 170.2 cm (5' 7 ) 07/21/2025 12:35 PM ENGINE DYNAMOMETER TESTER Body Mass Index 46.36 07/21/2025 12:35 PM ENGINE DYNAMOMETER TESTER Plan of Treatment Health Maintenance Due Date Last Done Comments DIABETES ANNUAL FOOT EXAM 1980 DIABETES ANNUAL RETINAL EXAM 1980 DIABETES HBA1C Q 6 MONTHS 1980 DIABETES MICROALBUMIN ANNUAL SCREEN 1980 LDL CHOLESTEROL ANNUAL 1980 HPV/Cotest (21-29) 1983 CERVICAL CANCER SCREENING 1992 HPV/Cotest (30-65) 1992 PAP SMEAR 1992 COLORECTAL SCREENING 2007 Colorectal Cancer Screening 2007 FIT-DNA Q 3 years 2007 FIT/FOBT Q 1 year 2007 Flex Sig/CT Colonography Q 5 years 2007 RSV VACCINE (60+ or ) (1 - Risk 50-74 years 1-dose series) 2012 ZOSTER VACCINE (1 of 2) 2012 BREAST CANCER SCREENING 05/29/2017 05/29/2016 DTAP/TDAP/TD VACCINES (3 - T d or Tdap) 05/02/2035 05/02/2025, 02/26/2017 INFLUENZA VACCINE Completed 05/05/2025, , 05/18/2019, Additional history exists Procedures Procedure Name Priority Date/Time Associated Diagnosis Comments EKG 12-LEAD Stat 07/21/2025 2:39 PM ENGINE DYNAMOMETER TESTER XR CHEST PA OR AP 1 VW Stat 1:22 PM ENGINE DYNAMOMETER TESTER TROPONIN BASELINE, 5TH GEN Stat 07/21/2025 12:37 PM ENGINE DYNAMOMETER TESTER PTT Stat 07/21/2025 12:37 PM ENGINE DYNAMOMETER TESTER PROTIME-INR Stat 07/21/2025 12:37 PM ENGINE DYNAMOMETER TESTER D-DIMER Stat 07/21/2025 12:37 PM ENGINE DYNAMOMETER TESTER TSH Stat 07/21/2025 12:37 PM ENGINE DYNAMOMETER TESTER MAGNESIUM LEVEL Stat 07/21/2025 12:37 PM ENGINE DYNAMOMETER TESTER C-REACTIVE PROTEIN Stat 07/21/2025 12 :37 PM ENGINE DYNAMOMETER TESTER LACTIC ACID Stat 07/21/2025 12:37 PM ENGINE DYNAMOMETER TESTER BRAIN NATRIURETIC PEPTIDE, BNP OR PROBNP Stat 07/21/2025 12:37 PM ENGINE DYNAMOMETER TESTER COMPREHENSIVE METABOLIC PANEL Stat 07/21/2025 12:37 PM ENGINE DYNAMOMETER TESTER CBC WITH DIFFERENTIAL Stat 07/21/2025 12:37 PM ENGINE DYNAMOMETER TESTER MAMMO SCREEN BILAT W OR WO CAD Routine 05/29/2016 12:39 PM CDT Encounter for screening mammogram for malignant neoplasm of breast from Last 3 Months or Most Recently Relevant to Health Maintenance Results * EKG 12 lead (07/21/2025 2:39 PM ENGINE DYNAMOMETER TESTER) Narrative Vitaly Gallegos MD - 07/21/2025 2:39 PM ENGINE DYNAMOMETER TESTER Vitaly Gallegos MD 07/21/2025 2:59 PM EKG 12 lead Date/Time: 07/21/2025 2:39 PM Performed by: Vitaly Gallegos MD Authorized by: Vitaly Gallegos MD ECG interpreted by ED Physician in the absence of a grinder tender: yes Rate: ECG rate: 64 ECG rate assessment: age appropriate Rhythm: Rhythm Origin: sinus Mcclure: QRS axis: Normal Intervals: normal QRSTT: QRSTT changes: No Vitaly Gallegos MD ECG ORDERABLES Final Result * XR CHEST PA OR AP 1 VW (07/21/2025 1:22 PM ENGINE DYNAMOMETER TESTER) Anatomical Region Laterality Modality Chest Computed Radiogr aphy 07/21/2025 1:23 PM ENGINE DYNAMOMETER TESTER Impressions 07/21/2025 1:31 PM ENGINE DYNAMOMETER TESTER IMPRESSION: Atelectasis and/or infiltrate in the right lower lung. Small right pleural effusion. Pulmonary venous hypertension. Remainder unremarkable. Narrative 07/21/2025 1:31 PM ENGINE DYNAMOMETER TESTER Exam: Radiographs: XR CHEST PA OR AP 1 VW Indication: See Reason for Exam Comparison: Chest x-ray dated 08/20/2024 Procedure Note Adrian Sorto MD - 07/21/2025 Exam: Radiographs: XR CHEST PA OR AP 1 VW Indication: See Reason for Exam Comparison: Chest x-ray dated 08/20/2024 IMPRESSION: Atelectasis and/or infiltrate in the right lower lung. Small right pleural effusion. Pulmonary venous hypertension. Remainder unremarkable. us Vitaly Gallegos MD DIAGNOSTIC IMAGING ORDERABLES F inal Result * (ABNORMAL) TROPONIN BASELINE, 5TH GEN (07/21/2025 12:37 PM ENGINE DYNAMOMETER TESTER) TROPONIN T, BASELINE 5TH GEN 29(H) <=10 ng/L 07/21/2025 2:10 PM ENGINE DYNAMOMETER TESTER [facility] Blood Collection / Unknown 07/21/2025 12:37 PM ENGINE DYNAMOMETER TESTER 07/21/2025 12:46 PM ENGINE DYNAMOMETER TESTER Narrative [facility] - 07/21/2025 2:10 PM ENGINE DYNAMOMETER TESTER Troponin elevated. us Vitaly Gallegos MD CHEMISTRY ORDERABLES Final Resu lt Performing Organization Address [facility]/ZIP Co de Phone Number [facility] CLIA # [id number] [address] [place] [address] * LACTIC ACID (07/21/2025 12:37 PM ENGINE DYNAMOMETER TESTER) LACTIC ACID 2.0 <=2.0 mmol/L 07/21/2025 1:02 PM ENGINE DYNAMOMETER TESTER [facility] Blood BLOOD SPECIMEN / Unknown Collection / Unknown 07/21/2025 12:37 PM ENGINE DYNAMOMETER TESTER 07/21/2025 12:46 PM ENGINE DYNAMOMETER TESTER us Vitaly Gallegos MD CHEMISTRY ORDERABLES Final Resu lt Performing Organization Address City/[facility]/ZIP Co de Phone Number [facility] CLIA # [id number] [address] [place] [address] * (ABNORMAL) CBC WITH DIFFERENTIAL (07/21/2025 12:37 PM ENGINE DYNAMOMETER TESTER) WBC 11.6(H) 4.0 - 10.0 K/uL 07/21/2025 12:50 PM [facility] RBC 5.64(H) 3.93 - 5.22 M/uL 07/21/2025 12:50 PM [facility] HEMOGLOBIN 15.1 11.2 - 15.7 g/dL 07/21/2025 12:50 PM [facility] HEMATOCRIT 49.7(H) 34.1 - 44.9 % 07/21/2025 12:50 PM [facility] MCV 88.1 79.4 - 94.8 fL 07/21/2025 12:50 PM [facility] MCH 26.8 25.6 - 32.2 pg 07/21/2025 12:50 PM [facility] MCHC 30.4(L) 32.2 - 35.5 g/dL 07/21/2025 12:50 PM [facility] RDW 15.3(H) 11.0 - 14.5 % 07/21/2025 12:50 PM [facility] RDW-STDEV 49.2 36.9 - 56.9 fL 07/21/2025 12:50 PM [facility] PLATELETS 292 163 - 337 K/uL 07/21/2025 12:50 PM [facility] MPV 10.1 10.0 - 14.8 fL 07/21/2025 12:50 PM [facility] NEUTROPHILS 79(H) 34 - 71 % 07/21/2025 12:50 PM [facility] LYMPHOCYTES 12(L) 19 - 52 % 07/21/2025 12:50 PM [facility] MONOCYTES 7 5 - 13 % 07/21/2025 12:50 PM [facility] EOSINOPHILS 0(L) 1 - 6 % 07/21/2025 12:50 PM [facility] BASOPHILS 1 0 - 1 % 07/21/2025 12:50 PM [facility] IMMATURE GRANULOCYTES 1 % 07/21/2025 12:50 PM [facility] NEUTROPHIL ABSOLUTE 9.12(H) 1.56 - 6.13 K/uL 07/21/2025 12:50 PM [facility] LYMPHOCYTE ABSOLUTE 1.43 1.20 - 3.40 K/uL 07/21/2025 12:50 PM [facility] MONOCYTE ABSOLUTE 0.81(H) 0.24 - 0.36 K/uL 07/21/2025 12:50 PM [facility] EOSINOPHIL ABSOLUTE 0.04 0.04 - 0.36 K/uL 07/21/2025 12:50 PM [facility] BASOPHILS ABSOLUTE 0.06 0.01 - 0.08 K/uL 07/21/2025 12:50 PM [facility] IMMATURE GRANULOCYTES ABSOLUTE 0.10 K/uL 07/21/2025 12:50 PM [facility] Blood Collection / Unknown 07/21/2025 12:37 PM ENGINE DYNAMOMETER TESTER 07/21/2025 12:46 PM ENGINE DYNAMOMETER TESTER Vitaly Gallegos MD HEMATOLOGY ORDERABLES Final Res ult [facility] CLIA # [id number] [address] [place] [address] [phone] * PTT (07/21/2025 12:37 PM ENGINE DYNAMOMETER TESTER) PTT 26.7 25.1 - 35.4 seconds 07/21/2025 12:58 PM ENGINE DYNAMOMETER TESTER [facility] Blood BLOOD SPECIMEN / Unknown Collection / Unknown 07/21/2025 12:37 PM ENGINE DYNAMOMETER TESTER 07/21/2025 12:48 PM ENGINE DYNAMOMETER TESTER us Vitaly Gallegos MD HEMATOLOGY ORDERABLES Final Res ult [facility] CLIA # [id number] [address] [place] [address] * PROTIME-INR (07/21/2025 12:37 PM ENGINE DYNAMOMETER TESTER) PROTIME 13.1 12.1 - 14.3 Seconds 07/21/2025 12:58 PM ENGINE DYNAMOMETER TESTER [facility] INR 1.0 0.9 - 1.1 07/21/2025 12:58 PM ENGINE DYNAMOMETER TESTER [facility] Blood BLOOD SPECIMEN / Unknown Collection / Unknown 07/21/2025 12:37 PM ENGINE DYNAMOMETER TESTER 07/21/2025 12:48 PM ENGINE DYNAMOMETER TESTER us Vitaly Gallegos MD HEMATOLOGY ORDERABLES Final Res ult Performing Organization Address City/[facility]/ZIP Co de Phone Number [facility] CLIA # [id number] [address] [place] [address] * D-DIMER (07/21/2025 12:37 PM ENGINE DYNAMOMETER TESTER) D-DIMER QUANT 0.44 <0.50 ug/mL FEU 07/21/2025 1:05 PM ENGINE DYNAMOMETER TESTER [facility] Blood BLOOD SPECIMEN / Unknown Collection / Unknown 07/21/2025 12:37 PM ENGINE DYNAMOMETER TESTER 07/21/2025 12:48 PM ENGINE DYNAMOMETER TESTER [facility] - 07/21/2025 1:05 PM ENGINE DYNAMOMETER TESTER D-Dimer assay cutoff value for exclusion of DVT and/or PE is <0.50 ug/mL FEU. As D-Dimer levels increase naturally with age, age stratification for patients over 50 is potentially more appropriate in determining whether a patient should undergo further evaluation for DVT and/or PE than a general cutoff of 0.50 ug/mL FEU. Clinical consideration is recommended. Age Stratified Cutoff Values: 50-60 years: 0.50-0.60 ug/mL FEU 61-70 years: 0.61-0.70 ug/mL FEU 71-80 years: 0.71-0.80 ug/mL FEU us Vitaly Gallegos MD HEMATOLOGY ORDERABLES Final Res ult [facility] CLIA # [id number] [address] [place] [address] * (ABNORMAL) C-REACTIVE PROTEIN (07/21/2025 12:37 PM ENGINE DYNAMOMETER TESTER) CRP 54.7(H) <5.0 mg/L 07/21/2025 1:10 PM [facility] Blood Collection / Unknown 07/21/2025 12:37 PM ENGINE DYNAMOMETER TESTER 07/21/2025 12:46 PM ENGINE DYNAMOMETER TESTER us Vitaly Gallegos MD CHEMISTRY ORDERABLES Final Resu lt Performing Organization Address City/[facility]/ZIP Co de Phone Number [id number] [address] [place] [address] * TSH (07/21/2025 12:37 PM ENGINE DYNAMOMETER TESTER) TSH 1.69 0.27 - 4.20 uIU/mL 07/21/2025 1:10 PM [facility] Blood Collection / Unknown 07/21/2025 12:37 PM ENGINE DYNAMOMETER TESTER 07/21/2025 12:46 PM ENGINE DYNAMOMETER TESTER us Vitaly Gallegos MD CHEMISTRY ORDERABLES Final Resu lt Performing Organization Address City/[facility]/ZIP Co de Phone Number [facility] [id number] [address] [place] [address] * (ABNORMAL) BRAIN NATRIURETIC PEPTIDE, BNP OR PROBNP (07/21/2025 12:37 PM ENGINE DYNAMOMETER TESTER) PROBNP, N TERMINAL 466(H) 0 - 125 pg/mL 07/21/2025 1:10 PM [facility] Comment: INTERPRETIVE COMMENT based on diagnosis: Diagnostic NT pro-BNP cutoffs for Heart Failure in the absence of renal failure is suggested for the following ranges <75 years: <125 pg/mL >=75 years: <450 pg/mL Exclusionary rule out cut-point for Acute Decompensated Heart Failure(ADHF) All ages: <300 pg/mL Diagnostic NT pro-BNP cutoffs for Acute Decompensated Heart Failure(ADHF) in the absence of renal failure is suggested for the following ages <50 years: > 450 pg/mL 50-75 years: > 900 pg/mL >75 years: >1800 pg/mL Blood Collection / Unknown 07/21/2025 12:37 PM ENGINE DYNAMOMETER TESTER 07/21/2025 12:46 PM ENGINE DYNAMOMETER TESTER us Vitaly Gallegos MD CHEMISTRY ORDERABLES Final Resu lt Performing Organization Address [facility]/ZIP Co de Phone Number [facility] CLIA # [id number] [address] [place] [address] * MAGNESIUM LEVEL (07/21/2025 12:37 PM ENGINE DYNAMOMETER TESTER) MAGNESIUM 2.0 1.6 - 2.4 mg/dL 07/21/2025 1:10 PM [facility] Blood Collection / Unknown 07/21/2025 12:37 PM ENGINE DYNAMOMETER TESTER 07/21/2025 12:46 PM ENGINE DYNAMOMETER TESTER us Vitaly Gallegos MD CHEMISTRY ORDERABLES Final Resu lt Performing Organization Address [facility]/ZIP Co de Phone Number [facility] CLIA # [id number] [address] [place] [address] * (ABNORMAL) COMPREHENSIVE METABOLIC PANEL (07/21/2025 12:37 PM ENGINE DYNAMOMETER TESTER) SODIUM 135(L) 136 - 145 mmol/L 07/21/2025 1:10 PM [facility] POTASSIUM 4.4 3.5 - 5.1 mmol/L 07/21/2025 1:10 PM [facility] CHLORIDE 93(L) 98 - 107 mmol/L 07/21/2025 1:10 PM [facility] CO2 34(H) 22 - 29 mmol/L 07/21/2025 1:10 PM [facility] CALCIUM 9.5 8.8 - 10.2 mg/dL 07/21/2025 1:10 PM [facility] BUN 14 8 - 23 mg/dL 07/21/2025 1:10 PM [facility] CREATININE 0.94 0.51 - 0.95 mg/dL 07/21/2025 1:10 PM [facility] GLUCOSE 269(H) 74 - 99 mg/dL 07/21/2025 1:10 PM [facility] TOTAL PROTEIN 8.0 6.6 - 8.7 g/dL 07/21/2025 1:10 PM [facility] ALBUMIN 3.7 3.5 - 5.2 g/dL 07/21/2025 1:10 PM [facility] BILIRUBIN TOTAL 0.6 0.0 - 1.2 mg/dL 07/21/2025 1:10 PM [facility] ALKALINE PHOSPHATASE 210(H) 35 - 104 U/L 07/21/2025 1:10 PM [facility] AST 39(H) 0 - 35 U/L 07/21/2025 1:10 PM [facility] ALT 44(H) 0 - 35 U/L 07/21/2025 1:10 PM [facility] GFR >60 >=60 mL/min/1.7 3 sq meter 07/21/2025 1:10 PM [facility] Comment:eGFR calculated with 2020 CKD-EPI equation. Vegetarian diet, extremely high or low muscle mass, and may affect results. Cystatin C with Glomerular Filtration Rate is a suitable alternative for these patients. ANION GAP 8 5 - 20 mmol/L 07/21/2025 1:10 PM [facility] Blood Collection / Unknown 07/21/2025 12:37 PM ENGINE DYNAMOMETER TESTER 07/21/2025 12:46 PM [facility] us Vitaly Gallegos MD CHEMISTRY ORDERABLES Final Resu lt [facility] CLIA # [id number] [address] [place] [address] * MAMMO SCREEN BILAT W OR WO CAD (05/29/2016 12:39 PM CDT) Anatomical Region Laterality Modality Breast Bilateral Other Impressions 05/30/2016 10:31 AM CDT The 2 suspected nodular areas on the right will require additional evaluation. I recommend straight mediolateral image with compressed magnified CC and ML images, with ultrasound as necessary. [id number] Narrative 05/30/2016 10:31 AM CDT Bilateral Digital [...] by the Computer Aided Detection System (CAD), R2 ImageChecker, Version 8.3. Procedure Note Juan Baltazar MD - 12/06/2021 Bilateral Digital Screening Mammogram: Screening mammogram on [...] by the Computer Aided Detection System (CAD), R2 ImageChecker, Version 8.3. IMPRESSION The 2 suspected nodular areas on the right will require additional evaluation. I recommend straight mediolateral image with compressed magnified CC and ML images, with ultrasound as necessary. [id number] [facility] MAMMO ORDERABLES Final Result from Last 3 Months or Most Recently Relevant to Health Maintenance Insurance [facility] Care Teams Property Maintenance Supervisor Relationship Specialty Start Date End Date Yaz Santos FNP [address] [place] [address] PCP - General NURSE PRACTITIONER 02/09/15
--- OUTSIDE RECORDS SUMMARY | 2025-08-29 09:09 | XMS_ITS | Encounter Summary ---
Author Organization [facility], [facility] Address [address] [place] [address] Phone Care Team Providers Care Grey Goods Tester Name Role Phone Adriana Poe Primary Care Provider [phone] Encounter Details Date Type Department Care Team (Late st Contact Info) Description 06/05/2023 Orders Only [facility] [address] [place] [address] Abnormal result of kidney function study Social History Tobacco Use Types Packs/Day Years Used Date Smoking Tobacco: Never Assessed Comments Unknown Sex and Gender Information Value Date Recorded Sex Assigned at Not on file Legal Sex Female 2:11 PM EDT Gender Identity Not on file Sexual Orientation Not on file documented as of this encounter Plan of Treatment Not on file documented as of this encounter Visit Diagnoses Diagnosis Abnormal result of kidney function study documented in this encounter Care Teams Grey Goods Tester Relationship Specialty Start Date End Date Adriana Poe FNP [address] [place] [address] PCP - General Family Medicine 06/05/23 documented as of this encounter
--- NOTE | 2025-08-29 09:11 | XRR_ITS ---
PROCEDURE INFORMATION: Exam: XR Chest Exam date and time: 08/29/2025 9:27 AM Age: 65 years old Clinical indication: Shortness of breath. TECHNIQUE: Imaging protocol: Radiologic exam of the chest. Views: 1 view. COMPARISON: CT lung screening [id number] 07/19/2023 10:06 AM FINDINGS: Lungs: No pulmonary consolidation. Pleural spaces: No pleural effusion. No pneumothorax. Heart/Mediastinum: The cardiac silhouette is unchanged. No gross evidence of pneumomediastinum. Bones/joints: No gross fracture. XR/XR chest 1V portable [id number] IMPRESSION: No acute cardiopulmonary abnormality identified.
--- NOTE | 2025-08-29 09:12 | W.ED.SOB ---
HPI - SOB/Dyspnea General: Chief Complaint: Shortness of Breath/Dyspnea Stated Complaint: sob History of Present Illness: HPI Narrative: Patient is a pleasant 65-year-old female with COPD, O2 dependent at 3 L, HTN, presents to the emergency room via EMS from home due to shortness of breath. Context: Patient stated she started having worsening shortness of breath last p.m. This was associated with cough, worse with exertion, clear sputum production, upper respiratory symptoms with runny nose. She does have associated symptoms of diaphoresis. The shortness of breath was worse this morning. Patient took albuterol aerosol treatment at home prior to EMS. EMS gave DuoNeb, and Solu-Medrol 125 mg IV push. She has not had any fevers, chest pain. Patient states she lives in an apartment contact and has sick contact per the apartment complex. Associated symptoms: Reports chest congestion; Deny abdominal pain, chest pain, extremity pain, fever(s), hemoptysis, nausea or vomiting Related Data Home Medications ?Medication ?Instructions ?Recorded ?Confirmed metformin 500 mg tablet 500 mg PO DAILY 02/25/24 03/25/25 Previous Rx's ?Medication ?Instructions ?Recorded atorvastatin 40 mg tablet 40 mg PO DAILY #90 tabs 10/15/22 furosemide 40 mg tablet 40 mg PO DAILY #90 tabs 10/15/22 hydrochlorothiazide 25 mg tablet 25 mg PO DAILY #90 tabs 10/15/22 lisinopril 40 mg tablet 40 mg PO DAILY #90 tabs 10/15/22 right volar fast form #1 ea 02/25/24 Cock Up Splint #1 ea 04/17/24 azithromycin 500 mg tablet See Rx Instructions PO .COMPLEX #6 08/29/25 tabs azithromycin 500 mg tablet See Rx Instructions PO .COMPLEX #7 08/29/25 tabs ipratropium 0.5 mg-albuterol 3 mg 3 ml inhalation 5XD #90 mL 08/29/25 (2.5 mg base)/3 mL nebulization soln prednisone 10 mg tablets in a dose 10 mg PO DIRECTED #27 ea 08/29/25 pack Allergies Allergy/AdvReac Type Severity Reaction Status Date / Time codeine Allergy Unknown Unknown Verified 03/25/25 10:54 Review of Systems General: Reports: 10 or more systems reviewed and unremarkable except in HPI and below Const: Denies: fever(s), chills, change in weight or fatigue Eyes: Denies: change in vision ENMT: Reports: nasal discharge, nasal congestion and post nasal drip; Denies: throat pain Card: Denies: chest pain Resp: Reports: dyspnea, productive cough, wheezing and chest congestion; Denies: pain on inspiration, change in phlegm color or hemoptysis GI: Reports: constipation and hematochezia; Denies: abdominal pain, nausea, vomiting, diarrhea, change in bowel habits or melena : Denies: dysuria Musc: Reports: joint pain (chronic); Denies: neck pain, back pain, extremity pain or extremity swelling Skin/Breast: Denies: rash, nipple discharge or breast mass Neuro: Denies: seizure-like activity Zackery/Lymph: Denies: easy bruising PFS ED PFSH: Medical History (Updated 08/29/25 @ 10:32 by ADDIS Morelos) HTN (hypertension) Hyperlipidemia Venous insufficiency Xbakt-Nceuvgkoz-Yldvr (WPW) syndrome Surgical History S/P tubal ligation Family History Mother Diabetes Myocardial infarction Brother Diabetes Myocardial infarction Family/Other Hypertension Social History Smoking and tobacco/nicotine status: current some day tobacco/nicotine user Alcohol intake: never Physical Exam Const: COMMON NORMALS: no acute distress, patient oriented x3 and alert GENERAL APPEARANCE: cooperative, comfortable, well kempt and well hydrated HENMT: COMMON NORMALS: normocephalic, atraumatic, hearing grossly normal bilaterally and external ears normal HEAD & SCALP: normocephalic and atraumatic FACE & SINUS: normal facial exam; no edema EXTERNAL EAR: Yes external ears normal Eye: COMMON NORMALS: EOMs intact bilaterally, conjunctivae normal and no scleral icterus GENERAL EYE: appearance normal, both eyes and all related structures ALIGNMENT: Yes alignment normal EYELID: eyelids normal CONJUNCTIVA: Yes conjunctivae normal SCLERA: sclerae normal Neck/C-Spine: COMMON NORMALS: supple and no JVD GENERAL: Yes normal visual inspection and No Mass present (neck) CAROTIDS: Yes normal carotid upstroke Chest: COMMONS NORMALS: normal inspection of the chest and normal palpation of entire chest wall CHEST: Yes Symmetrical chest wall rise, No mass, No tenderness, No Surgical scars present (Chest) and No rash Resp: COMMON NORMALS: No retractions EFFORT & INSPECTION: Yes symmetric chest movement, Yes tachypneic (mild), No respiratory distress and No labored AUSCULTATION: no crackles, rales on the right in the lower lung koo, no rhonchi and wheezes Cardio: COMMON NORMALS: no JVD, regular rate, regular rhythm, S1 normal heart sound present and S2 normal heart sound present RATE: regular rate RHYTHM: regular rhythm HEART SOUNDS: S1 normal heart sound present, S2 normal heart sound present and no murmurs BRUITS: no carotid bruits GI: COMMON NORMALS: Soft to palpation AUSCULTATION: Yes normoactive bowel sounds PALPATION: Yes Soft to palpation, No Tenderness to palpation present (GI) and No Guarding due to palpation present (GI) Extremity: GENERAL: No calf tenderness, No cyanosis, No edema and No pallor Neuro: COMMON NORMALS: patient oriented x3, no focal motor deficits and gait normal SENSORIUM/ORIENTATION: Yes alert Psych: COMMON NORMALS: Normal thought process present and speech normal APPEARANCE: Yes well kempt SPEECH: Yes normal speech MOOD & AFFECT: Yes euthymic mood THOUGHT PROCESS: Normal thought process present THOUGHT CONTENT: Yes Normal thought content present Skin: HAIR: normal NAILS: normal Course Reevaluation(s): Reevaluation #1: Patient states improvement with her shortness of breath/dyspnea. Vital Signs: Vital signs: Vital Signs Temperature 97.5 F L 08/29/25 09:05 Pulse Rate 68 08/29/25 11:31 Respiratory Rate 19 H 08/29/25 10:30 Blood Pressure 161/82 08/29/25 11:31 Pulse Oximetry 92 08/29/25 11:31 Oxygen Delivery Me thod Nasal Cannula 08/29/25 09:05 Oxygen Flow Rate 3 08/29/25 09:05 MDM - SOB/Dyspnea Medical Decision Making Patient is 65-year-old female with O2 dependent COPD at 3 L. During her stay in the emergency room she has ranged from 93-95% on 3 L. She is notably feeling better after EMS gave her DuoNeb, and Solu-Medrol. DuoNeb has been sent to the pharmacy, as well as prednisone taper. Patient is to follow-up closely with her primary care physician regarding her acute exacerbation of COPD. Additional workup is without findings, no pneumonia, minimal leukocytosis, COVID-negative. Creatinine is 1.3, unknown baseline. She is chronically on Lasix, and hydrochlorothiazide, which she states she has taken today. She is return to the ED if with further issues Medical Records I reviewed the patient's medical records. Lab Data I reviewed the patient's lab results. 08/29/25 09:41 08/29/25 09:41 Labs/Radiology: Radiology Impressions Chest X-Ray 08/29/25 09:11 IMPRESSION: No acute cardiopulmonary abnormality identified. Laboratory Results WBC 12.64 10^3/uL (3.29-11.43) H 08/29/25 09:41 RBC 4.98 10^6/uL (3.85-5.65) 08/29/25 09:41 Hgb 13.50 g/dL (11.27-16.99) 08/29/25 09:41 Hct 45.7 % (36-47) 08/29/25 09:41 MCV 91.8 fl (85-98) 08/29/25 09:41 MCH 27.1 pg (27-33) 08/29/25 09:41 MCHC 29.5 g/dL (30-55) L 08/29/25 09:41 RDW 15.7 % (12.1-15.1) H 08/29/25 09:41 Plt Count 200 10^3/cmm (157-399) 08/29/25 09:41 MPV 10.3 fL (7.4-10.4) 08/29/25 09:41 Neut % (Auto) 81.2 % 08/29/25 09:41 Lymph % (Auto) 12.0 % 08/29/25 09:41 [place] % (Auto) 5.2 % 08/29/25 09:41 Eos % (Auto) 0.6 % 08/29/25 09:41 Baso % (Auto) 0.5 % 08/29/25 09:41 Neut # (Auto) 10.26 10^3/uL (1.8-7.7) H 08/29/25 09:41 Lymph # (Auto) 1.5 10^3/uL (0.8-4.8) 08/29/25 09:41 [place] # (Auto) 0.7 10^3/uL (0.2-0.9) 08/29/25 09:41 Eos # (Auto) 0.1 10^3/uL (0.0-0.8) 08/29/25 09:41 Baso # (Auto) 0.1 10^3/uL (0.0-0.1) 08/29/25 09:41 Nucleated RBC % (auto) 0.2 % 08/29/25 09:41 Nucleated RBCs # 0.0 /100WBC 08/29/25 09:41 Sodium 140 mmol/L (136-145) 08/29/25 09:41 Potassium 4.3 mmol/L (3.5-5.1) 08/29/25 09:41 Chloride 97 mmol/L (98-107) L 08/29/25 09:41 Carbon Dioxide 30 mmol/L (22-29) H 08/29/25 09:41 Anion Gap 17.3 (5-19) 08/29/25 09:41 BUN 24 mg/dL (8-23) H 08/29/25 09:41 Creatinine 1.3 mg/dL (0.5-0.9) H 08/29/25 09:41 GFR Calculation 41.4 mL/min (90-130) L 08/29/25 09:41 Glucose 162 mg/dL (65-115) H 08/29/25 09:41 Calculated Osmolality 298 mOsm/kg (285-295) H 08/29/25 09:41 Calcium 9.0 mg/dL (8.5-10.5) 08/29/25 09:41 Total Bilirubin 0.4 mg/dL (0.15-1.2) 08/29/25 09:41 AST 26 U/L (0-32) 08/29/25 09:41 ALT 21 U/L (0-33) 08/29/25 09:41 Alkaline Phosphatase 125 U/L (35-105) H 08/29/25 09:41 Troponin T Baseline 32 ng/L (0-10) H 08/29/25 09:41 Troponin T 60 Minute 32.11 ng/L (0-10) H 08/29/25 10:35 Delta Troponin T 0.11 ABS# (0-10) 08/29/25 10:35 NT-Pro-B Natriuret Pep 657 pg/mL (0-125) H 08/29/25 09:41 Total Protein 7.4 g/dL (6.6-8.7) 08/29/25 09:41 Albumin 4.0 g/dL (3.5-5.2) 08/29/25 09:41 Globulin 3.4 g/dL (1.3-4.6) 08/29/25 09:41 Procalcitonin 0.05 ng/mL (0-0.5) 08/29/25 09:41 Influenza A (PCR) Negative (Negative) 08/29/25 09:35 Influenza Type B (PCR) Negative (Negative) 08/29/25 09:35 RSV (PCR) Negative (Negative) 08/29/25 09:35 SARS-CoV-2 (PCR) Negative (Negative) 08/29/25 09:35 All radiology interpretation(s) finalized by discharge ED provider radiology interpretation(s): Cardiomegaly, central congestion EKG Data EKG 1: Interpretation: Sinus rhythm without ST segment elevation, left axis, right atrial enlargement EKG 2: Interpretation: Sinus rhythm, left axis, right atrial enlargement, no ST segment elevation Discharge Plan Discharge Patient Disposition: Home Clinical Impression: Acute exacerbation of chronic obstructive airways disease Condition: Stable Prescriptions: New prednisone 10 mg tablets,dose pack 10 mg PO DIRECTED Qty: 27 0RF Rx Instructions: Take 4 x 3 days, take 3 x 3 days, take 2 x 2 days, take 1 x 2 days. azithromycin 500 mg tablet See Rx Instructions .ROUTE .COMPLEX Qty: 7 0RF Rx Instructions: For 250 mg dose pack: take 500 mg today (day 1), then 250 mg for 4 days (days 2-5) azithromycin 500 mg tablet See Rx Instructions .ROUTE .COMPLEX Qty: 6 0RF Rx Instructions: For 250 mg dose pack: take 500 mg today (day 1), then 250 mg for 4 days (days 2-5) ipratropium-albuterol 0.5 mg-3 mg(2.5 mg base)/3 mL solution for nebulization 3 ml inhalation 5XD Qty: 90 0RF No Action furosemide 40 mg tablet 40 mg PO DAILY Qty: 90 3RF atorvastatin 40 mg tablet 40 mg PO DAILY Qty: 90 3RF hydrochlorothiazide 25 mg tablet 25 mg PO DAILY Qty: 90 3RF lisinopril 40 mg tablet 40 mg PO DAILY Qty: 90 3RF metformin 500 mg tablet 500 mg PO DAILY (DME) right volar fast form See Rx Instructions .Route .MEDSUPPLY Qty: 1 0RF Rx Instructions: As directed (DME) Cock Up Splint See Rx Instructions .ROUTE .MEDSUPPLY Qty: 1 0RF Rx Instructions: As directed Discharge Orders: Discharge ED (Routine); Ordered 08/29/25 Ordered By: Diann Flood Referrals: Adriana Poe NP [Primary Care Provider, Nurse Practitioner] Discharge Diet: Low Salt Discharge Activity: Resume usual activity Patient Instructions: COPD (Chronic Obstructive Pulmonary Disease) (ED), Patient Portal & Travis Instructions Activity Restrictions/Additional Instructions: - When you have a flare with your COPD, it is very important to stay in close contact with your primary care. Please call tomorrow for an appointment and follow-up this week. - At the pharmacy: ([facility]) 1. DuoNeb. This is a combination of albuterol and ipratropium. Do not use this aerosol solution in combination with your albuterol at home. This 1 is a replacement with your exacerbation 2. Azithromycin. Use as directed 3. Prednisone taper pack. It is very important to use this as directed. This is another reason to follow-up with your doctor. Sometimes your steroids get extended when you have a COPD exacerbation - Return to ED with worsening shortness of breath, fever greater than 100.4 Thank you for choosing [facility] for your healthcare needs today. You have been screened and evaluated and felt safe for discharge. Health conditions do change or evolve sometimes and as such it is important that you follow up with your Primary Doctor to be re checked, 3-5 days is a general good time frame for follow up. You are always welcome to return to the ED for re assessment if your symptoms are worsening or you have new concerns Print Language: Kyrgyz Coding Level of Care Code ED [place] [facility] for Kiesha Hunt
--- NOTE | 2025-08-29 09:18 | ECG_ITS ---
[facility] Date: 2025-08[facility]29 Pat Name: Nadine Esquivel Department: Room: Gender: Female Installation And Service Technician: : 1960 Requested By: Diann Flood Order Number: [id number] Reading MD: AIMEE ESCOBEDO Measurements Intervals [place] Rate: 64 P: 61 [place]: 143 QRS: -27 QRSD: 90 T: 82 QT: 421 QTc: 436 Interpretive Statements SINUS RHYTHM BORDERLINE LEFT AXIS DEVIATION [QRS AXIS < -20] LOW QRS VOLTAGE IN PRECORDIAL LEADS [QRS DEFLECTION < 1.0 mV IN CHEST LEADS] POSSIBLE RIGHT VENTRICULAR CONDUCTION DELAY [RSR (QR) IN V1/V2] No previous ECG available for comparison Electronically Signed On 08-29-2025 22:54:41 CARTON FORMING MACHINE TENDER by AIMEE ESCOBEDO [email or web address]
[2025-08-29 09:51] LABS: Hematocrit 45.7 % (36-47); Hemoglobin 13.50 g/dL (11.27-16.99); Mean Corpuscular HGB Conc 29.5 g/dL (30-55); Mean Corpuscular Hemoglobin 27.1 pg (27-33); Mean Corpuscular Volume 91.8 fl (85-98); Nucleated Red Blood Cells % 0.2 %; Platelet Count 200 10^3/cmm (157-399); Red Blood Count 4.98 10^6/uL (3.85-5.65); White Blood Count 12.64 10^3/uL (3.29-11.43)
--- NOTE | 2025-08-29 09:56 | ECG_ITS ---
[email or web address] Date: 2025-08-29 Pat Name: Nadine Esquivel Department: Room: Gender: Female Dry Pan Charger: : 1960 Requested By: Diann Flood Order Number: [id number] Reading MD: AIMEE ESCOBEDO Measurements Intervals [place] Rate: 61 P: 68 [place]: 140 QRS: -36 QRSD: 92 T: 81 QT: 434 QTc: 439 Interpretive Statements SINUS RHYTHM WITH OCCASIONAL VENTRICULAR PREMATURE COMPLEXES LEFT AXIS DEVIATION [QRS AXIS < -30] LOW QRS VOLTAGE IN PRECORDIAL LEADS [QRS DEFLECTION < 1.0 mV IN CHEST LEADS] POSSIBLE RIGHT VENTRICULAR CONDUCTION DELAY [RSR (QR) IN V1/V2] Compared to ECG 08/29/2025 09:18:36 Ventricular premature complex(es) now present Electronically Signed On 08-29-2025 22:54:22 TAPPER OPERATOR by AIMEE ESCOBEDO [email or web address]
[2025-08-29 10:00] VITALS: BP 149/92; PULSE 70; RESP 19; O2SAT 94
[2025-08-29 10:10] LABS: Troponin(5th) Baseline 32 ng/L (0-10)
--- NOTE | 2025-08-29 10:14 | ECG_ITS ---
[facility] Date: 2025-08-29 Pat Name: Nadine Esquivel Department: Room: Gender: Female Field Health Officer: : 1960 Requested By: Diann Flood Order Number: [id number] Reading MD: AIMEE ESCOBEDO Measurements Intervals [place] Rate: 60 P: 70 [place]: 137 QRS: -36 QRSD: 97 T: 76 QT: 453 QTc: 453 Interpretive Statements SINUS RHYTHM LOW QRS VOLTAGE IN PRECORDIAL LEADS [QRS DEFLECTION < 1.0 mV IN CHEST LEADS] PATTERN CONSISTENT WITH PULMONARY DISEASE POSSIBLE RIGHT VENTRICULAR CONDUCTION DELAY [RSR (QR) IN V1/V2] Compared to ECG 08/29/2025 09:56:43 Ventricular premature complex(es) no longer present Left-axis deviation no longer present Electronically Signed On 08-29-2025 23:19:40 ARTIFICIAL FLOWERS STARCHER by AIMEE ESCOBEDO [email or web address]
[2025-08-29 10:17] LABS: NT Pro B Type Natriuretic Pept 657 pg/mL (0-125); Procalcitonin 0.05 ng/mL (0-0.5)
[2025-08-29 10:18] LABS: Respiratory Syncytial Virus Ce NEGATIVE (Negative); SARS-CoV-2 PCR NEGATIVE (Negative)
[2025-08-29 10:28] LABS: Alanine Aminotransferase 21 U/L (0-33); Albumin Level 4.0 g/dL (3.5-5.2); Alkaline Phosphatase 125 U/L (35-105); Blood Urea Nitrogen 24 mg/dL (8-23); Calcium 9.0 mg/dL (8.5-10.5); Carbon Dioxide 30 mmol/L (22-29); Chloride 97 mmol/L (98-107); Globulin 3.4 g/dL (1.3-4.6); Glucose 162 mg/dL (65-115); Osmolality Calculated 298 mOsm/kg (285-295); Sodium 140 mmol/L (136-145); Total Protein 7.4 g/dL (6.6-8.7)
[2025-08-29 10:29] LABS: Anion Gap 17.3 (5-19); Aspartate Amino Transferase 26 U/L (0-32); Potassium 4.3 mmol/L (3.5-5.1)
[2025-08-29 10:30] VITALS: PULSE 63; RESP 19; O2SAT 97
[2025-08-29 11:31] VITALS: BP 161/82; PULSE 68; O2SAT 92
== END 2025-08-29 11:32 | disposition home or self-care (01) ==
PROVIDERS: Emergency Provider Physician Assistant; PCP Nurse Practitioner Family
DX: J44.1 Chronic obstructive pulmonary disease with (acute) exacerbation (principal); Z79.84 Long term (current) use of oral hypoglycemic drugs; Z11.52 Encounter for screening for COVID-19; Z72.0 Tobacco use; E78.5 Hyperlipidemia, unspecified; I10 Essential (primary) hypertension; Z99.81 Dependence on supplemental oxygen
CPT/HCPCS: 36415; 71045; 80053; 83880; 84145; 84484; 85025; 87637; 93005; 99285